=== PATIENT | female | born 1955 | race Caucasian/White ===

== ENCOUNTER → 2021-01-22 10:34 | Outpatient (CLI) | payer MEDICARE, BC, SELFPAY ==
--- NOTE | 2021-01-22 | IMM_PTH ---
PATIENT: MARGUERITE KELLY LOC: [facility] U#:[id number] AGE/SX: 69/F ROOM: RE01/22/[address]: Dr. Spencer Starks MD : 1955 BED: DIS: SPEC #: [id number] RECD: 01/23/21 12:40 STATUS: ZAIN RERogelio #: [id number] EREN: 01/22/21 00:[address]: Spencer Starks DEPT: IMMUNOHISTOCHEMISTRY RECD BY: Roro Kerr ENTERED: 01/23/21 12:42 SP TYPE: IMMUNO OTHR DR: No Primary Care Phys Tissues: Left breast, NOS Procedures: CALPONIN-1 (add) CK8 (add) E-CAD (add) HER2 BETTE (add) RI (add) P40 (add) ER (initial) PHYSICIAN & INSTITUTION [place] [address] SPECIMEN INFORMATION: Tissue Source: Left breast Clinical Info: Microcalcifications left UOQ Specimen Number: [id number] #2 & 3 CPT code: 80607, 73553 x5, 93781 x3 METHODOLOGY: Deparaffinized sections of prefer/formalin-fixed tissue or PAP/DQ stained slides are incubated with monoclonal/polyclonal antibodies/oligonucleotide probes. Localization is made via biotin free immunoperoxidase method. Appropriate controls are performed and reacted as expected. Results on target cell population are indicated in the following table: RESULTS: ANTIBODY / CLONE RESULT Block 2 P40 (BC28) positive Calponin-1 (YQ868B) positive Block 3 E-Cad (ECH-6) positive CK8 (14gmdvY25) positive Calponin-1 (WT988J) positive P40 (BC28) positive MORPHOMETRIC ANALYSIS ER (6F11) positive (>95%, strong) RI (1E2) positive (>95%, moderate) Her-2neu (CB11) negative (0) The prognostic test for HER2 is performed on formalin-fixed paraffin embedded tissue. A 3+ (positive) staining pattern is defined as intense, homogeneous, complete, circumferential membranous staining in >10% of contiguous tumor cells. A similar weak (2+) staining pattern is interpreted as equivocal. NILO follow-up testing is recommended for all equivocal cases. Positivity/negativity for ER/RI is reported if > or < 1% of the tumor cells are immuno- reactive, respectively. The ASCO/CAP criteria is used for scoring. Reference: Journal of Clinical Oncology, 2013; 31:7825-8623 & 2010; 16:9789-9860. Duration of fixation: 8 Hrs; Sample Adequate: Yes. These assays have not been validated on decalcified tissues. Results should be interpreted with caution given the likelihood of false negativity on decalcified specimens. These tests were developed and their performance characteristics determined by [facility]. They may not have been cleared or approved by the U.S. Food and Drug Administration. The FDA has determined that such clearance or approval is not necessary. The above immunohistochemical/dualISH markers are ordered and reviewed by the Pathologist. INTERPRETATION: Left breast, stereotactic needle core biopsy: Ductal carcinoma in situ, nuclear grade 1-2. SJ:ruby 01/24/2021 SJ:ruby 01/26/2021
--- NOTE | 2021-01-22 | IMM_PTH ---
PATIENT: MARGUERITE KELLY LOC: [facility] U#:[id number] AGE/SX: 69/F ROOM: RE01/22/[address]: Dr. Spencer Starks MD : 1955 BED: DIS: SPEC #: [id number] RECD: 01/23/21 12:40 STATUS: ZAIN RERogelio #: [id number] EREN: 01/22/21 00:[address]: Spencer Starks DEPT: IMMUNOHISTOCHEMISTRY RECD BY: Roro Kerr ENTERED: 01/23/21 12:42 SP TYPE: IMMUNO OTHR DR: No Primary Care Phys Tissues: Left breast, NOS Procedures: CALPONIN-1 (add) CK8 (add) E-CAD (add) HER2 BETTE (add) HI (add) P40 (add) ER (initial) PHYSICIAN & INSTITUTION [place] [address] SPECIMEN INFORMATION: Tissue Source: Left breast Clinical Info: Microcalcifications left UOQ Specimen Number: [id number] #2 & 3 CPT code: 48994, 59365 x8 METHODOLOGY: Deparaffinized sections of prefer/formalin-fixed tissue or PAP/DQ stained slides are incubated with monoclonal/polyclonal antibodies/oligonucleotide probes. Localization is made via biotin free immunoperoxidase method. Appropriate controls are performed and reacted as expected. Results on target cell population are indicated in the following table: RESULTS: ANTIBODY / CLONE RESULT Block 2 P40 (BC28) positive Calponin-1 (FV618L) positive Block 3 ER (6F11) positive (>95%, strong) HI (1E2) positive (>95%, moderate) Her-2neu (CB11) negative (0) E-Cad (ECH-6) positive CK8 (78pjncV40) positive Calponin-1 (ZA834I) positive P40 (BC28) positive These tests were developed and their performance characteristics determined by [facility]. They may not have been cleared or approved by the U.S. Food and Drug Administration. The FDA has determined that such clearance or approval is not necessary. The above immunohistochemical/dualISH markers are ordered and reviewed by the Pathologist. INTERPRETATION: Left breast, stereotactic needle core biopsy: Ductal carcinoma in situ, nuclear grade 1-2. SJ:ruby 01/24/2021
--- NOTE | 2021-01-22 10:49 | HP.PCM_ITS ---
History and Physical Date of Admission: 01/22/21 HISTORY AND PHYSICAL - BREAST COMPLAINT ? Emilie Kern 1955 ? ? REFERRING PHYSICIAN: Self, ? CHIEF COMPLAINT: Microcalcifications of the breast (primary encounter diagnosis) ? HPI: The patient is a 65 year old female with a complaint of an abnormal mammogram. The patient had a mammogram without ultrasound on 12/15/20 which demonstrated BI-RADS Category 4 microcalcifications located in the slightly lateral and superior left breast at a middle depth: ? ? The patient denies a history of breast masses. She does perform a self breast exam routinely. She notes no skin changes. She denies nipple discharge. She notes no axillary masses. She notes no family history of breast problems. She notes no significant breast trauma or breast difficulties in the past. ? ? ? PAST MEDICAL HISTORY PAST MEDICAL HISTORY Diagnosis Date ? Coronary atherosclerosis of unspecified type of vessel, [place] or graft ? ? Coronary artery disease, [place] x2, 1985, 1992 ? Dyslipidemia ? ? Hypertension ? ? Myocardial infarct, old 04/26/13 ? Unspecified hemorrhoids without mention of complication ? ? Hemorrhoids ? ? PAST SURGICAL HISTORY PAST SURGICAL HISTORY Procedure Laterality Date ? APPENDECTOMY ? ? ? LEFT HEART CATH ? 04/26/13, 05/11/2013 ? 100% mid occlusion of RPV1 ? PAST SURGICAL HISTORY OF ? ? ? 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 PERC TRANSL COR ANGIO ? 2003 ? Distal RCA - PTCA/No stent ? REMOVAL GALLBLADDER ? 1970 ? Cholecystectomy ? REMOVAL OF TONSILS,<12 Y/O ? ? ? Tonsillectomy ? ? ? CURRENT MEDICATIONS Current Outpatient Medications Medication Sig Dispense Refill ? BIOTIN ORAL Take by mouth. ? ? ? amLODIPine (NORVASC) 5 mg tablet Take 1 tablet by mouth once daily. 90 tablet 4 ? atorvastatin (LIPITOR) 80 mg tablet Take 1 tablet by mouth once daily. 90 tablet 4 ? clopidogrel (PLAVIX) 75 mg tablet Take 1 tablet by mouth once daily. 90 tablet 4 ? isosorbide mononitrate ER (IMDUR) 30 mg 24 hr tablet Take 1 tablet by mouth once daily. 90 tablet 4 ? lisinopril 2.5 mg tablet Take 1 tablet by mouth once daily. 90 tablet 4 ? metoprolol succinate ER (TOPROL XL) 100 mg Take 1 tablet by mouth once daily. 90 tablet 4 ? nitroglycerin sublingual (NITROQUICK) 0.4 mg SL tablet Dissolve 1 tablet under the tongue as needed. FOR CHEST PAIN. IF NO RELIEF CALL 911 25 tablet 3 ? ASPIRIN 81MG TABLET Take one (1) tablet daily . 0 0 ? No current facility-administered medications for this visit. ? ? ALLERGIES: Patient has no known allergies. ? PERSONAL HISTORY: SOCIAL HISTORY Social History ? Tobacco Use ? Smoking status: Former Smoker ? ? Packs/day: 1.00 ? ? Years: 10.00 ? ? Pack years: 10.00 ? ? Types: Cigarettes ? Smokeless tobacco: Never Used ? Tobacco comment: quit 1982 Vaping Use ? Vaping Use: Never used Substance Use Topics ? Alcohol use: Yes ? ? Alcohol/week: 7.0 standard drinks ? ? Types: 7 Glasses of Wine (5oz) per week ? ? Comment: Socially wine ? Drug use: No ? FAMILY HISTORY: FAMILY HISTORY FAMILY HISTORY Problem Relation Age of Onset ? Heart Mother ? ? Cancer Father ? ? Multiple myeloma and amyloidisis ? ? REVIEW OF SYMPTOMS: The review of systems data was entered by the nurse and reviewed by me ? Nursing Notes: Kellie Cleveland LPN 01/09/2021 5:24 PM Signed REVIEW OF SYSTEMS: General: The patient denies fatigue, denies weight loss, denies weight gain, denies feeling hot, and denies feelings of cold. Eyes: The patient denies glaucoma, denies eye injury/surgery, does not wear glasses or contacts. Ear/Nose/Throat: The patient denies allergies, denies hayfever, denies ear infections, and denies bloody noses. Cardiovascular: The patient denies chest pain, NOTES heart disease, denies high blood pressure,denies cardiac stent, NOTES prior heart attack, denies irregular heart beat, denies high cholesterol, denies poor circulation, denies heart failure, other cardiac issues, denies claudication, denies cold feet, denies peripheral arterial stent. Respiratory: The patient denies tuberculosis, denies pneumonia, denies frequent cough, denies pulmonary embolism, denies shortness of breath, and denies coughing up blood. Gastrointestinal: The patient denies difficulty swallowing, NOTES acid reflux, denies ulcers, denies vomiting, denies jaundice/hepatitis, denies gallbladder problems, denies black or tarry stools, denies hemorrhoids, denies bleeding from rectum, denies diverticulitis, denies constipation, denies diarrhea, denies loss of stool control, and denies hernias. Kidney/Bladder: The patient denies kidney stones, denies urine infections, and denies bloody urine. Skin: The patient denies a history of skin cancer, denies bleeding/changin g moles, and denies a history of skin rash. Neurologic: The patient denies a history of epilepsy/convulsions, denies headaches, denies head/spinal injuries, and denies stroke/TIA. Psychiatric: The patient denies psychiatric medications, denies depression, and denies voices, denies substance abuse. Endocrine: The patient denies thyroid disorders, denies diabetes, and denies hormonal problems. Hematologic: The patient denies a history of bruising, denies bleeding, and denies anemia, denies blood clots. Infections: The patient denies a history of measles and mumps, denies rheumatic fever, and denies sexually transmitted diseases. Musculoskeletal: The patient denies back pain/injury, denies back problems, denies sciatica, denies knee/foot trouble, denies arthritis, or denies gout. ? ? When was patient's last Mammogram screening? 12/2020 ? Last Colonoscopy: 2010 ? Kellie Cleveland LPN ? PHYSICAL EXAMINATION: ? General: The patient is 65 year old female, well nourished, well hydrated in no acute distress. The patient is oriented to time, place, and person. ? VITALS: Pulse 77, temperature 36.8 ?C (98.3 ?F), weight 83.6 kg (184 lb 6.4 oz), SpO2 98 %. Body mass index is 28.88 kg/m?. ? HEENT: Normal cephalic, ataumatic, pupils are equally round, sclera are anicteric, mucous membranes are moist, oropharynx is clear. Neck has no masses, asymmetry or lymphadenopathy. Thyroid is unremarkable. ? Respiratory: Clear to auscultation and percussion. Normal respiratory excursion and pattern. ? Cardiac: Examination is regular rate and rhythm. ? Abdominal exam: Soft, nontender, with no palpable masses. No hepatosplenomegaly. No palpable hernias. ? Rectal exam: exam deferred Extremities: no clubbing, cyanosis or edema. No adenopathy. ? Breast: Visual inspection reveals no retractions, nipple inversion, or skin changes. Palpation of the right breast reveals no dominant or suspicious masses. Palpation of the left breast reveals no dominant or suspicious masses. Axillary exam demonstrates no suspicious masses in either the left or right axilla. There is no nipple discharge expressed from either the left or right breast. ? LABORATORY VALUES: As Noted ? RADIOLOGIC STUDIES: As Noted ? Assessment IMPRESSION: Microcalcifications of the breast (primary encounter diagnosis) ? PLAN: I plan to perform a stereotactic biopsy of the left breast. The planned surgical procedure was discussed extensively with the patient. The risks, benefits, anticipated outcomes and possible complications were mentioned. My staff has also explained the procedure in understandable terms and the patient was given the option to take printed material concerning the planned procedure. The patient had the opportunity to ask questions concerning the planned procedure. The patient freely consents to the planned procedure. ? ? Diagnoses: (R92.0) Microcalcifications of the breast (primary encounter diagnosis) ? ? ? Return to Clinic: The patient is instructed to follow-up with me 1 week post operatively. ? COVID (Procedure Consent) Procedure Criteria ? Procedure Criteria: Yes Elective The surgeon/proceduralist and patient have discussed in detail the risk of exposure to and/or potential harm posed by the COVID-19 virus with having a surgery/procedure at this time versus the risk of? delaying the surgery/procedure. It is not possible to know either the risk of delaying the surgery or procedure or chance of getting an infection with perfect accuracy, but a joint decision was made between the patient and the surgeon/proceduralist ?to proceed at this time with the scheduled surgery/procedure as indicated on the consent form. ? ? Spencer Starks III, MD I have re-examined the patient. There are no clinical changes since date of exam.
--- NOTE | 2021-01-22 11:35 | BRBX_PTH ---
PATIENT: MARGUERITE KELLY LOC: [facility] U#:[id number] AGE/SX: 69/F ROOM: RE01/22/[address]: Dr. Spencer Starks MD : 1955 BED: DIS: SPEC #: [id number] RECD: 01/22/21 12:09 STATUS: ZAIN AIDE #: [id number] EREN: 01/22/21 11:[address]: Spencer Starks DEPT: SURGICAL PATHOLOGY RECD BY: Ayla Abreu ENTERED: 01/22/21 12:58 SP TYPE: BREAST BX OTHR DR: No Primary Care Phys Tissues: Breast, NOS Procedures: Surgery Specimen Level IV HEADER OPERATION: Left breast stereotactic needle core biopsy PRE-OP DIAGNOSIS: Microcalcifications left UOQ TISSUE SUBMITTED: Left breast ISCHEMIC TIME: 2 minutes FIXATION TIME: 8 hours MICROSCOPIC DIAGNOSIS Left breast, stereotactic needle core biopsy: Ductal carcinoma in situ with the following characteristics: Nuclear Grade ? 1-2/3 Architectural pattern - cribriform Necrosis ? present, central (expansive comedo necrosis). Calcifications - present See comment. ILEANA:ruby 01/23/2021 COMMENT Intraductal hyperplasia with focal atypia are noted in the area of ductal carcinoma in situ. Immunohistochemistry ([id number]) supports the above diagnosis. ER/NC/Zeq4qwx studies are being performed on sections of tumor and the results from this study will be reported separately ([id number]). Case has been reviewed in consultation with Dr. Verduzco who concurs with the above diagnosis. IDC:AM MICROSCOPIC DESCRIPTION Slides are reviewed. GROSS DESCRIPTION Received in fixative is one container labeled with the patient name and designated left breast. The specimen consists of multiple elongated fragments of oconnell-yellow fibroadipose tissue that in aggregate measure 5 x 3 x 0.6 cm. The entire specimen is submitted in four cassettes. / ILEANA:ruby 01/22/21 TC:0 CPT: 06993
--- NOTE | 2021-01-22 17:15 | OP.PCM_ITS ---
Problems Associated Problem List Diagnoses (1) Microcalcification of breast: Report of Operation Date of Procedure: 01/22/21 Pre-Operative Diagnosis: Microcalcifications left breast Post-Operative Diagnosis: Same Surgery/Procedure Performed:: Left stereotactic breast biopsy Surgeon: Spencer Starks supervisor landscape: None Type of Anesthesia: Local Specimen's removed: Left breast biopsy Description of Procedure: Patient was brought into the mammography unit placed in the supine position on the fracture table the left breast was brought down through the opening. Cc view was obtained. Microcalcifications were identified. ?15 degree views were obtained. I targeted on the microcalcifica tions. I prepped the breast with Betadine. I injected 1% lidocaine plain. Skin adriel was made. I injected local down to the lesion. Placed a needle in the prefire position took 2 more stereo view showing the area to be adequately targeted. Far the needle took 360 degrees circumferential biopsies x-ray my specimen and microcalcifications were present. Back the needle off 7 mm placed a small Gelfoam titanium clip remove the needle x-ray of the breast the clip was in good placement. Steri-Strips were applied sterile dressings were applied and the patient tolerated the procedure well. Admit VTE Documentation VTE Present on Admission: No VTE Mechan Device Prophylaxis: None Reason prophylaxis not ordered:: Treatment Not Indicated
== END ==
PROVIDERS: Referring Provider Surgery; Visit Provider Surgery
DX: D05.12 Intraductal carcinoma in situ of left breast (principal); I10 Essential (primary) hypertension; I25.10 Atherosclerotic heart disease of native coronary artery without angina pectoris; I25.2 Old myocardial infarction; E78.5 Hyperlipidemia, unspecified; Z79.82 Long term (current) use of aspirin; Z79.899 Other long term (current) drug therapy; Z87.891 Personal history of nicotine dependence
CPT/HCPCS: 19081; 88305; 88341; 88342; J7050; A4648

== ENCOUNTER 2021-02-08 11:56 | Day surgery (SDC) | payer MEDICARE, BC, SELFPAY ==
--- NOTE | 2021-02-08 | BRBX_PTH ---
PATIENT: MARGUERITE KELLY LOC: [facility] [place] U#:[id number] AGE/SX: 65/F ROOM: RE02/08/[address]: Dr. Spencer Starks MD : 1955 BED: DIS: 02/08/2021 SPEC #: [id number] RECD: 02/08/21 14:31 STATUS: ZAIN RERogelio #: [id number] EREN: 02/08/21 00:[address]: Spencer Starks DEPT: SURGICAL PATHOLOGY RECD BY: Roro Kerr ENTERED: 02/08/21 15:08 SP TYPE: BREAST BX OTHR DR: No Primary Care Phys Tissues: Left breast, NOS Procedures: Surgery Specimen Level V HEADER OPERATION: Left breast lumpectomy PRE-OP DIAGNOSIS: DCIS TISSUE SUBMITTED: Left breast, single long - superior, double long - lateral, double short - inferior MICROSCOPIC DIAGNOSIS Left breast, lumpectomy with needle localization: Negative for residual ductal carcinoma in situ. Changes consistent with previous biopsy site. Focal intraductal hyperplasia without atypia. Skin, dermal fibrosis consistent with scar. See cancer summary (including previous biopsy specimen) in the comment section. SJ:rg 02/13/2021 COMMENT DUCTAL CARCINOMA IN SITU SUMMARY: Procedure ? lumpectomy with needle localization & stereotactic needle core biopsy Specimen laterality ? left Tumor site ? microcalcification at upper outer quadrant as per clinical information. Size (extent of DCIS) (in the biopsy specimen [id number]) Estimated size (extent) ? 0.9 cm in greatest dimension (measured microscopically) Number of blocks with DCIS - 2 Number of blocks examined ? 16 (lumpectomy and biopsy specimens) Histologic type ? ductal carcinoma in situ Architectural pattern - cribriform Nuclear grade ? 1-2/3 Necrosis ? present, central (expansive ?comedo? necrosis) Margins ? Margins uninvolved by DCIS (no residual carcinoma is noted in the lumpectomy specimen). - Biopsy cavity is 0.7 cm away from the closest inferior margin. Regional lymph nodes ? no lymph nodes submitted or found. Distant metastasis ? not applicable Additional Pathologic Findings ? changes consistent with previous biopsy site. - Focal intraductal hyperplasia without atypia. - Skin, dermal fibrosis consistent with scar. Microcalcifications - present in DCIS (in biopsy specimen [id number]). Clinical history ? microcalcifications as per clinical information. Ancillary Studies from previous specimen ([id number] / [id number]): ER ? positive (>95%, strong intensity) MS ? positive (>95%, moderate intensity) Her2 lizbeth ([facility]) ? negative (0) Clinical history - Please make reference to previous specimen ([id number]) left breast, stereotactic needle core biopsy with diagnosis of ductal carcinoma in situ. Pathologic Staging: pT(DCIS) (including biopsy [id number]) pNx Mx The above summary is in compliance with [employer] (CAP) Cancer Protocols Checklist and [place] Joint Committee on Cancer (AJCC), Staging Manual, 8th Ed. Case has been reviewed in consultation with Dr. Verduzco who concurs with the above diagnosis. IDC:AM MICROSCOPIC DESCRIPTION Slides are reviewed. GROSS DESCRIPTION Received fresh for intraoperative consultation labeled with the patient's name is a specimen designated left breast. The specimen consists of a piece of fibroadipose tissue with needle localization measuring 8 x 7 x 3.5 cm. A piece of skin is noted medially measuring 1 x 0.5 cm. The specimen is oriented as follows: single long - superior, double long - lateral and double short - inferior. The specimen is inked as follows: anterior - yellow, posterior - black, superior - blue, inferior - green, medial - red and lateral - orange. Serial sections reveal a biopsy cavity measuring 2.5 x 1.5 x 1 cm. The biopsy cavity is 0.7 cm from the closest inferior margin. The specimen gross is reviewed along with surgeon in person. Sections of the rest of the specimen reveal oconnell-yellow adipose cut surfaces mixed with oconnell-white fibrous areas. [employer] sections are submitted in 12 cassettes as follows: 1??skin, entirely submitted, perpendicular anterior and posterior margins, 2 - perpendicular medial, lateral and superior margins, 36??biopsy cavity with surrounding area (cassettes 3 & 4 also contain closest inferior margin), 7 & 8 - personal financial representative sections adjacent to the biopsy cavity, 9-12 - personal financial representative sections away from the biopsy cavity, biopsy cavity is entirely submitted. Sections are submitted after additional fixation. / SJ:ruby 02/09/21 TC:5 CPT: 52716, 94039
--- NOTE | 2021-02-08 12:13 | BI_ITS ---
SURGICAL BREAST SPECIMEN RADIOGRAPH CLINICAL: Document presence of tissue clip marker in biopsy specimen. FINDINGS: Specimen shows presence of tissue clip marker. Electronically Signed: Davie Saldaña MD at 14:57 EDT , Service support , BI/Breast Biopsy Specimen
[2021-02-08] MEDS: Lactated Ringers 1,000 ML 100 ML IV (12:15)
[2021-02-08 12:42] VITALS: BP 140/60; PULSE 53; RESP 16; TEMP 36.7; O2SAT 98; BMI 27.3
--- NOTE | 2021-02-08 13:36 | PCM.HP.BLA ---
History and Physical Date of Admission: 02/08/21 HISTORY AND PHYSICAL - BREAST COMPLAINT ? Emilie Kern 1955 ? ? ? CHIEF COMPLAINT:???Ductal carcinoma in situ (dcis) of left breast (primary encounter diagnosis) ? HPI: The patient is a 65 year old female with a complaint of?an abnormal mammogram. ?The patient had a mammogram without?ultrasound on 12/15/20?which demonstrated BI-RADS Category 4 microcalcifications located in the slightly lateral and superior left breast at a middle depth: ? Patient underwent a stereotactic breast biopsy on 01/22/2021. Pathology report came back as ductal carcinoma in situ nuclear grade 1?2 it was strongly ER positive and NM positive and it was HER-2/lizbeth negative. ? Given the low nuclear grade and HER-2/lizbeth negative I think all the patient needs is to have a lumpectomy. ? ? PAST MEDICAL HISTORY ? ? ? PAST MEDICAL HISTORY Diagnosis Date ? Coronary atherosclerosis of unspecified type of vessel, [place] or graft ? ? Coronary artery disease, [place] x2, 1985, 1992 ? Dyslipidemia ? ? Hypertension ? ? Myocardial infarct, old 04/26/13 ? Unspecified hemorrhoids without mention of complication ? ? Hemorrhoids ? PAST SURGICAL HISTORY ? PAST SURGICAL HISTORY Procedure Laterality Date ? APPENDECTOMY ? ? ? LEFT HEART CATH ? 04/26/13, 05/11/2013 ? 100% mid occlusion of RPV1 ? PAST SURGICAL HISTORY OF ? ? ? abnormal kidney removed age 6 done at [facility], still has 2 1/2 kidneys ? PERC TRANSL COR ANGIO ? 2003 ? Distal RCA - PTCA/No stent ? REMOVAL GALLBLADDER ? 1970 ? Cholecystectomy ? REMOVAL OF TONSILS,<12 Y/O ? ? ? Tonsillectomy ? ? ? CURRENT MEDICATIONS Current Outpatient Medications Medication Sig Dispense Refill ? BIOTIN ORAL Take by mouth. ? ? ? amLODIPine (NORVASC) 5 mg tablet Take 1 tablet by mouth once daily. 90 tablet 4 ? atorvastatin (LIPITOR) 80 mg tablet Take 1 tablet by mouth once daily. 90 tablet 4 ? clopidogrel (PLAVIX) 75 mg tablet Take 1 tablet by mouth once daily. 90 tablet 4 ? isosorbide mononitrate ER (IMDUR) 30 mg 24 hr tablet Take 1 tablet by mouth once daily. 90 tablet 4 ? lisinopril 2.5 mg tablet Take 1 tablet by mouth once daily. 90 tablet 4 ? metoprolol succinate ER (TOPROL XL) 100 mg Take 1 tablet by mouth once daily. 90 tablet 4 ? nitroglycerin sublingual (NITROQUICK) 0.4 mg SL tablet Dissolve 1 tablet under the tongue as needed. FOR CHEST PAIN. IF NO RELIEF CALL 911 25 tablet 3 ? ASPIRIN 81MG TABLET Take one (1) tablet daily . 0 0 ? No current facility-administered medications for this visit. ? ? ALLERGIES:?Patient has no known allergies. ? PERSONAL HISTORY:? SOCIAL HISTORY Social History ? Tobacco Use ? Smoking status: Former Smoker ? ? Packs/day: 1.00 ? ? Years: 10.00 ? ? Pack years: 10.00 ? ? Types: Cigarettes ? Smokeless tobacco: Never Used ? Tobacco comment: quit 1982 Vaping Use ? Vaping Use: Never used Substance Use Topics ? Alcohol use: Yes ? ? Alcohol/week: 7.0 standard drinks ? ? Types: 7 Glasses of Wine (5oz) per week ? ? Comment: Socially wine ? Drug use: No ?? ? FAMILY HISTORY:? FAMILY HISTORY ? FAMILY HISTORY Problem Relation Age of Onset ? Heart Mother ? ? Cancer Father ?Multiple myeloma and amyloidisis ? ? REVIEW OF SYSTEMS: ?General:???The patient denies fatigue, denies weight loss, denies weight gain, denies feeling hot, and denies feelings of cold. ?Eyes: ?The patient denies glaucoma, denies eye injury/surgery, does not wear glasses or contacts. ?Ear/Nose/Throat: ?The patient denies allergies, denies hayfever, denies ear infections, and denies bloody noses. ?Cardiovascular: ?The patient denies chest pain, NOTES heart disease, denies high blood pressure,denies cardiac stent, NOTES prior heart attack, denies irregular heart beat, denies high cholesterol, ?denies poor circulation, denies heart failure, other cardiac issues, denies claudication, denies cold feet, denies peripheral arterial stent. ?Respiratory: ?The patient denies tuberculosis, denies pneumonia, denies frequent cough, denies pulmonary embolism, denies shortness of breath, and denies coughing up blood. ?Gastrointestinal: ?The patient denies difficulty swallowing, NOTES acid reflux, denies ulcers, denies vomiting, denies jaundice/hepatitis, denies gallbladder problems, denies black or tarry stools, denies hemorrhoids, denies bleeding from rectum, denies diverticulitis, denies constipation, denies diarrhea, denies loss of stool control, and denies hernias. ?Kidney/Bladder: ?The patient denies kidney stones, denies urine infections, and denies bloody urine. ?Skin: ?The patient denies a history of skin cancer, denies bleeding/changing moles, and denies a history of skin rash. ?Neurologic: ?The patient denies a history of epilepsy/convulsions, denies headaches, denies head/spinal injuries, and denies stroke/TIA. ?Psychiatric: ?The patient denies psychiatric medications, denies depression, and denies voices, denies substance abuse. ?Endocrine: ?The patient denies thyroid disorders, denies diabetes, and denies hormonal problems. ?Hematologic: ?The patient denies a history of bruising, denies bleeding, and denies anemia, denies blood clots. ?Infections: ?The patient denies a history of measles and mumps, denies rheumatic fever, and denies sexually transmitted diseases. ?Musculoskeletal: ?The patient denies back pain/injury, denies back problems, denies sciatica, denies knee/foot trouble, denies arthritis, or denies gout. ? ? When was patient's last Mammogram screening? 12/2020 ? ?Last Colonoscopy: ?2010 ? ? PHYSICAL EXAMINATION: ? General: ?The patient is 65 year old female, well nourished, well hydrated in no acute distress. ?The patient is oriented to time, place, and person. ? VITALS:?Pulse 77, temperature 36.8 ?C (98.3 ?F), weight 83.6 kg (184 lb 6.4 oz), SpO2 98 %.?Body mass index is 28.88 kg/m?.? ? HEENT: ?Normal cephalic, ataumatic, pupils are equally round, sclera are anicteric, mucous membranes are moist, oropharynx is clear. ?Neck has no masses, asymmetry or lymphadenopathy. ?Thyroid is unremarkable. ? Respiratory: ?Clear to auscultation and percussion. ?Normal respiratory excursion and pattern. ? Cardiac: ?Examination is regular rate and rhythm. ? Abdominal exam: ?Soft, nontender, ?with no palpable masses. ?No hepatosplenomegaly. ?No palpable hernias. ? Rectal exam: ?exam deferred Extremities: ?no clubbing, cyanosis or edema. ?No adenopathy. ? Breast: ?Visual inspection reveals no retractions, nipple inversion, or skin changes. ?Palpation of the right breast reveals no dominant or suspicious masses. ?Palpation of the left breast reveals no dominant or suspicious masses. ?Axillary exam demonstrates no suspicious masses in either the left or right axilla. ?There is no nipple discharge expressed from either the left or right breast. ? ? ? Assessment ? IMPRESSION:Ductal carcinoma in situ (dcis) of left breast (primary encounter diagnosis) ? PLAN:??I plan to perform a? left breast wire localization lumpectomy.?The planned surgical procedure was discussed extensively with the patient. ?The risks, benefits, anticipated outcomes and possible complications were mentioned. ?My staff has also explained the procedure in understandable terms and the patient was given the option to take printed material concerning the planned procedure. ?The patient had the opportunity to ask questions concerning the planned procedure. ?The patient freely consents to the planned procedure. ? Diagnoses:?(R92.0) Microcalcifications of the breast ?(primary encounter diagnosis) ? Return to Clinic: The patient is instructed to follow-up with me?1 week post operatively. ? COVID (Procedure Consent) Procedure Criteria ? Procedure Criteria: Yes Elective ?The surgeon/proceduralist and patient have discussed in detail the risk of exposure to and/or potential harm posed by the COVID-19 virus with having a surgery/procedure at this time versus the risk of??delaying the surgery/procedure. It is not possible to know either the risk of delaying the surgery or procedure or chance of getting an infection with perfect accuracy, but a joint decision was made between the patient and the surgeon/proceduralist ?to proceed at this time with the scheduled surgery/procedure as indicated on the consent form. ? ? Spencer Starks III, MD I have re-examined the patient. There are no clinical changes since date of exam. Assessment & Plan Assessment/Plan (1) DCIS (ductal carcinoma in situ):
--- NOTE | 2021-02-08 13:38 | PCM.OPRPT ---
Problems Associated Problem List Diagnoses (1) DCIS (ductal carcinoma in situ): Report of Operation Date of Procedure: 02/08/21 Pre-Operative Diagnosis: Ductal carcinoma in situ left breast Post-Operative Diagnosis: Same Surgery/Procedure Performed:: Stereotactic wire localization left breast lumpectomy Surgeon: Spencer Starks supervisor carton and can supply: Eduardo Cuenca Type of Anesthesia: General Anesthesiologist: [place] Her Specimen's removed: Left breast lumpectomy Drains: None Estimated Blood Loss (mL): < 25 cc Description of Procedure: Patient was brought into the stereotactic unit. Placed in the supine position on the fracture table the left breast was brought down the cc view was obtained ?15 degree views were obtained I targeted on the clip that was left in place. I prepped the breast with Betadine. I injected 1% lidocaine plain. I placed a needle at the targeted view 2 more stereo views were obtained showing the needle to be in the appropriate place. Patient was brought out of machine sterile dressings applied and she was brought to the operating room. Under excellent general anesthetic left breast was sterilely prepped and draped in usual fashion. Elliptical incision was made around the previous biopsy site. I lengthened in both the lateral and medial fashion electrocautery was used to dissect a core around the wire localization. I brought this completely out I marked it with a single long superior double long lateral double short inferior and the wire and skin came out anteriorly. This went to pathology for margins and I did have margins all the way around to my specimen. The wound was then irrigated electrocautery was used for getting the stasis I brought it together deep layer with 0 Vicryl subcu with 2-0 Vicryl deep dermals of 3-0 Vicryl in a running 4-0 Monocryl Steri-Strips were applied sterile dressings were applied and the patient tolerated the procedure well. Admit VTE Documentation VTE Present on Admission: No VTE Mechan Device Prophylaxis: SCD's VTE Pharm Prophylaxis ordered?: No Reason prophylaxis not ordered:: Treatment Not Indicated
--- NOTE | 2021-02-08 13:40 | EX.PCM.DISCH ---
Discharge Instructions Procedure General Surgery Diet Discharge Diet: Light diet - advance as tolerated (If you have questions about your diet instructions, please talk to your doctor.) Activity Discharge Activity: May Not Drive (for 1 week or while taking narcotic pain medicine.) May shower in (days): 1 Lifting Restrictions: 10 pounds Dressing / Incision Call your doctor if your incision/area has: Continuous Slow Oozing, Sudden Increased Bleeding, Increased Pain/ Swelling, Increased Redness and Foul Smelling Discharge Call your doctor if you observe: Fever of 101 or Higher Suture Line Care: Avoid Pulling/Pushing and Avoid Pinching/Bending Additional Dressing/Incision Instructions:: Change or remove dressing in 4 days. Leave steri-strips in place for 1 week. Follow Up Care Please Follow Up With: Yari Michelle PA-C When: Call office to schedule an appointment to be seen in about 10 days. Test Results: Test results from this visit will be discussed in further detail at your follow-up appointment, if applicable. Discharge Plan Admission Attending Provider: Spencer Starks Primary Care Provider: Care Physician,Dayana Primary Discharge Orders/Prescriptions Prescriptions: New oxycodone-acetaminophen [Endocet] 5-325 mg tablet 1 tab PO Q6H PRN (Reason: pain) 5 Days Qty: 20 RF: 0 Continued atorvastatin 80 mg tablet 80 mg PO DAILY RF: 0 metoprolol tartrate 100 mg Tablet 100 mg PO DAILY RF: 0 isosorbide mononitrate 30 mg Tablet Extended Release 24 Hr 30 mg PO DAILY RF: 0 amlodipine 5 mg tablet 5 mg PO DAILY RF: 0 lisinopril 2.5 mg tablet 2.5 mg PO QHS RF: 0 biotin 1 mg Capsule 1 mg PO DAILY RF: 0 famotidine [Pepcid] 20 mg Tablet 20 mg PO PRN PRN (Reason: gerd) RF: 0 Held clopidogrel [Plavix] 75 mg Tablet 75 mg PO DAILY RF: 0 Hold Instructions: Resume on 02/13/21. aspirin 81 mg Tablet,Delayed Release (Dr/Ec) 81 mg PO DAILY RF: 0 Hold Instructions: Resume on 02/13/21. Referrals / Follow Up: Care Physician,No Primary [Primary Care Provider] -
[2021-02-08] MEDS: Cefazolin 2 GM in 0.9% Normal Saline 100 ML IV (13:57)
[2021-02-08] MEDS: Bupivacaine Mpf 0.5% 30 ML VIAL (14:11)
[2021-02-08 14:54] VITALS: BP 104/63; BP 140/60; PULSE 55; RESP 16; TEMP 35.8; O2SAT 96
[2021-02-08 15:00] VITALS: BP 113/65; BP 140/60; PULSE 55; RESP 16; O2SAT 97
[2021-02-08 15:15] VITALS: BP 117/52; BP 140/60; PULSE 53; RESP 16; TEMP 35.8; O2SAT 95
[2021-02-08] MEDS: oxyCODONE 5 MG Tablet PO (16:14)
[2021-02-08 16:57] VITALS: BP 115/64; BP 140/60; PULSE 56; RESP 16; TEMP 36; O2SAT 98
== END 2021-02-08 16:55 ==
LOC: SDC 12:03 → AC 12:03
PROVIDERS: Referring Provider Surgery; Visit Provider Surgery
PROC: (CPT 19301; principal; 2021-02-08 13:45)
DX: D05.12 Intraductal carcinoma in situ of left breast (principal); I10 Essential (primary) hypertension; I25.10 Atherosclerotic heart disease of native coronary artery without angina pectoris; I25.2 Old myocardial infarction; E78.5 Hyperlipidemia, unspecified; K21.9 Gastro-esophageal reflux disease without esophagitis; G25.81 Restless legs syndrome; G43.909 Migraine, unspecified, not intractable, without status migrainosus; Z87.19 Personal history of other diseases of the digestive system; Z79.02 Long term (current) use of antithrombotics/antiplatelets; Z79.82 Long term (current) use of aspirin; Z79.899 Other long term (current) drug therapy; Z87.891 Personal history of nicotine dependence
CPT/HCPCS: 19301; 19281; 76098; 88305; 88307; J7120; J2405; Q9968

== ENCOUNTER 2025-04-29 06:57 | Day surgery (SDC) | payer MEDICARE, BC, SELFPAY ==
--- NOTE | 2025-03-31 15:47 | HP.PCM_ITS ---
History and Physical Date of Admission: 04/29/25 HPI: The patient is a 69 year old female presenting for pre-operative visit. She is scheduled for Hysteroscopy D&C, possible polyp resection for PMB, thickened endometrium on 04/29/25. Procedure discussed along with risks, benefits and complications. Other alternatives discussed for management. Consent form signed? Yes. ? ? PAST MEDICAL HISTORY PAST MEDICAL HISTORYDiagnosisDate?Age-related osteoporosis without current pathological /10/2023?CAD (coronary artery disease), [place] coronary qtvjdo7304/26/2013?-hx of inferior STEMI's x 2 (1994, 2003). LHC in 1994 revealed normal coronaries and LHC in 2003 showed occlusion of small branch of RCA but otherwise normal coronaries. -Admitted to [facility] on 04/26/13 after p/w CP and anterolateral STEMI. Subsequent LHC revealed distal small branch of RCA w 100% blockage. She had unsuccessful PTCA to small branch of RCA d/t tortuous vessels. -Given that the rest?Coronary artery kmjptpbjes36/11/2013?Coronary atherosclerosis of unspecified type of vessel, [place] or graft??Coronary artery disease, [place] x2, 1985, 1992, 2001?Ductal carcinoma in situ (DCIS) of left laeizj3802/26/2021?Dyslipidemia??Enthesopathy of unspecified site12/07/2008?Female stress incontinence??Fibromuscular hyperplasia of bgerjd4804/28/2013?Confirmed by carotid duplex April 28, 2013 ? ?HLD (hyperlipidemia)04/26/2013?Hypertension??ZFMZPATM69/28/2008?Myocardial infarct, old04/26/2013?NSVT (nonsustained ventricular tachycardia) ([facility])04/27/2013? History: One rhythm strip from OSH showing wide complex tachycardia, up to 9 beats This in the setting of active ST elevation. Assessment: NSVT in the setting of active ischemia Plan: 1. Replace K and mag aggressively 2. Monitor closely. ?Pain in limb12/10/2007?Plantar fascial fibromatosi s012/24/2007?HLTLYYN8704/26/2013?57F w PMHx HTN, HLP, s/p remote hx of nephrectomy for congenital kidney anomaly, Ex-smoker (quit 1981, 1ppd x 10 yr), and hx of multiple STEMI x 3 (1995, 2003, 2012 - last admitted ~2 wks ago 04/26/2013) and has had only minimal CAD on caths that were done previously, most recent cath w distral RCA branch 100% occlusion. Last admission 04/26/2013: p/w anterolateral STEMI, s/p unsuccessful PTCA to d?[place] cardiomyopathy / Coronary ivehaftgh59/21/2013?Underwent a LHC on arrival 04/26/13 which showed severe disease in the distal branch of RCA that was ballooned previously. POBA was attempted but unsuccessful due to small caliber and tortuous nature. Echo 04/28: apical ballooning Assessment: likely [place] MP secondary to transient coronary vessel stenosis, wo conorany vessel obstruction on C Plan: LHC 05/06/[address] Tolbert echo?Unspecified hemorrhoids without mention of complication??Hemorrhoids ? ? 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 Distal RCA - PTCA/No stent?TONSILLECTOMY PRIMARY/SECONDARY <AGE 11??? Tonsillectomy ? ? ? CURRENT MEDICATIONS Current Outpatient MedicationsMedicationSigDispenseRefill?amLODIPine (NORVASC) 5 mg tabletTake 1 tablet by mouth once daily.90 tablet3?atorvastatin (LIPITOR) 80 mg tabletTake 1 tablet by mouth once daily.90 tablet3?clopidogrel (PLAVIX) 75 mg tabletTake 1 tablet by mouth once daily.90 tablet3?isosorbide mononitrate ER (IMDUR) 30 mg 24 hr tabletTake 1 tablet by mouth once daily.90 tablet3?metoprolol succinate ER (TOPROL XL) 100 mgTake 1 tablet by mouth once daily.90 tablet3?nitroglycerin sublingual (NITROQUICK) 0.4 mg SL tabletDissolve 1 tablet under the tongue as needed. FOR CHEST PAIN. IF NO RELIEF CALL [id number] tablet3?alendronate (FOSAMAX) 70 mg tabletTake 1 tablet by mouth one time a week. Take with a full glass of water, on an empty stomach; do NOT lie down for 30minutes.12 tablet3?BIOTIN ORALTake 1 tablet by mouth once daily. ?ASPIRIN 81MG TABLETTake one (1) tablet daily .00?No current facility-administered medications for this visit. ? ? ALLERGIES: Patient has no known allergies. ? PERSONAL HISTORY: SOCIAL HISTORY Social History?Tobacco Use?Smoking status:Former??Current packs/day:0.00??Average packs/day:1 pack/day for 10.0 years (10.0 ttl pk- yrs)??Types:Cigarettes??Start date:1971??Quit date:1981??Years since quittin.5?Smokeless tobacco:NeverVaping Use?Vaping status:Never Used Substance Use Topics?Alcohol use:Not Currently??Comment: Socially wine?Drug use:No ? FAMILY HISTORY: FAMILY HISTORY FAMILY HISTORY ProblemRelationAge of Onset?HeartMother??CancerFather?? Multiple myeloma and amyloidisis?Breast CancerSister??HeartMaternal Grandmother? ? ? REVIEW OF SYMPTOMS: GENERAL: denies fevers or chills ENDOCRINOLOGY: has not been on steroids Cardiology : denies palpitations or chest pain Respiratory: denies SOB or cough Hematology: denies history of prolonged bleeding or easy bruising or VTE Allergy: Denies history of personal or family history of allergy to anesthesia ? PHYSICAL EXAMINATION: ? VITALS: Blood pressure 126/78. ? GENERAL: The patient is well nourished, well hydrated in no acute distress. , The patient is oriented to time, place, and person. NECK: Supple. No lynphadenopathy, normal thyroid, no thyromegaly. LUNGS: Clear to auscultation bilaterally. no wheezes, rhonchi or rales HEART: Regular rate and rhythm, Normal heart sounds, and No murmurs or gallops ? US 11/19/2024 : Impression 1. Axial/retroverted uterus that measures 69 mm x 38 mm x 41 mm. 2. The central endometrial complex measures 15.8 mm in combined thickness, appears ?heterogenous with cystic areas. Endometrial pathology cannot be excluded. 3. Both ovaries are visualized and appear normal. 4. No adnexal masses were observed. 5. There is no free fluid visualized in the peritoneal cavity. ? ? IMPRESSION: PMB, thickened endoemtrium, h/o breast ca and tamoxifen use ? PLAN: The risks/benefits/alternatives and personal involved for the planned hysteroscopy D&C with possible polyp resection were reviewed with the patient. Her questions were answered to her satisfaction and she desires to proceed. Consent was signed. I reviewed with her postop instructions and expectations. ? ? I have reviewed and updated past medical and surgical history, medications and allergies Assessment & Plan Assessment/Plan (1) PMB (postmenopausal bleeding): (2) Endometrial thickening on ultrasound: (3) History of tamoxifen therapy: (4) DCIS (ductal carcinoma in situ):
[2025-04-12 10:59] LABS: Hematocrit 40.9 % (37-47); Hemoglobin 13.1 g/dL (12.0-15.0); Mean Corp Hgb Conc 32.0 g/dL (32-36); Mean Corpuscular Volume 96.9 fL (81-99); Mean Platelet Vol. 12.4 fl (6.2-12.0); Platelet Count 196 K/mm3 (150-450); RBC Distribution Width CV 14.1 % (11.6-14.6); RBC Distribution Width SD 50.3 fl (35.1-43.9); Red Blood Count 4.22 M/mm3 (4.2-5.4); White Blood Count 6.3 K/mm3 (4.4-11.0)
[2025-04-12 11:37] LABS: Anion Gap 11 (5-15); BUN 19 mg/dL (4-19); BUN/Creat Ratio 20.2 RATIO (10-20); Calcium,Total 9.0 mg/dL (7.6-11.0); Carbon Dioxide 24.4 mmol/L (21.0-32.0); Chloride 107 mmol/L (98-108); Glucose 98 mg/dL (70-99); Potassium 4.4 mmol/L (3.3-5.1)
--- NOTE | 2025-04-19 17:49 | PAT.ANESEVAL ---
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 When Was Last Pacemaker Check QUESTION #4 FULL TEXT: You/Your Family Experience fever (hyperthermia) with Anesthesia Last Oral Intake Last Oral intake: Last Oral Intake NPO since Meds taken in AM with sips of water? Meds patient instructed to take am of surgery PONV PONV - seismograph shooter: PONV - seismograph shooter Female Yes 04/11/25 15:15 HX of Motion Sickness Yes 04/11/25 15:15 HX of N/V After Surgery No 04/11/25 15:15 Non-Smoker Yes 04/11/25 15:15 Duration of Surgery greater No 04/11/25 15:15 than 60 minutes Number of Risk Factors 3 04/11/25 15:15 PONV Score Moderate Risk 04/11/25 15:15 Height & Weight Height & Weight: Anesthesia: Height & Weight Height 5 ft 8 in 02/08/21 12:42 Respiratory Assessment Respiratory Assessment - seismograph shooter: Respiratory Tract Infection Hx - seismograph shooter Hx Respiratory Tract Infection No 04/11/25 15:15 STOP Sleep Apnea STOP Sleep Apnea - seismograph shooter: STOP Sleep Apnea - seismograph shooter Hx Hypertension Yes: CONTROLLED WITH MEDS 04/11/25 15:15 Hx Sleep Apnea No 04/11/25 15:15 CPAP BIPAP Do you snore loudly (louder No 04/11/25 15:15 than talking or can be heard Do you often feel tired/ No 04/11/25 15:15 fatigued/ sleepy during daytime? Has anyone observed you stop No 04/11/25 15:15 breathing during sleep? STOP Results Negative 04/11/25 15:15 QUESTION #5 FULL TEXT : Do you snore loudly (louder than talking or can be heard through closed doors)? 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 Specify any problems Hx of Preganancy in last 3 No 04/11/25 15:15 Months Nurse Filling Out Transfusion [email or web address] 04/11/25 15:15 & Questions: Date: 04/11/25 04/11/25 15:15 Time: 15:19 04/11/25 15:15 Patient unable to answer at this time (ie. confused, unrespo /Reproduction History /Reproductive History - seismograph shooter: /Reproductive Hx- seismograph shooter Hx Now Gestational Age (in weeks): EDC: Hx Hx Para Hx Section SAB No 02/06/21 11:43 PFSH Medical History (Updated 04/19/25 @ 14:09 by Lucien Obando) Wears glasses Restless legs Migraine headache Gastric reflux Former smoker Shortness of breath on exertion Leg cramps History of edema Cardiology follow-up encounter Hx of echocardiogram History of stress test History of heart attack Home Medications ?Medication ?Instructions ?Recorded ?Last Taken ?Type amlodipine 5 mg tablet 5 mg PO DAILY 02/06/21 02/08/21 History aspirin 81 mg tablet,delayed 81 mg PO DAILY 02/06/21 02/03/21 History release atorvastatin 80 mg tablet 80 mg PO DAILY 02/06/21 Unknown History biotin 1 mg capsule 1 mg PO DAILY 02/06/21 Unknown History clopidogrel 75 mg tablet (Plavix) 75 mg PO DAILY 02/06/21 02/03/21 History famotidine 20 mg tablet (Pepcid) 20 mg PO PRN PRN gerd 02/06/21 02/08/21 History isosorbide mononitrate 30 mg 30 mg PO DAILY 02/06/21 02/08/21 History tablet,extended release 24 hr metoprolol tartrate 100 mg tablet 100 mg PO DAILY 02/06/21 02/08/21 History lisinopril 10 mg tablet 10 mg PO DAILY 04/11/25 Unknown History nitroglycerin 0.4 mg sublingual 0.4 mg sublingual Q5M PRN chest 04/11/25 Unknown History tablet pain Allergy/AdvReac Type Severity Reaction Status Date / Time No Known Allergies Allergy Verified 04/11/25 15:12 Surgical History History of cardiac catheterization Hx of colonoscopy Hx of exploratory laparotomy Hx laparoscopic cholecystectomy Hx of tonsillectomy History of nephrectomy Social History Smoking Status: Former smoker Audit: Pertinent Findings Pertinent Findings EKG Perinent findings: December 29, 2024. Sinus bradycardia at 54 bpm. Otherwise normal EKG. Echo (EF%) pertinent findings: January 07, 2025. EF of 61%. No aortic stenosis noted. No significant valvular abnormalities. Compared to echo of 05/08/2013 wall motion abnormalities have improved. Consult pertinent findings: December 29, 2024. Dr. Kirby. 1. History of ST elevation MA, coronary artery disease, stress cardiomyopathy, spontaneous coronary dissection-patient is doing well. Notes some increase in blood pressure. Continue current medications. 2. Hypertension-increase lisinopril to 10 mg daily. Continue amlodipine. Add hydrochlorothiazide to lisinopril in future. 3. Edema-check echocardiogram (see above) Recommendation Anesthesia Recommendation Anesthesia recommendation: OPTIMIZED for anesthesia
[2025-04-29] VITALS (9 sets, daily range): BP systolic 96–118; BP diastolic 45–50; PULSE 58–67; RESP 16–18; TEMP 36.1–37; O2SAT 97–100; BMI 26.1
--- OUTSIDE RECORDS SUMMARY | 2025-04-29 07:16 | XMS RPT_ITS | CCD ---
Author Organization [facility] Care Team Providers Care Yarn Worker Name Role Phone Enio Kirby MD Unavailable Evens KHAN MD, Daesung Unavailable Enio Kirby MD Unavailable Evens KHAN MD, Daesung Unavailable Daniel Singh MD Primary Care Provider Enio Kirby MD Unavailable Enio Kirby MD Unavailable Lauren Horner MD Unavailable Prosper Epstein MD Unavailable Daniel Singh MD Primary Care Provider Prosper Epstein MD Unavailable Perlita FELLED SEAM OPERATOR CHAINSTITCH.Wen GARCIA Primary Care Provide r Perlita FELLED SEAM OPERATOR CHAINSTITCH.Wen GARCIA Primary Care Provide r Daniel Singh MD Primary Care Provider Perlita FELLED SEAM OPERATOR CHAINSTITCH.Wen GARCIA Unavailable JUAQUIN ENIO N Referring Unavailable DANIEL SINGH Primary Care Unavailable DANIEL SINGH Primary Care Unavailable FATOU JACKSON Attending Unavailable DANIEL SIGNH Primary Care Unavailable FATOU JACKSON Referring Unavailable JUAQUIN, ENIO N Referring Unavailable DANIEL SINGH Primary Care Unavailable JUAQUIN, ENIO N Attending Unavailable DANIEL SINGH Primary Care Unavailable FATOU JACKSON Referring Unavailable CHELSEA DAVEY Attending Unavailable SINGH, HARRY Primary Care Unavailable FATOU JACKSON Referring Unavailable SINGH, HARRY Primary Care Unavailable MERARI RUSH Referring Unavailable SINGH, HARRY Primary Care Unavailable MERARI URSH Attending Unavailable MERAIR RUSH Referring Unavailable SINGH, HARRY Primary Care Unavailable PERLITAWEN RASHEED M Attending Unavailable SINGH, HARRY Primary Care Unavailable MERARI RUSH Attending Unavailable SINGH, HARRY Primary Care Unavailable OSIEL BUSTILLO Attending Unavailable SINGH, HARRY Primary Care Unavailable PERLITA, WEN M Referring Unavailable SINGH, HARRY Primary Care Unavailable KHOT, ENIO N Referring Unavailable KHOT, ENIO N Referring Unavailable SINGH, HARRY Primary Care Unavailable SINGH, HARRY Primary Care Unavailable FATOU JACKSON Referring Unavailable Osiel Bustillo Referring Unavailable Osiel Bustillo Attending Unavailable Perlita IMPLEMENTATION COORDINATOR, Wen Primary Care Unavailable Medications Current Medications Medication Drug Class(es) Dates Sig (Normalized) Sig (Original) alendronic acid 70 mg oral tablet (20 sources) Bisphosphonate Start: 07-08-2024 End: 07-21-2024 take 1 tablet by mouth every week alendronate (FOSAMAX) 70 mg tablet Indications: Age-related osteoporosis without current pathological fracture Take 1 tablet by mouth one time a week. Take with a full glass of water, on an empty stomach; do NOT lie down for 30minutes. 12 tablet 3 07/21/2024 Active Start: 01-15-2023 End: 04-08-2024 take 1 tablet by mouth every week alendronate (FOSAMAX) 70 mg tablet Take 1 tablet by mouth one time a week. Take with a full glass of water, on an empty stomach; do NOT lie down for 30minutes. 12 tablet 04/09/2024 Active Comment on above: Take 1 tablet by maria del rosario th one time a week. Take with a full glass of water, on an empty stomach; do NOT lie down for 30minutes. amLODIPine 5 mg oral tablet (20 sources) Dihydropyridine Calcium Channel Kristen Start: 12-30-19 25 take 1 tablet by mouth once daily amLODIPine (NORVASC) 5 mg tablet Indications: Coronary artery disease involving [place] coronary artery of [place] heart without angina pectoris , Fibromuscular dysplasia Take 1 tablet by mouth once daily. 90 tablet 3 12/29/2024 Active Start: 09-23-2023 End: 08-10-2024 take 1 tablet by mouth once daily amLODIPine (NORVASC) 5 mg tablet Indications: Coronary artery disease involving [place] coronary artery of [place] heart without angina pectoris , Fibromuscular dysplasia (HCC) Take 1 tablet by mouth once daily. 90 tablet 3 08/10/2024 Active Start: 09-19-2021 End: 08-15-2023 take 1 tablet by mouth once daily amLODIPine (NORVASC) 5 mg tablet Indications: Coronary artery disease involving [place] coronary artery of [place] heart without angina pectoris , Fibromuscular dysplasia (HCC) Take 1 tablet by mouth once daily. 90 tablet 4 06/12/2022 08/15/2023 Discontinued Comment on above: Take 1 tablet by maria del rosario th once daily. take 1 tablet once d aily aspirin 81 mg oral tablet (20 sources) Platelet Aggregation Inhibitor, Nonsteroidal Anti-inflammatory Drug Start: 02-16-20 ASPIRIN 81MG TABLET Take one (1) tablet daily . 0 0 02/16/2004 Active Comment on above: Take one (1) tablet daily . atorvastatin 80 mg oral tablet (20 sources) HMG-CoA Reductase Inhibitor Start: 12-30-19 25 take 1 tablet by mouth once daily atorvastatin (LIPITOR) 80 mg tablet Indications: Coronary artery disease involving [place] coronary artery of [place] heart without angina pectoris , Fibromuscular dysplasia Take 1 tablet by mouth once daily. 90 tablet 3 12/29/2024 Active Start: 09-23-2023 End: 08-10-2024 take 1 tablet by mouth once daily atorvastatin (LIPITOR) 80 mg tablet Indications: Coronary artery disease involving [place] coronary artery of [place] heart without angina pectoris , Fibromuscular dysplasia (HCC) Take 1 tablet by mouth once daily. 90 tablet 3 08/10/2024 Active Start: 09-19-2021 End: 08-15-2023 take 1 tablet by mouth once daily atorvastatin (LIPITOR) 80 mg tablet Indications: Coronary artery disease involving [place] coronary artery of [place] heart without angina pectoris , Fibromuscular dysplasia (HCC) Take 1 tablet by mouth once daily. 90 tablet 4 06/12/2022 08/15/2023 Discontinued Comment on above: Take 1 tablet by maria del rosario th once daily. take 1 tablet once d aily Biotin (20 sources) Start: 12-23-2017 take 1 tablet by mouth once daily BIOTIN ORAL Take 1 tablet by mouth once daily. 12/23/2017 Active Start: 12-23-2017 take 1 tablet by maria del rosario th once daily BIOTIN ORAL Take 1 tablet by mouth once daily. 0 12/23/2017 Active Comment on above: Take 1 tablet by maria del rosario th once daily. clopidogrel 75 mg oral tablet (20 sources) P2Y12 Platelet Inhibitor Start: 5 take 1 tablet by mouth once daily clopidogrel (PLAVIX) 75 mg tablet Indications: Coronary artery disease involving [place] coronary artery of [place] heart without angina pectoris , Fibromuscular dysplasia Take 1 tablet by mouth once daily. 90 tablet 3 12/29/2024 Active Start: 09-23-2023 End: 08-10-2024 take 1 tablet by mouth once daily clopidogrel (PLAVIX) 75 mg tablet Indications: Coronary artery disease involving [place] coronary artery of [place] heart without angina pectoris , Fibromuscular dysplasia (HCC) Take 1 tablet by mouth once daily. 90 tablet 3 08/10/2024 Active Start: 09-19-2021 End: 08-15-2023 take 1 tablet by mouth once daily clopidogrel (PLAVIX) 75 mg tablet Indications: Coronary artery disease involving [place] coronary artery of [place] heart without angina pectoris , Fibromuscular dysplasia (HCC) Take 1 tablet by mouth once daily. 90 tablet 4 06/12/2022 08/15/2023 Discontinued Comment on above: Take 1 tablet by maria del rosario th once daily. take 1 tablet once d aily diclofenac sodium 0.01 mg/mg topical gel (1 source) Nonsteroidal Anti-inflammatory Drug Start: 5 diclofenac (VOLTAREN ARTHRITIS PAIN) 1 % topical gel Indications: Acute left ankle pain Apply 2 g to affected area four times daily. 20 g 1 04/28/2025 Active 24 hr isosorbide mononitrate 30 mg extended release oral tablet (20 sources) Nitrate Vasodilator Start: 3 End: 6 take 1 tablet by mouth once daily isosorbide mononitrate ER (IMDUR) 30 mg 24 hr tablet Indications: Coronary artery disease involving [place] coronary artery of [place] heart without angina pectoris , Fibromuscular dysplasia Take 1 tablet by mouth once daily. 90 tablet 3 12/29/2024 12/29/2025 Active Start: 09-19-2021 End: 06-12-2022 take 1 tablet by mouth once daily isosorbide mononitrate ER (IMDUR) 30 mg 24 hr tablet Indications: Coronary artery disease involving [place] coronary artery of [place] heart without angina pectoris , Fibromuscular dysplasia (HCC) Take 1 tablet by mouth once daily. 90 tablet 4 06/12/2022 Active Comment on above: Take 1 tablet by maria del rosario once daily. iv contrast (will be provided with radiology test) (1 source) Start: End: iv contrast (will be provided with radiology test) Indications: Pelvic pain in female CT ABD/PEL -Inject, intravenously, once for 1 dose.No IV access, insert saline lock prior to the beginning of sedation, infusion, injection of imaging exam. Discontinue saline lock post exam. If Pt. has a central line or IVAD, may access for administration according to line specific nursing protocol. Once exam is complete flush line and de-access according to line specific nursing protocol in the CT contrast administration guidelines link. 1 Each 11/23/2024 11/24/2024 Active lisinopril 20 mg oral tablet (20 sources) Angiotensin Converting Enzyme Inhibitor Start: take 1 tablet by mouth once daily lisinopril (ZESTRIL) 20 mg tablet Take 20 mg by mouth once daily. 12/29/2024 Active Start: 12-29-2024 End: 03-30-2025 take 1 tablet by mouth once daily lisinopril (ZESTRIL) 10 mg tablet Indications: Coronary artery disease involving [place] coronary artery of [place] heart without angina pectoris , Fibromuscular dysplasia Take 1 tablet by mouth once daily. 90 tablet 4 12/29/2024 03/30/2025 Discontinued Start: 09-23-2023 End: 08-10-2024 take 1 tablet by mouth once daily lisinopril 2.5 mg tablet Indications: Coronary artery disease involving [place] coronary artery of [place] heart without angina pectoris , Fibromuscular dysplasia (HCC) Take 1 tablet by mouth once daily. 90 tablet 3 08/10/2024 Active Start: 09-19-2021 End: 08-15-2023 take 1 tablet by mouth once daily lisinopril 2.5 mg tablet Indications: Coronary artery disease involving [place] coronary artery of [place] heart without angina pectoris , Fibromuscular dysplasia (HCC) Take 1 tablet by mouth once daily. 90 tablet 4 06/12/2022 08/15/2023 Discontinued Comment on above: Take 1 tablet by maria del rosario th once daily. take 1 tablet once d aily 24 hr metoprolol succinate 100 mg extended release oral tablet (20 sources) beta-Adrenergic Kristen Start: 12-29-2024 take 1 tablet by mouth once daily metoprolol succinate ER (TOPROL XL) 100 mg Indications: Coronary artery disease involving [place] coronary artery of [place] heart without angina pectoris , Fibromuscular dysplasia Take 1 tablet by mouth once daily. 90 tablet 3 12/29/2024 Active Start: 09-23-2023 End: 08-10-2024 take 1 tablet by mouth once daily metoprolol succinate ER (TOPROL XL) 100 mg Indications: Coronary artery disease involving [place] coronary artery of [place] heart without angina pectoris , Fibromuscular dysplasia (HCC) Take 1 tablet by mouth once daily. 90 tablet 3 08/10/2024 Active Start: 09-19-2021 End: 08-15-2023 take 1 tablet by mouth once daily metoprolol succinate ER (TOPROL XL) 100 mg Indications: Coronary artery disease involving [place] coronary artery of [place] heart without angina pectoris , Fibromuscular dysplasia (HCC) Take 1 tablet by mouth once daily. 90 tablet 4 06/12/2022 08/15/2023 Discontinued Comment on above: Take 1 tablet by maria del rosario th once daily. take 1 tablet once d aily miSOPROStol 0.2 mg oral tablet (13 sources) Prostaglandin E1 Analog Start: 03-30-2025 miSOPROStol (CYTOTEC) 200 mcg tablet Use 2 tablets vaginally as directed for [address] 2 the evening before surgery and two the morning of surgery 4 tablet 03/30/2025 Active Start: 11-23-2024 End: 03-09-2025 miSOPROStol (CYTOTEC) 200 mc g tablet Indications: Endometrial thickening on ultrasound Insert 2 tablets vaginally night prior to EMB and 2 tablets morning of procedure. Each dose should be in vagina for 6-8 hours. 4 tablet 11/23/2024 03/09/2025 Discontinued nitroglycerin 0.4 mg sublingual tablet (20 sources) Nitrate Vasodilator Start: 12-29-2024 nitroglyce rin sublingual (NITROQUICK) 0.4 mg SL tablet Indications: Coronary artery disease involving [place] coronary artery of [place] heart without angina pectoris , Fibromuscular dysplasia Dissolve 1 tablet under the tongue as needed. FOR CHEST PAIN. IF NO RELIEF CALL 911 25 tablet 3 12/29/2024 Active Start: 09-23-2023 End: 08-10-2024 nitroglycerin sublingual (NI TROQUICK) 0.4 mg SL tablet Indications: Coronary artery disease involving [place] coronary artery of [place] heart without angina pectoris , Fibromuscular dysplasia (HCC) Dissolve 1 tablet under the tongue as needed. FOR CHEST PAIN. IF NO RELIEF CALL 911 25 tablet 3 08/10/2024 Active Start: 09-19-2021 End: 06-12-2022 nitroglycerin sublingual (NI TROQUICK) 0.4 mg SL tablet Indications: Coronary artery disease involving [place] coronary artery of [place] heart without angina pectoris , Fibromuscular dysplasia (HCC) Dissolve 1 tablet under the tongue as needed. FOR CHEST PAIN. IF NO RELIEF CALL 911 25 tablet 3 06/12/2022 Active Comment on above: Dissolve 1 tablet un susan the tongue as needed. FOR CHEST PAIN. IF NO RELIEF CALL 911 Completed/Discontinued Medications Medication Drug Class(es) Dates Sig (Normalized) Sig (Original) methylPREDNISolone (4 sources) Corticosteroid Start: 03-04-2022 End: 06-12-2022 methylPREDNISolone (MEDROL DOSE-PACK) 4 mg Dose-Pack Indications: Poison [place] dermatitis As Instructed per package 1 Package 0 03/04/2022 06/12/2022 Discontinued (Course of therapy completed) Start: 03-04-2022 methylPREDNISo lone (MEDROL DOSE-PACK) 4 mg Dose-Pack Indications: Poison [place] dermatitis As Instructed per package 1 Package 0 03/04/2022 Active Comment on above: As Instructed per lori carlson 24 hr oxybutynin chloride 5 mg extended release oral tablet (7 sources) Cholinergic Muscarinic Antagonist Start: 3 End: 4 take 1 tablet by mouth once daily oxybutynin XL (DITROPAN XL) 5 mg 24 hr tablet Take 1 tablet by mouth once daily. 30 tablet 1 01/15/2023 12/22/2023 Discontinued Comment on above: Take 1 tablet by maria del rosario once daily. tamoxifen 20 mg oral tablet (18 sources) Estrogen Agonist/Antagonist Start: 2 End: 4 take 1 tablet by mouth once daily tamoxifen (NOLVADEX) 20 mg tablet Take 1 tablet (20 mg) by mouth once daily. 90 tablet 3 06/11/2023 12/22/2023 Discontinued Comment on above: Take 1 tablet (20 mg ) by mouth once daily. Problems Active Problems Problem Classification Problem Date Documented Da te Episodic/Chronic Allergic reactions (1 source) Contact dermatitis due to poison malaika; Translations: [Allergic contact dermatitis due to plants, except food] Episodic Cancer of breast (20 sources) Intraductal carcinoma in situ of left breast; Translations: [Intraductal carcinoma in situ of left breast] Onset: 02-26-2021 02-26-2021 Chronic Cancer of breast (3 sources) History of ductal carcinoma in situ of breast; Translations: [Personal history of in-situ neoplasm of breast] Episodic Cardiac dysrhythmias (10 sources) Nonsustained ventricular tachycardia ; Translations: [Ventricular tachycardia] Onset: 04-27-2013 Chronic Coronary atherosclerosis and other heart disease (20 sources) Coronary atherosclerosis; Translations: [Atherosclerotic heart disease of [place] coronary artery without angina pectoris] Onset: 11-09-2003 Resolved: 04-29-2013 01-02-2004 Chronic Disorders of lipid metabolism (20 sources) Hyperlipidemia; Translations: [Hyperlipidemia, unspecified] Onset: 04-26-2013 07-21-2024 Chronic Essential hypertension (20 sources) Hypertensive disorder; Translations: [Essential (primary) hypertension] Onset: 04-26-2013 Resolved: 04-29-2013 07-21-2024 Chronic Genitourinary symptoms and ill-defined conditions (3 sources) Genuine stress incontinence; Translations: [Stress incontinence (female) (male)] Chronic Menopausal disorders (12 sources) Postmenopausal bleeding; Translations: [Postmenopausal bleeding] Onset: 11-19-2024 11-10-2024 Chronic Osteoporosis (20 sources) Senile osteoporosis; Translations: [Age-related osteoporosis without current pathological fracture] Onset: 01-15-2023 07-21-2024 Chronic Other aftercare (1 source) Prevention status; Translations: [MCC (current) use of selective estrogen receptor modulators (SERMs)] Episodic Other and ill-defined heart disease (10 sources) Takotsubo cardiomyopathy; Translations: [Takotsubo syndrome] Onset: 04-28-2013 09-03-2021 Chronic Other and ill-defined heart disease (20 sources) Dissection of coronary artery; Translations: [Coronary artery dissection] Onset: 06-18-2013 06-18-2013 Chronic Other and ill-defined heart disease (1 source) Coronary artery dissection; 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] Onset: 12-29-2024 Chronic Other circulatory disease (20 sources) Fibromuscular dysplasia of wall of artery; Translations: [Arterial fibromuscular dysplasia] Onset: 04-28-2013 Resolved: 07-08-2024 09-03-2021 Chronic Other circulatory disease (1 source) Arterial fibromuscular dysplasia; Translations: [Fibromuscular dysplasia] Onset: 12-29-2024 Chronic Other non-traumatic joint disorders (2 sources) Acute ankle pain; Translations: [Pain in left ankle and joints of left foot] 04-28-2025 Episodic Other screening for suspected conditions (not mental disorders or infectious disease) (6 sources) Endometrium thickened; Translations: [Abnormal findings on diagnostic imaging of other specified body structures] Onset: 03-09-2025 11-23-2024 Chronic Other screening for suspected conditions (not mental disorders or infectious disease) (1 source) Encounter for screening mammogram for malignant neoplasm of breast; Translations: [Encounter for screening mammogram for high-risk patient] Onset: 03-18-2025 Episodic Other skin disorders (1 source) Loss of hair; Translations: [Nonscarring hair loss, unspecified] 07-21-2024 Episodic Residual codes; unclassified (20 sources) Patient encounter status; Translations: [Encounter for prophylactic measures, unspecified] Onset: 04-26-2013 Episodic Residual codes; unclassified (2 sources) Postmenopausal state; Translations: [Asymptomatic menopausal state] Episodic Residual codes; unclassified (1 source) Personal history of other drug therapy; Translations: [Personal history of other drug therapy] Onset: 04-12-2025 Episodic Unclassified (10 sources) SUMMARY Onset: 04-26-2013 Unclassified (1 source) Patient encounter status 03-25-2025 Past or Other Problems Problem Classification Problem Date Documented Date Episodic/Chronic Abdominal pain (7 sources) Pain in female pelvis; Translations: [Pelvic and perineal pain] Onset: 11-19-2024 11-10-2024 Episodic Acute myocardial infarction (20 sources) Acute myocardial infarction of lateral wall; Translations: [ST elevation (STEMI) myocardial infarction involving other sites] Onset: 04-26-2013 Resolved: 05-05-2013 09-18-2021 Chronic Diseases of white blood cells (20 sources) Leukocytosis; Translations: [Elevated white blood cell count, unspecified] Onset: 04-27-2013 Resolved: 04-29-2013 Chronic Hemorrhoids (20 sources) Hemorrhoids; Translations: [Unspecified hemorrhoids] Resolved: 01-15-2023 09-27-2005 Episodic Immunizations and screening for infectious disease (1 source) Encounter for immunization; Translations: [Encounter for immunization] Onset: 07-21-2024 Episodic Other aftercare (1 source) Drug therapy finding; Translations: [Other correction (current) drug therapy] Onset: 04-26-2013 Episodic Other circulatory disease (10 sources) Femoral bruit; Translations: [Other specified symptoms and signs involving the circulatory and respiratory systems] Onset: 06-18-2013 06-18-2013 Episodic Other circulatory disease (20 sources) History of cerebrovascular accident; Translations: [Personal history of transient ischemic attack (TIA), and cerebral infarction without residual deficits] Onset: 04-27-2013 Resolved: 04-27-2013 09-03-2021 Episodic Other connective tissue disease (20 sources) Pain in limb; Translations: [Pain in unspecified limb] Onset: 12-10-2007 Resolved: 01-15-2023 12-10-2007 Episodic Other connective tissue disease (20 sources) Plantar fascial fibromatosis; Translations: [Plantar fascial fibromatosis] Onset: 12-24-2007 Resolved: 01-15-2023 12-24-2007 Episodic Other connective tissue disease (10 sources) Enthesopathy; Translations: [Enthesopathy, unspecified] Onset: 12-07-2008 12-07-2008 Episodic Other nutritional; endocrine; and metabolic disorders (10 sources) Weight gain; Translations: [Abnormal weight gain] Onset: 07-02-2011 07-02-2011 Episodic Other skin disorders (1 source) Nonscarring hair loss, unspecified; Translations: [Hair loss] Onset: 07-21-2024 Episodic Residual codes; unclassified (20 sources) Insomnia; Translations: [Insomnia, unspecified] Onset: 12-04-2007 Resolved: 01-15-2023 12-04-2007 Episodic Residual codes; unclassified (20 sources) History of nephrectomy; Translations: [Acquired absence of kidney] Onset: 04-26-2013 Episodic Screening and history of mental health and substance abuse codes (20 sources) Ex-smoker; Translations: [Personal history of nicotine dependence] Onset: 04-26-2013 Resolved: 04-29-2013 Episodic Results Test Name Value Interpretation Reference Range Facility XR Ankle - left AP and Later al and obliqueon 04-28-2025 IMPRESSION: Mild LEFT lateral ankle soft tissue swelling without acute osseous abnormality. Swimming Coach: PSCB Transcribe Date/Time: Apr 28 2025 12:31P Dictated by : LAKESHA BROWN DO This examination was interpreted and the report reviewed and electronically signed by: LAKESHA BROWN DO on Apr 28 2025 12:33PM [facility] DIVISION OF RADIOLOGY * * *Final Report* * * DATE OF EXAM: Apr 28 2025 12:30PM [id number] - XR ANKLE 3V AP/LAT/OBL LT / PROCEDURE REASON: Acute left ankle pain * * * * Physician Interpretation * * * * EXAMINATION: XR ANKLE 3V AP/LAT/OBL LT PATIENT/TECHNOLOGIST PROVIDED HISTORY: Pt. states Lt lateral ankle swelling and pain for 4 days. No injury. CLINICAL INFORMATION: 69 years old Female with Acute left ankle pain TECHNIQUE: XR ANKLE 3V AP/LAT/OBL LT Laterality: LEFT Number of different views (projections): 3 COMPARISON: None RESULT: Mild LEFT lateral ankle soft tissue swelling. No acute fracture. Ankle mortise and visualized joint spaces are maintained. DIVISION OF RADIOLOGY Provider, [facility] Dodie [facility] - 04/28/2025 * * *Final Report* * * DATE OF EXAM: Apr 28 2025 12:30PM [id number] - XR ANKLE 3V AP/LAT/OBL LT / PROCEDURE REASON: Acute left ankle pain * * * * Physician Interpretation * * * * EXAMINATION: XR ANKLE 3V AP/LAT/OBL LT PATIENT/TECHNOLOGIST PROVIDED HISTORY: Pt. states Lt lateral ankle swelling and pain for 4 days. No injury. CLINICAL INFORMATION: 69 years old Female with Acute left ankle pain TECHNIQUE: XR ANKLE 3V AP/LAT/OBL LT Laterality: LEFT Number of different views (projections): 3 COMPARISON: None RESULT: Mild LEFT lateral ankle soft tissue swelling. No acute fracture. Ankle mortise and visualized joint spaces are maintained. IMPRESSION IMPRESSION: Mild LEFT lateral ankle soft tissue swelling without acute osseous abnormality. Swimming Coach: ONIEL Transcribe Date/Time: Apr 28 2025 12:31P Dictated by : LAKESHA BROWN DO This examination was interpreted and the report reviewed and electronically signed by: LAKESHA BROWN DO on Apr 28 2025 12:33PM EST [facility] Radiology Study observation (narrative) [facility] XR Ankle - left AP and Later al and obliqueOrdered By: [facility]cf Provider on 04-28-2025 [facility] MR/PATRobert 04-19-2025 MR/PAT.[facility] Medical Records Department [address] [place] [address] PAT - Anesthesia 04/19/25 1749 MR#: [id number] Acct: [id number] Name: EMILIE KERN Rep #: [id number] : 1955 69 From: [place] Her MD PCP: CHRIS MarieeC Status:PRE [facility] Y Race: C [place]: [facility] [place] Pre-Assessment Diagnosis/Proposed Procedure Planned Operative Procedure(s): EXAM UNDER ANESTHESIA, HYSTEROSCOPY DILATION CURETTAGE AND POLYP RESECTION Anesthesia History 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 When Was Last Pacemaker Check QUESTION #4 FULL TEXT: You/Your Family Experience fever (hyperthermia) with Anesthesia Last Oral Intake Last Oral intake: Last Oral Intake NPO since Meds taken in AM with sips of water? 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 Has anyone observed you stop No 04/11/25 15:15 breathing during sleep? STOP Results Negative 04/11/25 15:15 QUESTION #5 FULL TEXT : Do you snore loudly (louder than talking or can be heard through closed doors)? 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 Tobacco Use Non-smoker 01/10/21 08:51 Smoking Status Former smoker 04/11/25 15:15 Hx Tobacco Use No 04/11/25 15:15 Years Smoking Packs Smoked per Day Smoking Cessation Date was No - quit smoking greater 04/11/25 15:15 within the last 15 years than 15 years ago Hx Smoking Cessation Date 09/08/81 04/11/25 15:15 Hx Smoking Cessation Counseling Hematologic Medial History Hematologic Hx - diversified crops i farmworker: Hematologic Medical Hx - fisher trawl line Hx of Blood Transfusion No 04/11/25 15:15 Hx of Transfusion in last 3 No 04/11/25 15:15 Months Date of Last Transfusion (if within last 3 months) Ever experience any problems No 04/11/25 15:15 with transfusion(s)? Specify any problems Hx of Preganancy in last 3 No 04/11/25 15:15 Months Nurse Filling Out Transfusion CPOWERS2 04/11/25 15:15 Questions: Date: 04/11/25 04/11/25 15:15 Time: 15:19 04/11/25 15:15 Patient unable to answer at this time (ie. 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: /Reproductive Hx- diversified crops i farmworker Hx Now Gestational Age (in weeks): EDC: Hx Hx Para Hx Section SAB No 02/06/21 11:43 [facility] Medical History (Updated 04/19/25 @ 14:09 by Lucien Obando) Wears glasses Restless legs Migraine headache Gastric reflux Former smoker Shortness of breath on exertion Leg cramps History of edema Cardiology follow-up encounter Hx of echocardiogram History of stress test History of heart attack Home Medications ???Medication ???Instructions ???Recorded ???Last Taken ???Type amlodipine 5 mg tablet 5 mg PO DAILY 02/06/21 02/08/21 Hi story aspirin 81 mg tablet,delayed 81 mg PO DAILY 02/06/21 02/03/21 H istory release atorvastatin 80 mg tablet 80 mg PO DAILY 02/06/21 Unknown Hi story biotin 1 mg capsule 1 mg PO DAILY 02/06/21 Unknown His tory clopidogrel 75 mg tablet (Plavix) 75 mg PO DAILY 02/06/21 02/03/21 History famotidine 20 mg tablet (Pepcid) 20 mg PO PRN P (more content not included)... Normal [facility] Basic Metabolic Profile (BMP )on 04-12-2025 BUN/CRE 20.2 RATIO High 10-20 [facility] Comment on above: Performed By: #### L 100.0500, L500.2500 #### [facility] [address] [place], [address] Calcium [Mass/Vol] 9.0 mg/dL Normal 7.6-11.0 [facility] Comment on above: Performed By: #### L 100.0500, L500.2500 #### [facility] [address] [place], [address] Chloride [Moles/Vol] 107 mmol/L Normal 98-108 [facility] Comment on above: Performed By: #### L 100.0500, L500.2500 #### [facility] [address] [place], [address] CO2 [Moles/Vol] 24.4 mmol/L Normal 21.0-32.0 [facility] Comment on above: Performed By: #### L 100.0500, L500.2500 #### [facility] [address] [place], [address] Creatinine [Mass/Vol] 0.93 mg/dL Normal 0.70-1.20 [facility] Comment on above: Performed By: #### L 100.0500, L500.2500 #### [facility] [address] [place], [address] GAP 11 Normal 5-15 [facility] Comment on above: Performed By: #### L 100.0500, L500.2500 #### [facility] [address] [place], [address] GFR/1.73 sq M.predicted among non-blacks MDRD (S/P/Bld) [Vol rate/Area] 66 mL/min/{1.73_m2} Normal >60 [facility] Comment on above: Result Comment: mL/m in/1.73m2 CKD-EPI Creatinine Equation (2020) Performed By: #### L 100.0500, L500.2500 #### [facility] [address] [place], [address] Glucose [Mass/Vol] 98 mg/dL Normal 70-99 [facility] Comment on above: Performed By: #### L 100.0500, L500.2500 #### [facility] [address] [place], [address] Potassium [Moles/Vol] 4.4 mmol/L Normal 3.3-5.1 [facility] Comment on above: Performed By: #### L 100.0500, L500.2500 #### [facility] [address] [place], [address] Sodium [Moles/Vol] 141 mmol/L Normal 133-145 [facility] Comment on above: Performed By: #### L 100.0500, L500.2500 #### [facility] [address] [place], [address] Urea nitrogen [Mass/Vol] 19 mg/dL Normal 4-19 [facility] Comment on above: Performed By: #### L 100.0500, L500.2500 #### [facility] [address] [place], [address] CBC-Complete Blood Cnt No Di ffon 04-12-2025 Erythrocyte distribution width (RBC) [Ratio] 14.1 % Normal 11.6-14.6 [facility] Comment on above: Performed By: #### L 100.0500, L500.2500 #### [facility] [address] [place], [address] Hematocrit (Bld) [Volume fraction] 40.9 % Normal 37-47 [facility] Comment on above: Performed By: #### L 100.0500, L500.2500 #### [facility] [address] [place], [address] Hemoglobin (Bld) [Mass/Vol] 13.1 g/dL Normal 12.0-15.0 [facility] Comment on above: Performed By: #### L 100.0500, L500.2500 #### [facility] [address] [place], [address] MCH (RBC) [Entitic mass] 31.0 pg Normal 27.0-32.0 [facility] Comment on above: Performed By: #### L 100.0500, L500.2500 #### [facility] [address] [place], [address] MCHC (RBC) [Mass/Vol] 32.0 g/dL Normal 32-36 [facility] Comment on above: Performed By: #### L 100.0500, L500.2500 #### [facility] [address] [place], [address] MCV (RBC) [Entitic vol] 96.9 fL Normal 81-99 [facility] Comment on above: Performed By: #### L 100.0500, L500.2500 #### [facility] [address] [place], [address] Platelet mean volume (Bld) [Entitic vol] 12.4 fL High 6.2-12.0 [facility] Comment on above: Performed By: #### L 100.0500, L500.2500 #### [facility] [address] [place], [address] Platelets (Bld) [#/Vol] 196 10*3/uL Normal 150-450 [facility] Comment on above: Performed By: #### L 100.0500, L500.2500 #### [facility] [address] [place], [address] RBC (Bld) [#/Vol] 4.22 10*6/uL Normal 4.2-5.4 [facility] Comment on above: Performed By: #### L 100.0500, L500.2500 #### [facility] [address] [place], [address] RDW SD 50.3 fl High 35.1-43.9 [facility] Comment on above: Performed By: #### L 100.0500, L500.2500 #### [facility] [address] [place], [address] WBC (Bld) [#/Vol] 6.3 10*3/uL Normal 4.4-11.0 [facility] Comment on above: Performed By: #### L 100.0500, L500.2500 #### [facility] [place], [address] CNOVon 03-30-2025 CNOV Office Visit (OBGYWM ) EMILIE KERN ([id number]) 1955 F Date Time Provider Department 03/30/25 3:20 PM OSIEL BUSTILLO OBGYWM During your visit today, we recorded the following information about you: Blood pressure 126/78 Osiel Bustillo MD 03/31/2025 3:49 PM Signed Obstetrics and Gynecology [place] IN[facility]ORY CONTROL ASSISTANT Visit Subjective Recording using [employer] software for draft documentation of the visit was discussed with the patient/authorized manufacturer representative; all questions welcomed and answered. Patient/authorized manufacturer representative agreed to proceed CHIEF COMPLAINT: The patient is a 69-year-old female with a history of breast cancer presenting for evaluation of postmenopausal spotting. HPI: Postmenopausal Spotting - Reports experiencing spotting on a couple of different days, similar to the end of a period, which she found concerning given her postmenopausal status and history of breast cancer. - Underwent an ultrasound and attempted biopsy; however, the biopsy was unsuccessful due to significant pain. - Ultrasound findings included a retroverted uterus with an endometrial thickness of 15.8 mm and cystic areas; ovaries appeared normal. - Has not had any complications with surgeries or anesthesia in the past. - Currently taking aspirin and Plavix. Breast Cancer History - Diagnosed with breast cancer approximately 3 years ago. - Was on tamoxifen for about 2 to 2.5 years but discontinued it about 6 months ago due to visual disturbances in the right eye. - Inquires if discontinuing tamoxifen could have contributed to the spotting. HISTORY: OB History Gravida0 Para0 Term0 Preterm0 AB0 Living0 SAB0 IAB0 Ectopic0 Multiple0 Live Births0 Comment: 2 stepkids 5 grandkids [employer] History LMP: Postmenopausal Age at Menarche: Age at First : Age at Menopause: [employer] History Comments: Sexual Activity: Not Currently; Male Contraception: No contraception data on record PAST MEDICAL HISTORY Diagnosis Date Age-related osteoporosis without current pathological fracture 01/15/2023 CAD (coronary artery disease), [place] coronary artery 04/26/2013 -hx of inferior STEMI's x 2 (1994, 2003). LHC in 1994 revealed normal coronaries and LHC in 2003 showed occlusion of small branch of RCA but otherwise normal coronaries. -Admitted to [facility] on 04/26/13 after p/w CP and anterolateral STEMI. Subsequent LHC revealed distal small branch of RCA w 100% blockage. She had unsuccessful PTCA to small branch of RCA d/t tortuous vessels. 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 Coronary atherosclerosis of unspecified type of vessel, [place] or graft Coronary artery disease, [place] x2, 1984, 1992, 2001 Ductal carcinoma in situ (DCIS) of left breast 02/26/2021 Dyslipidemia Enthesopathy of unspecified site 12/07/2008 Female stress incontinence Fibromuscular hyperplasia of artery 04/28/2013 Confirmed by carotid duplex April 28, 2013 HLD (hyperlipidemia) 04/26/2013 Hypertension INSOMNIA 12/04/2007 Myocardial infarct, old 04/26/2013 NSVT (nonsustained ventricular tachycardia) (HCC) 04/27/2013 History: One rhythm strip from OSH showing wide complex tachycardia, up to 9 beats This in the setting of active ST elevation. Assessment: NSVT in the setting of active ischemia Plan: 1. Replace K and mag aggressively 2. Monitor closely. 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 Last admission 04/26/2013: p/w anterolateral STEMI, s/p unsuccessful PTCA to d Takotsubo cardiomyopathy / Coronary vasospasm 04/28/2013 Underwent a LHC on arrival 04/26/13 which showed severe disease in the distal branch of RCA that was ballooned previously. POBA was attempted but unsuccessful due to small caliber and tortuous nature. Echo 04/28: apical ballooning Assessment: likely [place] MP secondary to transient coronary vessel stenosis, wo [place] vessel obstruction on LHC Plan: LHC 05/06/[address] Tolbert echo Unspecified hemorrhoids without mention of complication Hemorrhoids PAST SURGICAL HISTORY Procedure Laterality Date APPENDECTOMY BREAST LUMPECTOMY HX Left 02/08/2021 BX BREAST W/DEVICE 1ST LESION STEREOTACTIC GUID Left 01/22/2021 CHOLECYSTECTOMY 1970 Cholecystectomy LEFT HEART CATH 04/26/13, 05/11/2013 100% mid occlusion of RPV1 PAST SURGICAL HISTORY OF abnormal kidney removed age 6 done at [facility], still has 2 1/2 kidneys PERC TRANSL COR ANGIO 2003 Distal RCA - PTCA/No stent TONSILLECTOMY PRIMARY/SECONDARY Tonsillectom (more content not included)... Normal [facility] HISTORY PHYSICALon HISTORY PHYSICAL HNO ID: [id number] Author: OSIEL BUSTILLO MD Service: ? Author Type: Physician Type: H&P Filed: 03/31/2025 15:49 Note Text: Pre-Op History and Physical HPI: The patient is a 69 year old female presenting for pre-operative visit. She is scheduled for Hysteroscopy [facility], possible polyp resection for PMB, thickened endometrium on 04/29/25. Procedure discussed along with risks, benefits and complications. Other alternatives discussed for management. Consent form signed? Yes. PAST MEDICAL HISTORY Diagnosis Date Age-related osteoporosis without current pathological fracture 01/15/2023 CAD (coronary artery disease), [place] coronary artery 04/26/2013 -hx of inferior STEMI's x 2 (1994, 2003). LHC in 1994 revealed normal coronaries and LHC in 2003 showed occlusion of small branch of RCA but otherwise normal coronaries. -Admitted to [facility] on 04/26/13 after p/w CP and anterolateral STEMI. Subsequent LHC revealed distal small branch of RCA w 100% blockage. She had unsuccessful PTCA to small branch of RCA d/t tortuous vessels. 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 Coronary atherosclerosis of unspecified type of vessel, [place] or graft Coronary artery disease, [place] x2, 1985, 1992, 2001 Ductal carcinoma in situ (DCIS) of left breast 02/26/2021 Dyslipidemia Enthesopathy of unspecified site 12/07/2008 Female stress incontinence Fibromuscular hyperplasia of artery 04/28/2013 Confirmed by carotid duplex April 28, 2013 HLD (hyperlipidemia) 04/26/2013 Hypertension INSOMNIA 12/04/2007 Myocardial infarct, old 04/26/2013 NSVT (nonsustained ventricular tachycardia) (HCC) 04/27/2013 History: One rhythm strip from OSH showing wide complex tachycardia, up to 9 beats This in the setting of active ST elevation. Assessment: NSVT in the setting of active ischemia Plan: 1. Replace K and mag aggressively 2. Monitor closely. 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 Last admission 04/26/2013: p/w anterolateral STEMI, s/p unsuccessful PTCA to d Takotsubo cardiomyopathy / Coronary vasospasm 04/28/2013 Underwent a LHC on arrival 04/26/13 which showed severe disease in the distal branch of RCA that was ballooned previously. POBA was attempted but unsuccessful due to small caliber and tortuous nature. Echo 04/28: apical ballooning Assessment: likely [place] MP secondary to transient coronary vessel stenosis, wo [place] vessel obstruction on LHC Plan: LHC 05/06/[address] Tolbert echo Unspecified hemorrhoids without mention of complication Hemorrhoids PAST SURGICAL HISTORY Procedure Laterality Date APPENDECTOMY BREAST LUMPECTOMY HX Left 02/08/2021 BX BREAST W/DEVICE 1ST LESION STEREOTACTIC GUID Left 01/22/2021 CHOLECYSTECTOMY 1970 Cholecystectomy LEFT HEART CATH 04/26/13, 05/11/2013 100% mid occlusion of RPV1 PAST SURGICAL HISTORY OF abnormal kidney removed age 6 done at [facility], still has 2 1/2 kidneys PERC TRANSL COR ANGIO 2003 Distal RCA - PTCA/No stent TONSILLECTOMY PRIMARY/SECONDARY Tonsillectomy Current Outpatient Medications Medication Sig Dispense Refill amLODIPine (NORVASC) 5 mg tablet Take 1 tablet by mouth once daily. 90 tablet 3 atorvastatin (LIPITOR) 80 mg tablet Take 1 tablet by mouth once daily. 90 tablet 3 clopidogrel (PLAVIX) 75 mg tablet Take 1 tablet by mouth once daily. 90 tablet 3 isosorbide mononitrate ER (IMDUR) 30 mg 24 hr tablet Take 1 tablet by mouth once daily. 90 tablet 3 metoprolol succinate ER (TOPROL XL) 100 mg Take 1 tablet by mouth once daily. 90 tablet 3 nitroglycerin sublingual (NITROQUICK) 0.4 mg SL tablet Dissolve 1 tablet under the tongue as needed. FOR CHEST PAIN. IF NO RELIEF CALL 911 25 tablet 3 alendronate (FOSAMAX) 70 mg tablet Take 1 tablet by mouth one time a week. Take with a full glass of water, on an empty stomach; do NOT lie down for 30minutes. 12 tablet 3 BIOTIN ORAL Take 1 tablet by mouth once daily. ASPIRIN 81MG TABLET Take one (1) tablet daily . 0 0 No current facility-administered medications for this visit. ALLERGIES: Patient has no known allergies. PERSONAL HISTORY: Social History Tobacco Use Smoking status: Former Current packs/day: 0.00 Average packs/day: 1 pack/day for 10.0 years (10.0 ttl pk-yrs) Types: Cigarettes Start date: 1971 Quit date: 1981 Years since quittin.5 Smokeless tobacco: Never Vaping Use Vaping status: Never Used Substance Use Topics Alcohol use: Not Currently Comment: Socially wine Drug use: No FAMILY HISTORY: FAMILY HISTORY Problem Relation Age of Onset Heart M (more content not included)... Normal [facility] CNOVSPon 03-25-2025 [facility] Visit (SP) Office ([facility]) EMILIE KERN ([id number]) 1955 F Date Time Provider Department 03/25/25 11:00 AM MERARI RUSH During your visit today, we recorded the following information about you: Temperature Pulse Respiration Blood pressure 96.2 degrees 56/minute 12/minute 123/71 Weight 79.8 kg Merari Rush APRN.CNP 03/25/2025 11:44 AM Signed Chief Complaint Patient presents with: Established Patient HPI: Emilie Kern is a 69 year old female who presents here today for follow up DCIS. Per Dr. Pineda's previous note: H/o coronary artery disease/fibromuscular dysplasia ([place] x3; no stents or CABG), Takotsubo cardiomyopathy, nonsustained ventricular tachycardia, hyperlipidemia, and history of nephrectomy who was noted to have microcalcifications in the slight lateral and superior left breast at middle depth on a mammogram performed 12/15/2020. Patient underwent stereotactic ultrasound-guided breast biopsy on 01/22/2021. The pathology demonstrated ductal carcinoma in situ with nuclear grade 1-2/3, architectural pattern was cribriform, necrosis was present, central (expansive comedo necrosis) calcifications present. Intraductal hyperplasia with focal atypia were noted in the area of ductal carcinoma in situ. Patient underwent left breast lumpectomy on 02/08/2021. Pathology demonstrated no evidence of residual ductal carcinoma in situ. Changes consistent with previous biopsy site. Focal intraductal hyperplasia without atypia skin, dermal fibrosis consistent with scar. Margins were negative. No residual carcinoma noted in the lumpectomy specimen but the biopsy cavity was 7 mm from closest inferior margin. Specimen was both ER and IL positive and HER-2 negative with IHC 0. Previous therapy: 1) Adjuvant radiation completed 04/09/2021. 2) Tamoxifen She had been on tamoxifen from April 2021 up until about a month ago. She developed blurred vision in the right eye. Underwent exam and was found to have a retinal abnormality. 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 The visual defect is experienced as a georges wavy line through her central vision. She is not able to read with her right eye but can read normally with her left eye. The visual defect has been static since the time of diagnosis. Tamoxifen was discontinued. No new concerns today. Appetite:Good. Wt. down 3# since 2024. Energy level:Ok, not horrible. Denies fevers or recent illness. Resp:denies cough or sob Cardiac:denies chest pain/palpitations GI:denies abd pain, n/v, moving bowels regularly :denies dysuria/hematuria Extrem:denies new pain Endo:denies hot flashes Neuro:denies symptoms of neuropathy Skin:denies rashes/lesions Heme:denies bleeding, previously vaginal discharge-4 months ago-has been seen by INVENTORY CONTROL ASSISTANT-having Endometrial bx with Dr. Bustillo. The ROS is otherwise negative. Past medical history, appointments, medications, allergies reviewed. No changes. EXAM: BP 123/71 Pulse (!) 56 Temp (!) 35.7 ?C (96.2 ?F) (Temporal Artery) Resp 12 Wt 79.8 kg (175 lb 14.8 oz) SpO2 98% BMI 26.75 kg/m? APPEARANCE Well appearing, alert, in no acute distress, well-hydrated, well nourished. HEART RRR with normal S1 and S2, no murmurs LUNG clear to auscultation BREAST FEMALE no mass/nodule b/l LYMPH NODES No cervical lymphadenopathy, No supraclavicular lymphadenopathy, and No axillary lymphadenopathy. ABDOMEN bowel sounds normoactive, soft, non-tender EXTREMITIES No edema NEURO Awake, alert and oriented x 3, Normal gait, and No involuntary motions. SKIN Skin color, texture, turgor normal, no suspicious rashes or lesions RADIOLOGY: Mammogram 03/18/25: IMPRESSION: There is no mammographic evidence of malignancy. Routine screening mammogram is recommended. Annual mammogram will be due in 1 year. BI-RADS Category 2: Benign ASSESSMENT/PLAN: 1. Ductal carcinoma in situ (DCIS) of left breast - ICD9: 233.0, ICD10: D05.[address] Pineda's previous note: Assessment: -Tolerated radiation very well. -Had been symptomatically tolerating tamoxifen very well but developed retinopathy potentially related to tamoxifen use. -We discussed the potential risks and benefits of rotating to AI therapy. She already has a diagnosis of osteoporosis and is on Fosamax. She has a history of fibromuscular dysplasia and MRI had an early age. We discussed the conflicting data regarding increased cardiovascular risk with aromatase inhibitor use and I did not recommend changing therapy to that at this time. Since she had 2 and half years of tamoxifen I recommended stopping endocrine therapy at this time. Plan: -Follow-up as scheduled for mammogram and office visit in March. - No concerning findings on exam in regards to DCIS. - Tamoxifen discontinued after 2.5 y (more content not included)... Normal [facility] ERIC SCREENING W TOMOon 03-18 ERIC SCREENING W CHAN * * *Final Report* * * DATE OF EXAM: Mar 18 2025 1:52PM [id number] - ERIC SCREENING W CHAN / PROCEDURE REASON: multiple diagnoses * * * * Physician Interpretation * * * * RESULT: [place] [address] [place] [address] #[id number] - ERIC SCREENING W CHAN HISTORY: 69 year-old patient presents for screening. Patient is asymptomatic in both breasts. The patient has the following personal history of breast cancer: breast cancer in the left breast. The patient has a family history of breast cancer. COMPARISON STUDIES: The present examination has been compared to prior imaging studies dated 03/04/2022 (mammogram), 03/06/2023 (mammogram) and 03/16/2024 (mammogram). MAMMOGRAM TECHNIQUE: The study was acquired using full field digital technology and interpreted from soft copy. Digital Breast Tomosynthesis (DBT) images were obtained and used to assist in the interpretation of this examination. MAMMOGRAM FINDINGS: The breasts are heterogeneously dense, which may obscure small masses. Finding 1: There are post-operative changes in the left breast. Finding 2: There is a biopsy marker in the right breast. No suspicious masses, calcifications or other abnormalities are seen in either breast. IMPRESSION: There is no mammographic evidence of malignancy. Routine screening mammogram is recommended. Annual mammogram will be due in 1 year. BI-RADS Category 2: Benign RISK: Due to the reported patient's history, the patient's estimated lifetime risk of developing breast cancer cannot be assessed at this time. We encourage all patients to talk with their providers about their risk assessment, further recommendations for managing breast health, and appropriate supplemental screening options if the patient has dense breast tissue. Interpreting Radiologist: Emma Lincoln M.D. Electronically signed on: 03/21/2025 Swimming Coach: TRAVON Transcribe Date/Time: Mar 18 2025 1:19P Dictated by: EMMA LINCOLN MD This examination was interpreted and the report reviewed and electronically signed by: EMMA LINCOLN MD on Mar 21 2025 1:12PM EST [id number] Normal [facility] CNOVon 03-09-2025 CNOV Office Visit (OBGYWM ) EMILIE KERN ([id number]) 1955 F Date Time Provider Department 03/09/25 11:45 AM CHELSEA DAVEY OBGYWM During your visit today, we recorded the following information about you: Blood pressure Weight 120/64 80.3 kg Chelsea Davey APRN.[facility] 03/09/2025 12:18 PM Signed 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 Emilie is a 69 year old who presents today for an endometrial biopsy for post menopausal bleeding. test: n/a UNIVERSAL PROTOCOL / SAFETY CHECKLIST Procedure to be Performed: Endometrial Biopsy Sign In: A Moment of CARE was completed. Appropriate PPE (Personal Protective Equipment) worn by all providers involved with the procedure. Special equipment not required. Patient/Surrogate Stated/Verified: Patient name, Date of , Relevant allergies, and The intended procedure Time Out: Relevant labs, photos, and/or imaging studies have been reviewed. Intended patient and procedure match the source document(s) (e.g. consent, HANDP, associated studies [imaging, pathology]) match the intended patient and procedure. Consent obtained and matches the intended procedure. Yes. Correct side/site is not applicable. Medications required for this procedure are not applicable. Fire risk assessed and is not applicable. Implants: are not applicable. Sign Out: Specimens not collected. All instruments, equipment, possible retained foreign bodies are accounted for. Yes. The post-procedure plan of care has been communicated to the patient or surrogate. PROCEDURE: EXTERNAL GENITALIA: Normal in appearance without lesions VAGINA: Normal in appearance without lesions BIOPSY: Speculum placed into the vagina with excellent visualization of the cervix. Exam extremely painful for patient. Cervical os noted to be stenotic. Procedure terminated due to patient discomfort and stenotic cervix. Procedure Summary: Procedure terminated. I recommend follow up with surgeon to discuss hysteroscopy D+C for PMB and thickened uterine lining. Emilie agreeable and plans to follow up with Dr. Bustillo to determine if she is a good surgical candidate. Chelsea Davey APRN.[facility] Marquita Jain MA 03/09/2025 11:35 AM Signed Endometrial Biopsy Your provider has recommended an endometrial biopsy. For more information, My [facility] Endometrial Biopsy How do I prepare for an endometrial biopsy? You shouldn?t need to do much to prepare for an endometrial biopsy. Let your healthcare provider know what medications or supplements you take and if you have any allergies. They can let you know if you should stop taking certain medications before the biopsy. Some healthcare providers recommend taking a nonsteroidal anti-inflammatory drug (NSAID) like ibuprofen before the biopsy to help with pain. Your provider may recommend a medication to help prepare your cervix for the biopsy, often taken by mouth one and two days before the procedure. Ask your healthcare provider any questions you have before the procedure so you know exactly what to expect. Generally, an endometrial biopsy is very low-risk and safe. Referring Provider: FATOU JACKSON [[id number]] Allergies As of Date: 03/09/2025 (No Active Allergies) Date Reviewed: 03/09/2025 Reviewed by: Chelsea Davey APRN.[facility] - Fully Assessed Reason for Visit: Endometrial Biopsy [7771] Primary Visit Diagnosis:Postmenopausa l bleeding [N95.0] Other Visit Diagnosis:Endometrial thickening on ultrasound [R93.89] Prescriptions as of 03/09/2025 - amLODIPine (NORVASC) 5 mg tablet Take 1 tablet by mouth once daily. - atorvastatin (LIPITOR) 80 mg tablet Take 1 tablet by mouth once daily. - clopidogrel (PLAVIX) 75 mg tablet Take 1 tablet by mouth once daily. - isosorbide mononitrate ER (IMDUR) 30 mg 24 hr tablet Take 1 tablet by mouth once daily. - lisinopril (ZESTRIL) 10 mg tablet Take 1 tablet by mouth once daily. - metoprolol succinate ER (TOPROL XL) 100 mg Take 1 tablet by mouth once daily. - nitroglycerin sublingual (NITROQUICK) 0.4 mg SL tablet Dissolve 1 tablet under the tongue as needed. FOR CHEST PAIN. IF NO RELIEF CALL 911 - alendronate (FOSAMAX) 70 mg tablet Take 1 tablet by mouth one time a week. Take with a full glass of water, on an empty stomach; do NOT lie down for 30minutes. - BIOTIN ORAL Take 1 tablet by mouth once daily. - ASPIRIN 81MG TABLET Take one (1) tablet daily . Problem List As Of Date 03/09/2025 Noted Resolved Unspecified hemorrhoids without mention of comp* 01/15/2023 INSOMNIA [G47.00] 12/04/2007 01/15/2023 Pain in limb [M79.609] 12/10/2007 01/15/2023 Plantar fascial fibromatosis [M72.2] 12/24/2007 01/15/2023 CAD (coronary artery disease), [place] coronary *04/26/2013 ST elevation myocardial infarction (STEMI) of l*04/26/2013 05/05/2013 Primary hypertension [I10] 04/26/2013 HLD (hyperlipidemia) [E78.5] (more content not included)... Normal [facility] 03-02-2025 CNPN Telephone (ALPAWJana) EMILIE KERN ([id number]) 1955 F Date Time Provider Department 03/02/25 FATOU JACKSON During your visit today, we recorded the following information about you: Fatou Jackson APRN.[facility] 03/02/2025 4:14 PM Signed Patient notified per myself of results of CT of pelvis and actionable finding result of presacral varix. Explained that this was discussed with interventional radiologist who is willing to see her for a consultation and further evaluation and discussion of possible endovascular treatment options as this could be the cause of her pelvic pain. Pelvic ultrasound,which was recommended as a follow-up to the CAT scan, was already completed November 2024 and she has an upcoming endometrial biopsy scheduled for March 09. She is had no further bleeding or pelvic cramping. She was appreciative of the phone call and information and will consider options based on pathology of EMB. Fatou Jackson APRN.[facility] Allergies As of Date: 03/02/2025 (No Active Allergies) Date Reviewed: 02/22/2025 Reviewed by: Natalee Arora, RT(R) - Fully Assessed Reason for Visit: Results [95] Prescriptions as of 03/02/2025 - amLODIPine (NORVASC) 5 mg tablet Take 1 tablet by mouth once daily. - atorvastatin (LIPITOR) 80 mg tablet Take 1 tablet by mouth once daily. - clopidogrel (PLAVIX) 75 mg tablet Take 1 tablet by mouth once daily. - isosorbide mononitrate ER (IMDUR) 30 mg 24 hr tablet Take 1 tablet by mouth once daily. - lisinopril (ZESTRIL) 10 mg tablet Take 1 tablet by mouth once daily. - metoprolol succinate ER (TOPROL XL) 100 mg Take 1 tablet by mouth once daily. - nitroglycerin sublingual (NITROQUICK) 0.4 mg SL tablet Dissolve 1 tablet under the tongue as needed. FOR CHEST PAIN. IF NO RELIEF CALL 911 - miSOPROStol (CYTOTEC) 200 mcg tablet Insert 2 tablets vaginally night prior to EMB and 2 tablets morning of procedure. Each dose should be in vagina for 6-8 hours. - alendronate (FOSAMAX) 70 mg tablet Take 1 tablet by mouth one time a week. Take with a full glass of water, on an empty stomach; do NOT lie down for 30minutes. - BIOTIN ORAL Take 1 tablet by mouth once daily. - ASPIRIN 81MG TABLET Take one (1) tablet daily . Problem List As Of Date 03/02/2025 Noted Resolved Unspecified hemorrhoids without mention of comp* 01/15/2023 INSOMNIA [G47.00] 12/04/2007 01/15/2023 Pain in limb [M79.609] 12/10/2007 01/15/2023 Plantar fascial fibromatosis [M72.2] 12/24/2007 01/15/2023 CAD (coronary artery disease), [place] coronary *04/26/2013 ST elevation myocardial infarction (STEMI) of l*04/26/2013 05/05/2013 Primary hypertension [I10] 04/26/2013 HLD (hyperlipidemia) [E78.5] 04/26/2013 Ex-smoker [Z87.891] 04/26/2013 04/29/2013 Possible underlying coronary artery spasm [I20.*04/26/2013 04/29/2013 S/p nephrectomy [Z90.5] 04/26/2013 H/O: stroke [Z86.73] 04/27/2013 04/27/2013 Leukocytosis [D72.829] 04/27/2013 04/29/2013 Fibromuscular hyperplasia of artery (HCC) [I77.*04/28/2013 Possible Fibromuscular dysplasia [I77.3] 04/29/2013 04/29/2013 Fibromuscular dysplasia (HCC) [I77.3] 04/29/2013 07/08/2024 Coronary artery dissection [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] 06/18/2013 Ductal carcinoma in situ (DCIS) of left breast *02/26/2021 Age-related osteoporosis without current pathol*01/15/2023 Encounter Status:Closed by FATOU JACKSON on 03/02/25 Normal [facility] CT ABD/PEL W IVCONon 02-23- 025 CT ABD/PEL W IVCON * * *Final Report* * * DATE OF EXAM: Feb 23 2025 3:11PM [facility] 0530 - CT ABD/PEL W IVCON / PROCEDURE REASON: multiple diagnoses * * * * Physician Interpretation * * * * EXAMINATION: CT ABDOMEN AND PELVIS WITH IV CONTRAST CLINICAL HISTORY: Postmenopausal bleeding TECHNIQUE: CT of the abdomen and pelvis was performed using standard technique, scanning from just above the dome of the diaphragm to the upper thighs. Contrast: IV: 100 ml of Omnipaque 350 CT Radiation dose: Integrated Dose-length product (DLP) for this visit = 507 mGy*cm. CT Dose Reduction Employed: Automated exposure control(AEC) and iterative recon COMPARISON: None FINDINGS: LOWER CHEST: No significant abnormality. HEPATOBILIARY: The liver and gallbladder are normal in appearance. No biliary ductal dilatation. SPLEEN, PANCREAS, ADRENAL GLANDS: Within normal limits. KIDNEYS, URETERS, BLADDER: Symmetric parenchymal enhancement with no obstructing calculus or hydronephrosis. Two nonobstructing calculi of the left lower pole measuring up to 6 mm are incidentally noted. There is also focal cortical thinning of the left lower pole. Ureters normal in course caliber. Bladder not well assessed due to its decompressed state. UTERUS, ADNEXA: There is mild abnormal thickening of the endometrium, which is heterogenous in appearance. However, this anatomic region is not well assessed at CT. No adnexal mass. BOWEL: No evidence of obstruction. Scattered diverticula present throughout the colon. Small hiatal hernia. PERITONEAL/EXTRAPERITON EAL SPACE: No free air or free fluid. LYMPH NODES: No adenopathy. VASCULAR: Grossly unremarkable. 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 ABDOMINAL WALL: Free of hernias. MUSCULOSKELETAL: No acute osseous abnormality. IMPRESSION: 1. There is mild abnormal thickening of the endometrium, which demonstrates heterogenous enhancement. However, this anatomical region is not well assessed at CT. Recommend further follow-up with pelvic ultrasound, which has a greater sensitivity for this anatomic region. 2. 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 If of clinical concern, interventional radiology consultation can be obtained for further evaluation and discussion of possible endovascular treatment options. 3. Nonobstructing left nephrolithiasis. 4. Small hiatal hernia. ACTIONABLE RESULT: FOLLOW-UP Acuity: Actionable Findings: Female reproductive tract (pelvis, adnexa) Routing code: WH_[id number] Recommendation: US FEMALE PELVIS NON-OB NON TORSION ([id number]) Time Frame: At the discretion of the clinical team. COMMUNICATION: Results will be communicated with the ordering provider via [employer] staff message or phone message by [employer] within 2 business days of report finalization. --END OF FINDING-- Swimming Coach: ONIEL Transcribe Date/Time: Feb 28 2025 10:37A Dictated by : YOAN HARRIS MD This examination was interpreted and the report reviewed and electronically signed by: YOAN HARIRS MD on Feb 28 2025 10:53AM EST [id number] ACTIONABLE Invalid Interpretation Code [facility] Creatinine + eGFR Pnl SerPlB ldon 02-23-2025 Creatinine and Glomerular filtration rate.predicted panel (S/P/Bld) 66 mL/min/1.73m??? Normal >=60 [facility] Comment on above: Order Comment: Kaleb fontanez Type: BLOOD SPECIMENOrdering Facility: [facility] Address: [address] [place] [address] Result Comment: Margareth mated Glomerular Filtration Rate (eGFR) is calculated using the 2020 CKD-EPI creatinine equation. This equation utilizes serum creatinine, sex, and age as parameters. The creatinine assay has traceable calibration to isotope dilution-mass spectrometry. Refer to KDIGO guidelines for clinical interpretation. In patients with unstable renal function, e.g. those with acute kidney injury, the eGFR may not accurately reflect actual GFR. Performed By: #### 4 5066-8 ####[facility] [id number] [address] STATES OF [facility] Creatinine and Glomerular fi ltration rate.predicted panel (S/P/Bld)on 02-23-2025 Creatinine [Mass/Vol] 0.93 mg/dL Normal 0.58-0.96 [facility] Comment on above: Order Comment: Kaleb fontanez Type: BLOOD SPECIMENOrdering Facility: [facility] Address: [address] [place], [place] [id number] Performed By: #### 4 5066-8 ####[facility] [id number] [address] OF [facility] Monique 02-21-2025 RADHAN Telephone (ROSENDO) EMILIE KERN ([id number]) 1955 F Date Time Provider Department 02/21/25 FATOU JACKSON During your visit today, we recorded the following information about you: Kirsten Velarde PSS 02/21/2025 4:[address] order for stat creatinine order for pt , pt appt on 02/23/[address] Lorna Fagan APRN.CNP 02/22/2025 6:55 AM Signed Unable to order Stat, I order it routine. Lorna Fagan APRN.Aleshia Cisneros RN 02/22/2025 8:39 AM Signed I pended a stat order now. Does it just not let you file it? JEISON Barrett Renee, APRN.CNP 02/22/2025 9:35 AM Signed I am not able to sign it because it is saying it not an available stat lab. Lorna Fagan APRN.Aleshia Cisneros RN 02/22/2025 10:53 AM Signed Spoke to Kirsten Green and she said current order is fine to keep as is. Aleshia Rico RN Allergies As of Date: 02/21/2025 (No Active Allergies) Date Reviewed: 12/29/2024 Reviewed by: Noemí Gómez MA - Fully Assessed Reason for Visit: Orders [681] Primary Visit Diagnosis:Pre-procedura l laboratory examination [Z01.812] Order(s):CREATININE BLD [SQCRET] Order #: [id number] FUTURE Prescriptions as of 02/22/2025 - amLODIPine (NORVASC) 5 mg tablet Take 1 tablet by mouth once daily. - atorvastatin (LIPITOR) 80 mg tablet Take 1 tablet by mouth once daily. - clopidogrel (PLAVIX) 75 mg tablet Take 1 tablet by mouth once daily. - isosorbide mononitrate ER (IMDUR) 30 mg 24 hr tablet Take 1 tablet by mouth once daily. - lisinopril (ZESTRIL) 10 mg tablet Take 1 tablet by mouth once daily. - metoprolol succinate ER (TOPROL XL) 100 mg Take 1 tablet by mouth once daily. - nitroglycerin sublingual (NITROQUICK) 0.4 mg SL tablet Dissolve 1 tablet under the tongue as needed. FOR CHEST PAIN. IF NO RELIEF CALL 911 - miSOPROStol (CYTOTEC) 200 mcg tablet Insert 2 tablets vaginally night prior to EMB and 2 tablets morning of procedure. Each dose should be in vagina for 6-8 hours. - alendronate (FOSAMAX) 70 mg tablet Take 1 tablet by mouth one time a week. Take with a full glass of water, on an empty stomach; do NOT lie down for 30minutes. - BIOTIN ORAL Take 1 tablet by mouth once daily. - ASPIRIN 81MG TABLET Take one (1) tablet daily . Problem List As Of Date 02/21/2025 Noted Resolved Unspecified hemorrhoids without mention of comp* 01/15/2023 INSOMNIA [G47.00] 12/04/2007 01/15/2023 Pain in limb [M79.609] 12/10/2007 01/15/2023 Plantar fascial fibromatosis [M72.2] 12/24/2007 01/15/2023 CAD (coronary artery disease), [place] coronary *04/26/2013 ST elevation myocardial infarction (STEMI) of l*04/26/2013 05/05/2013 Primary hypertension [I10] 04/26/2013 HLD (hyperlipidemia) [E78.5] 04/26/2013 Ex-smoker [Z87.891] 04/26/2013 04/29/2013 Possible underlying coronary artery spasm [I20.*04/26/2013 04/29/2013 S/p nephrectomy [Z90.5] 04/26/2013 H/O: stroke [Z86.73] 04/27/2013 04/27/2013 Leukocytosis [D72.829] 04/27/2013 04/29/2013 Fibromuscular hyperplasia of artery (HCC) [I77.*04/28/2013 Possible Fibromuscular dysplasia [I77.3] 04/29/2013 04/29/2013 Fibromuscular dysplasia (HCC) [I77.3] 04/29/2013 07/08/2024 Coronary artery dissection [I25.42] 06/18/2013 Ductal carcinoma in situ (DCIS) of left breast *02/26/2021 Age-related osteoporosis without current pathol*01/15/2023 Encounter Status:Closed by ALESHIA RICO on 02/22/25 [facility] ([id number]) 1955 F Date Time Provider Department 02/04/25 DANIEL SINGH INTMWS During your visit today, we recorded the following information about you: Yari Slaughter RN 02/04/2025 4:36 PM Signed Pt called in and reports she has been having pain across her shoulder blades that will go down both her arms into her finger tips. She states it will last like 7-8 minutes and then go away. Pt states her arms feel like rubber and she isn't able to move them. She has had x3 episodes over the past 2 weeks. Pt states she has been having low back pain and wondered if this has been coming from that. Pt had history of x3 previous heart attacks. I told her with her past cardiac history I would have her got to the ER and get checked out. Pt verbalized understanding. JEISON Jerez Victor H, MD 02/04/2025 6:02 PM Signed I agree. Allergies As of Date: 02/04/2025 (No Active Allergies) Date Reviewed: 12/29/2024 Reviewed by: Noemí Gómez MA - Fully Assessed Reason for Visit: Patient Update [1234] Prescriptions as of 02/04/2025 - amLODIPine (NORVASC) 5 mg tablet Take 1 tablet by mouth once daily. - atorvastatin (LIPITOR) 80 mg tablet Take 1 tablet by mouth once daily. - clopidogrel (PLAVIX) 75 mg tablet Take 1 tablet by mouth once daily. - isosorbide mononitrate ER (IMDUR) 30 mg 24 hr tablet Take 1 tablet by mouth once daily. - lisinopril (ZESTRIL) 10 mg tablet Take 1 tablet by mouth once daily. - metoprolol succinate ER (TOPROL XL) 100 mg Take 1 tablet by mouth once daily. - nitroglycerin sublingual (NITROQUICK) 0.4 mg SL tablet Dissolve 1 tablet under the tongue as needed. FOR CHEST PAIN. IF NO RELIEF CALL 911 - miSOPROStol (CYTOTEC) 200 mcg tablet Insert 2 tablets vaginally night prior to EMB and 2 tablets morning of procedure. Each dose should be in vagina for 6-8 hours. - alendronate (FOSAMAX) 70 mg tablet Take 1 tablet by mouth one time a week. Take with a full glass of water, on an empty stomach; do NOT lie down for 30minutes. - BIOTIN ORAL Take 1 tablet by mouth once daily. - ASPIRIN 81MG TABLET Take one (1) tablet daily . Problem List As Of Date 02/04/2025 Noted Resolved Unspecified hemorrhoids without mention of comp* 01/15/2023 INSOMNIA [G47.00] 12/04/2007 01/15/2023 Pain in limb [M79.609] 12/10/2007 01/15/2023 Plantar fascial fibromatosis [M72.2] 12/24/2007 01/15/2023 CAD (coronary artery disease), [place] coronary *04/26/2013 ST elevation myocardial infarction (STEMI) of l*04/26/2013 05/05/2013 Primary hypertension [I10] 04/26/2013 HLD (hyperlipidemia) [E78.5] 04/26/2013 Ex-smoker [Z87.891] 04/26/2013 04/29/2013 Possible underlying coronary artery spasm [I20.*04/26/2013 04/29/2013 S/p nephrectomy [Z90.5] 04/26/2013 H/O: stroke [Z86.73] 04/27/2013 04/27/2013 Leukocytosis [D72.829] 04/27/2013 04/29/2013 Fibromuscular hyperplasia of artery (HCC) [I77.*04/28/2013 Possible Fibromuscular dysplasia [I77.3] 04/29/2013 04/29/2013 Fibromuscular dysplasia (HCC) [I77.3] 04/29/2013 07/08/2024 Coronary artery dissection [I25.42] 06/18/2013 Ductal carcinoma in situ (DCIS) of left breast *02/26/2021 Age-related osteoporosis without current pathol*01/15/2023 Encounter Status:Closed by DANIEL SINGH on 02/04/25 Normal [facility] ECHOon 01-07-2025 Echocardiography Echocardiography Report: Transthoracic Echo Pending Sale To [facility] Date of service: 01/07/2025 1:44:20 PM 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 EMILIE KERN : 1955 Age: 69 years Gender: F History of hypertension, dyslipidemia and coronary artery disease. Primary rhythm: sinus. Height: 172.70 cm BSA: 1.95 m Weight: 78.93 kg BMI: 26.5 kg/m Heart rate 53 bpm Blood pressure 148/72 mmHg Technically difficult exam due to body habitus. Color Doppler was utilized to interrogate the cardiac valves assessed and spectral Doppler was utilized to determine the flow velocities and pressure gradients reported in this exam. Myocardial strain analysis was performed in this exam to aid in the assessment of cardiac function. MEASUREMENTS: Value Indexed Normal Max aortic dimension 2.8 cm Ao < 3.8 Left atrial volume 53 ml (biplane A-L) 27 ml/m Gege <= 34 LV ID (diastole) 4.2 cm (2D) 2.17 cm/m LV ID (systole) 2.4 cm (2D) 1.24 cm/m IVS, leaflet tips 0.9 cm (2D) Posterior wall thickness 0.8 cm (2D) Left ventricular mass 112 g (2D) 57 g/m Global peak long strain -20.5 % LV stroke volume 60 ml (2D biplane) LV end diastolic volume 98 ml (2D biplane) 50.5 ml/m 29<=EDVi<62 LV end systolic volume 38 ml (2D biplane) 19.8 ml/m Ejection Fraction 61 % (2D biplane) EF > 54 FINDINGS: LEFT VENTRICLE The left ventricle is normal in size. Left ventricular systolic function is normal. Global LV myocardial strain is normal. Grade I left ventricular diastolic dysfunction. Mitral annular lateral E/e': 8.1. Mitral annular septal E/e': 9.3. Wall Motion: The apical septal segment is mildly hypokinetic. All remaining scored segments are normal. RIGHT VENTRICLE The right ventricle is normal in size. Right ventricular systolic function is normal. RV systolic tissue Doppler velocity is 13.0 cm/s. Tricuspid annular displacement is 1.8 cm. Estimated right atrial pressure is 3 mmHg (although IVC not seen). LEFT ATRIUM The left atrial cavity is normal in size. Pulmonary Veins: The pulmonary venous pattern showed normal systolic flow. RIGHT ATRIUM The right atrial cavity is normal in size. Inferior Vena Cava: The inferior vena cava appears normal measuring 1.3 cm. MITRAL VALVE The mitral valve leaflets are structurally normal. There is no mitral valve regurgitation. The pressure half time is 57 msec. The peak mitral E/A ratio is 0.62. The average mitral E/e' ratio is 8.7. The mitral flow deceleration time is 196 msec. TRICUSPID VALVE The tricuspid valve leaflets are structurally normal. There is no tricuspid valve regurgitation. AORTIC VALVE The aortic valve cusps are structurally normal. There is no aortic valve regurgitation. Tricuspid aortic valve. The peak gradient is 7 mmHg (peak velocity = 133.6 cm/s). PULMONIC VALVE The pulmonic valve cusps are structurally normal. There is trace pulmonic valve regurgitation. AORTA The visualized aorta is normal in size. Measurements - Mid ascending aorta 2.8 cm. INTERATRIAL SEPTUM There is no evidence of intracardiac shunting as detected by Doppler. PERICARDIUM There is no pericardial effusion. There is an epicardial fat pad. CONCLUSIONS: - Technically difficult exam due to body habitus. - Exam indication: CAD - The left ventricle is normal in size. Left ventricular systolic function is normal. EF = 61 5% (2D biplane) Grade I left ventricular diastolic dysfunction. - The right ventricle is normal in size. Right ventricular systolic function is normal. - There are no significant valvular abnormalities. - Exam was compared with the prior echocardiographic exam performed on 05/08/2013. The left ventricular segmental wall motion abnormalities have improved. * * * Final * * * VouchedFor Medical Image : [id number] ISUID Normal [facility] CNOVon 12-29-2024 CNOV Office Visit (CARCMN ) EMILIE KERN ([id number]) 1955 F Date Time Provider Department 12/29/24 1:45 PM ENIO KIRBY CARCMN During your visit today, we recorded the following information about you: Pulse Respiration Blood pressure Weight 49/minute 16/minute 148/65 78.9 kg Height 1.727 m Enio Kirby MD 12/29/2024 3:01 PM Signed Heart, Vascular and Thoracic [place] Jorge Chandler Department of Cardiovascular Medicine SECTION OF CLINICAL CARDIOLOGY OUTPATIENT VISIT DATE December 29, 2024 OUTPATIENT VISIT TYPE ESTABLISHED PRIMARY CARE PHYSICIAN: Daniel Singh [address] [place] [address] REFERRING PHYSICIAN: Enio Kirby [address] [facility] [address] CHIEF COMPLAINT: Coronary artery disease, history of ST elevation myocardial infarction, fibromuscular dysplasia, stress cardiomyopathy, history of probable spontaneous coronary dissection HISTORY OF PRESENT ILLNESS: Ms. Kern is a 69 year old female who presents today for a cardiovascular medicine follow-up visit of her above problems. She notes no chest pain or shortness of breath. Tolerating medications well. Notes some swelling in her legs and asked if she could potentially stop amlodipine. Has not had an echocardiogram since 2012. Blood pressure elevated. Still having increased weight and not exercising regularly.. She denies chest pain, shortness of breath, orthopnea, cough, edema, palpitations, PND, lightheadedness or syncope. PAST CARDIAC HISTORY: None, as above PAST MEDICAL HISTORY Diagnosis Date Age-related osteoporosis without current pathological fracture 01/15/2023 CAD (coronary artery disease), [place] coronary artery 04/26/2013 -hx of inferior STEMI's x 2 (1994, 2003). LHC in 1994 revealed normal coronaries and LHC in 2003 showed occlusion of small branch of RCA but otherwise normal coronaries. -Admitted to [facility] on 04/26/13 after p/w CP and anterolateral STEMI. Subsequent LHC revealed distal small branch of RCA w 100% blockage. She had unsuccessful PTCA to small branch of RCA d/t tortuous vessels. 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 Coronary atherosclerosis of unspecified type of vessel, [place] or graft Coronary artery disease, [place] x2, 1985, 1992, 2001 Ductal carcinoma in situ (DCIS) of left breast 02/26/2021 Dyslipidemia Enthesopathy of unspecified site 12/07/2008 Female stress incontinence Fibromuscular hyperplasia of artery 04/28/2013 Confirmed by carotid duplex April 28, 2013 HLD (hyperlipidemia) 04/26/2013 Hypertension INSOMNIA 12/04/2007 Myocardial infarct, old 04/26/2013 NSVT (nonsustained ventricular tachycardia) (HCC) 04/27/2013 History: One rhythm strip from OSH showing wide complex tachycardia, up to 9 beats This in the setting of active ST elevation. Assessment: NSVT in the setting of active ischemia Plan: 1. Replace K and mag aggressively 2. Monitor closely. 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 Last admission 04/26/2013: p/w anterolateral STEMI, s/p unsuccessful PTCA to d Takotsubo cardiomyopathy / Coronary vasospasm 04/28/2013 Underwent a C on arrival 04/26/13 which showed severe disease in the distal branch of RCA that was ballooned previously. POBA was attempted but unsuccessful due to small caliber and tortuous nature. Echo 04/28: apical ballooning Assessment: likely [place] MP secondary to transient coronary vessel stenosis, wo conorany vessel obstruction on C Plan: LHC 05/06/[address] Tolbert echo Unspecified hemorrhoids without mention of complication Hemorrhoids PAST SURGICAL HISTORY Procedure Laterality Date APPENDECTOMY BREAST LUMPECTOMY HX Left 02/08/2021 BX BREAST W/DEVICE 1ST LESION STEREOTACTIC GUID Left 01/22/2021 CHOLECYSTECTOMY 1970 Cholecystectomy LEFT HEART CATH 04/26/13, 05/11/2013 100% mid occlusion of RPV1 PAST SURGICAL HISTORY OF abnormal kidney removed age 6 done at [facility], still has 2 1/2 kidneys PERC TRANSL COR ANGIO 2004 Distal RCA - PTCA/No stent TONSILLECTOMY PRIMARY/SECONDARY Tonsillectomy SOCIAL HISTORY Social History Tobacco Use Smoking status: Former Current packs/day: 0.00 Average packs/day: 1 pack/day for 10.0 years (10.0 ttl pk-yrs) Types: Cigarettes Start date: 1971 Quit date: 1981 Years since quittin.3 Smokeless tobacco: Never Vaping Use Vaping status: Never Used Substance Use Topics Alcohol use: Not Currently Com (more content not included)... Normal [facility] ECG COMPLETEon 12-29-2024 ECG COMPLETE Ventricular Rate : 5 4 BPM Atrial Rate : 54 BPM P-R Interval : 164 ms QRS Duration : 92 ms Q-T Interval : 452 ms QTC Calculation(Bazett) : 428 ms Calculated P [place] : 30 degrees Calculated R [place] : 26 degrees Calculated T [place] : 28 degrees SINUS BRADYCARDIA OTHERWISE NORMAL ECG Confirmed by MINNA SHERIDAN MD ([id number]) on 01/30/2025 1:01:53 PM NAME : EMILIE KERN PID : [id number] : 1955 Gender : Female Race : ORD : [id number] Procedure Date : Dec 29 2024 13:00:16 Edit Date : Jan 30 2025 13:01:57 Diagnosis: SINUS BRADYCARDIA OTHERWISE NORMAL ECG Confirmed by MINNA SHERIDAN MD ([id number]) on 01/30/2025 1:01:53 PM Test Reason : Location : 314 : J14 J14 Overread By : MINNA SHERIDAN MD Edited By : MINNA SHERIDAN MD Referred By : ENIO KIRBY Acquired by : BRITANY GARCIA [facility] Lipid 1996 panelon 5 Cholesterol [Mass/Vol] 177 mg/dL Normal <200 [facility] Comment on above: Order Comment: Speci men Type: BLOOD SPECIMENOrdering Facility: [facility] Address: [address] [place] [address] Result Comment: <200 mg/dL, Desirable 200-239 mg/dL, Borderline high >239 mg/dL, High Performed By: #### 2 4331-1 ####[facility] LABCLIA [id number] [address] STATES OF [facility] Cholesterol in HDL [Mass/Vol] 45 mg/dL Normal >39 [facility] Comment on above: Order Comment: Speci men Type: BLOOD SPECIMENOrdering Facility: [facility] Address: [address] [place] [address] Result Comment: 40-5 9 mg/dL, Acceptable >59 mg/dL, High: Negative risk factor for coronary heart disease <40 mg/dL, Low: Positive risk factor for coronary heart disease Performed By: #### 2 4331-1 ####[facility] LABCLIA [id number] [address] Cholesterol in LDL [Mass/Vol] 108 mg/dL High <100 [facility] Comment on above: Order Comment: [facility] Type: BLOOD SPECIMENOrdering Facility: [facility] Address: [address] [place] [address] Result Comment: <100 mg/dL, Optimal 100-129 mg/dL, Near optimal/above optimal 130-159 mg/dL, Borderline high 160-189 mg/dL, High >189 mg/dL, Very high Secondary prevention optimal LDL Cholesterol levels are recommended to be <70 mg/dL LDL cholesterol is calculated using the Franklin-NIH equation. Performed By: #### 2 4331-1 ####[facility] LABIA [id number] [address] OF [facility] Cholesterol in LDL/Cholesterol in HDL [Mass ratio] 2.40 {ratio} Normal <2.54 [facility] Comment on above: Order Comment: Kaleb fontanez Type: BLOOD SPECIMENOrdering Facility: [facility] Address: [address] [place] [address] Result Comment: Refe leilace: 1. National Cholesterol Education Program ATP III Guideline At-A-Glance Quick Desk Reference: National Heart, Lung, and Blood [place]. National Institutes of Health. 2001: NIH Publication No. 01-3305. 2. An International Atherosclerosis Society position paper: global recommendations for the management of dyslipidemia: executive summary, Atherosclerosis. 2014: 232(2):410-413. Performed By: #### 2 4331-1 ####[facility] LABCLIA [id number] [address] [place] [address] [place] Cholesterol in VLDL [Mass/Vol] 22 mg/dL Normal <30 [facility] Comment on above: Order Comment: Speci men Type: BLOOD SPECIMENOrdering Facility: [facility] Address: [address] [place] [address] Performed By: #### 2 4331-1 ####[facility] LABCLIA [id number] [address] [place] [address] [place] Cholesterol non HDL [Mass/Vol] 132 mg/dL High <130 [facility] Comment on above: Order Comment: Lenchoi men Type: BLOOD SPECIMENOrdering Facility: [facility] Address: [address] [place] [address] Result Comment: <130 mg/dL, Optimal 130-159 mg/dL, Near optimal/above optimal 160-189 mg/dL, Borderline high 190-219 mg/dL, High >219 mg/dL, Very high Secondary prevention optimal non HDL Cholesterol levels are recommended to be <100 mg/dL Performed By: #### 2 4331-1 ####[facility] LABCLIA [id number] [address] [place] [address] [place] Cholesterol.total/Ch olesterol in HDL [Mass ratio] 3.93 {ratio} Normal <5.10 [facility] Comment on above: Order Comment: Speci men Type: BLOOD SPECIMENOrdering Facility: [facility] Address: [address] [place] [address] Performed By: #### 2 4331-1 ####[facility] LABCLIA [id number] [address] [place] [address] [place] FASTING TIME 17 hrs Normal [facility] Comment on above: Order Comment: Speci men Type: BLOOD SPECIMENOrdering Facility: [facility] Address: [address] [place] [address] Performed By: #### 2 4331-1 ####[facility] LABCLIA [id number] [place] [address] [place] Triglyceride [Mass/Vol] 134 mg/dL Normal <150 [facility] Comment on above: Order Comment: Speci men Type: BLOOD SPECIMENOrdering Facility: [facility] Address: [address] [place] [address] Result Comment: <150 mg/dL, Normal 150-199 mg/dL, Borderline high 200-499 mg/dL, High >499 mg/dL, Very high Performed By: #### 2 4331-1 ####[facility] LABCLIA [id number] [place] [address] [place] CBC panel Auto (Bld)on 12-10 Erythrocyte distribution width (RBC) [Ratio] 13.9 % Normal 11.5-15.0 [facility] Comment on above: Order Comment: Speci men Type: BLOOD SPECIMENOrdering Facility: [facility] Address: [address] [place] [address] Performed By: #### 5 8410-2 ####[facility] [id number] [place] [address] [place] Hematocrit (Bld) [Volume fraction] 40.0 % Normal 36.0-46.0 [facility] Comment on above: Order Comment: Speci men Type: BLOOD SPECIMENOrdering Facility: [facility] Address: [address] [place] [address] Performed By: #### 5 8410-2 ####[facility] [id number] [place] [address] [place] Hemoglobin (Bld) [Mass/Vol] 13.3 g/dL Normal 11.5-15.5 [facility] Comment on above: Order Comment: Speci men Type: BLOOD SPECIMENOrdering Facility: [facility] Address: [address] [place] [address] Performed By: #### 5 8410-2 ####[facility] YAZMINMARK [id number] [address] [facility] MCH (RBC) [Entitic mass] 31.4 pg Normal 26.0-34.0 [facility] Comment on above: Order Comment: Speci men Type: BLOOD SPECIMENOrdering Facility: [facility] Address: [address] [place] [address] Performed By: #### 5 8410-2 ####[facility] SOUTHNCYuko [id number] [address] [place] MCHC (RBC) [Mass/Vol] 33.3 g/dL Normal 30.5-36.0 [facility] Comment on above: Order Comment: Speci men Type: BLOOD SPECIMENOrdering Facility: [facility] Address: [address] [place] [address] Performed By: #### 5 8410-2 ####[facility] [id number] [address] [place] MCV (RBC) [Entitic vol] 94.6 fL Normal 80.0-100.0 [facility] Comment on above: Order Comment: Speci men Type: BLOOD SPECIMENOrdering Facility: [facility] Address: [address] [place] [address] Performed By: #### 5 8410-2 ####[facility] SOUTHNCA [id number] [place] [address] [place] Nucleated RBC (Bld) [#/Vol] 10*3/uL Normal <0.01 [facility] Comment on above: Order Comment: Speci men Type: BLOOD SPECIMENOrdering Facility: [facility] Address: [address] [place] [address] Performed By: #### 5 8410-2 ####[facility] MILLTOWNCLIA [id number] [place] [address] [place] Platelet mean volume (Bld) [Entitic vol] 11.6 fL Normal 9.0-12.7 [facility] Comment on above: Order Comment: Speci men Type: BLOOD SPECIMENOrdering Facility: [facility] Address: [address] [place] [address] Performed By: #### 5 8410-2 ####[facility] SOUTHNCLIA [id number] [place] [address] [place] Platelets (Bld) [#/Vol] 172 10*3/uL Normal 150-400 [facility] Comment on above: Order Comment: Speci men Type: BLOOD SPECIMENOrdering Facility: [facility] Address: [address] [place] [address] Performed By: #### 5 8410-2 ####[facility] SOUTHNCLIA [id number] [place] [address] [place] RBC (Bld) [#/Vol] 4.23 10*6/uL Normal 3.90-5.20 [facility] Comment on above: Order Comment: Speci men Type: BLOOD SPECIMENOrdering Facility: [facility] Address: [address] [place], [place] [address] Performed By: #### 5 8410-2 ####[facility] SOUTHNCLIA [id number] [place] [address] [place] WBC (Bld) [#/Vol] 5.74 10*3/uL Normal 3.70-11.00 [facility] Comment on above: Order Comment: Speci men Type: BLOOD SPECIMENOrdering Facility: [facility] Address: [address] [place] [address] Performed By: #### 5 8410-2 ####[facility] SOUTHNCLIA [id number] [place] [address] [place] Comprehensive metabolic 2000 panelon 12-10-2024 Albumin [Mass/Vol] 4.2 g/dL Normal 3.9-4.9 [facility] Comment on above: Order Comment: Speci men Type: BLOOD SPECIMENOrdering Facility: [facility] Address: [address] [place] [address] Performed By: #### 2 4323-8 ####[facility] MILLWNCLIA [id number] [place] [address] [place] ALP [Catalytic activity/Vol] 113 U/L Normal 34-123 [facility] Comment on above: Order Comment: Speci men Type: BLOOD SPECIMENOrdering Facility: [facility] Address: [address] [place] [address] Performed By: #### 2 4323-8 ####[facility] SOUTHNCLIA [id number] [place] [address] [place] ALT [Catalytic activity/Vol] 26 U/L Normal 7-38 [facility] Comment on above: Order Comment: Speci men Type: BLOOD SPECIMENOrdering Facility: [facility] Address: [address] [place] [address] Performed By: #### 2 4323-8 ####[facility] SOUTHNCLIA [id number] [place] [address] [place] Anion gap [Moles/Vol] 9 mmol/L Normal 8-15 [facility] Comment on above: Order Comment: Speci men Type: BLOOD SPECIMENOrdering Facility: [facility] Address: [address] [place] [address] Performed By: #### 2 4323-8 ####[facility]ITALWNCLIA [id number] [place] [address] [place] AST [Catalytic activity/Vol] 21 U/L Normal 13-35 [facility] Comment on above: Order Comment: Speci men Type: BLOOD SPECIMENOrdering Facility: [facility] Address: [address] [place] [address] Performed By: #### 2 4323-8 ####[facility] PRABHU PULIDOLIA [id number] [place] [address] [place] Bilirubin [Mass/Vol] 1.0 mg/dL Normal 0.2-1.3 [facility] Comment on above: Order Comment: Speci men Type: BLOOD SPECIMENOrdering Facility: [facility] Address: [address] [place], [place] [address] Performed By: #### 2 4323-8 ####[facility] HOS[facility]ITALWJOHNNIEA [id number] [place] [address] [place] Calcium [Mass/Vol] 9.6 mg/dL Normal 8.5-10.2 [facility] Comment on above: Order Comment: Speci men Type: BLOOD SPECIMENOrdering Facility: [facility] Address: [address] [place] [address] Performed By: #### 2 4323-8 ####[facility] YAZMINVILLA RIDGENCLIBERTADA [id number] [place] [address] [place] Chloride [Moles/Vol] 106 mmol/L Normal 98-107 [facility] Comment on above: Order Comment: Speci men Type: BLOOD SPECIMENOrdering Facility: [facility] Address: [address] [place] [address] Performed By: #### 2 4323-8 ####[facility] SOUTHNCLIA [id number] [place] [address] [place] CO2 [Moles/Vol] 27 mmol/L Normal 22-30 [facility] Comment on above: Order Comment: Speci men Type: BLOOD SPECIMENOrdering Facility: [facility] Address: [address] [place] [address] Performed By: #### 2 4323-8 ####[facility] [id number] [place] [address] [place] Creatinine [Mass/Vol] 0.94 mg/dL Normal 0.58-0.96 [facility] Comment on above: Order Comment: Speci men Type: BLOOD SPECIMENOrdering Facility: [facility] Address: [address] [place] [address] Performed By: #### 2 4323-8 ####[facility]PITALLI [id number] [place] [address] [place] Creatinine and Glomerular filtration rate.predicted panel (S/P/Bld) 65 mL/min/1.73m??? Normal >=60 [facility] Comment on above: Order Comment: [facility] Type: BLOOD SPECIMENOrdering Facility: [facility] Address: [address] [place] [address] Result Comment: Margareth mated Glomerular Filtration Rate (eGFR) is calculated using the 2020 CKD-EPI creatinine equation. This equation utilizes serum creatinine, sex, and age as parameters. The creatinine assay has traceable calibration to isotope dilution-mass spectrometry. Refer to KDIGO guidelines for clinical interpretation. In patients with unstable renal function, e.g. those with acute kidney injury, the eGFR may not accurately reflect actual GFR. Performed By: #### 2 4323-8 ####[facility] [id number] [place] [address] [place] Glucose [Mass/Vol] 104 mg/dL High 74-99 [facility] Comment on above: Order Comment: Speci men Type: BLOOD SPECIMENOrdering Facility: [facility] Address: [address] [place] [address] Result Comment: The [place] Diabetes Association (ADA) provides guidance for cutoff values for fasting glucose and random glucose. The ADA defines fasting as no caloric intake for at least 8 hours. Fasting plasma glucose results between 100 to 125 mg/dL indicate increased risk for diabetes (prediabetes). Fasting plasma glucose results greater than or equal to 126 mg/dL meet the criteria for diagnosis of diabetes. In the absence of unequivocal hyperglycemia, results should be confirmed by repeat testing. In a patient with classic symptoms of hyperglycemia or hyperglycemic crisis, random plasma glucose results greater than or equal to 200 mg/dL meet the criteria for diagnosis of diabetes. Reference: Standards of Medical Care in Diabetes 2016, [place] Diabetes Association. Diabetes Care. 2016.39(Suppl 1). Performed By: #### 2 4323-8 ####[facility] MILLTOWTRENTONLIA [id number] [place] [address] [place] Potassium [Moles/Vol] 3.8 mmol/L Normal 3.7-5.1 [facility] Comment on above: Order Comment: Kaleb fontanez Type: BLOOD SPECIMENOrdering Facility: [facility] Address: [address] [place] [address] Performed By: #### 2 4323-8 ####[facility]ALL[facility] [id number] [place] [address] [place] Protein [Mass/Vol] 6.9 g/dL Normal 6.3-8.0 [facility] Comment on above: Order Comment: Kaleb fontanez Type: BLOOD SPECIMENOrdering Facility: [facility] Address: [address] [place] [address] Performed By: #### 2 4323-8 ####[facility] SOUTHTRENTONLIA [id number] [place] [address] [place] Sodium [Moles/Vol] 142 mmol/L Normal 136-144 [facility] Comment on above: Order Comment: Lenchoi men Type: BLOOD SPECIMENOrdering Facility: [facility] Address: [address] [place] [address] Performed By: #### 2 4323-8 ####[facility] SOUTHNCLIA [id number] [place] [address] [place] Urea nitrogen [Mass/Vol] 19 mg/dL Normal 7-21 [facility] Comment on above: Order Comment: Speci men Type: BLOOD SPECIMENOrdering Facility: [facility] Address: [place] [address] Performed By: #### 2 4323-8 ####[facility] PRABHU ARCEFRANCISCAN HEALTH RENSSELAERLIYuko [id number] [place] [id number] [place] TSH SerPl-aCncon 12-10-2024 TSH Qn 2.250 m[IU]/L Normal 0.270-4.200 [facility] Comment on above: Order Comment: Speci men Type: BLOOD SPECIMENOrdering Facility: [facility] Address: [place] [address] Performed By: #### 3 016-3 ####[facility] LABCLIA [id number] [address] [place] Monique 11-23-2024 RADHAN Telephone (ROSENDO) EMILIE KERN ([id number]) 1955 Date Time Provider Department 11/23/24 FATOU JACKSON During your visit today, we recorded the following information about you: Fatou Jackson APRN.CNP 11/23/2024 2:34 PM Signed Patient called per myself. Discussed diagnostic testing findings -Pap test normal; pelvic ultrasound shows thickened endometrial lining and both ovaries are normal. Discussed that recommendation was to have an endometrial biopsy and consideration for CAT scan of abdomen and pelvis. Both were discussed and questions answered. EMB with vaginal Vasoprost all and CT of abdomen and pelvis ordered. Fatou Jackson APRN.CNP Allergies As of Date: 11/23/2024 (No Known Allergies) Date Reviewed: 11/10/2024 Reviewed by: Jackson, Fatou, FELLED SEAM OPERATOR CHAINSTITCH.PLATE MILL MILL HAND - Fully Assessed Reason for Visit: Results [95] Orders [681] Primary Visit Diagnosis:Endometrial thickening on ultrasound [R93.89] Other Visit Diagnoses:PMB (postmenopausal bleeding) [N95.0] Pelvic pain in female [R10.2] Order(s):CT ABD/PEL W IVCON [[id number]] Order #: [id number] FUTURE iv contrast (will be provided with radiology test)CT ABD/PEL -Inject, intravenously, once for 1 dose.No IV access, insert saline lock prior to the beginning of sedation, infusion, injection of imaging exam. Discontinue saline lock post exam. If Pt. has a central line or IVAD, may access for administration according to line specific nursing protocol. Once exam is complete flush line and de-access according to line specific nursing protocol in the CT contrast administration guidelines link.Disp: 1 EachRfl: 0 CREATININE BLD [SQCRET] Order #: [id number] FUTURE ENDOMETRIAL BIOPSY [[id number]] Order #: [id number] miSOPROStol (CYTOTEC) 200 mcg tabletInsert 2 tablets vaginally night prior to EMB and 2 tablets morning of procedure. Each dose should be in vagina for 6-8 hours.Disp: 4 tabletRfl: 0 Prescriptions as of 11/23/2024 - iv contrast (will be provided with radiology test) CT ABD/PEL -Inject, intravenously, once for 1 dose.No IV access, insert saline lock prior to the beginning of sedation, infusion, injection of imaging exam. Discontinue saline lock post exam. If Pt. has a central line or IVAD, may access for administration according to line specific nursing protocol. Once exam is complete flush line and de-access according to line specific nursing protocol in the CT contrast administration guidelines link. - miSOPROStol (CYTOTEC) 200 mcg tablet Insert 2 tablets vaginally night prior to EMB and 2 tablets morning of procedure. Each dose should be in vagina for 6-8 hours. - nitroglycerin sublingual (NITROQUICK) 0.4 mg SL tablet Dissolve 1 tablet under the tongue as needed. FOR CHEST PAIN. IF NO RELIEF CALL 911 - metoprolol succinate ER (TOPROL XL) 100 mg Take 1 tablet by mouth once daily. - lisinopril 2.5 mg tablet Take 1 tablet by mouth once daily. - isosorbide mononitrate ER (IMDUR) 30 mg 24 hr tablet Take 1 tablet by mouth once daily. - clopidogrel (PLAVIX) 75 mg tablet Take 1 tablet by mouth once daily. - atorvastatin (LIPITOR) 80 mg tablet Take 1 tablet by mouth once daily. - amLODIPine (NORVASC) 5 mg tablet Take 1 tablet by mouth once daily. - alendronate (FOSAMAX) 70 mg tablet Take 1 tablet by mouth one time a week. Take with a full glass of water, on an empty stomach; do NOT lie down for 30minutes. - BIOTIN ORAL Take 1 tablet by mouth once daily. - ASPIRIN 81MG TABLET Take one (1) tablet daily . Problem List As Of Date 11/23/2024 Noted Resolved Unspecified hemorrhoids without mention of comp* 01/15/2023 INSOMNIA [G47.00] 12/04/2007 01/15/2023 Pain in limb [M79.609] 12/10/2007 01/15/2023 Plantar fascial fibromatosis [M72.2] 12/24/2007 01/15/2023 CAD (coronary artery disease), [place] coronary *04/26/2013 ST elevation myocardial infarction (STEMI) of l*04/26/2013 05/05/2013 Primary hypertension [I10] 04/26/2013 HLD (hyperlipidemia) [E78.5] 04/26/2013 Ex-smoker [Z87.891] 04/26/2013 04/29/2013 Possible underlying coronary artery spasm [I20.*04/26/2013 04/29/2013 S/p nephrectomy [Z90.5] 04/26/2013 H/O: stroke [Z86.73] 04/27/2013 04/27/2013 Leukocytosis [D72.829] 04/27/2013 04/29/2013 Fibromuscular hyperplasia of artery (HCC) [I77.*04/28/2013 Possible Fibromuscular dysplasia [I77.3] 04/29/2013 04/29/2013 Fibromuscular dysplasia (HCC) [I77.3] 04/29/2013 07/08/2024 Coronary artery dissection [I25.42] 06/18/2013 Ductal carcinoma in situ (DCIS) of left breast *02/26/2021 Age-related osteoporosis without current pathol*01/15/2023 Prescriptions ordered this encounter Disp Refills Start End IV CONTRAST (RADIOLOGY PROCEDURE) - * 1 Ea* 0 11/23/2024 11/24/2024 Class: In Office Sig: CT ABD/PEL -Inject, intravenously, once for 1 dose.No IV access, insert saline lock prior to the beginning of sedation, infusion, injection (more content not included)... Normal [facility] [place] 11-21-2024 Indication Postmenopausal bleeding, pelvic pain, history of tamoxifen use Impression 1. Axial/retroverted uterus that measures 69 mm x 38 mm x 41 mm. 2. The central endometrial complex measures 15.8 mm in combined thickness, appears heterogenous with cystic areas. Endometrial pathology cannot be excluded. 3. Both ovaries are visualized and appear normal. 4. No adnexal masses were observed. 5. There is no free fluid visualized in the peritoneal cavity. Recommendations 1. Consider CT Scan of abdomen/pelvis to further evaluate patient's symptoms if clinically indicated. 2. 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 View: Adequate visualization Uterus Uterus: Visualized Uterus position: axial/retroverted Description of uterine malformations: none Myometrium: heterogeneous Endometrium: thickened, heterogenous with cystic areas Cervix details: normal Uterus length 69 mm Uterus width 41 mm Uterus height 38 mm Uterus Vol 56.3 cm Endometrial thickness, total 15.8 mm Fibroids: No fibroids identified Polyps: No polyps identified Right Ovary Rt ovary: Normal Rt ovary details: transabdominal images only Rt ovary morphology: postmenopausal atrophic Rt ovary D1 28 mm Rt ovary D2 12 mm Rt ovary D3 16 mm Rt ovary Vol 2.8 cm Left Ovary Lt ovary: Normal Lt ovary details: transabdominal images only Lt ovary morphology: postmenopausal atrophic Lt ovary D1 25 mm Lt ovary D2 22 mm Lt ovary D3 14 mm Lt ovary Vol 4.0 cm Cul de Sac Visualized. no free fluid visualized Performed By: Selam Freed RDMS Read By: Rowdy Diaz M.D. MATERNAL MEDICINE [facility] [place] 11-19-2024 Radiology Study observation (narrative) [facility] CNOVon 11-10-2024 CNOV Office Visit (OBGYWM ) EMILIE KERN ([id number]) 1955 F Date Time Provider Department 11/10/24 3:30 PM FATOU JACKSON During your visit today, we recorded the following information about you: Blood pressure Weight 126/78 80.1 kg Fatou Jackson, FELLED SEAM OPERATOR CHAINSTITCH.PLATE MILL MILL HAND 11/10/2024 5:05 PM Signed Patient declined bag making machine tender. Emilie Kern is a 69 year old female who presents for problem visit red spotting onset 08/10/2024 HPI: In August 2024, had 2 single episodes where she wiped and saw a small smear of red-brown on tissue. These occurred on different days of different weeks. No vaginal itching or burning. Has also noticed random aching over both ovaries. Aching does not last long and when she thinks about it again, it is gone. Alternating rare diarrhea/constipation if does not eat until late in the day. Has had finnicky' stomach since having gallbladder removed early . No early satiety, no abdominal bloating or weight loss. No history of abnormal Pap results 2020 DCIS left breast - left lumpectomy, radiation. Tamoxifen 2.5 years - last in 03/2024. OB History Gravida0 Para0 Term0 Preterm0 AB0 Living0 SAB0 IAB0 Ectopic0 Multiple0 Live Births0 Comment: 2 stepkids 5 grandkids [place] History LMP: Postmenopausal Age at Menarche: Age at First : Age at Menopause: [place] History Comments: Sexual Activity: Not Currently; Male Contraception: No contraception data on record PAST MEDICAL HISTORY Diagnosis Date Age-related osteoporosis without current pathological fracture 01/15/2023 CAD (coronary artery disease), [place] coronary artery 04/26/2013 -hx of inferior STEMI's x 2 (1994, 2003). LHC in 1994 revealed normal coronaries and LHC in 2003 showed occlusion of small branch of RCA but otherwise normal coronaries. -Admitted to [facility] on 04/26/13 after p/w CP and anterolateral STEMI. Subsequent LHC revealed distal small branch of RCA w 100% blockage. She had unsuccessful PTCA to small branch of RCA d/t tortuous vessels. 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 Coronary atherosclerosis of unspecified type of vessel, [place] or graft Coronary artery disease, [place] x2, 1985, 1992, 2001 Ductal carcinoma in situ (DCIS) of left breast 02/26/2021 Dyslipidemia Enthesopathy of unspecified site 12/07/2008 Female stress incontinence Fibromuscular hyperplasia of artery (HCC) 04/28/2013 Confirmed by carotid duplex April 28, 2013 HLD (hyperlipidemia) 04/26/2013 Hypertension INSOMNIA 12/04/2007 Myocardial infarct, old 04/26/2013 NSVT (nonsustained ventricular tachycardia) (HCC) 04/27/2013 History: One rhythm strip from OSH showing wide complex tachycardia, up to 9 beats This in the setting of active ST elevation. Assessment: NSVT in the setting of active ischemia Plan: 1. Replace K and mag aggressively 2. Monitor closely. 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 Last admission 04/26/2013: p/w anterolateral STEMI, s/p unsuccessful PTCA to d Takotsubo cardiomyopathy / Coronary vasospasm 04/28/2013 Underwent a C on arrival 04/26/13 which showed severe disease in the distal branch of RCA that was ballooned previously. POBA was attempted but unsuccessful due to small caliber and tortuous nature. Echo 04/28: apical ballooning Assessment: likely Tacotsubo MP secondary to transient coronary vessel stenosis, wo conorany vessel obstruction on C Plan: LHC 05/06/[address] Tolbert echo Unspecified hemorrhoids without mention of complication Hemorrhoids PAST SURGICAL HISTORY Procedure Laterality Date APPENDECTOMY BREAST LUMPECTOMY HX Left 02/08/2021 BX BREAST W/DEVICE 1ST LESION STEREOTACTIC GUID Left 01/22/2021 CHOLECYSTECTOMY 1970 Cholecystectomy LEFT HEART CATH 04/26/13, 05/11/2013 100% mid occlusion of RPV1 PAST SURGICAL HISTORY OF abnormal kidney removed age 6 done at [facility], still has 2 1/2 kidneys PERC TRANSL COR ANGIO 2003 Distal RCA - PTCA/No stent TONSILLECTOMY PRIMARY/SECONDARY Tonsillectomy FAMILY HISTORY Problem Relation Age of Onset Heart Mother Cancer Father Multiple myeloma and amyloidisis Heart Maternal Grandmother Social History Tobacco Use Smoking status: Former Current packs/day: 0.00 Average packs/day: 1 pack/day for 10.0 years (10.0 ttl pk-yrs) Types: Cigarettes Start date: 1971 Quit date: 1981 Years since quittin.2 Smokeless tobacco: Never Vaping Use Vaping status: Never Used Substance Use Topics Alcohol use: Not Currently Comment: Sociall (more content not included)... Normal [facility] PAP TESTon 11-10-2024 ADEQUACY Normal [facility] Comment on above: Order Comment: Speci men Type: FLUID SPECIMENOrdering Facility: [facility] Address: [address] [place] [address] Result Comment: Odalys kingston for interpretation. Transformation zone present Performed By: #### L [id number] ####[facility] LABCLIA [id number] [place] [address] [place] CASE REPORT Normal [facility] Comment on above: Order Comment: Speci men Type: FLUID SPECIMENOrdering Facility: [facility] Address: [address] [place] [address] Result Comment: Gyne cologic Cytology Report Case: [id number] Authorizing Provider: Fatou Jackson APRN.PLATE MILL MILL HAND Collected: 11/10/2024 04:16 PM Ordering Location: OB/Gynecology Received: 11/10/2024 04:45 PM First Screen: Lyndsay Irizarry, CT, ASCP Pathologist: Tierra Monroe MD Specimen: Pap Test, ThinPrep, Cervix Performed By: #### L [id number] ####[facility] LABCLIA [id number] [address] [id number] [address] [place] CLINICAL HISTORY, CYTOLOGY, INVENTORY CONTROL ASSISTANT Post Menopausal Normal [facility] Comment on above: Order Comment: Speci men Type: FLUID SPECIMENOrdering Facility: [facility] Address: [address] [place] [address] Result Comment: Abno rmal Bleeding (Describe) postmenopausal bleeding Performed By: #### L [id number] ####[facility] LABCLIA [id number] [place] [address] [place] FINAL PERFORMING LAB Normal [facility] Comment on above: Order Comment: Speci men Type: FLUID SPECIMENOrdering Facility: [facility] Address: [address] [place] [address] Result Comment: Tech nical component, major donor coordinator screening performed at [facility], [address] [place] [address] CLIA# [id number] Diagnostic interpretation performed at [facility], [address] [place] [address] CLIA# [id number] Professor Of Counseling: Richard Hale M.D. Performed By: #### L [id number] ####[facility] LABCLIA [id number] [place] [address] [place] INTERPRETATION, CYTOLOGY, INVENTORY CONTROL ASSISTANT Normal [facility] Comment on above: Order Comment: Speci men Type: FLUID SPECIMENOrdering Facility: [facility] Address: [address] [place] [address] Result Comment: Nega tive for intraepithelial lesion or malignancy. at 1036 EDT Performed By: #### L [id number] ####[facility] LABCLIA [id number] [place] [address] [place] PAP DISCLAIMER COMMENT The Pap Smear is a screening test for cervical cancer. False negative results occur with all screening tests, emphasizing the need for rescreening at recommended intervals, and clinical correlation. Normal [facility] Comment on above: Order Comment: Speci men Type: FLUID SPECIMENOrdering Facility: [facility] Address: [address] [place] [address] Performed By: #### L [id number] ####[facility] LABIA [id number] [place] [id number] [place] PAP DRAWING CHECKER COMMENT This specimen has be en analyzed by the ThinPrep Imaging System, an automated imaging and review system, which assists the laboratory in evaluating cells on ThinPrep Pap tests. Following automated imaging, selected alfonso from every slide are reviewed by a major donor coordinator. Normal [facility] Comment on above: Order Comment: Speci men Type: FLUID SPECIMENOrdering Facility: [facility] Address: [address] [place] [address] Performed By: #### L [id number] ####[facility] LABIA [id number] [place] [id number] [facility] [place] CNOVSPon 09-15-2024 CNOVSP Visit (SP) Office (FABIENNE) EMILIE KERN Allan ([id number]) 1955 F Date Time Provider Department 09/15/24 2:00 PM MERARI RUSH During your visit today, we recorded the following information about you: Temperature Pulse Blood pressure Weight 97.8 degrees 60/minute 108/73 81.1 kg Merari Rush APRN.PLATE MILL MILL HAND 09/15/2024 2:25 PM Signed Chief Complaint Patient presents with: Established Patient HPI: Emilie Kern is a 68 year old female who presents here today for follow up DCIS. Per Dr. Pineda's previous note: H/o coronary artery disease/fibromuscular dysplasia ([place] x3; no stents or CABG), Takotsubo cardiomyopathy, nonsustained ventricular tachycardia, hyperlipidemia, and history of nephrectomy who was noted to have microcalcifications in the slight lateral and superior left breast at middle depth on a mammogram performed 12/15/2020. Patient underwent stereotactic ultrasound-guided breast biopsy on 01/22/2021. The pathology demonstrated ductal carcinoma in situ with nuclear grade 1-2/3, architectural pattern was cribriform, necrosis was present, central (expansive comedo necrosis) calcifications present. Intraductal hyperplasia with focal atypia were noted in the area of ductal carcinoma in situ. Patient underwent left breast lumpectomy on 02/08/2021. Pathology demonstrated no evidence of residual ductal carcinoma in situ. Changes consistent with previous biopsy site. Focal intraductal hyperplasia without atypia skin, dermal fibrosis consistent with scar. Margins were negative. No residual carcinoma noted in the lumpectomy specimen but the biopsy cavity was 7 mm from closest inferior margin. Specimen was both ER and IL positive and HER-2 negative with IHC 0. Previous therapy: 1) Adjuvant radiation completed 04/09/2021. 2) Tamoxifen She had been on tamoxifen from April 2021 up until about a month ago. She developed blurred vision in the right eye. Underwent exam and was found to have a retinal abnormality. 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 The visual defect is experienced as a georges wavy line through her central vision. She is not able to read with her right eye but can read normally with her left eye. The visual defect has been static since the time of diagnosis. Tamoxifen was discontinued. No new concerns today. Appetite:Good. Wt. down 5# Energy level:Ok. Denies fevers. Recent GI illness. Resp:denies cough or sob Cardiac:denies chest pain/palpitations GI:denies abd pain, n/v, moving bowels regularly :denies dysuria/hematuria Extrem:denies new pain Endo:denies hot flashes Neuro:denies symptoms of neuropathy Skin:denies rashes/lesions Heme:denies bleeding, pt. noted a pink discharge recently The ROS is otherwise negative. Past medical history, appointments, medications, allergies reviewed. No changes. EXAM: BP 108/73 Pulse 60 Temp 36.6 ?C (97.8 ?F) (Temporal) Wt 81.1 kg (178 lb 12.7 oz) SpO2 96% BMI 28.06 kg/m? APPEARANCE Well appearing, alert, in no acute distress, well-hydrated, well nourished. HEART RRR with normal S1 and S2, no murmurs LUNG clear to auscultation BREAST FEMALE no mass/nodule b/l, L scar to upper/outer LYMPH NODES No cervical lymphadenopathy, No supraclavicular lymphadenopathy, and No axillary lymphadenopathy. ABDOMEN bowel sounds normoactive, soft, non-tender EXTREMITIES No edema NEURO Awake, alert and oriented x 3, Normal gait, and No involuntary motions. SKIN Skin color, texture, turgor normal, no suspicious rashes or lesions ASSESSMENT/PLAN: 1. Ductal carcinoma in situ (DCIS) of left breast - ICD9: 233.0, ICD10: D05.12 (primary diagnosis) Per Dr. Pineda's previous note: Assessment: -Tolerated radiation very well. -Had been symptomatically tolerating tamoxifen very well but developed retinopathy potentially related to tamoxifen use. -We discussed the potential risks and benefits of rotating to AI therapy. She already has a diagnosis of osteoporosis and is on Fosamax. She has a history of fibromuscular dysplasia and MRI had an early age. We discussed the conflicting data regarding increased cardiovascular risk with aromatase inhibitor use and I did not recommend changing therapy to that at this time. Since she had 2 and half years of tamoxifen I recommended stopping endocrine therapy at this time. Plan: -Follow-up as scheduled for mammogram and office visit in March. - No concerning findings on exam in regards to DCIS. - New vaginal discharge. - Tamoxifen discontinued after 2.5 years d/t retinopathy. - Continue follow up with PCP/INVENTORY CONTROL ASSISTANT for routine care. - Needs INVENTORY CONTROL ASSISTANT exam-Kedar Jackson CNP-vaginal discharge. - Mammogram due in March. - Follow up after mammogram. - Pt. aware to call office with any questions/concerns. The sensitive examination was discussed with the P (more content not included)... Normal [facility] CNOVon 07-21-2024 CNOV Office Visit (INTMWS ) EMILIE KERN ([id number]) 1955 F Date Time Provider Department 07/21/24 4:40 PM WEN BHAT INTMWS During your visit today, we recorded the following information about you: Temperature Pulse Respiration Blood pressure 98.2 degrees 61/minute 16/minute 138/78 Weight 82.7 kg Wen Bhat, FELLED SEAM OPERATOR CHAINSTITCH.PLATE MILL MILL HAND 07/21/2024 6:43 PM Signed CC: Patient presents with: Medication Follow-up HPI Emilie Kern is a 68 year old female who presents today for above. She sees cardiology for HLD and CAD. She is taking all medications as prescribed. She reports intermittent swelling in the lower legs but does admit to sitting a lot. She is wondering if it is a side effect of the Norvasc. Does not check BP at home. She reports she is losing a lot of hair and there is overall thinning. Fatigue is chronic but no worse than usual. Taking Fosamax as prescribed for about 1.5 years, denies side effects. Due for BMD next year. Denies any other concerns today. Review of Systems See HPI PAST MEDICAL HISTORY Diagnosis Date Age-related osteoporosis without current pathological fracture 01/15/2023 CAD (coronary artery disease), [place] coronary artery 04/26/2013 -hx of inferior STEMI's x 2 (1994, 2003). LHC in 1994 revealed normal coronaries and LHC in 2003 showed occlusion of small branch of RCA but otherwise normal coronaries. -Admitted to [facility] on 04/26/13 after p/w CP and anterolateral STEMI. Subsequent LHC revealed distal small branch of RCA w 100% blockage. She had unsuccessful PTCA to small branch of RCA d/t tortuous vessels. 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 Coronary atherosclerosis of unspecified type of vessel, [place] or graft Coronary artery disease, [place] x2, 1985, 1992, 2001 Ductal carcinoma in situ (DCIS) of left breast 02/26/2021 Dyslipidemia Enthesopathy of unspecified site 12/07/2008 Female stress incontinence Fibromuscular hyperplasia of artery (HCC) 04/28/2013 Confirmed by carotid duplex April 28, 2013 HLD (hyperlipidemia) 04/26/2013 Hypertension INSOMNIA 12/04/2007 Myocardial infarct, old 04/26/2013 NSVT (nonsustained ventricular tachycardia) (HCC) 04/27/2013 History: One rhythm strip from OSH showing wide complex tachycardia, up to 9 beats This in the setting of active ST elevation. Assessment: NSVT in the setting of active ischemia Plan: 1. Replace K and mag aggressively 2. Monitor closely. 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 Last admission 04/26/2013: p/w anterolateral STEMI, s/p unsuccessful PTCA to d Takotsubo cardiomyopathy / Coronary vasospasm 04/28/2013 Underwent a LHC on arrival 04/26/13 which showed severe disease in the distal branch of RCA that was ballooned previously. POBA was attempted but unsuccessful due to small caliber and tortuous nature. Echo 04/28: apical ballooning Assessment: likely Tacotsubo MP secondary to transient coronary vessel stenosis, wo conorany vessel obstruction on LHC Plan: LHC 05/06/[address] Tolbert echo Unspecified hemorrhoids without mention of complication Hemorrhoids PAST SURGICAL HISTORY Procedure Laterality Date APPENDECTOMY BREAST LUMPECTOMY HX Left 02/08/2021 BX BREAST W/DEVICE 1ST LESION STEREOTACTIC GUID Left 01/22/2021 CHOLECYSTECTOMY 1970 Cholecystectomy LEFT HEART CATH 04/26/13, 05/11/2013 100% mid occlusion of RPV1 PAST SURGICAL HISTORY OF abnormal kidney removed age 6 done at [facility], still has 2 1/2 kidneys PERC TRANSL COR ANGIO 2003 Distal RCA - PTCA/No stent TONSILLECTOMY PRIMARY/SECONDARY Tonsillectomy ALLERGIES Patient has no known allergies. MEDICATIONS alendronate (FOSAMAX) 70 mg tablet Take 1 tablet by mouth one time a week. Take with a full glass of water, on an empty stomach; do NOT lie down for 30minutes. amLODIPine (NORVASC) 5 mg tablet Take 1 tablet by mouth once daily. clopidogrel (PLAVIX) 75 mg tablet Take 1 tablet by mouth once daily. metoprolol succinate ER (TOPROL XL) 100 mg Take 1 tablet by mouth once daily. isosorbide mononitrate ER (IMDUR) 30 mg 24 hr tablet Take 1 tablet by mouth once daily. lisinopril 2.5 mg tablet Take 1 tablet by mouth once daily. atorvastatin (LIPITOR) 80 mg tablet Take 1 tablet by mouth once daily. nitroglycerin sublingual (NITROQUICK) 0.4 mg SL tablet Dissolve 1 tablet under the tongue as needed. FOR CHEST PAIN. IF NO RELIEF CALL 911 BIOTIN ORAL Take 1 tablet by mouth once daily. ASPIRIN 81MG TABLET Take one (1) tablet daily . F (more content not included)... Normal [facility] ERIC SCREENING [facility] 03-06 [facility] DXA-AXIAL SKELETONon 022 [facility] ERIC SCREENING [facility] 03-04 [facility] Vital Signs Date Time Vital Sign Value Performing Clinician Facility 04-28-2025 11:56-0400 Body mass index (BMI) [Ratio] 26.55 kg/m2 Manoj Green APRN.CNP Work Phone: [facility] 04-28-2025 11:56-0400 Body temperature 97.81 [degF] Manoj Green APRN.CNP Work Phone: [facility] 04-28-2025 11:56-0400 Body weight 79.2 kg Manoj Green APRN.CNP Work Phone: [facility] 04-28-2025 11:56-0400 Diastolic blood pressure 62 mm[Hg] Manoj Green APRN.CNP Work Phone: [facility] 04-28-2025 11:56-0400 Heart rate 67 /min Manoj Green APRN.CNP Work Phone: [facility] 04-28-2025 11:56-0400 Respiratory rate 18 /min Manoj Green APRN.CNP Work Phone: [facility] 04-28-2025 11:56-0400 SaO2% (BldA) [Mass fraction] 98 % Manoj Green APRN.CNP Work Phone: [facility] 04-28-2025 11:56-0400 Systolic blood pressure 112 mm[Hg] Manoj Green FELLED SEAM OPERATOR CHAINSTITCH.PLATE MILL MILL HAND Work Phone: [facility] 03-30-2025 15:17-0400 Diastolic blood pressure 78 mm[Hg] Osiel Bustillo MD Work Phone: [facility] 03-30-2025 15:17-0400 Systolic blood pressure 126 mm[Hg] Osiel Bustillo MD Work Phone: [facility] 03-25-2025 10:51-0400 Body mass index (BMI) [Ratio] 26.75 kg/m2 Merari Rush FELLED SEAM OPERATOR CHAINSTITCH.PLATE MILL MILL HAND Work Phone: [facility] 03-25-2025 10:51-0400 Body temperature 96.21 [degF] Merari Rush FELLED SEAM OPERATOR CHAINSTITCH.PLATE MILL MILL HAND Work Phone: [facility] 03-25-2025 10:51-0400 Body weight 79.8 kg Merari Rush FELLED SEAM OPERATOR CHAINSTITCH.PLATE MILL MILL HAND Work Phone: [facility] 03-25-2025 10:51-0400 Diastolic blood pressure 71 mm[Hg] Merari Rush FELLED SEAM OPERATOR CHAINSTITCH.PLATE MILL MILL HAND Work Phone: [facility] 03-25-2025 10:51-0400 Heart rate 56 /min Merari Rush FELLED SEAM OPERATOR CHAINSTITCH.PLATE MILL MILL HAND Work Phone: [facility] 03-25-2025 10:51-0400 Respiratory rate 12 /min Merari Rush FELLED SEAM OPERATOR CHAINSTITCH.PLATE MILL MILL HAND Work Phone: [facility] 03-25-2025 10:51-0400 SaO2% (BldA) [Mass fraction] 98 % Merari Rush FELLED SEAM OPERATOR CHAINSTITCH.PLATE MILL MILL HAND Work Phone: [facility] 03-25-2025 10:51-0400 Systolic blood pressure 123 mm[Hg] Merari Rush FELLED SEAM OPERATOR CHAINSTITCH.PLATE MILL MILL HAND Work Phone: [facility] 03-09-2025 11:41-0400 Body mass index (BMI) [Ratio] 26.91 kg/m2 Chelsea Davey FELLED SEAM OPERATOR CHAINSTITCH.PLATE MILL MILL HAND Work Phone: [facility] 03-09-2025 11:41-0400 Body weight 80.29 kg Chelsea Davey FELLED SEAM OPERATOR CHAINSTITCH.PLATE MILL MILL HAND Work Phone: [facility] 03-09-2025 11:41-0400 Diastolic blood pressure 64 mm[Hg] Chelsea Haury FELLED SEAM OPERATOR CHAINSTITCH.PLATE MILL MILL HAND Work Phone: [facility] 03-09-2025 11:41-0400 Systolic blood pressure 120 mm[Hg] Chelsea Haprudence FELLED SEAM OPERATOR CHAINSTITCH.PLATE MILL MILL HAND Work Phone: [facility] 11-10-2024 15:26-0500 Body mass index (BMI) [Ratio] 27.72 kg/m2 Fatou Nevillehrie FELLED SEAM OPERATOR CHAINSTITCH.PLATE MILL MILL HAND Work Phone: [facility] 11-10-2024 15:26-0500 Body weight 80.11 kg Fatou Jackson FELLED SEAM OPERATOR CHAINSTITCH.PLATE MILL MILL HAND Work Phone: [facility] 11-10-2024 15:26-0500 Diastolic blood pressure 78 mm[Hg] Fatou Nevillehrie FELLED SEAM OPERATOR CHAINSTITCH.PLATE MILL MILL HAND Work Phone: [facility] 11-10-2024 15:26-0500 Systolic blood pressure 126 mm[Hg] Fatou Jackson FELLED SEAM OPERATOR CHAINSTITCH.PLATE MILL MILL HAND Work Phone: [facility] 09-15-2024 14:03-0500 Body mass index (BMI) [Ratio] 28.06 kg/m2 Merari Rush FELLED SEAM OPERATOR CHAINSTITCH.PLATE MILL MILL HAND Work Phone: [facility] 09-15-2024 14:03-0500 Body temperature 97.81 [degF] [place] Rush FELLED SEAM OPERATOR CHAINSTITCH.PLATE MILL MILL HAND Work Phone: [facility] 09-15-2024 14:03-0500 Body weight 81.1 kg [place] Rush FELLED SEAM OPERATOR CHAINSTITCH.PLATE MILL MILL HAND Work Phone: [facility] 09-15-2024 14:03-0500 Diastolic blood pressure 73 mm[Hg] Merari Rush FELLED SEAM OPERATOR CHAINSTITCH.PLATE MILL MILL HAND Work Phone: [facility] 09-15-2024 14:03-0500 Heart rate 60 /min Merari Rush FELLED SEAM OPERATOR CHAINSTITCH.PLATE MILL MILL HAND Work Phone: [facility] 09-15-2024 14:03-0500 SaO2% (BldA) [Mass fraction] 96 % Merari Rush FELLED SEAM OPERATOR CHAINSTITCH.PLATE MILL MILL HAND Work Phone: [facility] 09-15-2024 14:03-0500 Systolic blood pressure 108 mm[Hg] Merari Rush FELLED SEAM OPERATOR CHAINSTITCH.PLATE MILL MILL HAND Work Phone: [facility] 07-21-2024 16:51-0500 Body mass index (BMI) [Ratio] 28.62 kg/m2 Wen Bhat APRN.PLATE MILL MILL HAND Work Phone: [facility] 07-21-2024 16:51-0500 Body temperature 98.2 [degF] Wen Bhat APRN.PLATE MILL MILL HAND Work Phone: [facility] 07-21-2024 16:51-0500 Body weight 82.7 kg Wen Bhat APRN.PLATE MILL MILL HAND Work Phone: [facility] 07-21-2024 16:51-0500 Diastolic blood pressure 78 mm[Hg] Wen Bhat APRN.PLATE MILL MILL HAND Work Phone: [facility] 07-21-2024 16:51-0500 Heart rate 61 /min Wen Bhat APRN.PLATE MILL MILL HAND Work Phone: [facility] 07-21-2024 16:51-0500 Respiratory rate 16 /min Wen Bhat APRN.PLATE MILL MILL HAND Work Phone: [facility] 07-21-2024 16:51-0500 SaO2% (BldA) [Mass fraction] 98 % Wen Bhat APRN.PLATE MILL MILL HAND Work Phone: [facility] 07-21-2024 16:51-0500 Systolic blood pressure 138 mm[Hg] Wen Bhat APRN.PLATE MILL MILL HAND Work Phone: [facility] 03-16-2024 13:54-0400 Body height 170 cm Fatou Jackson APRN.PLATE MILL MILL HAND Work Phone: [facility] 03-16-2024 13:54-0400 Body mass index (BMI) [Ratio] 28.72 kg/m2 Fatou Jackson FELLED SEAM OPERATOR CHAINSTITCH.PLATE MILL MILL HAND Work Phone: [facility] 03-16-2024 13:54-0400 Body weight 83.01 kg Fatou Jackson APRN.PLATE MILL MILL HAND Work Phone: [facility] 03-16-2024 13:54-0400 Diastolic blood pressure 78 mm[Hg] Fatou Jackson FELLED SEAM OPERATOR CHAINSTITCH.PLATE MILL MILL HAND Work Phone: [facility] Comment on above: taken at previous appt 03-16-2024 13:54-0400 Systolic blood pressure 117 mm[Hg] Fatou Jackson FELLED SEAM OPERATOR CHAINSTITCH.PLATE MILL MILL HAND Work Phone: [facility] Comment on above: taken at previous appt 03-16-2024 13:30-0400 Body mass index (BMI) [Ratio] 27.83 kg/m2 Merari Rush FELLED SEAM OPERATOR CHAINSTITCH.PLATE MILL MILL HAND Work Phone: [facility] 03-16-2024 13:30-0400 Body temperature 97.81 [degF] Merari Rush FELLED SEAM OPERATOR CHAINSTITCH.PLATE MILL MILL HAND Work Phone: [facility] 03-16-2024 13:30-0400 Body weight 83.01 kg Merari Rush FELLED SEAM OPERATOR CHAINSTITCH.PLATE MILL MILL HAND Work Phone: [facility] 03-16-2024 13:30-0400 Diastolic blood pressure 78 mm[Hg] Merari Rush FELLED SEAM OPERATOR CHAINSTITCH.PLATE MILL MILL HAND Work Phone: [facility] 03-16-2024 13:30-0400 Heart rate 71 /min Merari Rush FELLED SEAM OPERATOR CHAINSTITCH.PLATE MILL MILL HAND Work Phone: [facility] 03-16-2024 13:30-0400 SaO2% (BldA) [Mass fraction] 96 % Merari Rush FELLED SEAM OPERATOR CHAINSTITCH.PLATE MILL MILL HAND Work Phone: [facility] 03-16-2024 13:30-0400 Systolic blood pressure 117 mm[Hg] Merari Rush FELLED SEAM OPERATOR CHAINSTITCH.PLATE MILL MILL HAND Work Phone: [facility] 12-22-2023 15:50-0400 Body temperature 98.2 [degF] Luis Pineda DO Work Phone: [facility] 12-22-2023 15:50-0400 Body weight 83.92 kg Luis Davisi DO Work Phone: [facility] 12-22-2023 15:50-0400 Diastolic blood pressure 85 mm[Hg] Luis Davisi DO Work Phone: [facility] 12-22-2023 15:50-0400 Heart rate 68 /min Luis Davisi DO Work Phone: [facility] 12-22-2023 15:50-0400 SaO2% (BldA) [Mass fraction] 98 % Luis Davisi DO Work Phone: [facility] 12-22-2023 15:50-0400 Systolic blood pressure 139 mm[Hg] Luis Davisi DO Work Phone: [facility] 08-13-2023 15:04-0500 Body height 172.7 cm Enio Kirby MD Work Phone: [facility] 08-13-2023 15:04-0500 Body weight 78.93 kg Enio Kirby MD Work Phone: [facility] 08-13-2023 15:04-0500 Diastolic blood pressure 74 mm[Hg] Enio Kirby MD Work Phone: [facility] 08-13-2023 15:04-0500 Heart rate 50 /min Enio Kirby MD Work Phone: [facility] 08-13-2023 15:04-0500 Respiratory rate 16 /min Enio Kirby MD Work Phone: [facility] 08-13-2023 15:04-0500 SaO2% (BldA) [Mass fraction] 99 % Enio Kirby MD Work Phone: [facility] 08-13-2023 15:04-0500 Systolic blood pressure 150 mm[Hg] Eino Kirby MD Work Phone: [facility] 06-18-2023 13:21-0400 Body temperature 98.49 [degF] [place] Rush FELLED SEAM OPERATOR CHAINSTITCH.PLATE MILL MILL HAND Work Phone: [facility] 06-18-2023 13:21-0400 Body weight 81.65 kg Merari Grantenter FELLED SEAM OPERATOR CHAINSTITCH.PLATE MILL MILL HAND Work Phone: [facility] 06-18-2023 13:21-0400 Diastolic blood pressure 73 mm[Hg] Merari Rush FELLED SEAM OPERATOR CHAINSTITCH.PLATE MILL MILL HAND Work Phone: [facility] 06-18-2023 13:21-0400 Heart rate 60 /min Merari Rush FELLED SEAM OPERATOR CHAINSTITCH.PLATE MILL MILL HAND Work Phone: [facility] 06-18-2023 13:21-0400 SaO2% (BldA) [Mass fraction] 97 % Merari Rush FELLED SEAM OPERATOR CHAINSTITCH.PLATE MILL MILL HAND Work Phone: [facility] 06-18-2023 13:21-0400 Systolic blood pressure 124 mm[Hg] [place] Rush FELLED SEAM OPERATOR CHAINSTITCH.PLATE MILL MILL HAND Work Phone: [facility] 03-06-2023 14:54-0400 Body height 170.2 cm Fatou Jackson FELLED SEAM OPERATOR CHAINSTITCH.PLATE MILL MILL HAND Work Phone: [facility] 03-06-2023 14:54-0400 Body weight 80.74 kg Fatou Jackson FELLED SEAM OPERATOR CHAINSTITCH.PLATE MILL MILL HAND Work Phone: [facility] 03-06-2023 14:54-0400 Diastolic blood pressure 62 mm[Hg] Fatou Berkowitzie FELLED SEAM OPERATOR CHAINSTITCH.PLATE MILL MILL HAND Work Phone: [facility] 03-06-2023 14:54-0400 Systolic blood pressure 120 mm[Hg] Fatou Berkowitzie FELLED SEAM OPERATOR CHAINSTITCH.PLATE MILL MILL HAND Work Phone: [facility] 08-15-2022 14:05-0500 Body temperature 97.7 [degF] Merari Rush FELLED SEAM OPERATOR CHAINSTITCH.PLATE MILL MILL HAND Work Phone: [facility] 08-15-2022 14:05-0500 Body weight 86.18 kg Merari Rush FELLED SEAM OPERATOR CHAINSTITCH.PLATE MILL MILL HAND Work Phone: [facility] 08-15-2022 14:05-0500 Diastolic blood pressure 65 mm[Hg] Merari Rush FELLED SEAM OPERATOR CHAINSTITCH.PLATE MILL MILL HAND Work Phone: [facility] 08-15-2022 14:05-0500 Heart rate 58 /min Merari Rush FELLED SEAM OPERATOR CHAINSTITCH.PLATE MILL MILL HAND Work Phone: [facility] 08-15-2022 14:05-0500 Systolic blood pressure 134 mm[Hg] Merari Rush FELLED SEAM OPERATOR CHAINSTITCH.PLATE MILL MILL HAND Work Phone: [facility] 06-12-2022 13:21-0400 Body height 170.2 cm Enio Kirby MD Work Phone: [facility] 06-12-2022 13:21-0400 Body weight 83.23 kg Enio Kirby MD Work Phone: [facility] 06-12-2022 13:21-0400 Diastolic blood pressure 50 mm[Hg] Enio Kirby MD Work Phone: [facility] 06-12-2022 13:21-0400 Heart rate 52 /min Enio Kirby MD Work Phone: [facility] 06-12-2022 13:21-0400 SaO2% (BldA) [Mass fraction] 98 % Enio Kirby MD Work Phone: [facility] 06-12-2022 13:21-0400 Systolic blood pressure 121 mm[Hg] Enio Kirby MD Work Phone: [facility] 03-04-2022 13:35-0400 Body height 170.2 cm Fatou Jackson APRN.PLATE MILL MILL HAND Work Phone: [facility] 03-04-2022 13:35-0400 Body weight 80.2 kg Fatou Jackson APRN.PLATE MILL MILL HAND Work Phone: [facility] 03-04-2022 13:35-0400 Diastolic blood pressure 72 mm[Hg] Fatou Jackson FELLED SEAM OPERATOR CHAINSTITCH.PLATE MILL MILL HAND Work Phone: [facility] 03-04-2022 13:35-0400 Systolic blood pressure 114 mm[Hg] Fatou Jackson FELLED SEAM OPERATOR CHAINSTITCH.PLATE MILL MILL HAND Work Phone: [facility] 02-28-2022 13:03-0400 Body temperature 98.01 [degF] Merari Rush FELLED SEAM OPERATOR CHAINSTITCH.PLATE MILL MILL HAND Work Phone: [facility] 02-28-2022 13:03-0400 Body weight 80.29 kg Merari Rush FELLED SEAM OPERATOR CHAINSTITCH.PLATE MILL MILL HAND Work Phone: [facility] 02-28-2022 13:03-0400 Diastolic blood pressure 63 mm[Hg] Merari Rush FELLED SEAM OPERATOR CHAINSTITCH.PLATE MILL MILL HAND Work Phone: [facility] 02-28-2022 13:03-0400 Heart rate 60 /min Merari Rush FELLED SEAM OPERATOR CHAINSTITCH.PLATE MILL MILL HAND Work Phone: [facility] 02-28-2022 13:03-0400 SaO2% (BldA) [Mass fraction] 98 % Merari Rush FELLED SEAM OPERATOR CHAINSTITCH.PLATE MILL MILL HAND Work Phone: [facility] 02-28-2022 13:03-0400 Systolic blood pressure 128 mm[Hg] Merari Rush FELLED SEAM OPERATOR CHAINSTITCH.PLATE MILL MILL HAND Work Phone: [facility] Encounters Encounter Date Encounter Type Care Provider Facility Start: 04-29-2025 ambulatory Osiel Piper y:[facility] Start: 04-28-2025 End: 04-28-2025 Subsequent hospital visit by physician Xr [facility] Work Phone: Radiology Comment on above: Acute left ankle tisha n [M25.572] Start: 04-28-2025 End: 04-28-2025 Patient encounter procedure Manoj Green FELLED SEAM OPERATOR CHAINSTITCH.PLATE MILL MILL HAND Work Phone: [facility] [place] Comment on above: Acute left ankle tisha n (Primary Dx) Start: 04-12-2025 Encounter for other preprocedural examination Osiel Bustillo [facility] Start: 03-30-2025 End: 03-30-2025 Patient encounter procedure Osiel Bustillo MD Work Phone: OB/Gynecology Comment on above: Thickened endometriu m (Primary Dx); Postmenopausal bleeding; Personal history of breast cancer Start: 03-30-2025 End: 03-30-2025 ambulatory DANIEL SINGH Facility:[facility] Start: 03-25-2025 End: 03-25-2025 Patient encounter procedure Merari Rush APRN.CNP Work Phone: Hematology/Oncology Start: 03-25-2025 End: 03-25-2025 ambulatory Merari Rush APRN.CNP Work Phone: Hematology/Oncology Comment on above: Ductal carcinoma in situ (DCIS) of left breast (Primary Dx); Encounter for screening mammogram for high-risk patient Start: 03-18-2025 ambulatory HARRY BARRINGTON Faci lity:[facility] Start: 03-18-2025 End: 03-18-2025 Subsequent hospital visit by physician Screen Mammo [facility] Comment on above: 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] Start: 03-09-2025 End: 03-09-2025 Patient encounter procedure Chelsea Davey APRN.CNP Work Phone: OB/Gynecology Comment on above: Postmenopausal bleed ing (Primary Dx); Endometrial thickening on ultrasound Start: 03-09-2025 End: 03-09-2025 ambulatory CHELSEA DAVEY Facility:[facility] Start: 03-02-2025 End: 03-02-2025 Telephone encounter Fatou Jackson APRN.CNP Work Phone: OB/Gynecology Comment on above: Results Start: 03-01-2025 End: 03-02-2025 Follow-up encounter Fatou Jackson APRN.CNP Work Phone: OB/Gynecology Start: 02-23-2025 End: 02-23-2025 Subsequent hospital visit by physician Ct Prep [facility] Cat Scan Comment on above: PMB (postmenopausal bleeding) [N95.0] Start: 02-23-2025 End: 02-23-2025 ambulatory DANIEL SINGH Facility:[facility] Start: 02-23-2025 Encounter for preprocedural laboratory examination ENIO KIRBY [facility] Start: 02-21-2025 End: 02-22-2025 Patient encounter status Fatou Jackson APRN.CNP Work Phone: [facility] Work Phone: Start: 02-21-2025 End: 02-22-2025 Telephone encounter Fatou Jackson APRN.CNP Work Phone: OB/Gynecology Comment on above: Orders Start: 02-04-2025 End: 02-04-2025 Telephone encounter Daniel Singh MD Work Phone: [facility] [place] Comment on above: Patient Update Start: 01-13-2025 End: 01-20-2025 ambulatory Enio Kirby MD Work Phone: Cardiology Comment on above: Home blood pressure readings after medication change Start: 01-07-2025 End: 01-07-2025 ambulatory ENIO KIRBY Facility:[facility] Start: 12-29-2024 End: 12-29-2024 ambulatory ENIO KIRBY Facility:[facility] Start: 12-10-2024 End: 12-10-2024 ambulatory DANIEL SINGH Facility:[facility] Start: 11-23-2024 End: 01-24-2025 Follow-up encounter Fatou Jackson APRN.CNP Work Phone: OB/Gynecology Start: 11-23-2024 End: 11-23-2024 Telephone encounter Fatou Jackson APRN.CNP Work Phone: OB/Gynecology Comment on above: Results; Orders Start: 11-19-2024 End: 11-19-2024 ambulatory 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 Work Phone: OB/Gynecology Start: 11-19-2024 End: 11-19-2024 Patient encounter procedure [employer] [facility] [employer] OB/Gynecology Start: 11-10-2024 End: 11-10-2024 ambulatory DANIEL SINGH Facility:[facility] Start: 11-10-2024 End: 11-10-2024 Patient encounter procedure Fatou Jackson APRN.CNP Work Phone: OB/Gynecology Comment on above: PMB (postmenopausal bleeding) (Primary Dx); Pelvic pain in female; Postmenopausal atrophic vaginitis Start: 09-15-2024 End: 09-15-2024 ambulatory Merari Rush FELLED SEAM OPERATOR CHAINSTITCH.PLATE MILL MILL HAND Work Phone: Hematology/Oncology Comment on above: Ductal carcinoma in situ (DCIS) of left breast (Primary Dx); Encounter for screening mammogram for high-risk patient Start: 09-15-2024 End: 09-15-2024 Patient encounter procedure Merari Rush FELLED SEAM OPERATOR CHAINSTITCH.PLATE MILL MILL HAND Work Phone: Hematology/Oncology Start: 08-10-2024 End: 08-10-2024 Refill Enio Kirby MD Work Phone: Cardiology Comment on above: Refill Request Start: 07-21-2024 End: 07-21-2024 ambulatory DANIEL SINGH Facility:[facility] Start: 07-21-2024 End: 07-21-2024 Patient encounter procedure Wen Bhat FELLED SEAM OPERATOR CHAINSTITCH.PLATE MILL MILL HAND Work Phone: [facility] [place] Comment on above: Hair loss (Primary D x); Primary hypertension; Hyperlipidemia, unspecified hyperlipidemia type; Age-related osteoporosis without current pathological fracture; Encounter for immunization Start: 06-09-2024 End: 06-09-2024 Orders Only Enio Kirby MD Work Phone: Cardiology Start: 04-08-2024 Refill Wen biggs FELLED SEAM OPERATOR CHAINSTITCH.PLATE MILL MILL HAND Work Phone: [facility] [place] Comment on above: Refill Request Start: 03-17-2024 Documentation procedure Mammog iona Coordinator [facility] Department Start: 03-17-2024 Letter encounter Mammography Coordinator [facility] Department Start: 03-16-2024 End: 03-16-2024 ambulatory Merari Rush FELLED SEAM OPERATOR CHAINSTITCH.PLATE MILL MILL HAND Work Phone: Hematology/Oncology Comment on above: Ductal carcinoma in situ (DCIS) of left breast (Primary Dx) Start: 03-16-2024 End: 03-16-2024 Patient encounter procedure Merari Rush FELLED SEAM OPERATOR CHAINSTITCH.PLATE MILL MILL HAND Work Phone: Hematology/Oncology Comment on above: Encounter for gyneco logic examination for high-risk patient covered by Medicare (Primary Dx); Stress incontinence; History of ductal carcinoma in situ (DCIS) of breast Start: 03-16-2024 End: 03-16-2024 Subsequent hospital visit by physician Screen Mammo [facility] Comment on above: Encounter for screen ing mammogram for high-risk patient [Z12.31] Start: 03-08-2024 Refill Merari maciel APRN.CNP Work Phone: Hematology/Oncology Comment on above: Refill Request Start: 12-22-2023 End: 12-22-2023 ambulatory Luis Pineda DO Work Phone: Hematology/Oncology Comment on above: Ductal carcinoma in situ (DCIS) of left breast (Primary Dx) Start: 12-22-2023 End: 12-22-2023 Patient encounter procedure Luis Pineda DO Work Phone: [facility] Start: 08-13-2023 End: 08-13-2023 Patient encounter procedure Enio Kirby MD Work Phone: Cardiology Comment on above: H/O acute myocardial infarction (Primary Dx); Coronary artery disease involving [place] coronary artery of [place] heart without angina pectoris; Fibromuscular dysplasia (HCC) Start: 08-13-2023 Refill Enio Schrader Work Phone: Cardiology Comment on above: Refill Request Start: 06-18-2023 End: 06-18-2023 ambulatory Merari Rush APRN.PLATE MILL MILL HAND Work Phone: Hematology/Oncology Comment on above: Ductal carcinoma in situ (DCIS) of left breast (Primary Dx); Encounter for screening mammogram for high-risk patient Start: 06-18-2023 End: 06-18-2023 Patient encounter procedure Merari Rush APRN.CNP Work Phone: [facility] [employer] Start: 03-07-2023 Documentation procedure Mammog iona Coordinator [facility] Start: 03-07-2023 Letter encounter Mammography Coordinator [facility] Department Start: 03-06-2023 End: 03-06-2023 Patient encounter procedure Fatou Jackson APRN.PLATE MILL MILL HAND Work Phone: OB/Gynecology Comment on above: Encounter for gyneco logic examination for high-risk patient covered by Medicare (Primary Dx); History of ductal carcinoma in situ (DCIS) of breast; Use of tamoxifen (Nolvadex); Stress incontinence Start: 03-06-2023 End: 03-06-2023 Subsequent hospital visit by physician Screen Mammo [facility] Mammogram Comment on above: 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] Start: 09-17-2022 Refill Enio Schrader Work Phone: Cardiology Comment on above: Refill Request Start: 08-15-2022 End: 08-15-2022 ambulatory Merari Rush APRN.[facility] [employer] Work Phone: Hematology/Oncology Comment on above: Ductal carcinoma in situ (DCIS) of left breast (Primary Dx); Encounter for screening mammogram for high-risk patient Start: 08-15-2022 End: 08-15-2022 Patient encounter procedure Merari Rush APRN.[facility] M[facility] HAND Work Phone: [place] [facility] Start: 06-12-2022 End: 06-12-2022 Patient encounter procedure Enio Kirby MD Work Phone: Cardiology Comment on above: Old ND (myocardial i nfarction) (Primary Dx); Coronary artery disease involving [place] coronary artery of [place] heart without angina pectoris; Fibromuscular dysplasia (HCC); Spontaneous dissection of coronary artery Start: 04-10-2022 End: 04-10-2022 Subsequent hospital visit by physician Bone Density [facility] Work Phone: Radiology Comment on above: Encounter for screen ing for osteoporosis [Z13.820] Start: 03-04-2022 Documentation procedure Mammog iona Coordinator [facility] Start: 03-04-2022 Letter encounter Mammography Coordinator [facility] Department Start: 03-04-2022 End: 03-04-2022 Patient encounter procedure Fatou Jackson APRN.[facility] Work Phone: OB/Gynecology Comment on above: Encounter for gyneco logic examination for high-risk patient covered by Medicare (Primary Dx); Stress incontinence; Poison malaika dermatitis; Encounter for screening for osteoporosis; Asymptomatic postmenopausal state Start: 03-04-2022 End: 03-04-2022 Subsequent hospital visit by physician Screen Mammo [facility] Mammogram Comment on above: 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] Start: 02-28-2022 End: 02-28-2022 ambulatory Merari Rush APRN.CNP Work Phone: Hematology/Oncology Comment on above: Ductal carcinoma in situ (DCIS) of left breast (Primary Dx); Encounter for screening mammogram for high-risk patient Start: 02-28-2022 End: 02-28-2022 Patient encounter procedure Merari Rush APRN.CNP Work Phone: [place] [facility] [place] Start: 02-14-2022 Orders Only Enio Schrader Work Phone: Cardiology Comment on above: Coronary artery dise ase involving [place] coronary artery of [place] heart without angina pectoris (Primary Dx) Start: 12-24-2021 ambulatory Raquel Jamil MA Am bulatory Care Management Comment on above: Population Health Na vigation Outreach ( QAI -NO PCP) Procedures Date Procedure Procedure Detail Performing Clinician Start: 04-28-2025 Radex ankle complete minimum 3 views Manoj Green APRN.CNP Work Phone: Start: 12-29-2024 Lipid 1996 panel - S elmer or Plasma Enio Kirby MD Work Phone: Start: 11-19-2024 Us pelvic nonobstetr ic real-time image complete Fatou Jackson APRN.CNP Work Phone: Start: 08-13-2023 Lipid 1996 panel - S elmer or Plasma Enio Kirby MD Work Phone: Start: 03-06-2023 End: 03-06-2023 Mammography Merari Rush APRN, .CNP Work Phone: Start: 04-10-2022 Dxa bone density silvia dy 1/> sites axial skel Fatou Jackson APRN.CNP Work Phone: Start: 03-04-2022 ERIC SCREENING W CHAN Da elke Rush APRN.CNP Work Phone: Start: 03-04-2022 Mammography Fatou bailey APRN.[employer] Work Phone: Start: 07-31-2021 Adult depression scr eening assessment Raquel Jamil MA Start: 06-06-2021 Lipid 1996 panel - S elmer or Plasma Merari Victor Manuel NASCIMENTO.[employer] Work Phone: Start: 06-18-2016 Mammography Raquel wright MA Start: 04-26-2013 H/O: surgery S/p nephrectomy Raquel bone MA Start: 03-06-2005 Colonoscopy Raquel wright MA Plan of Treatment Date Care Activity Detail Author Start: 12-29-2029 Lipid panel Lipid Screening [facility] Start: 2029 RSV Vaccine (1 - 1-d ose 75+ series) RSV Vaccine (1 - 1-dose 75+ series) [facility] Start: 08-13-2028 Lipid 1996 panel - Serum or Plasma Lipid Screening [facility] Start: 08-13-2028 Lipid panel Lipid Screening [facility] Start: 12-11-2027 Diabetes Screening Diabetes Screenin g [facility] Start: 06-06-2026 Lipid 1996 panel - Serum or Plasma Lipid Screening [facility] Start: 06-06-2026 LIPID SCREEN LIPID SCREEN [facility] Start: 03-27-2026 End: 03-27-2026 Patient encounter procedure 03/27/2026 2:50 PM EDT Appointment Mammogram [address] [place] [address] 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] Mammogram Comment on above: 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] Start: 03-25-2026 End: 04-24-2026 DBT Breast - bilateral screening ERIC SCREENING W CHAN Radiology Routine Ductal carcinoma in situ (DCIS) of left breast Encounter for screening mammogram for high-risk patient Expected: 03/25/2026 (Approximate), Expires: 04/24/2026 [facility] Work Phone: Comment on above: Expected: 03/25/2026 (Approximate), Expires: 04/24/2026 Start: 03-18-2026 Screening for malign ant neoplasm of breast Mammogram Screening [facility] Start: 01-31-2026 COLOGUARD (FIT-DNA) COLOGUARD (FIT-D NA) [facility] Start: 01-31-2026 COLORECTAL CANCER SCREENING COLORECTAL CANCER SCREENING [facility] Start: 01-31-2026 Screening for malign ant neoplasm of colon [facility] Start: 12-29-2025 Hepatitis B surface antibody level LDL Cholesterol [facility] Start: 11-10-2025 BP Controlled (<130/80) BP Controlle d (<130/80) [facility] Start: 09-26-2025 End: 09-26-2025 ambulatory 09/26/2025 1:30 PM EST Visit (SP) Office Hematology/Oncology [address] [place] [address] Merari Rush, FELLED SEAM OPERATOR CHAINSTITCH.[employer] [address] [place] [place] [address] 6mo ov Hematology/Oncology Comment on above: 6mo ov Start: 09-15-2025 BP Controlled (<130/80) BP Controlle d (<130/80) [facility] Start: 07-27-2025 End: 07-27-2025 Patient encounter procedure 07/27/2025 3:00 PM EST Office Visit Internal Medicine [place] [address] [place] [address] Wen Bhat, FELLED SEAM OPERATOR CHAINSTITCH.[employer] [address] [place] [address] Medicare Wellness Visit [facility] [place] Comment on above: Medicare Wellness Vi sit Start: 07-21-2025 Annual PCP Team Stockfeed Miller lucrecia Disease Visit Annual PCP Team Chronic Disease Visit [facility] Start: 07-21-2025 Covid-19 Vaccine () Covid-19 Vaccine () [facility] Comment on above: Postponed from 05/09 (Declined at this time) Start: 05-16-2025 End: 05-16-2025 Patient encounter procedure 05/16/2025 3:40 PM EDT Office Visit OB/Gynecology [address] [place] [address] Osiel Bustillo MD [address] [place] [address] Post Op OB/Gynecology Comment on above: Post Op Start: 05-09-2025 Influenza vaccination Influenza Vacc ine (#1) [facility] Start: 05-02-2025 End: 05-02-2025 Patient encounter procedure 05/02/2025 3:40 PM EDT Office Visit [facility] [place] [address] [place], [place] [id number] Daniel Singh MD [address] [place] [address] urg care f/u [facility] [place] Comment on above: urg care f/u Start: 03-30-2025 End: 03-30-2025 Patient encounter procedure 03/30/2025 3:20 PM EDT Office Visit OB/Gynecology [address] [place] [address] Osiel Bustillo MD [address] [place] [address] Consult in regards to EMB OB/Gynecology Comment on above: Consult in regards t o EMB Start: 03-25-2025 End: 03-25-2025 ambulatory 03/25/2025 11:00 AM EDT Visit (SP) Office Hematology/Oncology [address] [place], [place] [address] Merari Rush APRN.[employer] M[employer] HAND [address] [place] [address] 6 MTH OV* Hematology/Oncology Comment on above: 6 MTH OV* Start: 03-18-2025 End: 03-18-2025 Patient encounter procedure 03/18/2025 1:30 PM EDT Appointment Mammogram [address] [place], [place] [id number] MAMMO W CHAN Mammogram Comment on above: MAMMO W CHAN Start: 03-17-2025 End: 10-15-2025 DBT Breast - bilateral screening ERIC SCREENING W CHAN Radiology Routine Ductal carcinoma in situ (DCIS) of left breast Encounter for screening mammogram for high-risk patient Expected: 03/17/2025 (Approximate), Expires: 10/15/2025 [facility] Work Phone: Comment on above: Expected: 03/17/2025 (Approximate), Expires: 10/15/2025 Start: 03-16-2025 Screening for malign ant neoplasm of breast Mammogram Screening [facility] Start: 03-09-2025 End: 03-09-2025 Patient encounter procedure 03/09/2025 11:45 AM EDT Office Visit OB/Gynecology [address] [place], [place] [id number] Chelsea Davey APRN.[employer] M[employer] HAND [address] [place] [id number] EMB OB/Gynecology Comment on above: EMB Start: 02-23-2025 End: 12-23-2025 CT Abdomen and Pelvis W contrast IV [facility] Work Phone: Comment on above: Expected: 02/23/2025 , Expires: 12/23/2025 Start: 02-23-2025 End: 02-23-2025 Patient encounter procedure Cat Scan Comment on above: CT ABD/PEL W IVCON Start: 02-22-2025 End: 05-24-2025 Creatinine and Glomerular filtration rate.predicted panel - Serum, Plasma or Blood CREATININE BLD Lab Routine Pre-procedural laboratory examination Expected: 02/22/2025, Expires: 05/24/2025 [facility] Work Phone: Comment on above: Expected: 02/22/2025 , Expires: 05/24/2025 Start: 12-29-2024 End: 12-29-2024 Patient encounter procedure Cardiology Comment on above: 1 yr f/u Start: 12-29-2024 End: 12-29-2024 ambulatory [facility] J1-4 Draw Station Comment on above: 1 yr f/u Start: 12-21-2024 End: 03-22-2025 CBC panel - Blood by Automated count COMPLETE BLOOD COUNT Lab Routine Age-related osteoporosis without current pathological fracture Hair loss Expected: 12/21/2024 (Approximate), Expires: 03/22/2025 [facility] Comment on above: Expected: 12/21/2024 (Approximate), Expires: 03/22/2025 Start: 12-21-2024 End: 03-22-2025 Comprehensive metabolic 2000 panel - Serum or Plasma COMPREHENSIVE METABOLIC PANEL Lab Routine Hyperlipidemia, unspecified hyperlipidemia type Expected: 12/21/2024 (Approximate), Expires: 03/22/2025 [facility] Work Phone: Comment on above: Expected: 12/21/2024 (Approximate), Expires: 03/22/2025 Start: 12-21-2024 End: 03-22-2025 Thyrotropin [Units/volume] in Serum or Plasma THYROID STIMULATING HORMONE Lab Routine Age-related osteoporosis without current pathological fracture Hair loss Expected: 12/21/2024 (Approximate), Expires: 03/22/2025 [facility] Comment on above: Expected: 12/21/2024 (Approximate), Expires: 03/22/2025 Start: 12-07-2024 Screening for osteoporosis Bone Density Screening [facility] Comment on above: Postponed from 04/10 (Postponed To Appropriate Date) Start: 11-23-2024 End: 02-22-2025 CREATININE BLD CREATININE BLD Lab Routine Pelvic pain in female Expected: 11/23/2024, Expires: 02/22/2025 [facility] Comment on above: Expected: 11/23/2024 , Expires: 02/22/2025 Start: 11-18-2024 End: 11-18-2024 Manual pelvic examination 11/18/2024 2:30 PM EDT Procedure OB/Gynecology [address] [place] [address] 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, 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 [facility] [address] [place] [address] PMB (postmenopausal bleeding) [N95.0]; Pelvic pain in female [R10.2] OB/Gynecology Comment on above: PMB (postmenopausal bleeding) [N95.0]; Pelvic pain in female [R10.2] Start: 11-10-2024 End: 11-10-2024 Patient encounter procedure 11/10/2024 3:30 PM EST Office Visit OB/Gynecology [address] [place] [address] Fatou Jackson APRN.[employer] M[employer] HAND [address] [place] [address] vaginal discharge OB/Gynecology Comment on above: vaginal discharge Start: 11-10-2024 End: 11-10-2025 US Pelvis PELVIC US WHI Anc Imaging Routine PMB (postmenopausal bleeding) Pelvic pain in female Expected: 11/10/2024, Expires: 11/10/2025 [facility] Work Phone: Comment on above: Expected: 11/10/2024 , Expires: 11/10/2025 Start: 09-17-2024 End: 09-17-2024 ambulatory 09/17/2024 1:00 PM EST Visit (SP) Office Hematology/Oncology [address] [place] [address] Merari Rush, AZAM.[employer] HAND [address] [place] [address] 6 MO OV Hematology/Oncology Comment on above: 6 MO OV Start: 09-15-2024 End: 09-15-2024 ambulatory 09/15/2024 2:00 PM EST Visit (SP) Office Hematology/Oncology [address] [place] [address] Merari Rush, AZAM.[employer] M[employer] HAND [address] [place] [address] 6 MO OV Hematology/Oncology Comment on above: 6 MO OV Start: 09-08-2024 Advance Directive Discussion Advance Directive Discussion [facility] Start: 08-15-2024 End: 11-14-2024 Lipid 1996 panel - Serum or Plasma LIPID PANEL BASIC Lab Routine Coronary artery disease involving [place] coronary artery of [place] heart without angina pectoris Fibromuscular dysplasia (HCC) H/O acute myocardial infarction Expected: 08/15/2024, Expires: 11/14/2024 [facility] Work Phone: Comment on above: Expected: 08/15/2024 , Expires: 11/14/2024 Start: 08-13-2024 Hepatitis B surface antibody level LDL Cholesterol [facility] Start: 05-09-2024 Covid-19 Vaccine () Covid-19 Vaccine () [facility] Start: 05-09-2024 Influenza vaccination Influenza Vacc ine (#1) [facility] Start: 04-10-2024 Screening for osteoporosis Bone Density Screening [facility] Start: 03-16-2024 End: 03-16-2024 ambulatory 03/16/2024 1:30 PM EDT Visit (SP) Office Hematology/Oncology [address] [place] [address] Merari Rush APRN.[employer] M[employer] HAND [address] [place], [place] [id number] 9 MO OV/MAMM EARLY* Hematology/Oncology Comment on above: 9 MO OV/MAMM EARLY* Start: 03-16-2024 End: 03-16-2024 Patient encounter procedure Mammogram Comment on above: Encounter for screen ing mammogram for high-risk patient [Z12.31]; 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] annual Start: 03-06-2024 Mammography [facility] Start: 03-06-2024 Screening for malign ant neoplasm of breast Mammogram Screening [facility] Start: 01-16-2024 ANNUAL PCP TEAM PRIVACY MANAGER LUCRECIA DISEASE VISIT ANNUAL PCP TEAM CHRONIC DISEASE VISIT [facility] Start: 01-16-2024 SHINGRIX VACCINE (2 of 3) SHINGRIX VACCINE (2 of 3) [facility] Comment on above: Postponed from 11/27 (Declined at this time) Start: 10-15-2023 Urine microalbumin profile [facility] Start: 09-08-2023 Advance Directive Discussion Advance Directive Discussion [facility] Start: 09-08-2023 Behavioral Health Screening Behavioral Health Screening [facility] Start: 07-06-2023 Shingrix Vaccine (3 of 3) Shingrix Vaccine (3 of 3) [facility] Start: 05-09-2023 Covid-19 Vaccine ( season) Covid-19 Vaccine ( season) [facility] Start: 05-09-2023 Influenza vaccination INFLUENZA (#1) [facility] Start: 03-04-2023 Mammography MAMMOGRAM [facility] Start: 09-08-2022 ADVANCE DIRECTIVE DISCUSSION ADVANCE DIRECTIVE DISCUSSION [facility] Start: 09-08-2022 DEPRESSION ASSESSMENT DEPRESSION ASS ESSMENT [facility] Start: 07-31-2022 Adult depression screening assessment DEPRESSION SCREENING [facility] Start: 07-29-2022 COVID-19 VACCINE (3 - Booster for Pfizer series) COVID-19 VACCINE (3 - Booster for Pfizer series) [facility] Start: 06-06-2022 Hepatitis B surface antibody level LDL CHOLESTEROL [facility] Start: 05-09-2022 Influenza vaccination INFLUENZA (#1) [facility] Start: 02-14-2022 End: 04-16-2022 LIPID PANEL BASIC LIPID PANEL BASIC Lab Routine Coronary artery disease involving [place] coronary artery of [place] heart without angina pectoris Expected: 02/14/2022, Expires: 04/16/2022 [facility] Work Phone: Comment on above: Expected: 02/14/2022 , Expires: 04/16/2022 Start: 09-08-2021 ADVANCE DIRECTIVE DISCUSSION ADVANCE DIRECTIVE DISCUSSION [facility] Start: 09-08-2021 DEPRESSION ASSESSMENT DEPRESSION ASS ESSMENT [facility] Start: 07-16-2021 COVID-19 VACCINE (2 - Pfizer 3-dose series) COVID-19 VACCINE (2 - Pfizer 3-dose series) [facility] Start: 07-16-2021 COVID-19 VACCINE (2 - Pfizer series) COVID-19 VACCINE (2 - Pfizer series) [facility] Start: 2019 BONE DENSITY BONE DENSITY [facility] Start: 2019 PNEUMOCOCCAL: 65+ (1 - PCV) PNEUMOCOCCAL: 65+ (1 - PCV) [facility] Start: 2019 PNEUMOVAX AGE 65 AND OVER WITH 5YR LOOKBACK (#1) PNEUMOVAX AGE 65 AND OVER WITH 5YR LOOKBACK (#1) [facility] Start: 09-08-2019 Medicare Annual Wellness Visit Medicare Annual Wellness Visit [facility] Start: 06-14-2018 DIABETES SCREEN DIABETES SCREEN [facility] Start: 06-14-2018 Diabetes Screening Diabetes Screenin g [facility] Start: 06-18-2017 Mammography MAMMOGRAM [facility] Start: 2014 RSV Vaccine (1 - 1-d ose 60+ series) RSV Vaccine (1 - 1-dose 60+ series) [facility] Start: 03-06-2006 Colonoscopy COLONOSCOPY [facility] Start: 03-06-2006 COLORECTAL CANCER SCREENING COLORECTAL CANCER SCREENING [facility] Start: 03-06-2006 Screening for malign ant neoplasm of colon Colonoscopy [facility] Start: 2004 SHINGRIX VACCINE (1 of 2) SHINGRIX VACCINE (1 of 2) [facility] Start: 1999 COLOGUARD (FIT-DNA) COLOGUARD (FIT-D NA) [facility] Start: [address] [facility] Start: 1999 FECAL OCCULT BLOOD FECAL OCCULT BLOO D [facility] Start: 1999 Screening for malign ant neoplasm of colon [facility] Start: 1999 SIGMOIDOSCOPY SIGMOIDOSCOPY [facility] Start: 1973 Urine microalbumin profile DTAP,TDAP,TD (1 - Tdap) [facility] Start: 1972 ANNUAL PCP TEAM PRIVACY MANAGER LUCRECIA DISEASE VISIT ANNUAL PCP TEAM CHRONIC DISEASE VISIT [facility] Start: 1972 Anxiety Screening Anxiety Screening [facility] Start: 1972 BP Controlled (<130/80) BP Controlle d (<130/80) [facility] Start: 1972 Depression Screening Depression Scre ening [facility] Start: 1972 HEPATITIS C SCREENING HEPATITIS C [facility] Start: 1972 Hepatitis C screening Hepatitis C [facility] DBT Breast - bilater al screening ERIC SCREENING W CHAN Radiology Routine Encounter for screening mammogram for high-risk patient Ductal carcinoma in situ (DCIS) of left breast 03/16/2024 1:49 PM EDT [facility] Work Phone: DBT Breast - bilater al screening ERIC SCREENING W CHAN Radiology Routine Ductal carcinoma in situ (DCIS) of left breast Encounter for screening mammogram for high-risk patient 03/18/2025 1:52 PM EDT [facility] Work Phone: End: 04-03-2023 Dxa bone density study 1/> sites axial skel DXA-AXIAL SKELETON Radiology Routine Encounter for screening for osteoporosis Asymptomatic postmenopausal state 1 Occurrences starting 03/04/2022 until 04/03/2023 [facility] Work Phone: Comment on above: 1 Occurrences starti ng 03/04/2022 until 04/03/2023 End: 02-14-2023 ECG COMPLETE ECG COMPLETE ECG Routine Coronary artery disease involving [place] coronary artery of [place] heart without angina pectoris 1 Occurrences starting 02/14/2022 until 02/14/2023 [facility] Work Phone: Comment on above: 1 Occurrences starti ng 02/14/2022 until 02/14/2023 End: 08-15-2024 ECG COMPLETE ECG COMPLETE ECG Routine Coronary artery disease involving [place] coronary artery of [place] heart without angina pectoris Fibromuscular dysplasia (HCC) H/O acute myocardial infarction 1 Occurrences starting 08/15/2023 until 08/15/2024 [facility] Work Phone: Comment on above: 1 Occurrences starti ng 08/15/2023 until 08/15/2024 Endometrial bx w/wo endocervix bx w/o dilat spx ENDOMETRIAL BIOPSY Procedures Routine Endometrial thickening on ultrasound Ordered: 11/23/2024 [facility] Comment on above: Ordered: 11/23/2024 End: 03-30-2023 ERIC SCREENING W CHAN ERIC SCREENING W CHAN Radiology Routine Ductal carcinoma in situ (DCIS) of left breast Encounter for screening mammogram for high-risk patient 1 Occurrences starting 02/28/2022 until 03/30/2023 [facility] Work Phone: Comment on above: 1 Occurrences starti ng 02/28/2022 until 03/30/2023 End: 09-14-2023 ERIC SCREENING W CHAN ERIC SCREENING W CHAN Radiology Routine Ductal carcinoma in situ (DCIS) of left breast Encounter for screening mammogram for high-risk patient 1 Occurrences starting 08/15/2022 until 09/14/2023 [facility] Work Phone: Comment on above: 1 Occurrences starti ng 08/15/2022 until 09/14/2023 End: 07-17-2024 ERIC SCREENING W CHAN ERIC SCREENING W CHAN Radiology Routine Encounter for screening mammogram for high-risk patient Ductal carcinoma in situ (DCIS) of left breast 1 Occurrences starting 06/18/2023 until 07/17/2024 [facility] Work Phone: Comment on above: 1 Occurrences starti ng 06/18/2023 until 07/17/2024 PAP TEST PAP TEST Lab Qamar mustafa PMB (postmenopausal bleeding) 11/10/2024 4:16 PM EST [facility] Immunizations Immunization Date Immunization Notes Care Provider Mayank fowler 07-21-2024 influenza, high dose seasonal, preservative-free Wen Bhat APRN.[employer] Work Phone: [facility] 07-21-2024 influenza virus vaccine, unspecified formulation Chelsea Davey APRN.[employer] Work Phone: [facility] 05-11-2023 influenza virus vaccine, unspecified formulation Merari Rush FELLED SEAM OPERATOR CHAINSTITCH.[employer] Work Phone: [facility] 01-15-2023 pneumococcal (PCV20) vaccine, 20 valent (PREVNAR 20) Fatou Jackson APRN.[employer] Work Phone: [facility] 06-03-2022 influenza (HD-IIV4) vaccine, age 65+ yr, high dose, quadrivalent, PF (FLUZONE HIGH-DOSE) Fatou Jackson APRN.[employer] Work Phone: [facility] 06-25-2021 COVID-19 original vaccine, age 12+ yr, monovalent (PFIZER-BIONTEayun - PURPLE TOP) Fatou Jackson APRN.[employer] Work Phone: [facility] 06-12-2021 influenza (HD-IIV4) vaccine, age 65+ yr, high dose, quadrivalent, PF (FLUZONE HIGH-DOSE) Fatou Jackson FELLED SEAM OPERATOR [facility] Work Phone: [facility] 12-19-2020 COVID-19 original vaccine, age 12+ yr, monovalent (PFIZER-BIONTECH - LUGO TOP) Fatou Jackson FELLED SEAM OPERATOR [facility] Work Phone: [facility] Work Phone: 11-27-2020 COVID-19 original vaccine, age 12+ yr, monovalent (PFIZER-BIONTECH - LUGO TOP) Fatou Nevillehrie FELLED SEAM OPERATOR [facility] Work Phone: [facility] Work Phone: 05-08-2020 influenza (HD-IIV4) vaccine, age 65+ yr, high dose, quadrivalent, PF (FLUZONE HIGH-DOSE) Fatou Jackson FELLED SEAM OPERATOR [facility] Work Phone: [facility] 06-02-2019 influenza, injectabl e, quadrivalent, preservative free Fatou Nevillehrie FELLED SEAM OPERATOR [facility] Work Phone: [facility] 05-22-2018 influenza, injectabl e, quadrivalent, preservative free Fatou Jackson FELLED SEAM OPERATOR [facility] Work Phone: [facility] 06-08-2017 influenza nasal, unspecified formulation Fatou Jackson FELLED SEAM OPERATOR [facility] Work Phone: [facility] 05-15-2017 Influenza, injectabl e, Madin Merari Canine Kidney, preservative free, quadrivalent Fatou Nevillehrie FELLED SEAM OPERATOR [employer] [facility] Work Phone: [facility] 10-03-2015 zoster vaccine, live Fatou Gut hrjorge alberto FELLED SEAM OPERATOR [facility] Work Phone: [facility] 10-15-2013 tetanus toxoid, reduced diphtheria toxoid, and acellular pertussis vaccine, adsorbed Fatou Jackson FELLED SEAM OPERATOR [facility] Work Phone: [facility] 06-16-2013 influenza virus vaccine, unspecified formulation Raquel Jamil MA [facility] Payers Date Payer Category Payer Self-pay 2019 [facility] ANTHEM ME DICARE SUPPLEMENT [id number] 2019 Medicare MEDICARE MEDICAR E A AND B [id number] 2019-Present [phone] [place] [address] Medicare [id number] 2019 Medicare [id number] 2019 Unknown DATEM DATEM ME DICARE SUPPLEMENT [id number] 2019-Present [phone] [address] [place] [id number] Indemnity [id number] 2019 Unknown ANTHEM ANTHEM ME DICARE SUPPLEMENT [id number] 2019-Present [phone] [address] [place] [address] Indemnity [id number] 2019 Medicare [id number] 2019 Medicare [id number] Unknown [id number] Social History Date Type Detail Facility Start: 06-04-2021 End: 12-29-2024 Tobacco smoking status NHIS Ex-smoker [facility] Start: 09-08-1971 End: 09-08-1981 History of tobacco use Current smoker [facility] Start: 09-08-1971 End: 09-08-1981 History of tobacco use Cigarette Smoker [facility] Start: 08-07-2021 End: 08-15-2022 Alcohol intake Current drinker of alcohol (finding) [facility] Start: 08-07-2021 End: 01-15-2023 Alcohol intake [facility] Start: 06-07-2020 History SDOH Alcohol Frequency 5 [facility] Start: 06-07-2020 History SDOH Alcohol Std Drinks 1 [facility] Start: 06-13-2016 History SDOH Alcohol Comment Socially wine [facility] Start: 1955 Sex Assigned At Not on file [facility] Start: 02-04-2022 End: 02-14-2022 Exposure to SARS-CoV-2 (event) Unable to assess [facility] Start: 02-18-2022 End: 06-12-2022 Exposure to SARS-CoV-2 (event) Not sure [facility] Work Phone: Start: 06-04-2021 End: 12-29-2024 Tobacco use and exposure Smokeless tobacco non-user [facility] Start: 03-06-2023 End: 04-28-2025 Alcohol intake Ex-drinker (finding) [facility] Start: 06-07-2020 End: 01-15-2023 Alcohol Use Disorder Identification Test - Consumption [AUDIT-C] [facility] How often to you hav e a drink containing alcohol? 4 or more times a week [facility] How many standard dr inks containing alcohol do you have on a typical day? 1 or 2 [facility] Start: 08-09-2012 Frequency of Binge Drinking Not on file [facility] Work Phone: Has the [employer] threatened to shut off services in your home in past 12Mo No [facility] Are you now , , , , never or living with a partner? [facility] How often to you hav e a drink containing alcohol? Never [facility] Do you feel stress - tense, restless, nervous, or anxious, or unable to sleep at night because your mind is troubled all the time - these days [OSQ] Only a little [facility] (I/We) worried wheth er (my/our) food would run out before (I/we) got money to buy more. Never true [facility] Goals Date Patient Goal Desired Activity /State Personal health goal Functional Status Date Assessment Result Facility 06-08-2014 Are you deaf, or do you have serious difficulty hearing No 06/08/2014 9:34 AM Yari Amaral APRN.[employer] No [facility] Work Phone: 06-08-2014 Are you blind, or do you have serious difficulty seeing, even when wearing glasses No 06/08/2014 9:34 AM Yari Amaral APRN.RADHA No [facility] 06-08-2014 Do you have serious difficulty walking or climbing stairs No 06/08/2014 9:34 AM Yari Amaral APRN.[employer] No [facility] 06-08-2014 Do you have difficul ty dressing or bathing No 06/08/2014 9:34 AM Yari Amaral APRN.RADHA [facility] 06-08-2014 Because of a physica l, mental, or emotional condition, do you have difficulty doing errands alone such as visiting a physician's office or shopping No 06/08/2014 9:34 AM Yari Amaral APRN.[employer] No [facility] Mental Status Date Assessment Result Facility 06-08-2014 Because of a physica l, mental, or emotional condition, do you have serious difficulty concentrating, remembering, or making decisions No 06/08/2014 9:34 AM Yari Amaral APRN.RADHA No [facility] Clinical Notes 04-29-2013 to 04-28-2025 Manoj Green APRN.[employer] - 04/28/2025 1:34 PM Dandy Sainz RT(R) - 04/28/2025 12:20 PM Osiel Greene MD - 03/30/2025 3:43 PM Osiel Greene MD - 03/30/2025 3:43 PM EDT Note Date & Type Note Facility 04-28-2025 History of Present illness Narrative Images from the original note were not included. [facility] Subjective HPI HPI Emilie Kern is a 69 year old female who presents today for CC of left ankle pain/swelling. This started 5 days ago, improving. Has tried otc medication for relief. Symptoms are worsened by rom. Denies injury. Bilat lower leg swelling intermittently for a while. .Patient presents with: Ankle Pain: L ankle swelling and redness x5 days, denies injury PAST MEDICAL HISTORY Diagnosis Date Age-related osteoporosis without current pathological fracture 01/15/2023 CAD (coronary artery disease), [place] coronary artery 04/26/2013 -hx of inferior STEMI's x 2 (1994, 2003). LHC in 1994 revealed normal coronaries and LHC in 2003 showed occlusion of small branch of RCA but otherwise normal coronaries. -Admitted to [facility] on 04/26/13 after p/w CP and anterolateral STEMI. Subsequent LHC revealed distal small branch of RCA w 100% blockage. She had unsuccessful PTCA to small branch of RCA d/t tortuous vessels. 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 Coronary atherosclerosis of unspecified type of vessel, [place] or graft Coronary artery disease, [place] x2, 1984, 1992, 2001 Ductal carcinoma in situ (DCIS) of left breast 02/26/2021 Dyslipidemia Enthesopathy of unspecified site 12/07/2008 Female stress incontinence Fibromuscular hyperplasia of artery 04/28/2013 Confirmed by carotid duplex April 28, 2013 HLD (hyperlipidemia) 04/26/2013 Hypertension INSOMNIA 12/04/2007 Myocardial infarct, old 04/26/2013 NSVT (nonsustained ventricular tachycardia) (HCC) 04/27/2013 History: One rhythm strip from OSH showing wide complex tachycardia, up to 9 beats This in the setting of active ST elevation. Assessment: NSVT in the setting of active ischemia Plan: 1. Replace K and mag aggressively 2. Monitor closely. 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 Last admission 04/26/2013: p/w anterolateral STEMI, s/p unsuccessful PTCA to d Takotsubo cardiomyopathy / Coronary vasospasm 04/28/2013 Underwent a LHC on arrival 04/26/13 which showed severe disease in the distal branch of RCA that was ballooned previously. POBA was attempted but unsuccessful due to small caliber and tortuous nature. Echo 04/28: apical ballooning Assessment: likely Tacotsubo MP secondary to transient coronary vessel stenosis, wo conorany vessel obstruction on C Plan: LHC 05/06/[address] Tolbert echo Unspecified hemorrhoids without mention of complication Hemorrhoids PAST SURGICAL HISTORY Procedure Laterality Date APPENDECTOMY BREAST LUMPECTOMY HX Left 02/08/2021 BX BREAST W/DEVICE 1ST LESION STEREOTACTIC GUID Left 01/22/2021 CHOLECYSTECTOMY 1970 Cholecystectomy LEFT HEART CATH 04/26/13, 05/11/2013 100% mid occlusion of RPV1 PAST SURGICAL HISTORY OF abnormal kidney removed age 6 done at [facility], still has 2 1/2 kidneys PERC TRANSL COR ANGIO 2003 Distal RCA - PTCA/No stent TONSILLECTOMY PRIMARY/SECONDARY <AGE 11 Tonsillectomy ALLERGIES Patient has no known allergies. MEDICATIONS diclofenac (VOLTAREN ARTHRITIS PAIN) 1 % topical gel Apply 2 g to affected area four times daily. lisinopril (ZESTRIL) 20 mg tablet Take 20 mg by mouth once daily. miSOPROStol (CYTOTEC) 200 mcg tablet Use 2 tablets vaginally as directed for [address] 2 the evening before surgery and two the morning of surgery amLODIPine (NORVASC) 5 mg tablet Take 1 tablet by mouth once daily. atorvastatin (LIPITOR) 80 mg tablet Take 1 tablet by mouth once daily. clopidogrel (PLAVIX) 75 mg tablet Take 1 tablet by mouth once daily. isosorbide mononitrate ER (IMDUR) 30 mg 24 hr tablet Take 1 tablet by mouth once daily. metoprolol succinate ER (TOPROL XL) 100 mg Take 1 tablet by mouth once daily. nitroglycerin sublingual (NITROQUICK) 0.4 mg SL tablet Dissolve 1 tablet under the tongue as needed. FOR CHEST PAIN. IF NO RELIEF CALL 911 alendronate (FOSAMAX) 70 mg tablet Take 1 tablet by mouth one time a week. Take with a full glass of water, on an empty stomach; do NOT lie down for 30minutes. BIOTIN ORAL Take 1 tablet by mouth once daily. ASPIRIN 81MG TABLET Take one (1) tablet daily . FAMILY HISTORY Problem Relation Age of Onset Heart Mother Cancer Father Multiple myeloma and amyloidisis Breast Cancer Sister Heart Maternal Grandmother SOCIAL HISTORY[1] Review of Systems Objective BP 112/62 Pulse 67 Temp 36.6 C (97.8 F) Resp 18 Wt 79.2 kg (174 lb 9.7 oz) SpO2 98% BMI 26.55 kg/m Physical Exam Constitutional: General: She is not in acute distress. Appearance: She is not toxic-appearing or diaphoretic. HENT: Head: Normocephalic and atraumatic. Pulmonary: Effort: Pulmonary effort is normal. No accessory muscle usage or respiratory distress. Musculoskeletal: Legs: Neurological: Mental Status: She is alert and oriented to person, place, and time. {ASSESSMENT/PLAN: 1. Acute left ankle pain - ICD9: 719.47, ICD10: M25.572 -no bony abnormality noted on xray -Rest, Ice, Compression, Elevation discussed -follow up with primary care if symptoms persist/worsen in 10-14 days -will refer to pcp, has had bilat leg swelling/intermittent. - XR ANKLE GENERAL 3V AP/LAT/OBL LEFT IMPRESSION: Mild LEFT lateral ankle soft tissue swelling without acute osseous abnormality. Dictated by : LAKESHA BROWN DO - DICLOFENAC 1 % TOPICAL GEL Manoj Green APRN.[facility] [facility] History and Record Review External record(s) reviewed: prior outpatient record. Disposition The patient was discharged. OTC Medications were advised: Procedures [1] Social History Tobacco Use Smoking status: Former Current packs/day: 0.00 Average packs/day: 1 pack/day for 10.0 years (10.0 ttl pk-yrs) Types: Cigarettes Start date: 1971 Quit date: 1981 Years since quittin.6 Smokeless tobacco: Never Vaping Use Vaping status: Never Used Substance Use Topics Alcohol use: Not Currently Comment: Socially wine Drug use: No documented in this encounter [facility] 04-28-2025 History of Present illness Narrative Radiology Service Progress Note PATIENT NAME: Emilie Kern DATE OF SERVICE: April 28, 2025 TIME: 12:24 PM PATIENT IDENTITY VERIFICATION COMPLETED USING TWO (2) IDENTIFIERS: Name and Date of confirmed by patient verbally. FALL SCREENING: Has the patient had 2 falls in the last year or 1 fall with injury or currently using an Ambulatory Assistive Device (Walker, Cane, Wheelchair, Crutches, etc.)? No PATIENT GENDER DATA: Assigned female at . status: : No status: NO. PATIENT RELEVANT IMPLANT DATA REVIEWED: Not Applicable PATIENT PRESENTS WITH AN IMPLANTABLE OR ATTACHED GYNECOLOGIST: No RADIOLOGY DEPARTMENT: General X-ray: Exam(s) Completed: Lower Extremity X-Ray(s): Ankle, Left and Wt. Bearing PERIPHERAL IV DATA: Not applicable SIGNED BY: RT Saurabh(R) April 28, 2025 12:24 PM documented in this encounter [facility] 03-31-2025 Note [facility] Medical Records Department [address] [place] [address] History Physical Exam 03/31/25 1547 MR#: [id number] Acct: [id number] Name: EMILIE KERN Rep #: [id number] : 1955 69 From: Osiel Bustillo MD PCP: Care Physician,No Primary Status:PRE [facility] [place] [facility] History and Physical Date of Admission: 04/29/25 HPI: The patient is a 69 year old female presenting for pre-operative visit. She is scheduled for Hysteroscopy D C, possible polyp resection for PMB, thickened endometrium on 04/29/25. Procedure discussed along with risks, benefits and complications. Other alternatives discussed for management. Consent form signed? Yes. ? PAST MEDICAL HISTORY PAST MEDICAL HISTORYDiagnosisDate???Age-related osteoporosis without current pathological eovuosdv55/10/2023???CAD (coronary artery disease), [place] coronary iphayz5704/26/2013???-hx of inferior STEMI's x 2 (1994, 2003). LHC in 1994 revealed normal coronaries and LHC in 2003 showed occlusion of small branch of RCA but otherwise normal coronaries. -Admitted to [facility] on 04/26/13 after p/w CP and anterolateral STEMI. Subsequent LHC revealed distal small branch of RCA w 100% blockage. She had unsuccessful PTCA to small branch of RCA d/t tortuous vessels. -Given that the rest???Coronary artery uijlglpyed48/11/2013???Coronary atherosclerosis of unspecified type of vessel, [place] or graft?Coronary artery disease, ND x2, 1985, 1992, 2001???Ductal carcinoma in situ (DCIS) of left gaacgs9602/26/2021???Dyslipidemia?Enthesopathy of unspecified site12/07/2008???Female stress incontinence?Fibromuscular hyperplasia of axspyq8404/28/2013???Confirmed by carotid duplex April 28, 2013 ?HLD (hyperlipidemia)04/26/2013???Hyper tension?JGDXNAKR19/28/2008??? Myocardial infarct, old04/26/2013???NSVT (nonsustained ventricular tachycardia) ([facility])04/27/2013???History: One rhythm strip from OSH showing wide complex tachycardia, up to 9 beats This in the setting of active ST elevation. Assessment: NSVT in the setting of active ischemia Plan: 1. Replace K and mag aggressively 2. Monitor closely. ???Pain in limb12/10/2007???Plantar fascial pmciqtelzfjc58/17/2008???[id number]??? 57F w PMHx HTN, HLP, s/p remote hx of nephrectomy for congenital kidney anomaly, Ex-smoker (quit 1981, 1ppd x 10 yr), and hx of multiple STEMI x 3 (1995, 2003, 2012 - last admitted 2 wks ago 04/26/2013) and has had only minimal CAD on caths that were done previously, most recent cath w distral RCA branch 100% occlusion. Last admission 04/26/2013: p/w anterolateral STEMI, s/p unsuccessful PTCA to d???Takotsubo cardiomyopathy / Coronary ccuiigxno30/21/2013???Underwent a C on arrival 04/26/13 which showed severe disease in the distal branch of RCA that was ballooned previously. POBA was attempted but unsuccessful due to small caliber and tortuous nature. Echo 04/28: apical ballooning Assessment: likely Tacotsubo MP secondary to transient coronary vessel stenosis, wo conorany vessel obstruction on [facility] Plan: [facility] 05/06/[address] Tolbert echo???Unspecified hemorrhoids without mention of complication?Hemorrhoids ? PAST SURGICAL HISTORY PAST SURGICAL HISTORYProcedureLateralityDate???A PPENDECTOMY?BREAST LUMPECTOMY KJBdee7602/08/2021?BX BREAST W/DEVICE 1ST LESION STEREOTACTIC WTAEFfmo36/17/2021???CHOLECYSTECTO MY???1970??? Cholecystectomy???LEFT HEART CATH???04/26/13, 05/11/2013???100% mid occlusion of RPV1???PAST SURGICAL HISTORY OF?abnormal kidney removed age 6 done at [facility], still has 2 1/2 kidneys???PERC TRANSL COR ANGIO???2003??? Distal RCA - PTCA/No stent???TONSILLECTOMY PRIMARY/SECONDARY ? CURRENT MEDICATIONS Current Outpatient MedicationsMedicationSigDispenseRe fill???amLODIPine (NORVASC) 5 mg tabletTake 1 tablet by mouth once daily.90 tablet3???atorvastatin (LIPITOR) 80 mg tabletTake 1 tablet by mouth once daily.90 tablet3???clopidogrel (PLAVIX) 75 mg tabletTake 1 tablet by mouth once daily.90 tablet3???isosorbide mononitrate ER (IMDUR) 30 mg 24 hr tabletTake 1 tablet by mouth once daily.90 tablet3???metoprolol succinate ER (TOPROL XL) 100 mgTake 1 tablet by mouth once daily.90 tablet3???nitroglycerin sublingual (NITROQUICK) 0.4 mg SL tabletDissolve 1 tablet under the tongue as needed. FOR CHEST PAIN. IF NO RELIEF CALL 32498 tablet3???alendronate (FOSAMAX) 70 mg tabletTake 1 tablet by mouth one time a week. Take with a full glass of water, on an empty stomach; do NOT lie down for 30minutes.12 tablet3???BIOTIN ORALTake 1 tablet by mouth once daily. ?ASPIRIN 81MG TABLETTake one (1) tablet daily .00???No current facility-administered medications for this visit. ? ALLERGIES: Patient has no known allergies. ??? PERSONAL HISTORY: SOCIAL HISTORY Social History???Tobacco Use???Smoking status:Former (more content not included)... [facility] 03-30-2025 History and physical note Pre-Op History and Physical HPI: The patient is a 69 year old female presenting for pre-operative visit. She is scheduled for Hysteroscopy D&C, possible polyp resection for PMB, thickened endometrium on 04/29/25. Procedure discussed along with risks, benefits and complications. Other alternatives discussed for management. Consent form signed? Yes. PAST MEDICAL HISTORY Diagnosis Date Age-related osteoporosis without current pathological fracture 01/15/2023 CAD (coronary artery disease), [place] coronary artery 04/26/2013 -hx of inferior STEMI's x 2 (1994, 2003). LHC in 1994 revealed normal coronaries and LHC in 2003 showed occlusion of small branch of RCA but otherwise normal coronaries. -Admitted to [facility] on 04/26/13 after p/w CP and anterolateral STEMI. Subsequent LHC revealed distal small branch of RCA w 100% blockage. She had unsuccessful PTCA to small branch of RCA d/t tortuous vessels. 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 Coronary atherosclerosis of unspecified type of vessel, [place] or graft Coronary artery disease, [place] x2, 1985, 1992, 2001 Ductal carcinoma in situ (DCIS) of left breast 02/26/2021 Dyslipidemia Enthesopathy of unspecified site 12/07/2008 Female stress incontinence Fibromuscular hyperplasia of artery 04/28/2013 Confirmed by carotid duplex April 28, 2013 HLD (hyperlipidemia) 04/26/2013 Hypertension INSOMNIA 12/04/2007 Myocardial infarct, old 04/26/2013 NSVT (nonsustained ventricular tachycardia) ([facility]) 04/27/2013 History: One rhythm strip from OSH showing wide complex tachycardia, up to 9 beats This in the setting of active ST elevation. Assessment: NSVT in the setting of active ischemia Plan: 1. Replace K and mag aggressively 2. Monitor closely. 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 Last admission 04/26/2013: p/w anterolateral STEMI, s/p unsuccessful PTCA to d Takotsubo cardiomyopathy / Coronary vasospasm 04/28/2013 Underwent a LHC on arrival 04/26/13 which showed severe disease in the distal branch of RCA that was ballooned previously. POBA was attempted but unsuccessful due to small caliber and tortuous nature. Echo 04/28: apical ballooning Assessment: likely Tacotsubo MP secondary to transient coronary vessel stenosis, wo conorany vessel obstruction on LHC Plan: LHC 05/06/[address] Tolbert echo Unspecified hemorrhoids without mention of complication Hemorrhoids PAST SURGICAL HISTORY Procedure Laterality Date APPENDECTOMY BREAST LUMPECTOMY HX Left 02/08/2021 BX BREAST W/DEVICE 1ST LESION STEREOTACTIC GUID Left 01/22/2021 CHOLECYSTECTOMY 1970 Cholecystectomy LEFT HEART CATH 04/26/13, 05/11/2013 100% mid occlusion of RPV1 PAST SURGICAL HISTORY OF abnormal kidney removed age 6 done at [facility], still has 2 1/2 kidneys PERC TRANSL COR ANGIO 2003 Distal RCA - PTCA/No stent TONSILLECTOMY PRIMARY/SECONDARY Tonsillectomy Current Outpatient Medications Medication Sig Dispense Refill amLODIPine (NORVASC) 5 mg tablet Take 1 tablet by mouth once daily. 90 tablet 3 atorvastatin (LIPITOR) 80 mg tablet Take 1 tablet by mouth once daily. 90 tablet 3 clopidogrel (PLAVIX) 75 mg tablet Take 1 tablet by mouth once daily. 90 tablet 3 isosorbide mononitrate ER (IMDUR) 30 mg 24 hr tablet Take 1 tablet by mouth once daily. 90 tablet 3 metoprolol succinate ER (TOPROL XL) 100 mg Take 1 tablet by mouth once daily. 90 tablet 3 nitroglycerin sublingual (NITROQUICK) 0.4 mg SL tablet Dissolve 1 tablet under the tongue as needed. FOR CHEST PAIN. IF NO RELIEF CALL 911 25 tablet 3 alendronate (FOSAMAX) 70 mg tablet Take 1 tablet by mouth one time a week. Take with a full glass of water, on an empty stomach; do NOT lie down for 30minutes. 12 tablet 3 BIOTIN ORAL Take 1 tablet by mouth once daily. ASPIRIN 81MG TABLET Take one (1) tablet daily . 0 0 No current facility-administered medications for this visit. ALLERGIES: Patient has no known allergies. PERSONAL HISTORY: Social History Tobacco Use Smoking status: Former Current packs/day: 0.00 Average packs/day: 1 pack/day for 10.0 years (10.0 ttl pk-yrs) Types: Cigarettes Start date: 1971 Quit date: 1981 Years since quittin.5 Smokeless tobacco: Never Vaping Use Vaping status: Never Used Substance Use Topics Alcohol use: Not Currently Comment: Socially wine Drug use: No FAMILY HISTORY: FAMILY HISTORY Problem Relation Age of Onset Heart Mother Cancer Father Multiple myeloma and amyloidisis Breast Cancer Sister Heart Maternal Grandmother REVIEW OF SYMPTOMS: GENERAL: denies fevers or chills ENDOCRINOLOGY: has not been on steroids Cardiology : denies palpitations or chest pain Respiratory: denies SOB or cough Hematology: denies history of prolonged bleeding or easy bruising or VTE Allergy: Denies history of personal or family history of allergy to anesthesia PHYSICAL EXAMINATION: VITALS: Blood pressure 126/78. GENERAL: The patient is well nourished, well hydrated in no acute distress. , The patient is oriented to time, place, and person. NECK: Supple. No lynphadenopathy, normal thyroid, no thyromegaly. LUNGS: Clear to auscultation bilaterally. no wheezes, rhonchi or rales HEART: Regular rate and rhythm, Normal heart sounds, and No murmurs or gallops US 11/19/2024 : Impression 1. Axial/retroverted uterus that measures 69 mm x 38 mm x 41 mm. 2. The central endometrial complex measures 15.8 mm in combined thickness, appears heterogenous with cystic areas. Endometrial pathology cannot be excluded. 3. Both ovaries are visualized and appear normal. 4. No adnexal masses were observed. 5. There is no free fluid visualized in the peritoneal cavity. IMPRESSION: PMB, thickened endoemtrium, h/o breast ca and tamoxifen use PLAN: The risks/benefits/alternatives and personal involved for the planned hysteroscopy D&C with possible polyp resection were reviewed with the patient. Her questions were answered to her satisfaction and she desires to proceed. Consent was signed. I reviewed with her postop instructions and expectations. I have reviewed and updated past medical and surgical history, medications and allergies Osiel Bustillo M.D. [facility] 03-30-2025 History and physical note Pre-Op History and Physical HPI: The patient is a 69 year old female presenting for pre-operative visit. She is scheduled for Hysteroscopy D&C, possible polyp resection for PMB, thickened endometrium on 04/29/25. Procedure discussed along with risks, benefits and complications. Other alternatives discussed for management. Consent form signed? Yes. PAST MEDICAL HISTORY Diagnosis Date Age-related osteoporosis without current pathological fracture 01/15/2023 CAD (coronary artery disease), [place] coronary artery 04/26/2013 -hx of inferior STEMI's x 2 (1994, 2003). LHC in 1994 revealed normal coronaries and LHC in 2003 showed occlusion of small branch of RCA but otherwise normal coronaries. -Admitted to [facility] on 04/26/13 after p/w CP and anterolateral STEMI. Subsequent LHC revealed distal small branch of RCA w 100% blockage. She had unsuccessful PTCA to small branch of RCA d/t tortuous vessels. 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 Coronary atherosclerosis of unspecified type of vessel, [place] or graft Coronary artery disease, [place] x2, 1985, 1992, 2001 Ductal carcinoma in situ (DCIS) of left breast 02/26/2021 Dyslipidemia Enthesopathy of unspecified site 12/07/2008 Female stress incontinence Fibromuscular hyperplasia of artery 04/28/2013 Confirmed by carotid duplex April 28, 2013 HLD (hyperlipidemia) 04/26/2013 Hypertension INSOMNIA 12/04/2007 Myocardial infarct, old 04/26/2013 NSVT (nonsustained ventricular tachycardia) (HCC) 04/27/2013 History: One rhythm strip from OSH showing wide complex tachycardia, up to 9 beats This in the setting of active ST elevation. Assessment: NSVT in the setting of active ischemia Plan: 1. Replace K and mag aggressively 2. Monitor closely. 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 Last admission 04/26/2013: p/w anterolateral STEMI, s/p unsuccessful PTCA to d Takotsubo cardiomyopathy / Coronary vasospasm 04/28/2013 Underwent a LHC on arrival 04/26/13 which showed severe disease in the distal branch of RCA that was ballooned previously. POBA was attempted but unsuccessful due to small caliber and tortuous nature. Echo 04/28: apical ballooning Assessment: likely Tacotsubo MP secondary to transient coronary vessel stenosis, wo conorany vessel obstruction on LHC Plan: LHC 05/06/[address] Tolbert echo Unspecified hemorrhoids without mention of complication Hemorrhoids PAST SURGICAL HISTORY Procedure Laterality Date APPENDECTOMY BREAST LUMPECTOMY HX Left 02/08/2021 BX BREAST W/DEVICE 1ST LESION STEREOTACTIC GUID Left 01/22/2021 CHOLECYSTECTOMY 1970 Cholecystectomy LEFT HEART CATH 04/26/13, 05/11/2013 100% mid occlusion of RPV1 PAST SURGICAL HISTORY OF abnormal kidney removed age 6 done at [facility], still has 2 1/2 kidneys PERC TRANSL COR ANGIO 2003 Distal RCA - PTCA/No stent TONSILLECTOMY PRIMARY/SECONDARY <AGE 11 Tonsillectomy Current Outpatient Medications Medication Sig Dispense Refill amLODIPine (NORVASC) 5 mg tablet Take 1 tablet by mouth once daily. 90 tablet 3 atorvastatin (LIPITOR) 80 mg tablet Take 1 tablet by mouth once daily. 90 tablet 3 clopidogrel (PLAVIX) 75 mg tablet Take 1 tablet by mouth once daily. 90 tablet 3 isosorbide mononitrate ER (IMDUR) 30 mg 24 hr tablet Take 1 tablet by mouth once daily. 90 tablet 3 metoprolol succinate ER (TOPROL XL) 100 mg Take 1 tablet by mouth once daily. 90 tablet 3 nitroglycerin sublingual (NITROQUICK) 0.4 mg SL tablet Dissolve 1 tablet under the tongue as needed. FOR CHEST PAIN. IF NO RELIEF CALL 911 25 tablet 3 alendronate (FOSAMAX) 70 mg tablet Take 1 tablet by mouth one time a week. Take with a full glass of water, on an empty stomach; do NOT lie down for 30minutes. 12 tablet 3 BIOTIN ORAL Take 1 tablet by mouth once daily. ASPIRIN 81MG TABLET Take one (1) tablet daily . 0 0 No current facility-administered medications for this visit. ALLERGIES: Patient has no known allergies. PERSONAL HISTORY: Social History Tobacco Use Smoking status: Former Current packs/day: 0.00 Average packs/day: 1 pack/day for 10.0 years (10.0 ttl pk-yrs) Types: Cigarettes Start date: 1971 Quit date: 1981 Years since quittin.5 Smokeless tobacco: Never Vaping Use Vaping status: Never Used Substance Use Topics Alcohol use: Not Currently Comment: Socially wine Drug use: No FAMILY HISTORY: FAMILY HISTORY Problem Relation Age of Onset Heart Mother Cancer Father Multiple myeloma and amyloidisis Breast Cancer Sister Heart Maternal Grandmother REVIEW OF SYMPTOMS: GENERAL: denies fevers or chills ENDOCRINOLOGY: has not been on steroids Cardiology : denies palpitations or chest pain Respiratory: denies SOB or cough Hematology: denies history of prolonged bleeding or easy bruising or VTE Allergy: Denies history of personal or family history of allergy to anesthesia PHYSICAL EXAMINATION: VITALS: Blood pressure 126/78. GENERAL: The patient is well nourished, well hydrated in no acute distress. , The patient is oriented to time, place, and person. NECK: Supple. No lynphadenopathy, normal thyroid, no thyromegaly. LUNGS: Clear to auscultation bilaterally. no wheezes, rhonchi or rales HEART: Regular rate and rhythm, Normal heart sounds, and No murmurs or gallops US 11/19/2024 : Impression 1. Axial/retroverted uterus that measures 69 mm x 38 mm x 41 mm. 2. The central endometrial complex measures 15.8 mm in combined thickness, appears heterogenous with cystic areas. Endometrial pathology cannot be excluded. 3. Both ovaries are visualized and appear normal. 4. No adnexal masses were observed. 5. There is no free fluid visualized in the peritoneal cavity. IMPRESSION: PMB, thickened endoemtrium, h/o breast ca and tamoxifen use PLAN: The risks/benefits/alternatives and personal involved for the planned hysteroscopy D&C with possible polyp resection were reviewed with the patient. Her questions were answered to her satisfaction and she desires to proceed. Consent was signed. I reviewed with her postop instructions and expectations. I have reviewed and updated past medical and surgical history, medications and allergies Osiel Bustillo M.D. documented in this encounter [facility] 03-30-2025 Note HNO ID: [id number] Author: OSIEL BUSTILLO MD Service: ? Author Type: Physician Type: Progress Notes Filed: 03/31/2025 15:49 Note Text: Obstetrics and Gynecology [place] INVENTORY CONTROL ASSISTANT Visit Subjective Recording using [employer] software for draft documentation of the visit was discussed with the patient/authorized manufacturer representative; all questions welcomed and answered. Patient/authorized manufacturer representative agreed to proceed CHIEF COMPLAINT: The patient is a 69-year-old female with a history of breast cancer presenting for evaluation of postmenopausal spotting. HPI: Postmenopausal Spotting - Reports experiencing spotting on a couple of different days, similar to the end of a period, which she found concerning given her postmenopausal status and history of breast cancer. - Underwent an ultrasound and attempted biopsy; however, the biopsy was unsuccessful due to significant pain. - Ultrasound findings included a retroverted uterus with an endometrial thickness of 15.8 mm and cystic areas; ovaries appeared normal. - Has not had any complications with surgeries or anesthesia in the past. - Currently taking aspirin and Plavix. Breast Cancer History - Diagnosed with breast cancer approximately 3 years ago. - Was on tamoxifen for about 2 to 2.5 years but discontinued it about 6 months ago due to visual disturbances in the right eye. - Inquires if discontinuing tamoxifen could have contributed to the spotting. HISTORY: OB History Gravida0 Para0 Term0 Preterm0 AB0 Living0 SAB0 IAB0 Ectopic0 Multiple0 Live Births0 Comment: 2 stepkids 5 grandkids [place] History LMP: Postmenopausal Age at Menarche: Age at First : Age at Menopause: [place] History Comments: Sexual Activity: Not Currently; Male Contraception: No contraception data on record PAST MEDICAL HISTORY Diagnosis Date Age-related osteoporosis without current pathological fracture 01/15/2023 CAD (coronary artery disease), [place] coronary artery 04/26/2013 -hx of inferior STEMI's x 2 (1994, 2003). LHC in 1994 revealed normal coronaries and LHC in 2003 showed occlusion of small branch of RCA but otherwise normal coronaries. -Admitted to [facility] on 04/26/13 after p/w CP and anterolateral STEMI. Subsequent LHC revealed distal small branch of RCA w 100% blockage. She had unsuccessful PTCA to small branch of RCA d/t tortuous vessels. 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 Coronary atherosclerosis of unspecified type of vessel, [place] or graft Coronary artery disease, [place] x2, 1984, 1992, 2001 Ductal carcinoma in situ (DCIS) of left breast 02/26/2021 Dyslipidemia Enthesopathy of unspecified site 12/07/2008 Female stress incontinence Fibromuscular hyperplasia of artery 04/28/2013 Confirmed by carotid duplex April 28, 2013 HLD (hyperlipidemia) 04/26/2013 Hypertension INSOMNIA 12/04/2007 Myocardial infarct, old 04/26/2013 NSVT (nonsustained ventricular tachycardia) (HCC) 04/27/2013 History: One rhythm strip from OSH showing wide complex tachycardia, up to 9 beats This in the setting of active ST elevation. Assessment: NSVT in the setting of active ischemia Plan: 1. Replace K and mag aggressively 2. Monitor closely. 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 Last admission 04/26/2013: p/w anterolateral STEMI, s/p unsuccessful PTCA to d Takotsubo cardiomyopathy / Coronary vasospasm 04/28/2013 Underwent a LHC on arrival 04/26/13 which showed severe disease in the distal branch of RCA that was ballooned previously. POBA was attempted but unsuccessful due to small caliber and tortuous nature. Echo 04/28: apical ballooning Assessment: likely Tac[place]ubo MP secondary to transient coronary vessel stenosis, wo conor[place] vessel obstruction on LHC Plan: LHC 05/06/[address] Tolbert echo Unspecified hemorrhoids without mention of complication Hemorrhoids PAST SURGICAL HISTORY Procedure Laterality Date APPENDECTOMY BREAST LUMPECTOMY HX Left 02/08/2021 BX BREAST W/DEVICE 1ST LESION STEREOTACTIC GUID Left 01/22/2021 CHOLECYSTECTOMY 1970 Cholecystectomy LEFT HEART CATH 04/26/13, 05/11/2013 100% mid occlusion of RPV1 PAST SURGICAL HISTORY OF abnormal kidney removed age 6 done at [facility], still has 2 1/2 kidneys PERC TRANSL COR ANGIO 2003 Distal RCA - PTCA/No stent TONSILLECTOMY PRIMARY/SECONDARY Tonsillectomy FAMILY HISTORY Problem Relation Age of Onset Heart Mother Cancer Father Multiple myeloma and amyloidisis Breast Cancer Sister Heart Maternal Grandmother Social History Tobacco Use Smoking status: Former (more content not included)... [facility] 03-30-2025 History of Present illness Narrative Images from the original note were not included. Obstetrics and Gynecology [place] INVENTORY CONTROL ASSISTANT Visit Subjective Recording using [employer] software for draft documentation of the visit was discussed with the patient/authorized manufacturer representative; all questions welcomed and answered. Patient/authorized manufacturer representative agreed to proceed CHIEF COMPLAINT: The patient is a 69-year-old female with a history of breast cancer presenting for evaluation of postmenopausal spotting. HPI: Postmenopausal Spotting - Reports experiencing spotting on a couple of different days, similar to the end of a period, which she found concerning given her postmenopausal status and history of breast cancer. - Underwent an ultrasound and attempted biopsy; however, the biopsy was unsuccessful due to significant pain. - Ultrasound findings included a retroverted uterus with an endometrial thickness of 15.8 mm and cystic areas; ovaries appeared normal. - Has not had any complications with surgeries or anesthesia in the past. - Currently taking aspirin and Plavix. Breast Cancer History - Diagnosed with breast cancer approximately 3 years ago. - Was on tamoxifen for about 2 to 2.5 years but discontinued it about 6 months ago due to visual disturbances in the right eye. - Inquires if discontinuing tamoxifen could have contributed to the spotting. HISTORY: OB History Gravida0 Para0 Term0 Preterm0 AB0 Living0 SAB0 IAB0 Ectopic0 Multiple0 Live Births0 Comment: 2 stepkids 5 grandkids [place] History LMP: Postmenopausal Age at Menarche: Age at First : Age at Menopause: [place] History Comments: Sexual Activity: Not Currently; Male Contraception: No contraception data on record PAST MEDICAL HISTORY Diagnosis Date Age-related osteoporosis without current pathological fracture 01/15/2023 CAD (coronary artery disease), [place] coronary artery 04/26/2013 -hx of inferior STEMI's x 2 (1994, 2003). LHC in 1994 revealed normal coronaries and LHC in 2003 showed occlusion of small branch of RCA but otherwise normal coronaries. -Admitted to [facility] on 04/26/13 after p/w CP and anterolateral STEMI. Subsequent LHC revealed distal small branch of RCA w 100% blockage. She had unsuccessful PTCA to small branch of RCA d/t tortuous vessels. 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 Coronary atherosclerosis of unspecified type of vessel, [place] or graft Coronary artery disease, [place] x2, 1984, 1992, 2001 Ductal carcinoma in situ (DCIS) of left breast 02/26/2021 Dyslipidemia Enthesopathy of unspecified site 12/07/2008 Female stress incontinence Fibromuscular hyperplasia of artery 04/28/2013 Confirmed by carotid duplex April 28, 2013 HLD (hyperlipidemia) 04/26/2013 Hypertension INSOMNIA 12/04/2007 Myocardial infarct, old 04/26/2013 NSVT (nonsustained ventricular tachycardia) (HCC) 04/27/2013 History: One rhythm strip from OSH showing wide complex tachycardia, up to 9 beats This in the setting of active ST elevation. Assessment: NSVT in the setting of active ischemia Plan: 1. Replace K and mag aggressively 2. Monitor closely. 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 Last admission 04/26/2013: p/w anterolateral STEMI, s/p unsuccessful PTCA to d Takotsubo cardiomyopathy / Coronary vasospasm 04/28/2013 Underwent a LHC on arrival 04/26/13 which showed severe disease in the distal branch of RCA that was ballooned previously. POBA was attempted but unsuccessful due to small caliber and tortuous nature. Echo 04/28: apical ballooning Assessment: likely Tac[place]o MP secondary to transient coronary vessel stenosis, wo [place] vessel obstruction on LHC Plan: LHC 05/06/[address] Tolbert echo Unspecified hemorrhoids without mention of complication Hemorrhoids PAST SURGICAL HISTORY Procedure Laterality Date APPENDECTOMY BREAST LUMPECTOMY HX Left 02/08/2021 BX BREAST W/DEVICE 1ST LESION STEREOTACTIC GUID Left 01/22/2021 CHOLECYSTECTOMY 1970 Cholecystectomy LEFT HEART CATH 04/26/13, 05/11/2013 100% mid occlusion of RPV1 PAST SURGICAL HISTORY OF abnormal kidney removed age 6 done at [facility], still has 2 1/2 kidneys PERC TRANSL COR ANGIO 2003 Distal RCA - PTCA/No stent TONSILLECTOMY PRIMARY/SECONDARY <AGE 11 Tonsillectomy FAMILY HISTORY Problem Relation Age of Onset Heart Mother Cancer Father Multiple myeloma and amyloidisis Breast Cancer Sister Heart Maternal Grandmother Social History Tobacco Use Smoking status: Former Current packs/day: 0.00 Average packs/day: 1 pack/day for 10.0 years (10.0 ttl pk-yrs) Types: Cigarettes Start date: 1971 Quit date: 1981 Years since quittin.5 Smokeless tobacco: Never Vaping Use Vaping status: Never Used Substance Use Topics Alcohol use: Not Currently Comment: Socially wine Drug use: No Current Outpatient Medications Medication Sig amLODIPine (NORVASC) 5 mg tablet Take 1 tablet by mouth once daily. atorvastatin (LIPITOR) 80 mg tablet Take 1 tablet by mouth once daily. clopidogrel (PLAVIX) 75 mg tablet Take 1 tablet by mouth once daily. isosorbide mononitrate ER (IMDUR) 30 mg 24 hr tablet Take 1 tablet by mouth once daily. metoprolol succinate ER (TOPROL XL) 100 mg Take 1 tablet by mouth once daily. nitroglycerin sublingual (NITROQUICK) 0.4 mg SL tablet Dissolve 1 tablet under the tongue as needed. FOR CHEST PAIN. IF NO RELIEF CALL 911 alendronate (FOSAMAX) 70 mg tablet Take 1 tablet by mouth one time a week. Take with a full glass of water, on an empty stomach; do NOT lie down for 30minutes. BIOTIN ORAL Take 1 tablet by mouth once daily. ASPIRIN 81MG TABLET Take one (1) tablet daily . lisinopril (ZESTRIL) 20 mg tablet Take 20 mg by mouth once daily. miSOPROStol (CYTOTEC) 200 mcg tablet Use 2 tablets vaginally as directed for [address] 2 the evening before surgery and two the morning of surgery No current facility-administered medications for this visit. ALLERGIES No Known Allergies REVIEW OF SYSTEMS: Eyes: (+) right eye visual disturbance Genitourinary: (+) postmenopausal vaginal spotting Objective SENSITIVE EXAM: Sensitive exam not performed. PHYSICAL EXAM: BP 126/78 Wt 0 lb (0.0kg) GENERAL: Pleasant; in no apparent distress BREAST: deferred PULMONARY: normal inspiratory effort ABDOMEN: soft, non-tender, no masses : - PELVIC: deferred NEURO: alert and oriented x3 EXTREMITIES: normal Assessment & Plan ASSESSMENT AND PLAN: 1. Postmenopausal bleeding (N95.0) 2. Thickened endometrium (R93.89) - Ultrasound reveals a retroverted uterus with an endometrial complex measuring 15.8 mm and cystic areas; ovaries appear normal. - Differential diagnoses include endometrial hyperplasia, polyps, or uterine cancer. - Scheduled D&C for 04/29; procedure will be both diagnostic and therapeutic. - Discussed risks and benefits of D&C, including potential complications such as inability to dilate cervix or uterine perforation. - Patient to use misoprostol vaginal tablets the night before and morning of the procedure to soften the cervix. - Pathology results expected within two weeks post-procedure. - No need to hold aspirin or Plavix prior to surgery. - Patient understands and agrees with the treatment plan. 3. Personal history of breast cancer (Z85.3) - History of breast cancer diagnosed approximately three years ago. - Previously on Tamoxifen for 2-2.5 years, discontinued six months ago due to visual disturbances. - Discussed that Tamoxifen could have contributed to endometrial changes, but postmenopausal bleeding remains abnormal. decision for surgery today. pretreat w/ misoprostol Osiel Bustillo MD documented in this encounter [facility] 03-25-2025 Note HNO ID: [id number] Author: MERARI RUSH APRN.[employer] Service: ? Author Type: Nurse Practitioner Type: Progress Notes Filed: 03/25/2025 11:44 Note Text: Chief Complaint Patient presents with: Established Patient HPI: Emilie Kern is a 69 year old female who presents here today for follow up DCIS. Per Dr. Pineda's previous note: H/o coronary artery disease/fibromuscular dysplasia ([place] x3; no stents or CABG), Takotsubo cardiomyopathy, nonsustained ventricular tachycardia, hyperlipidemia, and history of nephrectomy who was noted to have microcalcifications in the slight lateral and superior left breast at middle depth on a mammogram performed 12/15/2020. Patient underwent stereotactic ultrasound-guided breast biopsy on 01/22/2021. The pathology demonstrated ductal carcinoma in situ with nuclear grade 1-2/3, architectural pattern was cribriform, necrosis was present, central (expansive comedo necrosis) calcifications present. Intraductal hyperplasia with focal atypia were noted in the area of ductal carcinoma in situ. Patient underwent left breast lumpectomy on 02/08/2021. Pathology demonstrated no evidence of residual ductal carcinoma in situ. Changes consistent with previous biopsy site. Focal intraductal hyperplasia without atypia skin, dermal fibrosis consistent with scar. Margins were negative. No residual carcinoma noted in the lumpectomy specimen but the biopsy cavity was 7 mm from closest inferior margin. Specimen was both ER and IL positive and HER-2 negative with IHC 0. Previous therapy: 1) Adjuvant radiation completed 04/09/2021. 2) Tamoxifen She had been on tamoxifen from April 2021 up until about a month ago. She developed blurred vision in the right eye. Underwent exam and was found to have a retinal abnormality. 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 The visual defect is experienced as a georges wavy line through her central vision. She is not able to read with her right eye but can read normally with her left eye. The visual defect has been static since the time of diagnosis. Tamoxifen was discontinued. No new concerns today. Appetite:Good. Wt. down 3# since 2024. Energy level:Ok, not horrible. Denies fevers or recent illness. Resp:denies cough or sob Cardiac:denies chest pain/palpitations GI:denies abd pain, n/v, moving bowels regularly :denies dysuria/hematuria Extrem:denies new pain Endo:denies hot flashes Neuro:denies symptoms of neuropathy Skin:denies rashes/lesions Heme:denies bleeding, previously vaginal discharge-4 months ago-has been seen by INVENTORY CONTROL ASSISTANT-having Endometrial bx with Dr. Bustillo. The ROS is otherwise negative. Past medical history, appointments, medications, allergies reviewed. No changes. EXAM: BP 123/71 Pulse (!) 56 Temp (!) 35.7 ?C (96.2 ?F) (Temporal Artery) Resp 12 Wt 79.8 kg (175 lb 14.8 oz) SpO2 98% BMI 26.75 kg/m? APPEARANCE Well appearing, alert, in no acute distress, well-hydrated, well nourished. HEART RRR with normal S1 and S2, no murmurs LUNG clear to auscultation BREAST FEMALE no mass/nodule b/l LYMPH NODES No cervical lymphadenopathy, No supraclavicular lymphadenopathy, and No axillary lymphadenopathy. ABDOMEN bowel sounds normoactive, soft, non-tender EXTREMITIES No edema NEURO Awake, alert and oriented x 3, Normal gait, and No involuntary motions. SKIN Skin color, texture, turgor normal, no suspicious rashes or lesions RADIOLOGY: Mammogram 03/18/25: IMPRESSION: There is no mammographic evidence of malignancy. Routine screening mammogram is recommended. Annual mammogram will be due in 1 year. BI-RADS Category 2: Benign ASSESSMENT/PLAN: 1. Ductal carcinoma in situ (DCIS) of left breast - ICD9: 233.0, ICD10: D05.[address] Pineda's previous note: Assessment: -Tolerated radiation very well. -Had been symptomatically tolerating tamoxifen very well but developed retinopathy potentially related to tamoxifen use. -We discussed the potential risks and benefits of rotating to AI therapy. She already has a diagnosis of osteoporosis and is on Fosamax. She has a history of fibromuscular dysplasia and MRI had an early age. We discussed the conflicting data regarding increased cardiovascular risk with aromatase inhibitor use and I did not recommend changing therapy to that at this time. Since she had 2 and half years of tamoxifen I recommended stopping endocrine therapy at this time. Plan: -Follow-up as scheduled for mammogram and office visit in March. - No concerning findings on exam in regards to DCIS. - Tamoxifen discontinued after 2.5 years d/t retinopathy. - Reviewed mammogram with pt. - Continue follow up with PCP/INVENTORY CONTROL ASSISTANT for routine care. - Follow up with Dr. Bustillo as scheduled. - Mammogram due in March 2026. - Follow up in 6 months. - Pt. aware to call office with any questions/concerns. The patient indicates understa (more content not included)... [facility] 03-25-2025 History of Present illness Narrative Chief Complaint Patient presents with: Established Patient HPI: Emilie Kern is a 69 year old female who presents here today for follow up DCIS. Per Dr. Pineda's previous note: H/o coronary artery disease/fibromuscular dysplasia (ND x3; no stents or CABG), Takotsubo cardiomyopathy, nonsustained ventricular tachycardia, hyperlipidemia, and history of nephrectomy who was noted to have microcalcifications in the slight lateral and superior left breast at middle depth on a mammogram performed 12/15/2020. Patient underwent stereotactic ultrasound-guided breast biopsy on 01/22/2021. The pathology demonstrated ductal carcinoma in situ with nuclear grade 1-2/3, architectural pattern was cribriform, necrosis was present, central (expansive comedo necrosis) calcifications present. Intraductal hyperplasia with focal atypia were noted in the area of ductal carcinoma in situ. Patient underwent left breast lumpectomy on 02/08/2021. Pathology demonstrated no evidence of residual ductal carcinoma in situ. Changes consistent with previous biopsy site. Focal intraductal hyperplasia without atypia skin, dermal fibrosis consistent with scar. Margins were negative. No residual carcinoma noted in the lumpectomy specimen but the biopsy cavity was 7 mm from closest inferior margin. Specimen was both ER and IL positive and HER-2 negative with IHC 0. Previous therapy: 1) Adjuvant radiation completed 04/09/2021. 2) Tamoxifen She had been on tamoxifen from April 2021 up until about a month ago. She developed blurred vision in the right eye. Underwent exam and was found to have a retinal abnormality. 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 The visual defect is experienced as a georges wavy line through her central vision. She is not able to read with her right eye but can read normally with her left eye. The visual defect has been static since the time of diagnosis. Tamoxifen was discontinued. No new concerns today. Appetite:Good. Wt. down 3# since 2024. Energy level:Ok, not horrible. Denies fevers or recent illness. Resp:denies cough or sob Cardiac:denies chest pain/palpitations GI:denies abd pain, n/v, moving bowels regularly :denies dysuria/hematuria Extrem:denies new pain Endo:denies hot flashes Neuro:denies symptoms of neuropathy Skin:denies rashes/lesions Heme:denies bleeding, previously vaginal discharge-4 months ago-has been seen by INVENTORY CONTROL ASSISTANT-having Endometrial bx with Dr. Bustillo. The ROS is otherwise negative. Past medical history, appointments, medications, allergies reviewed. No changes. EXAM: BP 123/71 Pulse (!) 56 Temp (!) 35.7 C (96.2 F) (Temporal Artery) Resp 12 Wt 79.8 kg (175 lb 14.8 oz) SpO2 98% BMI 26.75 kg/m APPEARANCE Well appearing, alert, in no acute distress, well-hydrated, well nourished. HEART RRR with normal S1 and S2, no murmurs LUNG clear to auscultation BREAST FEMALE no mass/nodule b/l LYMPH NODES No cervical lymphadenopathy, No supraclavicular lymphadenopathy, and No axillary lymphadenopathy. ABDOMEN bowel sounds normoactive, soft, non-tender EXTREMITIES No edema NEURO Awake, alert and oriented x 3, Normal gait, and No involuntary motions. SKIN Skin color, texture, turgor normal, no suspicious rashes or lesions RADIOLOGY: Mammogram 03/18/25: IMPRESSION: There is no mammographic evidence of malignancy. Routine screening mammogram is recommended. Annual mammogram will be due in 1 year. BI-RADS Category 2: Benign ASSESSMENT/PLAN: 1. Ductal carcinoma in situ (DCIS) of left breast - ICD9: 233.0, ICD10: D05.[address] Pineda's previous note: Assessment: -Tolerated radiation very well. -Had been symptomatically tolerating tamoxifen very well but developed retinopathy potentially related to tamoxifen use. -We discussed the potential risks and benefits of rotating to AI therapy. She already has a diagnosis of osteoporosis and is on Fosamax. She has a history of fibromuscular dysplasia and MRI had an early age. We discussed the conflicting data regarding increased cardiovascular risk with aromatase inhibitor use and I did not recommend changing therapy to that at this time. Since she had 2 and half years of tamoxifen I recommended stopping endocrine therapy at this time. Plan: -Follow-up as scheduled for mammogram and office visit in March. - No concerning findings on exam in regards to DCIS. - Tamoxifen discontinued after 2.5 years d/t retinopathy. - Reviewed mammogram with pt. - Continue follow up with PCP/INVENTORY CONTROL ASSISTANT for routine care. - Follow up with Dr. Bustillo as scheduled. - Mammogram due in March 2026. - Follow up in 6 months. - Pt. aware to call office with any questions/concerns. The patient indicates understanding of these issues and agrees with the plan. All documentation from previous visit of 09/15/24-Dr. Pineda/myself was copied and pasted, documentation has been reviewed and edited as necessary for today's visit. Merari Rush APRN.CNP documented in this encounter [facility] 03-18-2025 History of Present illness Narrative Radiology Service Progress Note PATIENT NAME: Emilie Kern DATE OF SERVICE: March 18, 2025 TIME: 2:24 PM PATIENT IDENTITY VERIFICATION COMPLETED USING TWO (2) IDENTIFIERS: Name and Date of confirmed by patient verbally. FALL SCREENING: Has the patient had 2 falls in the last year or 1 fall with injury or currently using an Ambulatory Assistive Device (Walker, Cane, Wheelchair, Crutches, etc.)? No PATIENT GENDER DATA: Assigned female at . status: : No status: NO. PATIENT RELEVANT IMPLANT DATA REVIEWED: Not Applicable PATIENT PRESENTS WITH AN IMPLANTABLE OR ATTACHED GYNECOLOGIST: No RADIOLOGY DEPARTMENT: Mammography PERIPHERAL IV DATA: Not applicable SIGNED BY: Sofiya Aviles March 18, 2025 2:24 PM documented in this encounter [facility] 03-18-2025 Note HNO ID: [id number] Author: FRITZ SHAIKH Mammo Tech Service: ? Author Type: [place] Laborer Type: Progress Notes Filed: 03/18/2025 14:24 Note Text: Radiology Service Progress Note PATIENT NAME: Emilie Kern DATE OF SERVICE: March 18, 2025 TIME: 2:24 PM PATIENT IDENTITY VERIFICATION COMPLETED USING TWO (2) IDENTIFIERS: Name and Date of confirmed by patient verbally. FALL SCREENING: Has the patient had 2 falls in the last year or 1 fall with injury or currently using an Ambulatory Assistive Device (Walker, Cane, Wheelchair, Crutches, etc.)? No PATIENT GENDER DATA: Assigned female at . status: : No status: NO. PATIENT RELEVANT IMPLANT DATA REVIEWED: Not Applicable PATIENT PRESENTS WITH AN IMPLANTABLE OR ATTACHED GYNECOLOGIST: No RADIOLOGY DEPARTMENT: Mammography PERIPHERAL IV DATA: Not applicable SIGNED BY: Sofiya Aviles March 18, 2025 2:24 PM [facility] 03-09-2025 Instructions Marquita Jain MA - 03/09/2025 11:35 AM EDT Endometrial Biopsy Your provider has recommended an endometrial biopsy. For more information, My [facility] Endometrial Biopsy How do I prepare for an endometrial biopsy? You shouldn t need to do much to prepare for an endometrial biopsy. Let your healthcare provider know what medications or supplements you take and if you have any allergies. They can let you know if you should stop taking certain medications before the biopsy. Some healthcare providers recommend taking a nonsteroidal anti-inflammatory drug (NSAID) like ibuprofen before the biopsy to help with pain. Your provider may recommend a medication to help prepare your cervix for the biopsy, often taken by mouth one and two days before the procedure. Ask your healthcare provider any questions you have before the procedure so you know exactly what to expect. Generally, an endometrial biopsy is very low-risk and safe. documented in this encounter [facility] 03-09-2025 Note HNO ID: [id number] Author: CHELSEA DAVEY APRN.[employer] HAND Service: ? Author Type: Nurse Practitioner Type: Progress Notes Filed: 03/09/2025 12:18 Note Text: 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 Emilie is a 69 year old who presents today for an endometrial biopsy for post menopausal bleeding. test: n/a UNIVERSAL PROTOCOL / SAFETY CHECKLIST Procedure to be Performed: Endometrial Biopsy Sign In: A Moment of CARE was completed. Appropriate PPE (Personal Protective Equipment) worn by all providers involved with the procedure. Special equipment not required. Patient/Surrogate Stated/Verified: Patient name, Date of , Relevant allergies, and The intended procedure Time Out: Relevant labs, photos, and/or imaging studies have been reviewed. Intended patient and procedure match the source document(s) (e.g. consent, HANDP, associated studies [imaging, pathology]) match the intended patient and procedure. Consent obtained and matches the intended procedure. Yes. Correct side/site is not applicable. Medications required for this procedure are not applicable. Fire risk assessed and is not applicable. Implants: are not applicable. Sign Out: Specimens not collected. All instruments, equipment, possible retained foreign bodies are accounted for. Yes. The post-procedure plan of care has been communicated to the patient or surrogate. PROCEDURE: EXTERNAL GENITALIA: Normal in appearance without lesions VAGINA: Normal in appearance without lesions BIOPSY: Speculum placed into the vagina with excellent visualization of the cervix. Exam extremely painful for patient. Cervical os noted to be stenotic. Procedure terminated due to patient discomfort and stenotic cervix. Procedure Summary: Procedure terminated. I recommend follow up with surgeon to discuss hysteroscopy D+C for PMB and thickened uterine lining. Emilie agreeable and plans to follow up with Dr. Bustillo to determine if she is a good surgical candidate. Chelsea Davey APRN.[facility] 03-09-2025 History of Present illness Narrative 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 Emilie is a 69 year old who presents today for an endometrial biopsy for post menopausal bleeding. test: n/a UNIVERSAL PROTOCOL / SAFETY CHECKLIST Procedure to be Performed: Endometrial Biopsy Sign In: A Moment of CARE was completed. Appropriate PPE (Personal Protective Equipment) worn by all providers involved with the procedure. Special equipment not required. Patient/Surrogate Stated/Verified: Patient name, Date of , Relevant allergies, and The intended procedure Time Out: Relevant labs, photos, and/or imaging studies have been reviewed. Intended patient and procedure match the source document(s) (e.g. consent, H&P, associated studies [imaging, pathology]) match the intended patient and procedure. Consent obtained and matches the intended procedure. Yes. Correct side/site is not applicable. Medications required for this procedure are not applicable. Fire risk assessed and is not applicable. Implants: are not applicable. Sign Out: Specimens not collected. All instruments, equipment, possible retained foreign bodies are accounted for. Yes. The post-procedure plan of care has been communicated to the patient or surrogate. PROCEDURE: EXTERNAL GENITALIA: Normal in appearance without lesions VAGINA: Normal in appearance without lesions BIOPSY: Speculum placed into the vagina with excellent visualization of the cervix. Exam extremely painful for patient. Cervical os noted to be stenotic. Procedure terminated due to patient discomfort and stenotic cervix. Procedure Summary: Procedure terminated. I recommend follow up with surgeon to discuss hysteroscopy D+C for PMB and thickened uterine lining. Emilie agreeable and plans to follow up with Dr. Bustillo to determine if she is a good surgical candidate. Chelsea Davey APRN.CNP documented in this encounter [facility] 03-02-2025 Telephone encounter Note Patient notified per myself of results of CT of pelvis and actionable finding result of presacral varix. Explained that this was discussed with interventional radiologist who is willing to see her for a consultation and further evaluation and discussion of possible endovascular treatment options as this could be the cause of her pelvic pain. Pelvic ultrasound,which was recommended as a follow-up to the CAT scan, was already completed November 2024 and she has an upcoming endometrial biopsy scheduled for March 09. She is had no further bleeding or pelvic cramping. She was appreciative of the phone call and information and will consider options based on pathology of EMB. Fatou Jackson APRN.CNP [facility] 03-02-2025 Miscellaneous Notes Patient notified per myself of results of CT of pelvis and actionable finding result of presacral varix. Explained that this was discussed with interventional radiologist who is willing to see her for a consultation and further evaluation and discussion of possible endovascular treatment options as this could be the cause of her pelvic pain. Pelvic ultrasound,which was recommended as a follow-up to the CAT scan, was already completed November 2024 and she has an upcoming endometrial biopsy scheduled for March 09. She is had no further bleeding or pelvic cramping. She was appreciative of the phone call and information and will consider options based on pathology of EMB. Fatou Jackson APRN.CNP documented in this encounter [facility] 02-23-2025 History of Present illness Narrative Radiology Service Progress Note DATE OF SERVICE: February 23, 2025 TIME: 3:16 PM PATIENT IDENTITY VERIFICATION COMPLETED USING TWO (2) STANDARD IDENTIFIERS: Name and Date of confirmed by patient verbally. FALL SCREENING: Has the patient had 2 falls in the last year or 1 fall with injury or currently using an Ambulatory Assistive Device (Walker, Cane, Wheelchair, Crutches, etc.)? No PATIENT GENDER DATA: Assigned female at . status: : No status: NO. PATIENT RELEVANT IMPLANT DATA REVIEWED: Yes PATIENT PRESENTS WITH AN IMPLANTABLE OR ATTACHED GYNECOLOGIST: No ALLERGIES: Reviewed and unchanged CONTRAST ALLERGY: NO. EXAM: CT -CONTRAST INDUCED NEPHROPATHY RISK FACTORS: Patient age > 60 years CREATININE: Creatinine Date Value Ref Range Status 02/23/2025 0.93 0.58 - 0.96 mg/dL Final 12/10/2024 0.94 0.58 - 0.96 mg/dL Final 06/14/2015 0.72 0.70 - 1.40 mg/dL Final Estimated Glomerular Filtration Rate Date Value Ref Range Status 02/23/2025 66 >=60 mL/min/1.73m Final Comment: Estimated Glomerular Filtration Rate (eGFR) is calculated using the 2020 CKD-EPI creatinine equation. This equation utilizes serum creatinine, sex, and age as parameters. The creatinine assay has traceable calibration to isotope dilution-mass spectrometry. Refer to KDIGO guidelines for clinical interpretation. In patients with unstable renal function, e.g. those with acute kidney injury, the eGFR may not accurately reflect actual GFR. eGFR- Date Value Ref Range Status 06/14/2015 >60 Final P.O.C.T. RESULTS: POC done: Yes, See Lab Tab February 23, 2025 TREATMENT: N/A PERIPHERAL IV DATA: Ambulatory: A peripheral IV was started in the Right antecubital site with a Angio cath: 22 gauge. RADIOLOGY DEPARTMENT: CT; Exam(s) Completed: Abdomen/Pelvis SIGNATURE: RT Lisa(Jose) PATIENT NAME: Emilie Kern DATE: February 23, 2025 TIME: 3:16 PM documented in this encounter [facility] 02-23-2025 Note HNO ID: [id number] Author: NATALEE ARORA RT(R) Service: ? Author Type: [place] Laborer Type: Progress Notes Filed: 02/23/2025 15:17 Note Text: Radiology Service Progress Note DATE OF SERVICE: February 23, 2025 TIME: 3:16 PM PATIENT IDENTITY VERIFICATION COMPLETED USING TWO (2) STANDARD IDENTIFIERS: Name and Date of confirmed by patient verbally. FALL SCREENING: Has the patient had 2 falls in the last year or 1 fall with injury or currently using an Ambulatory Assistive Device (Walker, Cane, Wheelchair, Crutches, etc.)? No PATIENT GENDER DATA: Assigned female at . status: : No status: NO. PATIENT RELEVANT IMPLANT DATA REVIEWED: Yes PATIENT PRESENTS WITH AN IMPLANTABLE OR ATTACHED GYNECOLOGIST: No ALLERGIES: Reviewed and unchanged CONTRAST ALLERGY: NO. EXAM: CT -CONTRAST INDUCED NEPHROPATHY RISK FACTORS: Patient age > 60 years CREATININE: Creatinine Date Value Ref Range Status 02/23/2025 0.93 0.58 - 0.96 mg/dL Final 12/10/2024 0.94 0.58 - 0.96 mg/dL Final 06/14/2015 0.72 0.70 - 1.40 mg/dL Final Estimated Glomerular Filtration Rate Date Value Ref Range Status 02/23/2025 66 >=60 mL/min/1.73m? Final Comment: Estimated Glomerular Filtration Rate (eGFR) is calculated using the 2020 CKD-EPI creatinine equation. This equation utilizes serum creatinine, sex, and age as parameters. The creatinine assay has traceable calibration to isotope dilution-mass spectrometry. Refer to KDIGO guidelines for clinical interpretation. In patients with unstable renal function, e.g. those with acute kidney injury, the eGFR may not accurately reflect actual GFR. eGFR- Date Value Ref Range Status 06/14/2015 >60 Final P.O.C.T. RESULTS: POC done: Yes, See Lab Tab February 23, 2025 TREATMENT: N/A PERIPHERAL IV DATA: Ambulatory: A peripheral IV was started in the Right antecubital site with a Angio cath: 22 gauge. RADIOLOGY DEPARTMENT: CT; Exam(s) Completed: Abdomen/Pelvis SIGNATURE: RT Lisa(R) PATIENT NAME: Emilie Kern DATE: February 23, 2025 TIME: 3:16 PM [facility] 02-22-2025 Telephone encounter Note Spoke to Kirsten Green and she said current order is fine to keep as is. Aleshia Rico RN [facility] 02-22-2025 Miscellaneous Notes Spoke to Kirsten Green and she said current order is fine to keep as is. Aleshia Rico RN I am not able to sign it because it is saying it not an available stat lab. Lorna Fagan APRN.CNP I pended a stat order now. Does it just not let you file it? Aleshia Rico RN Unable to order Stat, I order it routine. Lorna Fagan APRN.CNP Please place order for stat creatinine order for pt , pt appt on 02/23/[address] documented in this encounter [facility] 02-22-2025 Telephone encounter Note I am not able to sign it because it is saying it not an available stat lab. Lorna Fagan APRN.RADHA [facility] 02-22-2025 Telephone encounter Note I pended a stat order now. Does it just not let you file it? Aleshia Rico RN [facility] 02-22-2025 Telephone encounter Note Unable to order Stat, I order it routine. Lorna Fagan APRN.[employer] M[employer] HAND [facility] 02-21-2025 Telephone encounter Note Please place order for stat creatinine order for pt , pt appt on 02/23/[address] [facility] 02-04-2025 Telephone encounter Note I agree. [facility] 02-04-2025 Miscellaneous Notes I agree. Pt called in and reports she has been having pain across her shoulder blades that will go down both her arms into her finger tips. She states it will last like 7-8 minutes and then go away. Pt states her arms feel like rubber and she isn't able to move them. She has had x3 episodes over the past 2 weeks. Pt states she has been having low back pain and wondered if this has been coming from that. Pt had history of x3 previous heart attacks. I told her with her past cardiac history I would have her got to the ER and get checked out. Pt verbalized understanding. Yari Slaughter RN documented in this encounter [facility] 02-04-2025 Telephone encounter Note Pt called in and reports she has been having pain across her shoulder blades that will go down both her arms into her finger tips. She states it will last like 7-8 minutes and then go away. Pt states her arms feel like rubber and she isn't able to move them. She has had x3 episodes over the past 2 weeks. Pt states she has been having low back pain and wondered if this has been coming from that. Pt had history of x3 previous heart attacks. I told her with her past cardiac history I would have her got to the ER and get checked out. Pt verbalized understanding. Yari Slaughter RN [facility] 01-20-2025 Telephone encounter Note Reviewed with Dr. Kirby. BP looks good. Continue same regimen. Moriah Middleton RN [facility] 01-20-2025 Miscellaneous Notes Reviewed with Dr. Kirby. BP looks good. Continue same regimen. Moriah Middleton, JEISON documented in this encounter [facility] 12-29-2024 Note HNO ID: [id number] Author: ENIO KIRBY MD Service: ? Author Type: Physician Type: Progress Notes Filed: 12/29/2024 15:01 Note Text: Heart, Vascular and Thoracic [place] [facility] Department of Cardiovascular Medicine SECTION OF CLINICAL CARDIOLOGY OUTPATIENT VISIT DATE December 29, 2024 OUTPATIENT VISIT TYPE ESTABLISHED PRIMARY CARE PHYSICIAN: Daniel Singh [address] [place] [address] REFERRING PHYSICIAN: Enio Kirby [id number] 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 Kern is a 69 year old female who presents today for a cardiovascular medicine follow-up visit of her above problems. She notes no chest pain or shortness of breath. Tolerating medications well. Notes some swelling in her legs and asked if she could potentially stop amlodipine. Has not had an echocardiogram since 2012. Blood pressure elevated. Still having increased weight and not exercising regularly.. She denies chest pain, shortness of breath, orthopnea, cough, edema, palpitations, PND, lightheadedness or syncope. PAST CARDIAC HISTORY: None, as above PAST MEDICAL HISTORY Diagnosis Date Age-related osteoporosis without current pathological fracture 01/15/2023 CAD (coronary artery disease), [place] coronary artery 04/26/2013 -hx of inferior STEMI's x 2 (1994, 2003). LHC in 1994 revealed normal coronaries and LHC in 2003 showed occlusion of small branch of RCA but otherwise normal coronaries. -Admitted to [facility] on 04/26/13 after p/w CP and anterolateral STEMI. Subsequent LHC revealed distal small branch of RCA w 100% blockage. She had unsuccessful PTCA to small branch of RCA d/t tortuous vessels. 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 Coronary atherosclerosis of unspecified type of vessel, [place] or graft Coronary artery disease, [place] x2, 1985, 1992, 2001 Ductal carcinoma in situ (DCIS) of left breast 02/26/2021 Dyslipidemia Enthesopathy of unspecified site 12/07/2008 Female stress incontinence Fibromuscular hyperplasia of artery 04/28/2013 Confirmed by carotid duplex April 28, 2013 HLD (hyperlipidemia) 04/26/2013 Hypertension INSOMNIA 12/04/2007 Myocardial infarct, old 04/26/2013 NSVT (nonsustained ventricular tachycardia) (HCC) 04/27/2013 History: One rhythm strip from OSH showing wide complex tachycardia, up to 9 beats This in the setting of active ST elevation. Assessment: NSVT in the setting of active ischemia Plan: 1. Replace K and mag aggressively 2. Monitor closely. 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 Last admission 04/26/2013: p/w anterolateral STEMI, s/p unsuccessful PTCA to d Takotsubo cardiomyopathy / Coronary vasospasm 04/28/2013 Underwent a LHC on arrival 04/26/13 which showed severe disease in the distal branch of RCA that was ballooned previously. POBA was attempted but unsuccessful due to small caliber and tortuous nature. Echo 04/28: apical ballooning Assessment: likely Tac[place]ubo MP secondary to transient coronary vessel stenosis, wo conorany vessel obstruction on LHC Plan: LHC 05/06/[address] Tolbert echo Unspecified hemorrhoids without mention of complication Hemorrhoids PAST SURGICAL HISTORY Procedure Laterality Date APPENDECTOMY BREAST LUMPECTOMY HX Left 02/08/2021 BX BREAST W/DEVICE 1ST LESION STEREOTACTIC GUID Left 01/22/2021 CHOLECYSTECTOMY 1970 Cholecystectomy LEFT HEART CATH 04/26/13, 05/11/2013 100% mid occlusion of RPV1 PAST SURGICAL HISTORY OF abnormal kidney removed age 6 done at [facility], still has 2 1/2 kidneys PERC TRANSL COR ANGIO 2003 Distal RCA - PTCA/No stent TONSILLECTOMY PRIMARY/SECONDARY Tonsillectomy SOCIAL HISTORY Social History Tobacco Use Smoking status: Former Current packs/day: 0.00 Average packs/day: 1 pack/day for 10.0 years (10.0 ttl pk-yrs) Types: Cigarettes Start date: 1971 Quit date: 1981 Years since quittin.3 Smokeless tobacco: Never Vaping Use Vaping status: Never Used Substance Use Topics Alcohol use: Not Currently Comment: Socially wine Drug use: No FAMILY HISTORY Problem Relation Age of Onset Heart Mother Cancer Father Multiple myeloma and amyloidisis Heart Maternal Grandmother Patient-Entered Questionnaire Scores 12/28/2024 Patient Entered Questionnaires Average hours of sleep per d (more content not included)... [facility] 11-23-2024 Telephone encounter Note Patient called per myself. Discussed diagnostic testing findings -Pap test normal; pelvic ultrasound shows thickened endometrial lining and both ovaries are normal. Discussed that recommendation was to have an endometrial biopsy and consideration for CAT scan of abdomen and pelvis. Both were discussed and questions answered. EMB with vaginal Vasoprost all and CT of abdomen and pelvis ordered. Fatou Jackson APRN.CNP [facility] 11-23-2024 Miscellaneous Notes Patient called per myself. Discussed diagnostic testing findings -Pap test normal; pelvic ultrasound shows thickened endometrial lining and both ovaries are normal. Discussed that recommendation was to have an endometrial biopsy and consideration for CAT scan of abdomen and pelvis. Both were discussed and questions answered. EMB with vaginal Vasoprost all and CT of abdomen and pelvis ordered. Fatou Jackson APRN.CNP documented in this encounter [facility] 11-21-2024 Note HNO ID: [id number] Author: ROWDY DIAZ MD Service: ? 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 Please see report under the imaging tab. 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 Please see report under the imaging tab. Rowdy Diaz MD documented in this encounter [facility] 11-10-2024 Note HNO ID: [id number] Author: FATOU JACKSON APRN.PLATE MILL MILL HAND Service: ? 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 Emilie Kern is a 69 year old female who presents for problem visit red spotting onset 08/10/2024 HPI: In August 2024, had 2 single episodes where she wiped and saw a small smear of red-brown on tissue. These occurred on different days of different weeks. No vaginal itching or burning. Has also noticed random aching over both ovaries. Aching does not last long and when she thinks about it again, it is gone. Alternating rare diarrhea/constipation if does not eat until late in the day. Has had finnicky' stomach since having gallbladder removed early . No early satiety, no abdominal bloating or weight loss. No history of abnormal Pap results 2020 DCIS left breast - left lumpectomy, radiation. Tamoxifen 2.5 years - last in 03/2024. OB History Gravida0 Para0 Term0 Preterm0 AB0 Living0 SAB0 IAB0 Ectopic0 Multiple0 Live Births0 Comment: 2 stepkids 5 grandkids [employer] [place] History LMP: Postmenopausal Age at Menarche: Age at First : Age at Menopause: [employer] [place] History Comments: Sexual Activity: Not Currently; Male Contraception: No contraception data on record PAST MEDICAL HISTORY Diagnosis Date Age-related osteoporosis without current pathological fracture 01/15/2023 CAD (coronary artery disease), [place] coronary artery 04/26/2013 -hx of inferior STEMI's x 2 (1994, 2003). LHC in 1994 revealed normal coronaries and LHC in 2003 showed occlusion of small branch of RCA but otherwise normal coronaries. -[facility] 04[facility]26[facility]13 after p/w CP and anterolateral STEMI. Subsequent LHC revealed distal small branch of RCA w 100% blockage. She had unsuccessful PTCA to small branch of RCA d/t tortuous vessels. 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 Coronary atherosclerosis of unspecified type of vessel, [place] or graft Coronary artery disease, [place] x2, 1985, 1992, 2001 Ductal carcinoma in situ (DCIS) of left breast 02/26/2021 Dyslipidemia Enthesopathy of unspecified site 12/07/2008 Female stress incontinence Fibromuscular hyperplasia of artery (HCC) 04/28/2013 Confirmed by carotid duplex April 28, 2013 HLD (hyperlipidemia) 04/26/2013 Hypertension INSOMNIA 12/04/2007 Myocardial infarct, old 04/26/2013 NSVT (nonsustained ventricular tachycardia) (HCC) 04/27/2013 History: One rhythm strip from OSH showing wide complex tachycardia, up to 9 beats This in the setting of active ST elevation. Assessment: NSVT in the setting of active ischemia Plan: 1. Replace K and mag aggressively 2. Monitor closely. 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 Last admission 04/26/2013: p/w anterolateral STEMI, s/p unsuccessful PTCA to d Takotsubo cardiomyopathy / Coronary vasospasm 04/28/2013 Underwent a LHC on arrival 04/26/13 which showed severe disease in the distal branch of RCA that was ballooned previously. POBA was attempted but unsuccessful due to small caliber and tortuous nature. Echo 04/28: apical ballooning Assessment: likely [place] MP secondary to transient coronary vessel stenosis, wo [place]or[place] vessel obstruction on LHC Plan: LHC 05/06/[address] Tolbert echo Unspecified hemorrhoids without mention of complication Hemorrhoids PAST SURGICAL HISTORY Procedure Laterality Date APPENDECTOMY BREAST LUMPECTOMY HX Left 02/08/2021 BX BREAST W/DEVICE 1ST LESION STEREOTACTIC GUID Left 01/22/2021 CHOLECYSTECTOMY 1970 Cholecystectomy LEFT HEART CATH 04/26/13, 05/11/2013 100% mid occlusion of RPV1 PAST SURGICAL HISTORY OF abnormal kidney removed age 6 done at [facility], still has 2 1/2 kidneys PERC TRANSL COR ANGIO 2003 Distal RCA - PTCA/No stent TONSILLECTOMY PRIMARY/SECONDARY Tonsillectomy FAMILY HISTORY Problem Relation Age of Onset Heart Mother Cancer Father Multiple myeloma and amyloidisis Heart Maternal Grandmother Social History Tobacco Use Smoking status: Former Current packs/day: 0.00 Average packs/day: 1 pack/day for 10.0 years (10.0 ttl pk-yrs) Types: Cigarettes Start date: 1971 Quit date: 1981 Years since quittin.2 Smokeless tobacco: Never Vaping Use Vaping status: Never Used Substance Use Topics Alcohol use: Not Currently Comment: Socially wine Drug use: No Current Outpatient Medications Medication Sig nitroglycerin sublingual (NITROQUICK) 0.4 mg SL tablet Dissolve 1 tablet under the tongue as needed. FOR CHEST PAIN. IF NO RELIEF CALL 911 metop (more content not included)... 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 Emilie Kern is a 69 year old female who presents for problem visit red spotting onset 08/10/2024 HPI: In August 2024, had 2 single episodes where she wiped and saw a small smear of red-brown on tissue. These occurred on different days of different weeks. No vaginal itching or burning. Has also noticed random aching over both ovaries. Aching does not last long and when she thinks about it again, it is gone. Alternating rare diarrhea/constipation if does not eat until late in the day. Has had finnicky' stomach since having gallbladder removed early . No early satiety, no abdominal bloating or weight loss. No history of abnormal Pap results 2020 DCIS left breast - left lumpectomy, radiation. Tamoxifen 2.5 years - last in 03/2024. OB History Gravida0 Para0 Term0 Preterm0 AB0 Living0 SAB0 IAB0 Ectopic0 Multiple0 Live Births0 Comment: 2 stepkids 5 grandkids [employer] [place] History LMP: Postmenopausal Age at Menarche: Age at First : Age at Menopause: [place] History Comments: Sexual Activity: Not Currently; Male Contraception: No contraception data on record PAST MEDICAL HISTORY Diagnosis Date Age-related osteoporosis without current pathological fracture 01/15/2023 CAD (coronary artery disease), [place] coronary artery 04/26/2013 -hx of inferior STEMI's x 2 (1994, 2003). LHC in 1994 revealed normal coronaries and LHC in 2003 showed occlusion of small branch of RCA but otherwise normal coronaries. -Admitted to [facility] on 04/26/13 after p/w CP and anterolateral STEMI. Subsequent LHC revealed distal small branch of RCA w 100% blockage. She had unsuccessful PTCA to small branch of RCA d/t tortuous vessels. 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 Coronary atherosclerosis of unspecified type of vessel, [place] or graft Coronary artery disease, [place] x2, 1984, 1992, 2001 Ductal carcinoma in situ (DCIS) of left breast 02/26/2021 Dyslipidemia Enthesopathy of unspecified site 12/07/2008 Female stress incontinence Fibromuscular hyperplasia of artery (HCC) 04/28/2013 Confirmed by carotid duplex April 28, 2013 HLD (hyperlipidemia) 04/26/2013 Hypertension INSOMNIA 12/04/2007 Myocardial infarct, old 04/26/2013 NSVT (nonsustained ventricular tachycardia) (HCC) 04/27/2013 History: One rhythm strip from OSH showing wide complex tachycardia, up to 9 beats This in the setting of active ST elevation. Assessment: NSVT in the setting of active ischemia Plan: 1. Replace K and mag aggressively 2. Monitor closely. 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 Last admission 04/26/2013: p/w anterolateral STEMI, s/p unsuccessful PTCA to d Takotsubo cardiomyopathy / Coronary vasospasm 04/28/2013 Underwent a LHC on arrival 04/26/13 which showed severe disease in the distal branch of RCA that was ballooned previously. POBA was attempted but unsuccessful due to small caliber and tortuous nature. Echo 04/28: apical ballooning Assessment: likely Tac[place]ubo MP secondary to transient coronary vessel stenosis, wo conorany vessel obstruction on [facility] Plan: [facility] 05/06/[address] Tolbert echo Unspecified hemorrhoids without mention of complication Hemorrhoids PAST SURGICAL HISTORY Procedure Laterality Date APPENDECTOMY BREAST LUMPECTOMY HX Left 02/08/2021 BX BREAST W/DEVICE 1ST LESION STEREOTACTIC GUID Left 01/22/2021 CHOLECYSTECTOMY 1970 Cholecystectomy LEFT HEART CATH 04/26/13, 05/11/2013 100% mid occlusion of RPV1 PAST SURGICAL HISTORY OF abnormal kidney removed age 6 done at [facility], still has 2 1/2 kidneys PERC TRANSL COR ANGIO 2004 Distal RCA - PTCA/No stent TONSILLECTOMY PRIMARY/SECONDARY <AGE 11 Tonsillectomy FAMILY HISTORY Problem Relation Age of Onset Heart Mother Cancer Father Multiple myeloma and amyloidisis Heart Maternal Grandmother Social History Tobacco Use Smoking status: Former Current packs/day: 0.00 Average packs/day: 1 pack/day for 10.0 years (10.0 ttl pk-yrs) Types: Cigarettes Start date: 1971 Quit date: 1981 Years since quittin.2 Smokeless tobacco: Never Vaping Use Vaping status: Never Used Substance Use Topics Alcohol use: Not Currently Comment: Socially wine Drug use: No Current Outpatient Medications Medication Sig nitroglycerin sublingual (NITROQUICK) 0.4 mg SL tablet Dissolve 1 tablet under the tongue as needed. FOR CHEST PAIN. IF NO RELIEF CALL 911 metoprolol succinate ER (TOPROL XL) 100 mg Take 1 tablet by mouth once daily. lisinopril 2.5 mg tablet Take 1 tablet by mouth once daily. isosorbide mononitrate ER (IMDUR) 30 mg 24 hr tablet Take 1 tablet by mouth once daily. clopidogrel (PLAVIX) 75 mg tablet Take 1 tablet by mouth once daily. atorvastatin (LIPITOR) 80 mg tablet Take 1 tablet by mouth once daily. amLODIPine (NORVASC) 5 mg tablet Take 1 tablet by mouth once daily. alendronate (FOSAMAX) 70 mg tablet Take 1 tablet by mouth one time a week. Take with a full glass of water, on an empty stomach; do NOT lie down for 30minutes. BIOTIN ORAL Take 1 tablet by mouth once daily. ASPIRIN 81MG TABLET Take one (1) tablet daily . No current facility-administered medications for this visit. Allergies As of Date: 11/10/2024 (No Known Allergies) Fully Assessed 09/15/2024 REVIEW OF SYSTEMS Abdomen: see HPI. No bloating, early satiety, indigestion, or increased flatulence. No nausea, vomiting. Bladder: No dysuria, gross hematuria, urinary frequency, urinary urgency. + stress incontinence. Allergies and current medication updated:Yes SENSITIVE EXAM: The sensitive examination was discussed with the Patient or Patient's Authorized Trucking Supervisor. As applicable, any other physician, advance practice provider, medical student, or other health professional student that will be observing or involved in the sensitive examination for educational or training purposes was discussed with the Patient or Authorized Trucking Supervisor. The Patient or Authorized Trucking Supervisor has agreed to proceed with the sensitive examination. (Sensitive examination includes inspection and/or palpation of the breasts, pelvis, prostate and anorectal regions). EXAM: BP 126/78 Wt 176 lb 9.6 oz (80.1kg) GENERAL: pleasant, female in no apparent distress CHEST: Normal inspiratory effort ABDOMEN: soft, non-tender, and no masses PELVIC: external genitalia normal, normal Bartholin's glands, urethra, Nabesna's glands, no vulvar lesions, no cervical lesions, physiologic discharge present, normal appearing perineal body and perianal region. + vaginal atrophy BIMANUAL: uterus normal size, shape and consistency, no adnexal masses, and mild bilateral very low pelvic tenderness NEURO: alert and oriented x3,exam grossly non-focal ASSESSMENT/PLAN: 1. PMB (postmenopausal bleeding) - ICD9: 627.1, ICD10: N95.0 (primary diagnosis) - August 2024, had 2 single episodes of small smear of red-brown on tissue when wiping. - PAP TEST - PELVIC US WHI - discussed possible EMB 2. Pelvic pain in female - ICD9: 625.9, ICD10: R10.2 - describes random aching over ovaries - PELVIC US WHI - Discussed CA125, declined at this time 3. Postmenopausal atrophic vaginitis - ICD9: 627.3, ICD10: N95.2 - discussed that this could be cause of scant bleeding. Discussed treatment with vaginal hyaluronic acid suppositories of diagnostic testing is negative. Will notify of results. Follow- up as needed. Fatou Jackson APRN.PLATE MILL MILL HAND Medical Decision Making: Problems: Moderate: New problem with uncertain prognosis Data: Unique test(s) ordered: 2 Risk: Moderate: Moderate risk from testing/treatment Medical Decision Making Level: 4 - Moderate documented in this encounter [facility] 09-15-2024 Note HNO ID: [id number] Author: MERARI RUSH APRN.CNP Service: ? Author Type: Nurse Practitioner Type: Progress Notes Filed: 09/15/2024 14:25 Note Text: Chief Complaint Patient presents with: Established Patient HPI: Emilie Kern is a 68 year old female who presents here today for follow up DCIS. Per Dr. Pineda's previous note: H/o coronary artery disease/fibromuscular dysplasia (ND x3; no stents or CABG), Takotsubo cardiomyopathy, nonsustained ventricular tachycardia, hyperlipidemia, and history of nephrectomy who was noted to have microcalcifications in the slight lateral and superior left breast at middle depth on a mammogram performed 12/15/2020. Patient underwent stereotactic ultrasound-guided breast biopsy on 01/22/2021. The pathology demonstrated ductal carcinoma in situ with nuclear grade 1-2/3, architectural pattern was cribriform, necrosis was present, central (expansive comedo necrosis) calcifications present. Intraductal hyperplasia with focal atypia were noted in the area of ductal carcinoma in situ. Patient underwent left breast lumpectomy on 02/08/2021. Pathology demonstrated no evidence of residual ductal carcinoma in situ. Changes consistent with previous biopsy site. Focal intraductal hyperplasia without atypia skin, dermal fibrosis consistent with scar. Margins were negative. No residual carcinoma noted in the lumpectomy specimen but the biopsy cavity was 7 mm from closest inferior margin. Specimen was both ER and IL positive and HER-2 negative with IHC 0. Previous therapy: 1) Adjuvant radiation completed 04/09/2021. 2) Tamoxifen She had been on tamoxifen from April 2021 up until about a month ago. She developed blurred vision in the right eye. Underwent exam and was found to have a retinal abnormality. 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 The visual defect is experienced as a georges wavy line through her central vision. She is not able to read with her right eye but can read normally with her left eye. The visual defect has been static since the time of diagnosis. Tamoxifen was discontinued. No new concerns today. Appetite:Good. Wt. down 5# Energy level:Ok. Denies fevers. Recent GI illness. Resp:denies cough or sob Cardiac:denies chest pain/palpitations GI:denies abd pain, n/v, moving bowels regularly :denies dysuria/hematuria Extrem:denies new pain Endo:denies hot flashes Neuro:denies symptoms of neuropathy Skin:denies rashes/lesions Heme:denies bleeding, pt. noted a pink discharge recently The ROS is otherwise negative. Past medical history, appointments, medications, allergies reviewed. No changes. EXAM: BP 108/73 Pulse 60 Temp 36.6 ?C (97.8 ?F) (Temporal) Wt 81.1 kg (178 lb 12.7 oz) SpO2 96% BMI 28.06 kg/m? APPEARANCE Well appearing, alert, in no acute distress, well-hydrated, well nourished. HEART RRR with normal S1 and S2, no murmurs LUNG clear to auscultation BREAST FEMALE no mass/nodule b/l, L scar to upper/outer LYMPH NODES No cervical lymphadenopathy, No supraclavicular lymphadenopathy, and No axillary lymphadenopathy. ABDOMEN bowel sounds normoactive, soft, non-tender EXTREMITIES No edema NEURO Awake, alert and oriented x 3, Normal gait, and No involuntary motions. SKIN Skin color, texture, turgor normal, no suspicious rashes or lesions ASSESSMENT/PLAN: 1. Ductal carcinoma in situ (DCIS) of left breast - ICD9: 233.0, ICD10: D05.12 (primary diagnosis) Per Dr. Pineda's previous note: Assessment: -Tolerated radiation very well. -Had been symptomatically tolerating tamoxifen very well but developed retinopathy potentially related to tamoxifen use. -We discussed the potential risks and benefits of rotating to AI therapy. She already has a diagnosis of osteoporosis and is on Fosamax. She has a history of fibromuscular dysplasia and MRI had an early age. We discussed the conflicting data regarding increased cardiovascular risk with aromatase inhibitor use and I did not recommend changing therapy to that at this time. Since she had 2 and half years of tamoxifen I recommended stopping endocrine therapy at this time. Plan: -Follow-up as scheduled for mammogram and office visit in March. - No concerning findings on exam in regards to DCIS. - New vaginal discharge. - Tamoxifen discontinued after 2.5 years d/t retinopathy. - Continue follow up with PCP/INVENTORY CONTROL ASSISTANT for routine care. - Needs INVENTORY CONTROL ASSISTANT exam-Kedar Jackson CNP-vaginal discharge. - Mammogram due in March. - Follow up after mammogram. - Pt. aware to call office with any questions/concerns. The sensitive examination was discussed with the Patient or Patient's Authorized Trucking Supervisor. As applicable, any other physician, advance practice provider, medical student, or other health professional student that will be observing or involved in the sensitive examination for educational or training purposes w (more content not included)... [facility] 09-15-2024 History of Present illness Narrative Chief Complaint Patient presents with: Established Patient HPI: Emilie Kern is a 68 year old female who presents here today for follow up DCIS. Per Dr. Pineda's previous note: H/o coronary artery disease/fibromuscular dysplasia ([place] x3; no stents or CABG), Takotsubo cardiomyopathy, nonsustained ventricular tachycardia, hyperlipidemia, and history of nephrectomy who was noted to have microcalcifications in the slight lateral and superior left breast at middle depth on a mammogram performed 12/15/2020. Patient underwent stereotactic ultrasound-guided breast biopsy on 01/22/2021. The pathology demonstrated ductal carcinoma in situ with nuclear grade 1-2/3, architectural pattern was cribriform, necrosis was present, central (expansive comedo necrosis) calcifications present. Intraductal hyperplasia with focal atypia were noted in the area of ductal carcinoma in situ. Patient underwent left breast lumpectomy on 02/08/2021. Pathology demonstrated no evidence of residual ductal carcinoma in situ. Changes consistent with previous biopsy site. Focal intraductal hyperplasia without atypia skin, dermal fibrosis consistent with scar. Margins were negative. No residual carcinoma noted in the lumpectomy specimen but the biopsy cavity was 7 mm from closest inferior margin. Specimen was both ER and IL positive and HER-2 negative with IHC 0. Previous therapy: 1) Adjuvant radiation completed 04/09/2021. 2) Tamoxifen She had been on tamoxifen from April 2021 up until about a month ago. She developed blurred vision in the right eye. Underwent exam and was found to have a retinal abnormality. 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 The visual defect is experienced as a georges wavy line through her central vision. She is not able to read with her right eye but can read normally with her left eye. The visual defect has been static since the time of diagnosis. Tamoxifen was discontinued. No new concerns today. Appetite:Good. Wt. down 5# Energy level:Ok. Denies fevers. Recent GI illness. Resp:denies cough or sob Cardiac:denies chest pain/palpitations GI:denies abd pain, n/v, moving bowels regularly :denies dysuria/hematuria Extrem:denies new pain Endo:denies hot flashes Neuro:denies symptoms of neuropathy Skin:denies rashes/lesions Heme:denies bleeding, pt. noted a pink discharge recently The ROS is otherwise negative. Past medical history, appointments, medications, allergies reviewed. No changes. EXAM: BP 108/73 Pulse 60 Temp 36.6 C (97.8 F) (Temporal) Wt 81.1 kg (178 lb 12.7 oz) SpO2 96% BMI 28.06 kg/m APPEARANCE Well appearing, alert, in no acute distress, well-hydrated, well nourished. HEART RRR with normal S1 and S2, no murmurs LUNG clear to auscultation BREAST FEMALE no mass/nodule b/l, L scar to upper/outer LYMPH NODES No cervical lymphadenopathy, No supraclavicular lymphadenopathy, and No axillary lymphadenopathy. ABDOMEN bowel sounds normoactive, soft, non-tender EXTREMITIES No edema NEURO Awake, alert and oriented x 3, Normal gait, and No involuntary motions. SKIN Skin color, texture, turgor normal, no suspicious rashes or lesions ASSESSMENT/PLAN: 1. Ductal carcinoma in situ (DCIS) of left breast - ICD9: 233.0, ICD10: D05.12 (primary diagnosis) Per Dr. Pineda's previous note: Assessment: -Tolerated radiation very well. -Had been symptomatically tolerating tamoxifen very well but developed retinopathy potentially related to tamoxifen use. -We discussed the potential risks and benefits of rotating to AI therapy. She already has a diagnosis of osteoporosis and is on Fosamax. She has a history of fibromuscular dysplasia and MRI had an early age. We discussed the conflicting data regarding increased cardiovascular risk with aromatase inhibitor use and I did not recommend changing therapy to that at this time. Since she had 2 and half years of tamoxifen I recommended stopping endocrine therapy at this time. Plan: -Follow-up as scheduled for mammogram and office visit in March. - No concerning findings on exam in regards to DCIS. - New vaginal discharge. - Tamoxifen discontinued after 2.5 years d/t retinopathy. - Continue follow up with PCP/INVENTORY CONTROL ASSISTANT for routine care. - Needs INVENTORY CONTROL ASSISTANT exam-Kedar Jackson CNP-vaginal discharge. - Mammogram due in March. - Follow up after mammogram. - Pt. aware to call office with any questions/concerns. The sensitive examination was discussed with the Patient or Patient's Authorized Trucking Supervisor. As applicable, any other physician, advance practice provider, medical student, or other health professional student that will be observing or involved in the sensitive examination for educational or training purposes was discussed with the Patient or Authorized Trucking Supervisor. The Patient or Authorized Trucking Supervisor has agreed to proceed with the sensitive examination. (Sensitive examination includes inspection and/or palpation of the breasts, pelvis, prostate and anorectal regions) The patient indicates understanding of these issues and agrees with the plan. All documentation from previous visit of 03/16/24-Dr. Pineda/myself was copied and pasted, documentation has been reviewed and edited as necessary for today's visit. Merari Rush APRN.RADHA documented in this encounter [facility] 08-10-2024 Telephone encounter Note Patient called to request a refill on the medication(s) below: Requested Prescriptions Pending Prescriptions Disp Refills nitroglycerin sublingual (NITROQUICK) 0.4 mg SL tablet 25 tablet 3 Sig: Dissolve 1 tablet under the tongue as needed. FOR CHEST PAIN. IF NO RELIEF CALL 911 metoprolol succinate ER (TOPROL XL) 100 mg 90 tablet 3 Sig: Take 1 tablet by mouth once daily. lisinopril 2.5 mg tablet 90 tablet 3 Sig: Take 1 tablet by mouth once daily. isosorbide mononitrate ER (IMDUR) 30 mg 24 hr tablet 90 tablet 3 Sig: Take 1 tablet by mouth once daily. clopidogrel (PLAVIX) 75 mg tablet 90 tablet 3 Sig: Take 1 tablet by mouth once daily. atorvastatin (LIPITOR) 80 mg tablet 90 tablet 3 Sig: Take 1 tablet by mouth once daily. amLODIPine (NORVASC) 5 mg tablet 90 tablet 3 Sig: Take 1 tablet by mouth once daily. PHARMACY NAME [facility] Physician's Name: Enio Kirby M.D. Last seen in office: 08.13.23 12.29.24 upcoming If last appointment greater than one year or no follow up scheduled, sent to schedulers Yes Pamela Gambino 08/10/2024 [facility] 08-10-2024 Miscellaneous Notes Patient called to request a refill on the medication(s) below: Requested Prescriptions Pending Prescriptions Disp Refills nitroglycerin sublingual (NITROQUICK) 0.4 mg SL tablet 25 tablet 3 Sig: Dissolve 1 tablet under the tongue as needed. FOR CHEST PAIN. IF NO RELIEF CALL 911 metoprolol succinate ER (TOPROL XL) 100 mg 90 tablet 3 Sig: Take 1 tablet by mouth once daily. lisinopril 2.5 mg tablet 90 tablet 3 Sig: Take 1 tablet by mouth once daily. isosorbide mononitrate ER (IMDUR) 30 mg 24 hr tablet 90 tablet 3 Sig: Take 1 tablet by mouth once daily. clopidogrel (PLAVIX) 75 mg tablet 90 tablet 3 Sig: Take 1 tablet by mouth once daily. atorvastatin (LIPITOR) 80 mg tablet 90 tablet 3 Sig: Take 1 tablet by mouth once daily. amLODIPine (NORVASC) 5 mg tablet 90 tablet 3 Sig: Take 1 tablet by mouth once daily. PHARMACY NAME [facility] Physician's Name: Enio Kirby M.D. Last seen in office: 08.13.23 12.29.24 upcoming If last appointment greater than one year or no follow up scheduled, sent to schedulers Yes Pamela Gambino 08/10/2024 documented in this encounter [facility] 07-21-2024 Note HNO ID: [id number] Author: WEN BHAT APRN.RADHA Service: ? Author Type: Nurse Practitioner Type: Progress Notes Filed: 07/21/2024 18:43 Note Text: CC: Patient presents with: Medication Follow-up HPI Emilie L Erlin is a 68 year old female who presents today for above. She sees cardiology for HLD and CAD. She is taking all medications as prescribed. She reports intermittent swelling in the lower legs but does admit to sitting a lot. She is wondering if it is a side effect of the Norvasc. Does not check BP at home. She reports she is losing a lot of hair and there is overall thinning. Fatigue is chronic but no worse than usual. Taking Fosamax as prescribed for about 1.5 years, denies side effects. Due for BMD next year. Denies any other concerns today. Review of Systems See HPI PAST MEDICAL HISTORY Diagnosis Date Age-related osteoporosis without current pathological fracture 01/15/2023 CAD (coronary artery disease), [place] coronary artery 04/26/2013 -hx of inferior STEMI's x 2 (1994, 2003). LHC in 1994 revealed normal coronaries and LHC in 2003 showed occlusion of small branch of RCA but otherwise normal coronaries. -Admitted to [facility] on 04/26/13 after p/w CP and anterolateral STEMI. Subsequent LHC revealed distal small branch of RCA w 100% blockage. She had unsuccessful PTCA to small branch of RCA d/t tortuous vessels. 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 Coronary atherosclerosis of unspecified type of vessel, [place] or graft Coronary artery disease, [place] x2, 1985, 1992, 2001 Ductal carcinoma in situ (DCIS) of left breast 02/26/2021 Dyslipidemia Enthesopathy of unspecified site 12/07/2008 Female stress incontinence Fibromuscular hyperplasia of artery (HCC) 04/28/2013 Confirmed by carotid duplex April 28, 2013 HLD (hyperlipidemia) 04/26/2013 Hypertension INSOMNIA 12/04/2007 Myocardial infarct, old 04/26/2013 NSVT (nonsustained ventricular tachycardia) (HCC) 04/27/2013 History: One rhythm strip from OSH showing wide complex tachycardia, up to 9 beats This in the setting of active ST elevation. Assessment: NSVT in the setting of active ischemia Plan: 1. Replace K and mag aggressively 2. Monitor closely. 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 Last admission 04/26/2013: p/w anterolateral STEMI, s/p unsuccessful PTCA to d Tak[place]ubo cardiomyopathy / Coronary vasospasm 04/28/2013 Underwent a LHC on arrival 04/26/13 which showed severe disease in the distal branch of RCA that was ballooned previously. POBA was attempted but unsuccessful due to small caliber and tortuous nature. Echo 04/28: apical ballooning Assessment: likely [place] MP secondary to transient coronary vessel stenosis, [place] vessel obstruction on C Plan: LHC 05/06/[address] Tolbert echo Unspecified hemorrhoids without mention of complication Hemorrhoids PAST SURGICAL HISTORY Procedure Laterality Date APPENDECTOMY BREAST LUMPECTOMY HX Left 02/08/2021 BX BREAST W/DEVICE 1ST LESION STEREOTACTIC GUID Left 01/22/2021 CHOLECYSTECTOMY 1970 Cholecystectomy LEFT HEART CATH 04/26/13, 05/11/2013 100% mid occlusion of RPV1 PAST SURGICAL HISTORY OF abnormal kidney removed age 6 done at [facility], still has 2 1/2 kidneys PERC TRANSL COR ANGIO 2003 Distal RCA - PTCA/No stent TONSILLECTOMY PRIMARY/SECONDARY Tonsillectomy ALLERGIES Patient has no known allergies. MEDICATIONS alendronate (FOSAMAX) 70 mg tablet Take 1 tablet by mouth one time a week. Take with a full glass of water, on an empty stomach; do NOT lie down for 30minutes. amLODIPine (NORVASC) 5 mg tablet Take 1 tablet by mouth once daily. clopidogrel (PLAVIX) 75 mg tablet Take 1 tablet by mouth once daily. metoprolol succinate ER (TOPROL XL) 100 mg Take 1 tablet by mouth once daily. isosorbide mononitrate ER (IMDUR) 30 mg 24 hr tablet Take 1 tablet by mouth once daily. lisinopril 2.5 mg tablet Take 1 tablet by mouth once daily. atorvastatin (LIPITOR) 80 mg tablet Take 1 tablet by mouth once daily. nitroglycerin sublingual (NITROQUICK) 0.4 mg SL tablet Dissolve 1 tablet under the tongue as needed. FOR CHEST PAIN. IF NO RELIEF CALL 911 BIOTIN ORAL Take 1 tablet by mouth once daily. ASPIRIN 81MG TABLET Take one (1) tablet daily . FAMILY HISTORY Problem Relation Age of Onset Heart Mother Cancer Father Multiple myeloma and amyloidisis Heart Maternal Grandmother Social History Tobacco Use Smoking status: Former Current packs/day: 0.00 Average packs/day: 1 pack/day for 10.0 years (10.0 ttl pk-yrs) Types: [employer] (more content not included)... [facility] 07-21-2024 History of Present illness Narrative CC: Patient presents with: Medication Follow-up HPI Emilie Kern is a 68 year old female who presents today for above. She sees cardiology for HLD and CAD. She is taking all medications as prescribed. She reports intermittent swelling in the lower legs but does admit to sitting a lot. She is wondering if it is a side effect of the Norvasc. Does not check BP at home. She reports she is losing a lot of hair and there is overall thinning. Fatigue is chronic but no worse than usual. Taking Fosamax as prescribed for about 1.5 years, denies side effects. Due for BMD next year. Denies any other concerns today. Review of Systems See HPI PAST MEDICAL HISTORY Diagnosis Date Age-related osteoporosis without current pathological fracture 01/15/2023 CAD (coronary artery disease), [place] coronary artery 04/26/2013 -hx of inferior STEMI's x 2 (1994, 2003). LHC in 1994 revealed normal coronaries and LHC in 2003 showed occlusion of small branch of RCA but otherwise normal coronaries. -Admitted to [facility] on 04/26/13 after p/w CP and anterolateral STEMI. Subsequent LHC revealed distal small branch of RCA w 100% blockage. She had unsuccessful PTCA to small branch of RCA d/t tortuous vessels. 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 Coronary atherosclerosis of unspecified type of vessel, [place] or graft Coronary artery disease, [place] x2, 1985, 1992, 2001 Ductal carcinoma in situ (DCIS) of left breast 02/26/2021 Dyslipidemia Enthesopathy of unspecified site 12/07/2008 Female stress incontinence Fibromuscular hyperplasia of artery (HCC) 04/28/2013 Confirmed by carotid duplex April 28, 2013 HLD (hyperlipidemia) 04/26/2013 Hypertension INSOMNIA 12/04/2007 Myocardial infarct, old 04/26/2013 NSVT (nonsustained ventricular tachycardia) (HCC) 04/27/2013 History: One rhythm strip from OSH showing wide complex tachycardia, up to 9 beats This in the setting of active ST elevation. Assessment: NSVT in the setting of active ischemia Plan: 1. Replace K and mag aggressively 2. Monitor closely. 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 Last admission 04/26/2013: p/w anterolateral STEMI, s/p unsuccessful PTCA to d [place] cardiomyopathy / Coronary vasospasm 04/28/2013 Underwent a LHC on arrival 04/26/13 which showed severe disease in the distal branch of RCA that was ballooned previously. POBA was attempted but unsuccessful due to small caliber and tortuous nature. Echo 04/28: apical ballooning Assessment: likely [place] MP secondary to transient coronary vessel stenosis, [place] vessel obstruction on LHC Plan: LHC 05/06/[address] Tolbert echo Unspecified hemorrhoids without mention of complication Hemorrhoids PAST SURGICAL HISTORY Procedure Laterality Date APPENDECTOMY BREAST LUMPECTOMY HX Left 02/08/2021 BX BREAST W/DEVICE 1ST LESION STEREOTACTIC GUID Left 01/22/2021 CHOLECYSTECTOMY 1970 Cholecystectomy LEFT HEART CATH 04/26/13, 05/11/2013 100% mid occlusion of RPV1 PAST SURGICAL HISTORY OF abnormal kidney removed age 6 done at [facility], still has 2 1/2 kidneys PERC TRANSL COR ANGIO 2003 Distal RCA - PTCA/No stent TONSILLECTOMY PRIMARY/SECONDARY <AGE 11 Tonsillectomy ALLERGIES Patient has no known allergies. MEDICATIONS alendronate (FOSAMAX) 70 mg tablet Take 1 tablet by mouth one time a week. Take with a full glass of water, on an empty stomach; do NOT lie down for 30minutes. amLODIPine (NORVASC) 5 mg tablet Take 1 tablet by mouth once daily. clopidogrel (PLAVIX) 75 mg tablet Take 1 tablet by mouth once daily. metoprolol succinate ER (TOPROL XL) 100 mg Take 1 tablet by mouth once daily. isosorbide mononitrate ER (IMDUR) 30 mg 24 hr tablet Take 1 tablet by mouth once daily. lisinopril 2.5 mg tablet Take 1 tablet by mouth once daily. atorvastatin (LIPITOR) 80 mg tablet Take 1 tablet by mouth once daily. nitroglycerin sublingual (NITROQUICK) 0.4 mg SL tablet Dissolve 1 tablet under the tongue as needed. FOR CHEST PAIN. IF NO RELIEF CALL 911 BIOTIN ORAL Take 1 tablet by mouth once daily. ASPIRIN 81MG TABLET Take one (1) tablet daily . FAMILY HISTORY Problem Relation Age of Onset Heart Mother Cancer Father Multiple myeloma and amyloidisis Heart Maternal Grandmother Social History Tobacco Use Smoking status: Former Current packs/day: 0.00 Average packs/day: 1 pack/day for 10.0 years (10.0 ttl pk-yrs) Types: Cigarettes Start date: 1971 Quit date: 1981 Years since quittin.8 Smokeless tobacco: Never Vaping Use Vaping status: Never Used Substance Use Topics Alcohol use: Not Currently Comment: Socially wine Drug use: No BP 138/78 Pulse 61 Temp 36.8 C (98.2 F) Resp 16 Wt 82.7 kg (182 lb 5.1 oz) SpO2 98% BMI 28.62 kg/m Physical Exam Vitals reviewed. Constitutional: Appearance: Normal appearance. Cardiovascular: Rate and Rhythm: Normal rate and regular rhythm. Pulses: Normal pulses. Heart sounds: Normal heart sounds. No murmur heard. Pulmonary: Effort: Pulmonary effort is normal. Breath sounds: Normal breath sounds. No wheezing or rales. Musculoskeletal: Right lower leg: No edema. Left lower leg: No edema. Skin: General: Skin is warm and dry. Neurological: Mental Status: She is alert. Psychiatric: Mood and Affect: Mood normal. Health maintenance reviewed with patient: Depression Screening Never done Anxiety Screening Never done Hepatitis C Screening Never done Diabetes Screening due on 06/14/2018 Shingrix Vaccine(3 of 3) due on 07/06/2023 Advance Directive Discussion due on 09/08/2023 DTaP,Tdap,Td Vaccine(2 - Td or Tdap) due on 10/15/2023 LDL Cholesterol due on 08/13/2024 Bone Density Screening due on 12/07/2024 Covid-19 Vaccine( season) due on 07/21/2025 Mammogram Screening due on 03/16/2025 Annual PCP Team Chronic Disease Visit due on 07/21/2025 Colorectal Cancer Screening due on 01/31/2026 Lipid Screening due on 08/13/2028 RSV Vaccine(1 - 1-dose 75+ series) due on 2029 Influenza Vaccine Completed Pneumococcal Vaccine: 65+ Completed DATA REVIEWED: Most recent labs ASSESSMENT/PLAN: 1. Hair loss - ICD9: 704.00, ICD10: L65.9 (primary diagnosis) Suspect telogen effluvium. Treatment discussed with patient Check labs: - COMPLETE BLOOD COUNT - THYROID STIMULATING HORMONE 2. Primary hypertension - ICD9: 401.9, ICD10: I10 - Controlled - Continue current medications - Recommend home blood pressure monitoring, to bring results to next visit - Encouraged sodium restriction, DASH or Mediterranean diet 3. Hyperlipidemia, unspecified hyperlipidemia type - ICD9: 272.4, ICD10: E78.5 - Controlled - Continue current medications - COMPREHENSIVE METABOLIC PANEL 4. Age-related osteoporosis without current pathological fracture - ICD9: 733.01, ICD10: M81.0 - continue tx with alendronate (Fosamax) - Reviewed the need for Calcium and Vitamin D supplements and weight bearing exercise as tolerated - ALENDRONATE 70 MG TABLET - COMPLETE BLOOD COUNT - THYROID STIMULATING HORMONE 5. Encounter for immunization - ICD9: V03.89, ICD10: Z23 - INFLUENZA VACCINE, PRSV FREE, AGE 65+ YR, HIGH DOSE, TRIVALENT (FLUZONE HIGH-DOSE) Wen Bhat APRN.PLATE MILL MILL HAND Prescription instructions reviewed with patient as applicable. Potential red flag symptoms discussed with the patient. Reviewed appropriate action plan to take if red flag symptoms occur. Patient agreeable to treatment plan. Wen Bhat APRN.PLATE MILL MILL HAND documented in this encounter [facility] 04-09-2024 Telephone encounter Note Needs appointment Wen Bhat APRN.PLATE MILL MILL HAND [facility] 04-09-2024 Miscellaneous Notes Needs appointment Wen Bhat APRN.PLATE MILL MILL HAND Patient has been identified by name and date of : Yes Patient phones for refill(s): Requested Prescriptions Pending Prescriptions Disp Refills alendronate (FOSAMAX) 70 mg tablet 12 tablet 3 Sig: Take 1 tablet by mouth one time a week. Take with a full glass of water, on an empty stomach; do NOT lie down for 30minutes. Date of last office visit in primary care: 01/15/2023 Date of next office visit in primary care: Visit date not found Please advise. Thank you. Leonor Jimenez LPN. documented in this encounter [facility] 04-08-2024 Telephone encounter Note Patient has been identified by name and date of : Yes Patient phones for refill(s): Requested Prescriptions Pending Prescriptions Disp Refills alendronate (FOSAMAX) 70 mg tablet 12 tablet 3 Sig: Take 1 tablet by mouth one time a week. Take with a full glass of water, on an empty stomach; do NOT lie down for 30minutes. Date of last office visit in primary care: 01/15/2023 Date of next office visit in primary care: Visit date not found Please advise. Thank you. Leonor Jimenez LPN. [facility] 03-17-2024 Note Formatting of this n ote might be different from the original. March 17, 2024 PID: [id number] Emilie Kern [address] [place] [id number] Dear Ms. Kern, We are pleased to inform you that the results of your recent breast imaging exam on 03/16/2024 are normal. Your mammogram demonstrates that you have dense breast tissue, which could hide abnormalities. Dense breast tissue, in and of itself, is a relatively common condition. Therefore, this information is not provided to cause undue concern; rather, it is to raise your awareness and promote discussion with your health care provider regarding the presence of dense breast tissue in addition to other risk factors. Early detection of cancer is very important. We also understand recommendations regarding breast cancer screening are controversial. Please discuss with your primary care provider which strategy is best for you and whether a mammogram is right for you. Your imaging studies and report will be kept on file at [facility] as part of your permanent medical record and are available for your continuing care. Thank you for allowing us to help in meeting your health care needs. Sincerely, Dr. Cunningham Interpreting Radiologist [facility] (Normal over 40) [facility] 03-17-2024 Miscellaneous Notes March 17, 2024 PID: [id number] Emilie LemusThomas Kern [address] [place] [address] Dear Ms. Kern, We are pleased to inform you that the results of your recent breast imaging exam on 03/16/2024 are normal. Your mammogram demonstrates that you have dense breast tissue, which could hide abnormalities. Dense breast tissue, in and of itself, is a relatively common condition. Therefore, this information is not provided to cause undue concern; rather, it is to raise your awareness and promote discussion with your health care provider regarding the presence of dense breast tissue in addition to other risk factors. Early detection of cancer is very important. We also understand recommendations regarding breast cancer screening are controversial. Please discuss with your primary care provider which strategy is best for you and whether a mammogram is right for you. Your imaging studies and report will be kept on file at [facility] as part of your permanent medical record and are available for your continuing care. Thank you for allowing us to help in meeting your health care needs. Sincerely, Dr. Cunningham Interpreting Radiologist [facility] (Normal over 40) documented in this encounter [facility] 03-16-2024 Instructions Fatou Jackson APRN.PLATE MILL MILL HAND - 03/16/2024 2:17 PM EDT How To Perform Pelvic Floor (Kegel) Exercises These exercises help to strengthen the pelvic floor muscles and can help improve bladder control for women. 1. You should have been instructed in the office how to contract these muscles. At home, you can insert two fingers in the vagina and feel the contraction of these muscles as you squeeze. We call these muscles the pelvic floor because they help support the pelvic organs, especially during coughing and sneezing. Squeezing the pelvic floor while standing feels like you are lifting the area around the vagina, and will interrupt the stream of urine while voiding. Once you are certain which muscles to use, do not exercise while urinating. Make sure you are not bearing down, squeezing your buttocks, or straining abdominally: these are not the muscles to be exercised. You may wish to place hands on your buttock muscles to keep these muscles relaxed while performing the exercises. 2. Squeeze these muscles as hard as you can for a slow count of five, eventually working up to a slow count of ten. Rest for 15 seconds, and then start another contraction. At first. these muscles may feel sore, just as other muscles may feel sore after exercise. 3. You should perform 50 squeezes every day: make sure every squeeze count by micaela as hard as you can! Many women try to do these exercises in sets of five or ten at a time. Remind yourself to do these exercises by starting them every time you are waiting at a red light, watching a television commercial, or on hold on the telephone. If you are having trouble concentrating, you may want to set aside a special time to perform sets of pelvic floor exercises. 4. In addition to the long, hard contractions you are doing try doing some quick flicks of these muscles throughout the day. 5. You should be seen in the office after starting these exercises to make sure you are performing the contraction correctly: you may have never known how to contract these muscles before starting pelvic floor exercises, and many patients mistakenly exercise the wrong muscles. If you still feel frustrated about which muscles to use ask us for help. There are physical therapy specialists who work with pelvic floor muscles. 6. Work hard! As with any exercise program, improvement often is related to how faithfully you adhere to your exercise program. Pelvic floor exercises do not have the side effects and expense associated with other treatments for urinary incontinence, and have been known to help with severe stress incontinence. It may take several months to see the full effect of your exercise program: if you are easily discouraged, see your doctor or doctor at regular visits to assess what progress you are making. Techniques to avoid urinary accidents: Empty your bladder regularly and prior to physical activity. Avoid activity that causes leakage, if possible. Avoid or moderate the intake of alcohol and caffeine products. Try to restrict fluids prior to planned activities. Wear appropriate protection. Prevent chronic coughing which can cause a loss of urinary control. Ways to prevent chronic coughing include treating asthma, restricting smoking, and removing allergy-causing agents from your environment. documented in this encounter [facility] 03-16-2024 History of Present illness Narrative Chief Complaint Patient presents with: Established Patient HPI: Emilie Kern is a 68 year old female who presents here today for follow up DCIS. Per Dr. Pineda's previous note: H/o coronary artery disease/fibromuscular dysplasia (ND x3; no stents or CABG), Takotsubo cardiomyopathy, nonsustained ventricular tachycardia, hyperlipidemia, and history of nephrectomy who was noted to have microcalcifications in the slight lateral and superior left breast at middle depth on a mammogram performed 12/15/2020. Patient underwent stereotactic ultrasound-guided breast biopsy on 01/22/2021. The pathology demonstrated ductal carcinoma in situ with nuclear grade 1-2/3, architectural pattern was cribriform, necrosis was present, central (expansive comedo necrosis) calcifications present. Intraductal hyperplasia with focal atypia were noted in the area of ductal carcinoma in situ. Patient underwent left breast lumpectomy on 02/08/2021. Pathology demonstrated no evidence of residual ductal carcinoma in situ. Changes consistent with previous biopsy site. Focal intraductal hyperplasia without atypia skin, dermal fibrosis consistent with scar. Margins were negative. No residual carcinoma noted in the lumpectomy specimen but the biopsy cavity was 7 mm from closest inferior margin. Specimen was both ER and IL positive and HER-2 negative with IHC 0. Previous therapy: 1) Adjuvant radiation completed 04/09/2021. 2) Tamoxifen She had been on tamoxifen from April 2021 up until about a month ago. She developed blurred vision in the right eye. Underwent exam and was found to have a retinal abnormality. 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 The visual defect is experienced as a georges wavy line through her central vision. She is not able to read with her right eye but can read normally with her left eye. The visual defect has been static since the time of diagnosis. Tamoxifen was discontinued. No new concerns today. Appetite:Good. Energy level:Pretty good. Denies fevers or recent illness. Resp:denies cough or sob Cardiac:denies chest pain/palpitations GI:denies abd pain, n/v, moving bowels regularly :denies dysuria/hematuria Extrem:denies new pain Endo:denies hot flashes Neuro:denies symptoms of neuropathy Skin:denies rashes Heme:denies bleeding The ROS is otherwise negative. Past medical history, appointments, medications, allergies reviewed. No changes. EXAM: BP 117/78 Pulse 71 Temp 36.6 C (97.8 F) Wt 83 kg (183 lb) SpO2 96% BMI 27.83 kg/m APPEARANCE Well appearing, alert, in no acute distress, well-hydrated, well nourished. HEART RRR with normal S1 and S2, no murmurs LUNG clear to auscultation BREAST FEMALE no mass/nodule b/l, L scar to upper/outer LYMPH NODES No cervical lymphadenopathy, No supraclavicular lymphadenopathy, and No axillary lymphadenopathy. ABDOMEN bowel sounds normoactive, soft, non-tender EXTREMITIES No edema NEURO Awake, alert and oriented x 3, Normal gait, and No involuntary motions. SKIN Skin color, texture, turgor normal, no suspicious rashes or lesions RADIOLOGY: Mammogram 03/16/24: Pending ASSESSMENT/PLAN: 1. Ductal carcinoma in situ (DCIS) of left breast - ICD9: 233.0, ICD10: D05.[address] Pineda's previous note: Assessment: -Tolerated radiation very well. -Had been symptomatically tolerating tamoxifen very well but developed retinopathy potentially related to tamoxifen use. -We discussed the potential risks and benefits of rotating to AI therapy. She already has a diagnosis of osteoporosis and is on Fosamax. She has a history of fibromuscular dysplasia and MRI had an early age. We discussed the conflicting data regarding increased cardiovascular risk with aromatase inhibitor use and I did not recommend changing therapy to that at this time. Since she had 2 and half years of tamoxifen I recommended stopping endocrine therapy at this time. Plan: -Follow-up as scheduled for mammogram and office visit in March. - No concerning findings on exam. - Mammogram pending today. - Tamoxifen discontinued after 2.5 years d/t retinopathy. - Follow up as scheduled today with INVENTORY CONTROL ASSISTANT. - Continue follow up with PCP for routine care. - Follow up in 6 months-pending today's mammogram. - Pt. aware to call office with any questions/concerns. The patient indicates understanding of these issues and agrees with the plan. All documentation from previous visit of 12/22/23-Dr. Pineda was copied and pasted, documentation has been reviewed and edited as necessary for today's visit. Merari Rush APRN.RADHA documented in this encounter [facility] 03-16-2024 History of Present illness Narrative 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 Emilie is a 68 year old who presents for an annual gynecologic exam without complaints. Postmenopausal: Yes since age 49 HRT use: No. Last Pap: 2018 normal [place] HPV: 2019 negative History of abnormal pap: No Last mammogram: today, pending History of abnormal mammogram: Yes 2020 DCIS left breast - left lumpectomy, radiation. Tamoxifen DC'd 3 months ago due to retinopathy Sexually active: No Hot flashes: No Night sweats: No Vaginal dryness: No Documentation from previous visit of 03/06/2023 was copied and pasted, documentation has been reviewed and edited as necessary for today's visit. OB History T0 L0 SAB0 IAB0 Ectopic0 Multiple0 Live Births0 Comment: 2 stepkids 5 grandkids [place] History LMP: Postmenopausal Age at Menarche: Age at First : Age at Menopause: [place] History Comments: Sexual Activity: Not Currently; Male Contraception: No contraception data on record PAST MEDICAL HISTORY Diagnosis Date Coronary atherosclerosis of unspecified type of vessel, [place] or graft Coronary artery disease, ND x2, 1984, 1992, 2001 DCIS (ductal carcinoma in situ) 2020 left breast Dyslipidemia Enthesopathy of unspecified site 12/07/2008 Female stress incontinence Femoral bruit 06/18/2013 Hypertension INSOMNIA 12/04/2007 Myocardial infarct, old 04/26/2013 NSVT (nonsustained ventricular tachycardia) (HCC) 04/27/2013 History: One rhythm strip from OSH showing wide complex tachycardia, up to 9 beats This in the setting of active ST elevation. Assessment: NSVT in the setting of active ischemia Plan: 1. Replace K and mag aggressively 2. Monitor closely. 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 Last admission 04/26/2013: p/w anterolateral STEMI, s/p unsuccessful PTCA to d Takotsubo cardiomyopathy / Coronary vasospasm 04/28/2013 Underwent a LHC on arrival 04/26/13 which showed severe disease in the distal branch of RCA that was ballooned previously. POBA was attempted but unsuccessful due to small caliber and tortuous nature. Echo 04/28: apical ballooning Assessment: likely Tacotsubo MP secondary to transient coronary vessel stenosis, wo conorany vessel obstruction on LHC Plan: LHC 05/06/[address] Tolbert echo Unspecified hemorrhoids without mention of complication Hemorrhoids PAST SURGICAL HISTORY Procedure Laterality Date APPENDECTOMY BREAST LUMPECTOMY HX Left 02/08/2021 BX BREAST W/DEVICE 1ST LESION STEREOTACTIC GUID Left 01/22/2021 CHOLECYSTECTOMY 1970 Cholecystectomy LEFT HEART CATH 04/26/13, 05/11/2013 100% mid occlusion of RPV1 PAST SURGICAL HISTORY OF abnormal kidney removed age 6 done at [facility], still has 2 1/2 kidneys PERC TRANSL COR ANGIO 2004 Distal RCA - PTCA/No stent TONSILLECTOMY PRIMARY/SECONDARY <AGE 11 Tonsillectomy FAMILY HISTORY Problem Relation Age of Onset Heart Mother Cancer Father Multiple myeloma and amyloidisis Heart Maternal Grandmother SOCIAL HISTORY Social History Tobacco Use Smoking status: Former Packs/day: 1.00 Years: 10.00 Additional pack years: 0.00 Total pack years: 10.00 Types: Cigarettes Quit date: 1981 Years since quittin.5 Smokeless tobacco: Never Vaping Use Vaping Use: Never used Substance Use Topics Alcohol use: Not Currently Comment: Socially wine Drug use: No REVIEW OF SYSTEMS Abdomen: No abdominal pain, nausea, vomiting, diarrhea, or constipation. No bloating, early satiety, indigestion, or increased flatulence. Bladder: No dysuria, gross hematuria, urinary frequency, urinary urgency. Has stress incontinence - does not wear protection all of the time. Not doing Kegel exercises. Breast: No breast lumps, nipple d/c, overlying skin changes, redness or skin retraction Allergies and current medication updated:Yes EXAM: BP 117/78[taken at previous appt[ Ht 5' 6.929 (1.70m) Wt 183 lb (83.0kg) BMI 28.72 kg/(m^2). GENERAL: pleasant, female in no apparent distress HEENT: Normocephalic, atraumatic, mucus membranes moist, and no lesions NECK: Supple, full range of motion, no adenopathy, and thyroid normal DERMATOLOGY: Normal, without lesions, non-icteric, and non-hirsute BREAST: soft, non-tender, symmetric, no dominant mass, normal nipple-areolar complex, no lymphadenopathy, and no nipple discharge CHEST: Normal inspiratory effort ABDOMEN: soft, non-tender, and no masses PELVIC: external genitalia normal, normal Bartholin's glands, urethra, Nabesna's glands, no vulvar lesions, no cervical lesions, physiologic discharge present, normal appearing perineal body and perianal region BIMANUAL: uterus normal size, shape and consistency, no adnexal masses, and non-tender RECTOVAGINAL: deferred. NEURO: alert and oriented x3,exam grossly non-focal EXTREMITIES: normal ASSESSMENT/PLAN: 1) Health maintenance: Pap/HPV screening no longer needed Mammogram up to date Nutrition, exercise and routine health maintenance exams reviewed. Calcium/Vitamin D supplementation information provided. Colon cancer screening: Cologuard BMD: up to date osteoporosis on alendronate. Stress incontinence -- Discussed Kegel exercises and given written instruction. 2) Follow up one year or sooner as needed Fatou Jackson APRN.RADHA documented in this encounter [facility] 03-16-2024 History of Present illness Narrative Radiology Service Progress Note PATIENT NAME: Emilie Kern DATE OF SERVICE: March 16, 2024 TIME: 1:49 PM PATIENT IDENTITY VERIFICATION COMPLETED USING TWO (2) IDENTIFIERS: Name and Date of confirmed by patient verbally. FALL SCREENING: Has the patient had 2 falls in the last year or 1 fall with injury or currently using an Ambulatory Assistive Device (Walker, Cane, Wheelchair, Crutches, etc.)? No PATIENT GENDER DATA: Female. status: : No status: NO. PATIENT RELEVANT IMPLANT DATA REVIEWED: Not Applicable PATIENT PRESENTS WITH AN IMPLANTABLE OR ATTACHED GYNECOLOGIST: No RADIOLOGY DEPARTMENT: Mammography PERIPHERAL IV DATA: Not applicable SIGNED BY: Sofiya Bryant March 16, 2024 1:49 PM documented in this encounter [facility] 03-08-2024 Telephone encounter Note She had been on tamoxifen from April 2021 up until about a month ago. She developed blurred vision in the right eye. Underwent exam and was found to have a retinal abnormality. 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 The visual defect is experienced as a georges wavy line through her central vision. She is not able to read with her right eye but can read normally with her left eye. The visual defect has been static since the time of diagnosis. Tamoxifen was discontinued. [facility] 03-08-2024 Miscellaneous Notes She had been on tamoxifen from April 2021 up until about a month ago. She developed blurred vision in the right eye. Underwent exam and was found to have a retinal abnormality. 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 The visual defect is experienced as a georges wavy line through her central vision. She is not able to read with her right eye but can read normally with her left eye. The visual defect has been static since the time of diagnosis. Tamoxifen was discontinued. documented in this encounter [facility] 12-22-2023 History of Present illness Narrative Oncologic problem(s): 1) DCIS. HPI: The patient is a 68-year-old female with a past medical history significant for coronary artery disease/fibromuscular dysplasia (ND x3; no stents or CABG), Takotsubo cardiomyopathy, nonsustained ventricular tachycardia, hyperlipidemia, and history of nephrectomy who was noted to have microcalcifications in the slight lateral and superior left breast at middle depth on a mammogram performed 12/15/2020. Patient underwent stereotactic ultrasound-guided breast biopsy on 01/22/2021. The pathology demonstrated ductal carcinoma in situ with nuclear grade 1-2/3, architectural pattern was cribriform, necrosis was present, central (expansive comedo necrosis) calcifications present. Intraductal hyperplasia with focal atypia were noted in the area of ductal carcinoma in situ. Patient underwent left breast lumpectomy on 02/08/2021. Pathology demonstrated no evidence of residual ductal carcinoma in situ. Changes consistent with previous biopsy site. Focal intraductal hyperplasia without atypia skin, dermal fibrosis consistent with scar. Margins were negative. No residual carcinoma noted in the lumpectomy specimen but the biopsy cavity was 7 mm from closest inferior margin. Specimen was both ER and IL positive and HER-2 negative with IHC 0. Previous therapy: 1) Adjuvant radiation completed 04/09/2021. 2) Tamoxifen Presents for ongoing oncologic management. Interim history: She had been on tamoxifen from April 2021 up until about a month ago. She developed blurred vision in the right eye. Underwent exam and was found to have a retinal abnormality. 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 The visual defect is experienced as a georges wavy line through her central vision. She is not able to read with her right eye but can read normally with her left eye. The visual defect has been static since the time of diagnosis. Tamoxifen was discontinued. PMH, medications and allergies personally reviewed by me today. Any changes documented in appropriate section. ROS: Constitutional: Denies episodes of fever and night sweats. Not significantly fatigued. Normal appetite. Neuro: Denies CONDON, vertigo, dizziness and imbalance. Denies symptoms of neuropathy. HEENT: No recent change in voice, vision or hearing. Resp: Denies cough, wheeze and hemoptysis. Denies shortness of breath at rest. Denies AGUIAR. CVS: Denies exertional chest pain, PND, orthopnea and LE edema. GI: Denies dysgeusia. Denies symptoms of stomatitis. Denies dysphagia and odynophagia. Denies reflux, n/v, change in bowel habits and abdominal pain. : Denies dysuria or gross hematuria. No symptoms of bladder outlet obstruction. Endo: Denies hot flashes. Denies polyuria and polydipsia. Denies heat and cold intolerance. Musculoskeletal: Denies bone, back, joint and muscular pain. Derm: Denies rash. Denies jaundice and diffuse pruritis. Heme: Denies unusual bleeding and unexplained bruising. Psych: Normal mood. Social history: Non-smoker. Rare glass of wine. Retired from [employer]. Family history: 1) Sister who had early stage breast cancer. PHYSICAL EXAM: Vitals: Blood pressure 139/85, pulse 68, temperature 36.8 C (98.2 F), temperature source Temporal, weight 83.9 kg (185 lb), SpO2 98%. Well-appearing and in no acute distress. EYES: Sclerae are anicteric bilaterally. NECK: Supple. LYMPHATIC: There is no palpable cervical, supraclavicular or axillary adenopathy. RESPIRATORY: Normal respiratory excursion. CARDIOVASCULAR: Rhythm is regular. BREAST: Not performed today. 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 -Had been symptomatically tolerating tamoxifen very well but developed retinopathy potentially related to tamoxifen use. -We discussed the potential risks and benefits of rotating to AI therapy. She already has a diagnosis of osteoporosis and is on Fosamax. She has a history of fibromuscular dysplasia and MRI had an early age. We discussed the conflicting data regarding increased cardiovascular risk with aromatase inhibitor use and I did not recommend changing therapy to that at this time. Since she had 2 and half years of tamoxifen I recommended stopping endocrine therapy at this time. Plan: -Follow-up as scheduled for mammogram and office visit in March. Portions of this documentation were copied and pasted from previous office visit notes in order to provide a cohesive continuity of the history. The note has been reviewed and edited and updated as necessary. I spent a total of 20 minutes on the date of the service which included preparing to see the patient, [id number] patient care, completing clinical documentation, obtaining and/or reviewing separately obtained history, performing a medically appropriate examination, counseling and educating the patient/family/caregiver, ordering medications, tests, or procedures, communicating with other HCPs (not separately reported), and communicating results to the patient/family/caregiver. Luis Pineda DO documented in this encounter [facility] 08-15-2023 History of Present illness Narrative Images from the original note were not included. [facility] [place] [facility] Department of Cardiovascular Medicine SECTION OF CLINICAL CARDIOLOGY OUTPATIENT VISIT DATE August 15, 2023 OUTPATIENT VISIT TYPE ESTABLISHED PRIMARY CARE PHYSICIAN: Daniel Singh [address] [place] [address] REFERRING PHYSICIAN: No referring provider defined for this encounter. 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 Kern is a 67 year old female who presents today for a cardiovascular medicine follow-up visit of her above problems. She notes no chest pain or shortness of breath. She has dropped some weight which is good. She is not exercising regularly. Blood pressure is elevated but she is not checking at home regularly.. She denies chest pain, shortness of breath, orthopnea, cough, edema, palpitations, PND, lightheadedness or syncope. PAST CARDIAC HISTORY: None, as above PAST MEDICAL HISTORY Diagnosis Date Coronary atherosclerosis of unspecified type of vessel, [place] or graft Coronary artery disease, ND x2, 1985, 1992, 2001 DCIS (ductal carcinoma in situ) 2020 left breast Dyslipidemia Enthesopathy of unspecified site 12/07/2008 Female stress incontinence Femoral bruit 06/18/2013 Hypertension INSOMNIA 12/04/2007 Myocardial infarct, old 04/26/2013 NSVT (nonsustained ventricular tachycardia) ([facility]) 04/27/2013 History: One rhythm strip from OSH showing wide complex tachycardia, up to 9 beats This in the setting of active ST elevation. Assessment: NSVT in the setting of active ischemia Plan: 1. Replace K and mag aggressively 2. Monitor closely. 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 Last admission 04/26/2013: p/w anterolateral STEMI, s/p unsuccessful PTCA to d Takotsubo cardiomyopathy / Coronary vasospasm 04/28/2013 Underwent a C on arrival 04/26/13 which showed severe disease in the distal branch of RCA that was ballooned previously. POBA was attempted but unsuccessful due to small caliber and tortuous nature. Echo 04/28: apical ballooning Assessment: likely Tacotsubo MP secondary to transient coronary vessel stenosis, wo conorany vessel obstruction on [facility] Plan: LHC 05/06/[address] Tolbert echo Unspecified hemorrhoids without mention of complication Hemorrhoids PAST SURGICAL HISTORY Procedure Laterality Date APPENDECTOMY BREAST LUMPECTOMY HX Left 02/08/2021 BX BREAST W/DEVICE 1ST LESION STEREOTACTIC GUID Left 01/22/2021 CHOLECYSTECTOMY 1970 Cholecystectomy LEFT HEART CATH 04/26/13, 05/11/2013 100% mid occlusion of RPV1 PAST SURGICAL HISTORY OF abnormal kidney removed age 6 done at [facility], still has 2 1/2 kidneys PERC TRANSL COR ANGIO 2004 Distal RCA - PTCA/No stent TONSILLECTOMY PRIMARY/SECONDARY <AGE 11 Tonsillectomy SOCIAL HISTORY Social History Tobacco Use Smoking status: Former Packs/day: 1.00 Years: 10.00 Additional pack years: 0.00 Total pack years: 10.00 Types: Cigarettes Quit date: 1981 Years since quittin.9 Smokeless tobacco: Never Vaping Use Vaping Use: Never used Substance Use Topics Alcohol use: Not Currently Comment: Socially wine Drug use: No FAMILY HISTORY Problem Relation Age of Onset Heart Mother Cancer Father Multiple myeloma and amyloidisis Heart Maternal Grandmother Patient-Entered Questionnaire Scores PROMIS Global Health - (T-Scores - the mean of general population = 50. Five points is a clinically meaningful difference.) 07/31/2021 Physical T-Score 54.1 Mental T-Score 56 Sleep Duration Level: N/A ALLERGIES: ALLERGIES No Known Allergies MEDICATIONS: isosorbide mononitrate ER (IMDUR) 30 mg 24 hr tablet Take 1 tablet by mouth once daily. tamoxifen (NOLVADEX) 20 mg tablet Take 1 tablet (20 mg) by mouth once daily. alendronate (FOSAMAX) 70 mg tablet Take 1 tablet by mouth one time a week. Take with a full glass of water, on an empty stomach; do NOT lie down for 30minutes. amLODIPine (NORVASC) 5 mg tablet Take 1 tablet by mouth once daily. atorvastatin (LIPITOR) 80 mg tablet Take 1 tablet by mouth once daily. clopidogrel (PLAVIX) 75 mg tablet Take 1 tablet by mouth once daily. lisinopril 2.5 mg tablet Take 1 tablet by mouth once daily. metoprolol succinate ER (TOPROL XL) 100 mg Take 1 tablet by mouth once daily. nitroglycerin sublingual (NITROQUICK) 0.4 mg SL tablet Dissolve 1 tablet under the tongue as needed. FOR CHEST PAIN. IF NO RELIEF CALL 911 BIOTIN ORAL Take 1 tablet by mouth once daily. ASPIRIN 81MG TABLET Take one (1) tablet daily . oxybutynin XL (DITROPAN XL) 5 mg 24 hr tablet Take 1 tablet by mouth once daily. (Patient not taking: Reported on 08/13/2023) REVIEW OF SYSTEMS: No review of systems performed PHYSICAL EXAMINATION: BP 150/74 (BP Site: Left Arm, BP Position: Sitting, BP Cuff Size: Regular Adult) Pulse (!) 50 Resp 16 Ht 172.7 cm (5' 8) Wt 78.9 kg (174 lb) SpO2 99% BMI 26.46 kg/m No physical examination performed CARDIOVASCULAR MEDICINE TESTING: Electrocardiogram: Normal sinus rhythm Laboratory Testing: Cholesterol 141, HDL 45, LDL 62 I have personally reviewed the Electrocardiogram, Laboratory Testing, and IMPRESSION: Ms. Kern is a 67 year old female presents today about proper overall, doing well. Blood pressure needs to be followed closely. Also discussed need to get into regular exercise program. PLAN AND RECOMMENDATIONS: 1. History of ST elevation myocardial infarction, coronary artery disease, stress cardiomyopathy, spontaneous coronary dissection: Continue current medications. 2. Hyperlipidemia: Continue atorvastatin 80 mg. 3. Diet exercise: Discussed need to lose weight and exercise. 4. Fibromuscular dysplasia: Supportive therapy. 5. Hypertension: Check blood pressure home with goal systolic of less than 130 mmHg 5. Disposition: Return to see me in one year with electrocardiogram and FLP. CONTACT INFORMATION: Enio Kirby M.D., F.A.C.C. Staff Resource Efficiency Manager [facility] Desk [place] [address] Office - [phone] extension [phone] Office Appointments: [phone] extension [phone] documented in this encounter [facility] 08-13-2023 Miscellaneous Notes Request from pharmacy for refills as follows: Physician - Enio Kirby MD Last ordered date 06-12-2022 Requested Prescriptions Pending Prescriptions Disp Refills atorvastatin (LIPITOR) 80 mg tablet [Pharmacy Med Name: ATORVASTATIN TAB 80MG] 90 tablet 3 Sig: take 1 tablet once daily metoprolol succinate ER (TOPROL XL) 100 mg [Pharmacy Med Name: METOPROL SUC TAB 100MG ER] 90 tablet 3 Sig: take 1 tablet once daily lisinopril 2.5 mg tablet [Pharmacy Med Name: LISINOPRIL TAB 2.5MG] 90 tablet 3 Sig: take 1 tablet once daily clopidogrel (PLAVIX) 75 mg tablet [Pharmacy Med Name: CLOPIDOGREL TAB 75MG] 90 tablet 3 Sig: take 1 tablet once daily amLODIPine (NORVASC) 5 mg tablet [Pharmacy Med Name: AMLODIPINE TAB 5MG] 90 tablet 3 Sig: take 1 tablet once daily Last appt - 06-12-2022 Next appointment 08/13/2023 Zunilda Quiñonez documented in this encounter [facility] 06-18-2023 History of Present illness Narrative Chief Complaint Patient presents with: Established Patient HPI: Emilie Kern is a 67 year old female who presents here today for follow up DCIS. Per Dr. Pineda's previous note: H/o coronary artery disease/fibromuscular dysplasia ([place] x3; no stents or CABG), Takotsubo cardiomyopathy, nonsustained ventricular tachycardia, hyperlipidemia, and history of nephrectomy who was noted to have microcalcifications in the slight lateral and superior left breast at middle depth on a mammogram performed 12/15/2020. Patient underwent stereotactic ultrasound-guided breast biopsy on 01/22/2021. The pathology demonstrated ductal carcinoma in situ with nuclear grade 1-2/3, architectural pattern was cribriform, necrosis was present, central (expansive comedo necrosis) calcifications present. Intraductal hyperplasia with focal atypia were noted in the area of ductal carcinoma in situ. Patient underwent left breast lumpectomy on 02/08/2021. Pathology demonstrated no evidence of residual ductal carcinoma in situ. Changes consistent with previous biopsy site. Focal intraductal hyperplasia without atypia skin, dermal fibrosis consistent with scar. Margins were negative. No residual carcinoma noted in the lumpectomy specimen but the biopsy cavity was 7 mm from closest inferior margin. Specimen was both ER and IL positive and HER-2 negative with IHC 0. Previous therapy: 1) Adjuvant radiation completed 04/09/2021. Current therapy:Tamoxifen Pt. has not started tamoxifen yet d/t retinal tear and needed to have surgery. Rx given 04/23/21. Pt. began tamoxifen 2020. No new concerns today. Appetite:Good. Energy level:The same. Good. Denies fevers or recent illness. Resp:denies cough or sob Cardiac:denies chest pain/palpitations GI:denies abd pain, n/v, moving bowels regularly :denies dysuria/hematuria Extrem:denies pain Endo:denies hot flashes Neuro:denies symptoms of neuropathy Skin:denies rashes Heme:denies bleeding, up to date on INVENTORY CONTROL ASSISTANT exam The ROS is otherwise negative. Past medical history, appointments, medications, allergies reviewed. No changes. EXAM: BP 124/73 Pulse 60 Temp 36.9 C (98.5 F) (Temporal) Wt 81.6 kg (180 lb) SpO2 97% BMI 28.19 kg/m APPEARANCE Well appearing, alert, in no acute distress, well-hydrated, well nourished. HEART RRR with normal S1 and S2, no murmurs LUNG clear to auscultation BREAST FEMALE no mass/nodule b/l LYMPH NODES No cervical lymphadenopathy, No supraclavicular lymphadenopathy, and No axillary lymphadenopathy. ABDOMEN bowel sounds normoactive, soft, non-tender EXTREMITIES No edema NEURO Awake, alert and oriented x 3, Normal gait, and No involuntary motions. SKIN Skin color, texture, turgor normal, no suspicious rashes or lesions ASSESSMENT/PLAN: 1. Ductal carcinoma in situ (DCIS) of left breast - ICD9: 233.0, ICD10: D05.12 (primary diagnosis) Per Dr. Pineda's previous note 04/23/21: Assessment: -Tolerated radiation very well. -Again discussed risks and benefits associated with tamoxifen and aromatase inhibitor therapy. I recommended tamoxifen based on potential cardiovascular protective potential. She understands there is an increased risk of venous thromboembolism. I do not recommend rotation of her to therapy based on possible small increase in cardiovascular risk in the setting of her history of fibromuscular dysplasia. Plan: -Rx tamoxifen. -OV in about 4 to 6 weeks for survivorship care plan. - No concerning findings on exam. - Tolerating tamoxifen well. - Continue tamoxifen. - Mammogram due in February. - Please schedule INVENTORY CONTROL ASSISTANT yearly same day as mamm end February-Kedar Jackson. - Follow up same day as above. - Pt. aware to call office with any questions/concerns. The patient indicates understanding of these issues and agrees with the plan. All documentation from previous visit of 02/28/22-Dr. Pineda/myself was copied and pasted, documentation has been reviewed and edited as necessary for today's visit. Merari Rush APRN.CNP documented in this encounter [facility] 03-07-2023 Miscellaneous Notes March 07, 2023 PID: [id number] Emilie Kern [address] [place] [id number] Dear Thomas Kern, We are pleased to inform you that the results of your recent breast imaging exam on 03/06/2023 are normal. Your mammogram demonstrates that you have dense breast tissue, which could hide abnormalities. Dense breast tissue, in and of itself, is a relatively common condition. Therefore, this information is not provided to cause undue concern; rather, it is to raise your awareness and promote discussion with your health care provider regarding the presence of dense breast tissue in addition to other risk factors. Early detection of cancer is very important. We also understand recommendations regarding breast cancer screening are controversial. Please discuss with your primary care provider which strategy is best for you and whether a mammogram is right for you. Your imaging studies and report will be kept on file at [facility] as part of your permanent medical record and are available for your continuing care. Thank you for allowing us to help in meeting your health care needs. Sincerely, Dr. Escobar Interpreting Radiologist [facility] (Normal over 40) documented in this encounter [facility] 03-06-2023 Instructions Fatou Jackson APRN.CNP - 03/06/2023 3:34 PM EDT How To Perform Pelvic Floor (Kegel) Exercises These exercises help to strengthen the pelvic floor muscles and can help improve bladder control for women. 1. You should have been instructed in the office how to contract these muscles. At home, you can insert two fingers in the vagina and feel the contraction of these muscles as you squeeze. We call these muscles the pelvic floor because they help support the pelvic organs, especially during coughing and sneezing. Squeezing the pelvic floor while standing feels like you are lifting the area around the vagina, and will interrupt the stream of urine while voiding. Once you are certain which muscles to use, do not exercise while urinating. Make sure you are not bearing down, squeezing your buttocks, or straining abdominally: these are not the muscles to be exercised. You may wish to place hands on your buttock muscles to keep these muscles relaxed while performing the exercises. 2. Squeeze these muscles as hard as you can for a slow count of five, eventually working up to a slow count of ten. Rest for 15 seconds, and then start another contraction. At first. these muscles may feel sore, just as other muscles may feel sore after exercise. 3. You should perform 50 squeezes every day: make sure every squeeze count by micaela as hard as you can! Many women try to do these exercises in sets of five or ten at a time. Remind yourself to do these exercises by starting them every time you are waiting at a red light, watching a television commercial, or on hold on the telephone. If you are having trouble concentrating, you may want to set aside a special time to perform sets of pelvic floor exercises. 4. In addition to the long, hard contractions you are doing try doing some quick flicks of these muscles throughout the day. 5. You should be seen in the office after starting these exercises to make sure you are performing the contraction correctly: you may have never known how to contract these muscles before starting pelvic floor exercises, and many patients mistakenly exercise the wrong muscles. If you still feel frustrated about which muscles to use ask us for help. There are physical therapy specialists who work with pelvic floor muscles. 6. Work hard! As with any exercise program, improvement often is related to how faithfully you adhere to your exercise program. Pelvic floor exercises do not have the side effects and expense associated with other treatments for urinary incontinence, and have been known to help with severe stress incontinence. It may take several months to see the full effect of your exercise program: if you are easily discouraged, see your doctor or doctor at regular visits to assess what progress you are making. Techniques to avoid urinary accidents: Empty your bladder regularly and prior to physical activity. Avoid activity that causes leakage, if possible. Avoid or moderate the intake of alcohol and caffeine products. Try to restrict fluids prior to planned activities. Wear appropriate protection. Prevent chronic coughing which can cause a loss of urinary control. Ways to prevent chronic coughing include treating asthma, restricting smoking, and removing allergy-causing agents from your environment. documented in this encounter [facility] 03-06-2023 History of Present illness Narrative 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 Emilie is a 67 year old who presents for an annual gynecologic exam without complaints. History of DCIS left breast and currently taking tamoxifen with plans to continue for total of 5 years. Postmenopausal: Yes since age 49 HRT use: No. Last Pap: 2018 normal [place] HPV: 2019 negative History of abnormal pap: No Last mammogram: today, pending History of abnormal mammogram: Yes 2020 DCIS left breast - left lumpectomy, radiation and currently taking tamoxifen Sexually active: No Hot flashes: No Night sweats: No Vaginal dryness: No Documentation from previous visit of 03/04/2022 was copied and pasted, documentation has been reviewed and edited as necessary for today's visit. OB History T0 L0 SAB0 IAB0 Ectopic0 Multiple0 Live Births0 Comment: 2 stepkids 5 grandkids [place] History LMP: Postmenopausal Age at Menarche: Age at First : Age at Menopause: [place] History Comments: Sexual Activity: Not Currently; Male Contraception: No contraception data on record PAST MEDICAL HISTORY Diagnosis Date Coronary atherosclerosis of unspecified type of vessel, [place] or graft Coronary artery disease, [place] x2, 1985, 1992, 2001 DCIS (ductal carcinoma in situ) 2020 left breast Dyslipidemia Enthesopathy of unspecified site 12/07/2008 Femoral bruit 06/18/2013 Hypertension INSOMNIA 12/04/2007 Myocardial infarct, old 04/26/2013 NSVT (nonsustained ventricular tachycardia) (HCC) 04/27/2013 History: One rhythm strip from OSH showing wide complex tachycardia, up to 9 beats This in the setting of active ST elevation. Assessment: NSVT in the setting of active ischemia Plan: 1. Replace K and mag aggressively 2. Monitor closely. 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 Last admission 04/26/2013: p/w anterolateral STEMI, s/p unsuccessful PTCA to d Takotsubo cardiomyopathy / Coronary vasospasm 04/28/2013 Underwent a LHC on arrival 04/26/13 which showed severe disease in the distal branch of RCA that was ballooned previously. POBA was attempted but unsuccessful due to small caliber and tortuous nature. Echo 04/28: apical ballooning Assessment: likely Tacotsubo MP secondary to transient coronary vessel stenosis, wo conorany vessel obstruction on LHC Plan: LHC 05/06/[address] Tolbert echo Unspecified hemorrhoids without mention of complication Hemorrhoids PAST SURGICAL HISTORY Procedure Laterality Date APPENDECTOMY BREAST LUMPECTOMY HX Left 02/08/2021 BX BREAST W/DEVICE 1ST LESION STEREOTACTIC GUID Left 01/22/2021 CHOLECYSTECTOMY 1970 Cholecystectomy LEFT HEART CATH 04/26/13, 05/11/2013 100% mid occlusion of RPV1 PAST SURGICAL HISTORY OF abnormal kidney removed age 6 done at [facility], still has 2 1/2 kidneys PERC TRANSL COR ANGIO 2004 Distal RCA - PTCA/No stent TONSILLECTOMY PRIMARY/SECONDARY <AGE 11 Tonsillectomy FAMILY HISTORY Problem Relation Age of Onset Heart Mother Cancer Father Multiple myeloma and amyloidisis Heart Maternal Grandmother SOCIAL HISTORY Social History Tobacco Use Smoking status: Former Packs/day: 1.00 Years: 10.00 Pack years: 10.00 Types: Cigarettes Quit date: 1981 Years since quittin.5 Smokeless tobacco: Never Vaping Use Vaping Use: Never used Substance Use Topics Alcohol use: Not Currently Comment: Socially wine Drug use: No REVIEW OF SYSTEMS Abdomen: No abdominal pain, nausea, vomiting, diarrhea, or constipation. No bloating, early satiety, indigestion, or increased flatulence. Bladder: No dysuria, gross hematuria, urinary frequency, urinary urgency, or incontinence + Stress incontinence - Wears panty liner 31/03. Never started oxybutynin prescribed by PCP. Breast: No breast lumps, nipple d/c, overlying skin changes, redness or skin retraction Allergies and current medication updated:Yes EXAM: BP 120/62 Ht 5' 7 (1.70m) Wt 178 lb (80.7kg) BMI 27.87 kg/(m^2). GENERAL: pleasant, female in no apparent distress HEENT: Normocephalic, atraumatic, mucus membranes moist, and no lesions NECK: Supple, full range of motion, no adenopathy, and thyroid normal DERMATOLOGY: Normal, without lesions, non-icteric, and non-hirsute BREAST: soft, non-tender, symmetric, no dominant mass, normal nipple-areolar complex, no lymphadenopathy, and no nipple discharge CHEST: Normal inspiratory effort ABDOMEN: soft, non-tender, and no masses PELVIC: external genitalia normal, normal Bartholin's glands, urethra, Nabesna's glands, no vulvar lesions, no cervical lesions, physiologic discharge present, normal appearing perineal body and perianal region BIMANUAL: uterus normal size, shape and consistency, no adnexal masses, and non-tender RECTOVAGINAL: deferred. NEURO: alert and oriented x3,exam grossly non-focal EXTREMITIES: normal ASSESSMENT/PLAN: 1) Health maintenance: Pap/HPV screening no longer needed Mammogram ordered Mammogram up to date Nutrition, exercise and routine health maintenance exams reviewed. Calcium/Vitamin D supplementation information provided. Colon cancer screening: Cologuard 2022 negative BMD: up to date 2021 osteoporosis managed by PCP. Has not started alendronate. Discussed risks of osteoporosis and treatment with pt and she plans to start alendronate. 2. History of ductal carcinoma in situ (DCIS) of breast - ICD9: V13.89, ICD10: Z86.000 - currently taking tamoxifen 3. Use of tamoxifen (Nolvadex) - ICD9: V07.51, ICD10: Z79.810 4. Stress incontinence - ICD9: [id number], ICD10: N39.3 - Discussed Kegel exercises and given written instruction. Discussed pelvic floor therapy if desired. Will do Kegel exercises and let me know if she would like consult. 5) Follow up one year due to tamoxifen therapy or sooner as needed Fatou Jackson APRN.RADHA documented in this encounter [facility] 03-06-2023 History of Present illness Narrative Radiology Service Progress Note PATIENT NAME: Emilie Kern DATE OF SERVICE: March 06, 2023 TIME: 2:21 PM PATIENT IDENTITY VERIFICATION COMPLETED USING TWO (2) IDENTIFIERS: Name and Date of confirmed by patient verbally. FALL SCREENING: Has the patient had 2 falls in the last year or 1 fall with injury or currently using an Ambulatory Assistive Device (Walker, Cane, Wheelchair, Crutches, etc.)? No PATIENT GENDER DATA: Female. status: : No status: NO. PATIENT RELEVANT IMPLANT DATA REVIEWED: Not Applicable RADIOLOGY DEPARTMENT: Mammography PERIPHERAL IV DATA: Not applicable SIGNED BY: RT Kun(R) March 06, 2023 2:21 PM documented in this encounter [facility] 09-17-2022 Miscellaneous Notes Request from pharmacy for refills as follows: Requested Prescriptions Pending Prescriptions Disp Refills nitroglycerin sublingual (NITROQUICK) 0.4 mg SL tablet [Pharmacy Med Name: NITROGLYCERN SUB 0.4MG] 25 tablet 3 Sig: PLACE 1 TABLET UNDER THE TONGUE AND ALLOW TO DISSOLVE NEEDED FOR CHEST PAIN . IF NO RELIEF CALL 911. Last encounter with this provider 06/12/2022 Last office visit in this department was 06/12/2022 Next appointment in this department Visit date not found [facility] documented in this encounter [facility] 08-15-2022 History of Present illness Narrative Chief Complaint Patient presents with: Established Patient HPI: Emilie Kern is a 66 year old female who presents here today for follow up DCIS. Per Dr. Pineda's previous note: H/o coronary artery disease/fibromuscular dysplasia ([place] x3; no stents or CABG), Takotsubo cardiomyopathy, nonsustained ventricular tachycardia, hyperlipidemia, and history of nephrectomy who was noted to have microcalcifications in the slight lateral and superior left breast at middle depth on a mammogram performed 12/15/2020. Patient underwent stereotactic ultrasound-guided breast biopsy on 01/22/2021. The pathology demonstrated ductal carcinoma in situ with nuclear grade 1-2/3, architectural pattern was cribriform, necrosis was present, central (expansive comedo necrosis) calcifications present. Intraductal hyperplasia with focal atypia were noted in the area of ductal carcinoma in situ. Patient underwent left breast lumpectomy on 02/08/2021. Pathology demonstrated no evidence of residual ductal carcinoma in situ. Changes consistent with previous biopsy site. Focal intraductal hyperplasia without atypia skin, dermal fibrosis consistent with scar. Margins were negative. No residual carcinoma noted in the lumpectomy specimen but the biopsy cavity was 7 mm from closest inferior margin. Specimen was both ER and IL positive and HER-2 negative with IHC 0. Previous therapy: 1) Adjuvant radiation completed 04/09/2021. Current therapy:Tamoxifen Pt. has not started tamoxifen yet d/t retinal tear and needed to have surgery. Rx given 04/23/21. Pt. began tamoxifen 2020. No new concerns today. Appetite:Good. Energy level:The same. Good. Denies fevers or recent illness. Resp:denies cough or sob Cardiac:denies chest pain/palpitations GI:denies abd pain, n/v, moving bowels regularly :denies dysuria/hematuria Extrem:denies pain Endo:denies hot flashes Neuro:denies symptoms of neuropathy Skin:denies rashes Heme:denies bleeding, up to date on INVENTORY CONTROL ASSISTANT exam The ROS is otherwise negative. Past medical history, appointments, medications, allergies reviewed. No changes. EXAM: BP 134/65 Pulse (!) 58 Temp 36.5 C (97.7 F) Wt 86.2 kg (190 lb) BMI 29.76 kg/m APPEARANCE Well appearing, alert, in no acute distress, well-hydrated, well nourished. HEART RRR with normal S1 and S2, no murmurs LUNG clear to auscultation BREAST FEMALE no mass/nodule b/l LYMPH NODES No cervical lymphadenopathy, No supraclavicular lymphadenopathy, and No axillary lymphadenopathy. ABDOMEN bowel sounds normoactive, soft, non-tender EXTREMITIES No edema NEURO Awake, alert and oriented x 3 SKIN Skin color, texture, turgor normal, no suspicious rashes or lesions ASSESSMENT/PLAN: 1. Ductal carcinoma in situ (DCIS) of left breast - ICD9: 233.0, ICD10: D05.12 (primary diagnosis) Per Dr. Pineda's previous note 04/23/21: Assessment: -Tolerated radiation very well. -Again discussed risks and benefits associated with tamoxifen and aromatase inhibitor therapy. I recommended tamoxifen based on potential cardiovascular protective potential. She understands there is an increased risk of venous thromboembolism. I do not recommend rotation of her to therapy based on possible small increase in cardiovascular risk in the setting of her history of fibromuscular dysplasia. Plan: -Rx tamoxifen. -OV in about 4 to 6 weeks for survivorship care plan. - No concerning findings on exam. - Tolerating tamoxifen well. Rx sent. - Continue tamoxifen. - Needs an est care appt. with PCP. - Mammogram due in February. - Please schedule INVENTORY CONTROL ASSISTANT yearly same day as mamm-Kedar Jackson. - Follow up after above. - Pt. aware to call office with any questions/concerns. The patient indicates understanding of these issues and agrees with the plan. All documentation from previous visit of 02/28/22-Dr. Pineda/myself was copied and pasted, documentation has been reviewed and edited as necessary for today's visit. Merari Rush APRN.[employer] M[employer] HAND documented in this encounter [facility] 08-15-2022 Nurse Note Est. Pt. 6 month follow, last mamm 03/04 Sharla Kirby LPN documented in this encounter [facility] 06-12-2022 Instructions Enio Kirby MD - 06/12/2022 1:44 PM EDT Get into a regular exercise program on a daily basis. Start walking daily today. documented [facility] [facility] History of Present illness Narrative Images from the original note were not included. [facility] [place] [facility] Department of Cardiovascular Medicine SECTION OF CLINICAL CARDIOLOGY OUTPATIENT VISIT DATE June 12, 2022 OUTPATIENT VISIT TYPE ESTABLISHED PRIMARY CARE PHYSICIAN: To use this Smartlink, specify the provider ID whose address you want to display, e.g., .PROVADDR[1 (where 1 is the provider ID). REFERRING PHYSICIAN: Enio Gomez 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 Kern is a 66 year old female who presents today for a cardiovascular medicine follow-up visit of her above problems. She notes no chest pain or shortness of breath. He is tolerating medications well. Blood pressure under good control. She continues to have issues with regards to not initiating her exercise program. She denies chest pain, shortness of breath, orthopnea, cough, edema, palpitations, PND, lightheadedness or syncope. PAST CARDIAC HISTORY: None, as above PAST MEDICAL HISTORY Diagnosis Date Coronary atherosclerosis of unspecified type of vessel, [place] or graft Coronary artery disease, ND x2, 1984, 1992, 2001 DCIS (ductal carcinoma in situ) 2020 left breast Dyslipidemia Hypertension Myocardial infarct, old 04/26/2013 Unspecified hemorrhoids without mention of complication Hemorrhoids PAST SURGICAL HISTORY Procedure Laterality Date APPENDECTOMY BREAST LUMPECTOMY HX Left 02/08/2021 BX BREAST W/DEVICE 1ST LESION STEREOTACTIC GUID Left 01/22/2021 CHOLECYSTECTOMY 1970 Cholecystectomy LEFT HEART CATH 04/26/13, 05/11/2013 100% mid occlusion of RPV1 PAST SURGICAL HISTORY OF abnormal kidney removed age 6 done at [facility], still has 2 1/2 kidneys PERC TRANSL COR ANGIO 2004 Distal RCA - PTCA/No stent TONSILLECTOMY PRIMARY/SECONDARY <AGE 11 Tonsillectomy SOCIAL HISTORY Social History Tobacco Use Smoking status: Former Packs/day: 1.00 Years: 10.00 Pack years: 10.00 Types: Cigarettes Quit date: 1981 Years since quittin.7 Smokeless tobacco: Never Vaping Use Vaping Use: Never used Substance Use Topics Alcohol use: Yes Alcohol/week: 7.0 standard drinks Types: 7 Glasses of Wine (5oz) per week Comment: Socially wine Drug use: No FAMILY HISTORY Problem Relation Age of Onset Heart Mother Cancer Father Multiple myeloma and amyloidisis Heart Maternal Grandmother ALLERGIES: ALLERGIES No Known Allergies MEDICATIONS: tamoxifen (NOLVADEX) 20 mg tablet Take 1 tablet (20 mg) by mouth once daily. BIOTIN ORAL Take 1 tablet by mouth once daily. ASPIRIN 81MG TABLET Take one (1) tablet daily . amLODIPine (NORVASC) 5 mg tablet Take 1 tablet by mouth once daily. atorvastatin (LIPITOR) 80 mg tablet Take 1 tablet by mouth once daily. clopidogrel (PLAVIX) 75 mg tablet Take 1 tablet by mouth once daily. isosorbide mononitrate ER (IMDUR) 30 mg 24 hr tablet Take 1 tablet by mouth once daily. lisinopril 2.5 mg tablet Take 1 tablet by mouth once daily. metoprolol succinate ER (TOPROL XL) 100 mg Take 1 tablet by mouth once daily. nitroglycerin sublingual (NITROQUICK) 0.4 mg SL tablet Dissolve 1 tablet under the tongue as needed. FOR CHEST PAIN. IF NO RELIEF CALL 911 REVIEW OF SYSTEMS: No review of systems performed PHYSICAL EXAMINATION: BP 121/50 (BP Site: Right Arm, BP Position: Sitting, BP Cuff Size: Regular Adult) Pulse (!) 52 Ht 170.2 cm (5' 7) Wt 83.2 kg (183 lb 8 oz) SpO2 98% BMI 28.74 kg/m General: Well appearing, in no acute distress. Skin: No clubbing, no cyanosis. Eyes: Extra ocular movements intact Oropharynx: Teeth in good repair. Neck: No jugular venous distention, no carotid bruits, carotids have a normal upstroke, no palpable thyromegaly. Lungs: Clear to auscultation bilaterally, no wheezing or rhonchi. Heart: Regular rhythm, PMI not displaced, S1, S2 normal, no S3, no S4, no heaves, no rub and no murmur. Abdomen: Soft, nontender, bowel sounds normal, no palpable organomegaly, no bruits. Extremities: No peripheral edema . Grade 2/4 distal pulses bilaterally. Neuro: Oriented to person, place and time, alert, cooperative, gait coordinated. CARDIOVASCULAR MEDICINE TESTING: Electrocardiogram: Sinus bradycardia Laboratory Testing: Cholesterol 174, LDL May Echocardiogram: Preserved ejection fraction April 2013 I have personally reviewed the Electrocardiogram and Laboratory Testing. IMPRESSION: Ms. Kern is a 66 year old female presents with above problems. Clinically stable. No progression of disease. Blood pressure under good control. Discussed need to initiate exercise program for overall health and functional capacity as she becomes older. PLAN AND RECOMMENDATIONS: 1. History of ST elevation myocardial infarction, coronary artery disease, stress cardiomyopathy, spontaneous coronary dissection: Continue current medications. 2. Hyperlipidemia: Continue atorvastatin 80 mg. 3. Diet exercise: Discussed need to lose weight and exercise. 4. Fibromuscular dysplasia: Supportive therapy. 5. Hypertension: Check blood pressure home with goal systolic of less than 130 mmHg - currently doing well. 5. Disposition: Return to see me in one year with electrocardiogram and FLP. CONTACT INFORMATION: Enio Kirby M.D., Mónica. Staff Resource Efficiency Manager [facility] Desk [id number] [id number] Office - [phone] extension [phone] Office Appointments: [phone] extension [phone] documented in this encounter [facility] 04-10-2022 History of Present illness Narrative Radiology Service Progress Note PATIENT NAME: Emilie Kern DATE OF SERVICE: April 10, 2022 TIME: 2:06 PM PATIENT IDENTITY VERIFICATION COMPLETED USING TWO (2) IDENTIFIERS: Name and Date of confirmed by patient verbally. FALL SCREENING: Has the patient had 2 falls in the last year or 1 fall with injury or currently using an Ambulatory Assistive Device (Walker, Cane, Wheelchair, Crutches, etc.)? No PATIENT GENDER DATA: Female. status: : No status: NO. PATIENT RELEVANT IMPLANT DATA REVIEWED: Not Applicable RADIOLOGY DEPARTMENT: Bone Density PERIPHERAL IV DATA: Not applicable SIGNED BY: RT Saurabh(R) April 10, 2022 2:06 PM documented in this encounter [facility] 03-04-2022 Instructions Fatou Jackson APRN.PLATE MILL MILL HAND - 03/04/2022 1:58 PM EDT How To Perform Pelvic Floor (Kegel) Exercises These exercises help to strengthen the pelvic floor muscles and can help improve bladder control for women. 1. You should have been instructed in the office how to contract these muscles. At home, you can insert two fingers in the vagina and feel the contraction of these muscles as you squeeze. We call these muscles the pelvic floor because they help support the pelvic organs, especially during coughing and sneezing. Squeezing the pelvic floor while standing feels like you are lifting the area around the vagina, and will interrupt the stream of urine while voiding. Once you are certain which muscles to use, do not exercise while urinating. Make sure you are not bearing down, squeezing your buttocks, or straining abdominally: these are not the muscles to be exercised. You may wish to place hands on your buttock muscles to keep these muscles relaxed while performing the exercises. 2. Squeeze these muscles as hard as you can for a slow count of five, eventually working up to a slow count of ten. Rest for 15 seconds, and then start another contraction. At first. these muscles may feel sore, just as other muscles may feel sore after exercise. 3. You should perform 50 squeezes every day: make sure every squeeze count by micaela as hard as you can! Many women try to do these exercises in sets of five or ten at a time. Remind yourself to do these exercises by starting them every time you are waiting at a red light, watching a television commercial, or on hold on the telephone. If you are having trouble concentrating, you may want to set aside a special time to perform sets of pelvic floor exercises. 4. In addition to the long, hard contractions you are doing try doing some quick flicks of these muscles throughout the day. 5. You should be seen in the office after starting these exercises to make sure you are performing the contraction correctly: you may have never known how to contract these muscles before starting pelvic floor exercises, and many patients mistakenly exercise the wrong muscles. If you still feel frustrated about which muscles to use ask us for help. There are physical therapy specialists who work with pelvic floor muscles. 6. Work hard! As with any exercise program, improvement often is related to how faithfully you adhere to your exercise program. Pelvic floor exercises do not have the side effects and expense associated with other treatments for urinary incontinence, and have been known to help with severe stress incontinence. It may take several months to see the full effect of your exercise program: if you are easily discouraged, see your doctor or doctor at regular visits to assess what progress you are making. Techniques to avoid urinary accidents: Empty your bladder regularly and prior to physical activity. Avoid activity that causes leakage, if possible. Avoid or moderate the intake of alcohol and caffeine products. Try to restrict fluids prior to planned activities. Wear appropriate protection. Prevent chronic coughing which can cause a loss of urinary control. Ways to prevent chronic coughing include treating asthma, restricting smoking, and removing allergy-causing agents from your environment. Calcium and Vitamin D Supplementation (from the National Institutes of Health Office of Dietary Supplements 2011) Calcium 1200 mg daily - 600 mg twice a day if taking supplement and Vit D 800-1000 IU daily Calcium is required by the body for blood vessel, muscle, hormone and nerve functioning. Most of the body's calcium is stored in the bones and teeth where it supports structure and function. Bone is continuously broken down and reformed. When bone breakdown exceeds formation, especially in postmenopausal women, bone loss can increase the risk of osteoporosis and fractures. In addition to low calcium intake, women who smoke, have a family history of osteoporosis, are thin, or , or who take certain medications such as cancer chemotherapy, seizure mediations and steroids are at increased risk of osteoporosis. The calcium requirements in women change with age. The National Institutes of Health (NIH) recommends: 1000mg elemental calcium for premenopausal women age 19-50 1200mg elemental calcium for postmenopausal women and all women over 50 Milk, yogurt, and cheese are rich natural sources of calcium and are the major food contributors in the [place]. For example, 8oz of milk (whole, lowfat or skim) contains about 300mg calcium, 8oz of yogurt contains 415mg. Nondairy sources include salmon and sardines and vegetables, such as English cabbage, kale, and broccoli. Foods fortified with calcium include many fruit juices, tofu and cereals. For more food calcium content information, visit http://ods.od.nih.gov/factsheets/c alcium. Calcium supplements come in several different forms. Remember that the recommendations are for millgrams (mg) of elemental calcium which may be less than the total weight of the supplement. The amount of elemental calcium is required to be printed on the label. Calcium carbonate is the least expensive form. It must be taken on a full stomach to be properly absorbed. Some patients may experience gas or constipation. Calcium phosphate and calcium citrate may be taken either with or without food and tend to have less side effects but are generally more expensive. Because of its ability to neutralize stomach acid, calcium carbonate is found in some [id number] antacid products, such as Tums and Rolaids . Depending on its strength, each chewable pill or softchew provides 200 to 400 mg of elemental calcium. The percentage of calcium absorbed depends on the total amount of elemental calcium consumed at one time. Absorption is highest in doses <500mg. So a woman who takes 1,000mg/day of calcium from supplements should split the dose and take 500mg at two separate times during the day. Too much calcium can cause kidney stones, constipation, difficulty absorbing other nutrients and calcium buildup in blood vessels. Women under 50 should not exceed 2500mg/day (2000mg/day for women over 50) of calcium from food and supplements. Excessive alcohol and caffeine intake can inhibit absorption of calcium. Calcium can reduce the absorption of some medications if taken at the same time of day (bisphosphonates, thyroid medication, Phenytoin and other seizure medications, some antibiotics and iron supplements). Vitamin D promotes calcium absorption in the gut and maintains adequate blood levels of calcium and phosphate for normal bone growth and bone remodeling. Vitamin D also helps regulate cell growth as well as nerve, muscle and immune system function. Vitamin D is produced in the skin as a result of ultraviolet sunlight rays and must be altered in the liver and kidney to become its active form. Recommended intake according to the National Institutes of Health is 600 International Units (IU) for girls and women ages 1-70 and 800 IU for women over 70. Very few foods in nature contain vitamin D. The flesh of fatty fish (such as salmon, tuna, and mackerel) and fish liver oils are among the best sources. Small amounts of vitamin D are found in beef liver, cheese, mushrooms and egg yolks. Most people meet at least some of their vitamin D needs through exposure to sunlight. Season, time of day, length of day, cloud cover, smog, skin melanin content, and sunscreen are among the factors that affect UV radiation exposure and vitamin D synthesis. Despite the importance of the sun for vitamin D synthesis, it is prudent to limit exposure of skin to sunlight and avoid tanning beds. UV radiation is a carcinogen responsible for most of the estimated 1.5 million skin cancers that occur annually in the [place]. Lifetime cumulative UV damage to skin is also responsible for some age-associated dryness and other cosmetic changes. In supplements and fortified foods, vitamin D is available in two forms, D2 (ergocalciferol) and D3 (cholecalciferol). The two are equivalent at normal supplement doses. For women who require high supplement doses because of vitamin D deficiency, D3 may work better to raise blood levels. Some medications can prevent proper absorption of Vitamin D. These include laxatives, corticosteroids like prednisone, the seizure drugs phenobarbital and phenytoin, the weight-loss drug orlistat ( Xenical and AlliTM) and the cholesterol-lowering drug cholestyramine (Questran , LoCholest , and Prevalite ). Talk to your doctor about adjusting your recommended daily vitamin D dosage if you take these medications. You should not exceed 4000 mg of vitamin D supplementation daily unless specifically prescribed by your doctor. documented in this encounter [facility] 03-04-2022 Miscellaneous Notes March 04, 2022 PID: [id number] Emilie Kern [address] [place] [id number] Dear Ms. Kern, We are pleased to inform you that the results of your recent breast imaging exam on 03/04/2022 are normal. Your mammogram demonstrates that you have dense breast tissue, which could hide abnormalities. Dense breast tissue, in and of itself, is a relatively common condition. Therefore, this information is not provided to cause undue concern; rather, it is to raise your awareness and promote discussion with your health care provider regarding the presence of dense breast tissue in addition to other risk factors. Early detection of cancer is very important. We also understand recommendations regarding breast cancer screening are controversial. Please discuss with your primary care provider which strategy is best for you and whether a mammogram is right for you. Your imaging studies and report will be kept on file at [facility] as part of your permanent medical record and are available for your continuing care. Thank you for allowing us to help in meeting your health care needs. Sincerely, Dr. Post Interpreting Radiologist [facility] (Normal over 40) documented in this encounter [facility] 03-04-2022 History of Present illness Narrative Emilie is a 66 year old who presents for an annual gynecologic exam without complaints. Postmenopausal: Yes since age 49 HRT use: No. Last Pap: 2018 normal [place] HPV: 2019 negative History of abnormal pap: No Last mammogram: today, pending History of abnormal mammogram: Yes 2020 DCIS left breast - left lumpectomy, radiation and currently taking tamoxifen Sexually active: No Hot flashes: No Night sweats: No Vaginal dryness: No OB History T0 L0 SAB0 IAB0 Ectopic0 Multiple0 Live Births0 Comment: 2 stepkids 5 grandkids [place] History LMP: Postmenopausal Age at Menarche: Age at First : Age at Menopause: [place] History Comments: Sexual Activity: Not Currently; No partner data on record Contraception: No contraception data on record PAST MEDICAL HISTORY Diagnosis Date Coronary atherosclerosis of unspecified type of vessel, [place] or graft Coronary artery disease, [place] x2, 1985, 1992 DCIS (ductal carcinoma in situ) 2020 left breast Dyslipidemia Hypertension Myocardial infarct, old 04/26/2013 Unspecified hemorrhoids without mention of complication Hemorrhoids PAST SURGICAL HISTORY Procedure Laterality Date APPENDECTOMY BREAST LUMPECTOMY HX Left 02/08/2021 BX BREAST W/DEVICE 1ST LESION STEREOTACTIC GUID Left 01/22/2021 CHOLECYSTECTOMY 1970 Cholecystectomy LEFT HEART CATH 04/26/13, 05/11/2013 100% mid occlusion of RPV1 PAST SURGICAL HISTORY OF abnormal kidney removed age 6 done at [facility], still has 2 1/2 kidneys PERC TRANSL COR ANGIO 2004 Distal RCA - PTCA/No stent TONSILLECTOMY PRIMARY/SECONDARY <AGE 11 Tonsillectomy FAMILY HISTORY Problem Relation Age of Onset Heart Mother Cancer Father Multiple myeloma and amyloidisis Heart Maternal Grandmother SOCIAL HISTORY Social History Tobacco Use Smoking status: Former Smoker Packs/day: 1.00 Years: 10.00 Pack years: 10.00 Types: Cigarettes Quit date: 1981 Years since quittin.5 Smokeless tobacco: Never Used Vaping Use Vaping Use: Never used Substance Use Topics Alcohol use: Yes Alcohol/week: 7.0 standard drinks Types: 7 Glasses of Wine (5oz) per week Comment: Socially wine Drug use: No REVIEW OF SYSTEMS Abdomen: No abdominal pain, nausea, vomiting, diarrhea, or constipation. No bloating, early satiety, indigestion, or increased flatulence. Bladder: No dysuria, gross hematuria, urinary frequency, urinary urgency. + Stress incontinence - worse over the past several months. Wears panty liner if going someplace. Breast: No breast lumps, nipple d/c, overlying skin changes, redness or skin retraction Allergies and current medication updated:Yes EXAM: BP 114/72 Ht 5' 7 (1.70m) Wt 176 lb 12.8 oz (80.2kg) BMI 27.68 kg/(m^2). GENERAL: pleasant, female in no apparent distress HEENT: Normocephalic, atraumatic, mucus membranes moist and no lesions NECK: Supple, full range of motion, no adenopathy and thyroid normal DERMATOLOGY: Normal, non-icteric and non-hirsute. Contact dermatitis after exposure to poison malaika BREAST: soft, non-tender, symmetric, no dominant mass, normal nipple-areolar complex, no lymphadenopathy and no nipple discharge CHEST: Normal inspiratory effort ABDOMEN: soft, non-tender and no masses PELVIC: external genitalia normal, normal Bartholin's glands, urethra, Nabesna's glands, no vulvar lesions, no cervical lesions, physiologic discharge present, normal appearing perineal body and perianal region BIMANUAL: uterus normal size, shape and consistency, no adnexal masses and non-tender RECTOVAGINAL: deferred. NEURO: alert and oriented x3,exam grossly non-focal EXTREMITIES: normal ASSESSMENT/PLAN: 1) Health maintenance: Pap/HPV up to date. Mammogram ordered Mammogram up to date Nutrition, exercise and routine health maintenance exams reviewed. Calcium/Vitamin D supplementation information provided. Colon cancer screening: declined BMD: ordered 2. Stress incontinence - ICD9: [id number], ICD10: N39.3 - Discussed Kegel exercises and given written instruction. 3. Poison [place] dermatitis - ICD9: 692.6, ICD10: L23.7 Left neck - METHYLPREDNISOLONE 4 MG TABLETS IN A DOSE PACK 4) Follow up one year or sooner as needed Fatou Jackson APRN.CNP documented in this encounter [facility] 03-04-2022 History of Present illness Narrative Radiology Service Progress Note PATIENT NAME: Emilie Kern DATE OF SERVICE: March 04, 2022 TIME: 1:00 PM PATIENT IDENTITY VERIFICATION COMPLETED USING TWO (2) IDENTIFIERS: Name and Date of confirmed by patient verbally. FALL SCREENING: Has the patient had 2 falls in the last year or 1 fall with injury or currently using an Ambulatory Assistive Device (Walker, Cane, Wheelchair, Crutches, etc.)? No PATIENT GENDER DATA: Female. status: : No status: NO. PATIENT RELEVANT IMPLANT DATA REVIEWED: Not Applicable RADIOLOGY DEPARTMENT: Mammography PERIPHERAL IV DATA: Not applicable SIGNED BY: RT Drew(R) March 04, 2022 1:00 PM documented in this encounter [facility] 02-28-2022 History of Present illness Narrative Chief Complaint Patient presents with: Follow Up HPI: Emilie Kern is a 66 year old female who presents here today for follow up DCIS. Per Dr. Pineda's previous note: H/o coronary artery disease/fibromuscular dysplasia (ND x3; no stents or CABG), Takotsubo cardiomyopathy, nonsustained ventricular tachycardia, hyperlipidemia, and history of nephrectomy who was noted to have microcalcifications in the slight lateral and superior left breast at middle depth on a mammogram performed 12/15/2020. Patient underwent stereotactic ultrasound-guided breast biopsy on 01/22/2021. The pathology demonstrated ductal carcinoma in situ with nuclear grade 1-2/3, architectural pattern was cribriform, necrosis was present, central (expansive comedo necrosis) calcifications present. Intraductal hyperplasia with focal atypia were noted in the area of ductal carcinoma in situ. Patient underwent left breast lumpectomy on 02/08/2021. Pathology demonstrated no evidence of residual ductal carcinoma in situ. Changes consistent with previous biopsy site. Focal intraductal hyperplasia without atypia skin, dermal fibrosis consistent with scar. Margins were negative. No residual carcinoma noted in the lumpectomy specimen but the biopsy cavity was 7 mm from closest inferior margin. Specimen was both ER and IL positive and HER-2 negative with IHC 0. Previous therapy: 1) Adjuvant radiation completed 04/09/2021. Current therapy:Tamoxifen Pt. has not started tamoxifen yet d/t retinal tear and needed to have surgery. Rx given 04/23/21. Pt. began tamoxifen 2020. Pt. sold her house in [place] and did not winter there this year. Normally she has her mammogram done at [place] in [place]. Overdue for mammogram. No new concerns today. Appetite:No issues there. Energy level:Fine. Denies fevers or recent illness. Resp:denies cough or sob Cardiac:denies chest pain/palpitations GI:denies abd pain, n/v, moving bowels regularly :denies dysuria/hematuria Extrem:denies pain Endo:denies hot flashes Neuro:denies symptoms of neuropathy Skin:denies rashes/lesions Heme:denies bleeding, overdue for INVENTORY CONTROL ASSISTANT exam The ROS is otherwise negative. Past medical history, appointments, medications, allergies reviewed. No changes. EXAM: BP 128/63 Pulse 60 Temp 36.7 C (98 F) (Temporal) Wt 80.3 kg (177 lb) SpO2 98% BMI 26.91 kg/m APPEARANCE Well appearing, alert, in no acute distress, well-hydrated, well nourished. HEART RRR with normal S1 and S2, no murmurs LUNG clear to auscultation BREAST FEMALE no mass/nodule b/l LYMPH NODES No cervical lymphadenopathy, No supraclavicular lymphadenopathy and No axillary lymphadenopathy. ABDOMEN bowel sounds normoactive, soft, non-tender, non-distended, without organomegaly or palpable masses EXTREMITIES No edema NEURO Awake, alert and oriented x 3, Normal gait and No involuntary motions. SKIN Skin color, texture, turgor normal, no suspicious rashes or lesions ASSESSMENT/PLAN: 1. Ductal carcinoma in situ (DCIS) of left breast - ICD9: 233.0, ICD10: D05.[address] Pineda's previous note 04/23/21: Assessment: -Tolerated radiation very well. -Again discussed risks and benefits associated with tamoxifen and aromatase inhibitor therapy. I recommended tamoxifen based on potential cardiovascular protective potential. She understands there is an increased risk of venous thromboembolism. I do not recommend rotation of her to therapy based on possible small increase in cardiovascular risk in the setting of her history of fibromuscular dysplasia. Plan: -Rx tamoxifen. -OV in about 4 to 6 weeks for survivorship care plan. - No concerning findings on exam. - Tolerating tamoxifen fairly well. - Continue tamoxifen. - B/l mammogram due. - Needs to est. care with INVENTORY CONTROL ASSISTANT-overdue for pelvic exam-on tamoxifen. - Needs female PCP (per pt. request) to establish care. - Follow up in 6 months-pending mammogram. - Pt. aware to call office with any questions/concerns. The patient indicates understanding of these issues and agrees with the plan. All documentation from previous visit of 07/31/21-Dr. Pineda/myself was copied and pasted, documentation has been reviewed and edited as necessary for today's visit. Merari Rush APRN.RADHA documented in this encounter [facility] 12-24-2021 History of Present illness Narrative POPULATION HEALTH NAVIGATION OUTREACH Action/I verify pcp Spoke with Emilie. [place] lives in [place] 6 [place]. Pt declined Health Maintenance items due: ANNUAL PCP TEAM CHRONIC DISEASE VISIT Never done COLORECTAL CANCER SCREENING due on 03/06/2006 MAMMOGRAM due on 06/18/2017 ADVANCE DIRECTIVE DISCUSSION Never done Pt identified by name and : YES, via phone Outreach Outcome/Action Spoke to patient or caregiver: Patient declined Reason for Outreach Care Gap or Scheduling/Wellness visits Payer: Payor: MEDICARE / Plan: MEDICARE A AND B / Product Type: Medicare / Care Gap Reviewed:: Annual Wellness visit Breast Cancer screening Colorectal Cancer Screening Reminder: Reminder note to check Health Maintenance for items below Health Maintenance items due: ANNUAL PCP TEAM CHRONIC DISEASE VISIT Never done HEPATITIS C SCREENING Never done DTAP,TDAP,TD(1 - Tdap) Never done SHINGRIX VACCINE(1 of 2) Never done COLORECTAL CANCER SCREENING due on 03/06/2006 MAMMOGRAM due on 06/18/2017 DIABETES SCREEN due on 06/14/2018 BONE DENSITY Never done PNEUMOVAX AGE 65 AND OVER WITH 5YR LOOKBACK(1) Never done COVID-19 VACCINE(2 - Pfizer 3-dose series) due on 07/16/2021 ADVANCE DIRECTIVE DISCUSSION Never done Message Sent to Practice: No Navigation Signature: Raquel Jamil MA December 24, 2021 2:11 PM documented in this encounter [facility] 04-29-2013 History of Past i llness Narrative Problem Noted Date Resolved Date Possible Fibromuscular dysplasia 04/29/2013 04/29/2013 Overview: Assessment: Carotid Duplex Ultrasound on 04/28/2013 demonstrated Turbulent flow and elevated velocities at mid or distal vessel consistent with fibromuscular dysplasia. in both right and left internal carotid arteries. 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 History of stroke rules out use of prasugrel / ticagrelor 2. Clopidogrel Leukocytosis 04/27/2013 04/29/2013 Overview: History: No clinical signs of infection No fever Resolved Assessment: Leucocytosis likely cardiac cause rather than infection Plan: 1. UA / Urine culture 2. Blood culture x 2 3. Culture if any symptoms or fever > 38.3C ST elevation myocardial infa rction (STEMI) of lateral wall, initial episode of care 04/26/2013 05/05/2013 Overview: History: ECG at OSH showed 2-3mm ST elevation in leads 1 and aVL. ECG later also showed evolving changes with ST elevations in V3-6 together with lateral leads. Underwent a LHC on arrival 04/26/13 which showed severe disease in the distal branch of RCA that was ballooned previously. POBA was attempted but unsuccessful due to small caliber and tortuous nature. On arrival, patient complaining of chest pain again. Started on nitroglycerin. ECG shows ongoing but smaller ST elevation in the same leads With brief bedside echo, this showed depressed EF, apical hypokinesis, 1-2+ MR. Assessment: NSTEMI Plan: 1. Clopidogrel (not for other ADP [id number] given prior stroke) 2. Aspirin 81mg daily 3. Toprol 25 mg XL 4. Captopril 6.5 mg BID 5. Atorvastatin 80mg 6. Nitroglycerin PRN for CP. 7. Will consider Ca channel kristen for spasm as it is a potential cause - have to be cautious with depressed EF Hypertension 04/26/2013 04/29/2013 Overview: History: Previous mention of HTN. However, more recently, it seems with atenolol her SBP ranged in the 100-120. Patient denies history of HTN that she recalls. Assessment: Controlled HTN Plan: - captopril 6.5 mg BID - Toprol XL 25 mg daily Ex-smoker 04/26/2013 04/29/2013 Overview: History: 10 pack year smoking history, quit 1982 No prior history of COPD, not on any inhalers Assessment: ex-smoker quit 30 years ago, no current signs of COPD Plan: 1. Monitor for signs of COPD Possible underlying coronary artery spasm 201204/29/2013 Overview: History: In 1994 she presented with chest pain + elevated CE. According to prior notes, LHC showed no significant obstructive coronary disease. This episode was thought be coronary spasm. She was treated with diltiazem for a time but then subsequently stopped for unclear reason. Following this she had inferior STEMI in 2003, this time LHC showed significant disease in the small distal branch off RCA, which was ballooned but no stents were placed. Since then there have been discussions by the outpatient cardiology team regarding possibly starting on diltiazem again but this never eventuated. Assessment: Possible underlying coronary spasm. Plan: 1. Ideally would like to give Ca channel kristen but in the setting of reduced EF and patient will need BB too - will discuss with team in the morning. 2. Urine tox screen (patient denies drug abuse) documented as of this encounter (statuses as of 12/24/2021) [facility]08-22-2013 History of Past illness Narrative* Problem Noted Date Resolved Date Possible Fibromuscular dysplasia 04/29/2013 04/29/2013 Overview: Assessment: Carotid Duplex Ultrasound on 04/28/2013 demonstrated Turbulent flow and elevated velocities at mid or distal vessel consistent with fibromuscular dysplasia. in both right and left internal carotid arteries. 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 History of stroke rules out use of prasugrel / ticagrelor 2. Clopidogrel Leukocytosis 04/27/2013 04/29/2013 Overview: History: No clinical signs of infection No fever Resolved Assessment: Leucocytosis likely cardiac cause rather than infection Plan: 1. UA / Urine culture 2. Blood culture x 2 3. Culture if any symptoms or fever > 38.3C ST elevation myocardial infa rction (STEMI) of lateral wall, initial episode of care 04/26/2013 05/05/2013 Overview: History: ECG at OSH showed 2-3mm ST elevation in leads 1 and aVL. ECG later also showed evolving changes with ST elevations in V3-6 together with lateral leads. Underwent a LHC on arrival 04/26/13 which showed severe disease in the distal branch of RCA that was ballooned previously. POBA was attempted but unsuccessful due to small caliber and tortuous nature. On arrival, patient complaining of chest pain again. Started on nitroglycerin. ECG shows ongoing but smaller ST elevation in the same leads With brief bedside echo, this showed depressed EF, apical hypokinesis, 1-2+ MR. Assessment: NSTEMI Plan: 1. Clopidogrel (not for other ADP [id number] given prior stroke) 2. Aspirin 81mg daily 3. Toprol 25 mg XL 4. Captopril 6.5 mg BID 5. Atorvastatin 80mg 6. Nitroglycerin PRN for CP. 7. Will consider Ca channel kristen for spasm as it is a potential cause - have to be cautious with depressed EF Hypertension 04/26/2013 04/29/2013 Overview: History: Previous mention of HTN. However, more recently, it seems with atenolol her SBP ranged in the 100-120. Patient denies history of HTN that she recalls. Assessment: Controlled HTN Plan: - captopril 6.5 mg BID - Toprol XL 25 mg daily Ex-smoker 04/26/2013 04/29/2013 Overview: History: 10 pack year smoking history, quit 1982 No prior history of COPD, not on any inhalers Assessment: ex-smoker quit 30 years ago, no current signs of COPD Plan: 1. Monitor for signs of COPD Possible underlying coronary artery spasm 201204/29/2013 Overview: History: In 1994 she presented with chest pain + elevated CE. According to prior notes, LHC showed no significant obstructive coronary disease. This episode was thought be coronary spasm. She was treated with diltiazem for a time but then subsequently stopped for unclear reason. Following this she had inferior STEMI in 2003, this time LHC showed significant disease in the small distal branch off RCA, which was ballooned but no stents were placed. Since then there have been discussions by the outpatient cardiology team regarding possibly starting on diltiazem again but this never eventuated. Assessment: Possible underlying coronary spasm. Plan: 1. Ideally would like to give Ca channel kristen but in the setting of reduced EF and patient will need BB too - will discuss with team in the morning. 2. Urine tox screen (patient denies drug abuse) documented as of this encounter (statuses as of 02/14/2022) [facility]08-[facility]-2013 History of Past illness Narrative* Problem Noted Date Resolved Date Possible Fibromuscular dysplasia 04/29/2013 04/29/2013 Overview: Assessment: Carotid Duplex Ultrasound on 04/28/2013 demonstrated Turbulent flow and elevated velocities at mid or distal vessel consistent with fibromuscular dysplasia. in both right and left internal carotid arteries. 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 History of stroke rules out use of prasugrel / ticagrelor 2. Clopidogrel Leukocytosis 04/27/2013 04/29/2013 Overview: History: No clinical signs of infection No fever Resolved Assessment: Leucocytosis likely cardiac cause rather than infection Plan: 1. UA / Urine culture 2. Blood culture x 2 3. Culture if any symptoms or fever > 38.3C ST elevation myocardial infa rction (STEMI) of lateral wall, initial episode of care 04/26/2013 05/05/2013 Overview: History: ECG at OSH showed 2-3mm ST elevation in leads 1 and aVL. ECG later also showed evolving changes with ST elevations in V3-6 together with lateral leads. Underwent a LHC on arrival 04/26/13 which showed severe disease in the distal branch of RCA that was ballooned previously. POBA was attempted but unsuccessful due to small caliber and tortuous nature. On arrival, patient complaining of chest pain again. Started on nitroglycerin. ECG shows ongoing but smaller ST elevation in the same leads With brief bedside echo, this showed depressed EF, apical hypokinesis, 1-2+ MR. Assessment: NSTEMI Plan: 1. Clopidogrel (not for other ADP [id number] given prior stroke) 2. Aspirin 81mg daily 3. Toprol 25 mg XL 4. Captopril 6.5 mg BID 5. Atorvastatin 80mg 6. Nitroglycerin PRN for CP. 7. Will consider Ca channel kristen for spasm as it is a potential cause - have to be cautious with depressed EF Hypertension 04/26/2013 04/29/2013 Overview: History: Previous mention of HTN. However, more recently, it seems with atenolol her SBP ranged in the 100-120. Patient denies history of HTN that she recalls. Assessment: Controlled HTN Plan: - captopril 6.5 mg BID - Toprol XL 25 mg daily Ex-smoker 04/26/2013 04/29/2013 Overview: History: 10 pack year smoking history, quit 1982 No prior history of COPD, not on any inhalers Assessment: ex-smoker quit 30 years ago, no current signs of COPD Plan: 1. Monitor for signs of COPD Possible underlying coronary artery spasm 201204/29/2013 Overview: History: In 1994 she presented with chest pain + elevated CE. According to prior notes, LHC showed no significant obstructive coronary disease. This episode was thought be coronary spasm. She was treated with diltiazem for a time but then subsequently stopped for unclear reason. Following this she had inferior STEMI in 2003, this time LHC showed significant disease in the small distal branch off RCA, which was ballooned but no stents were placed. Since then there have been discussions by the outpatient cardiology team regarding possibly starting on diltiazem again but this never eventuated. Assessment: Possible underlying coronary spasm. Plan: 1. Ideally would like to give Ca channel kristen but in the setting of reduced EF and patient will need BB too - will discuss with team in the morning. 2. Urine tox screen (patient denies drug abuse) documented as of this encounter (statuses as of 03/01/2022) [facility]08-22-2013 History of Past illness Narrative* Problem Noted Date Resolved Date Possible Fibromuscular dysplasia 04/29/2013 04/29/2013 Overview: Assessment: Carotid Duplex Ultrasound on 04/28/2013 demonstrated Turbulent flow and elevated velocities at mid or distal vessel consistent with fibromuscular dysplasia. in both right and left internal carotid arteries. 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 History of stroke rules out use of prasugrel / ticagrelor 2. Clopidogrel Leukocytosis 04/27/2013 04/29/2013 Overview: History: No clinical signs of infection No fever Resolved Assessment: Leucocytosis likely cardiac cause rather than infection Plan: 1. UA / Urine culture 2. Blood culture x 2 3. Culture if any symptoms or fever > 38.3C ST elevation myocardial infa rction (STEMI) of lateral wall, initial episode of care 04/26/2013 05/05/2013 Overview: History: ECG at OSH showed 2-3mm ST elevation in leads 1 and aVL. ECG later also showed evolving changes with ST elevations in V3-6 together with lateral leads. Underwent a LHC on arrival 04/26/13 which showed severe disease in the distal branch of RCA that was ballooned previously. POBA was attempted but unsuccessful due to small caliber and tortuous nature. On arrival, patient complaining of chest pain again. Started on nitroglycerin. ECG shows ongoing but smaller ST elevation in the same leads With brief bedside echo, this showed depressed EF, apical hypokinesis, 1-2+ MR. Assessment: NSTEMI Plan: 1. Clopidogrel (not for other ADP [id number] given prior stroke) 2. Aspirin 81mg daily 3. Toprol 25 mg XL 4. Captopril 6.5 mg BID 5. Atorvastatin 80mg 6. Nitroglycerin PRN for CP. 7. Will consider Ca channel kristen for spasm as it is a potential cause - have to be cautious with depressed EF Hypertension 04/26/2013 04/29/2013 Overview: History: Previous mention of HTN. However, more recently, it seems with atenolol her SBP ranged in the 100-120. Patient denies history of HTN that she recalls. Assessment: Controlled HTN Plan: - captopril 6.5 mg BID - Toprol XL 25 mg daily Ex-smoker 04/26/2013 04/29/2013 Overview: History: 10 pack year smoking history, quit 1981 No prior history of COPD, not on any inhalers Assessment: ex-smoker quit 30 years ago, no current signs of COPD Plan: 1. Monitor for signs of COPD Possible underlying coronary artery spasm 201204/29/2013 Overview: History: In 1994 she presented with chest pain + elevated CE. According to prior notes, [facility] showed no significant obstructive coronary disease. This episode was thought be coronary spasm. She was treated with diltiazem for a time but then subsequently stopped for unclear reason. Following this she had inferior STEMI in 2003, this time LHC showed significant disease in the small distal branch off RCA, which was ballooned but no stents were placed. Since then there have been discussions by the outpatient cardiology team regarding possibly starting on diltiazem again but this never eventuated. Assessment: Possible underlying coronary spasm. Plan: 1. Ideally would like to give Ca channel kristen but in the setting of reduced EF and patient will need BB too - will discuss with team in the morning. 2. Urine tox screen (patient denies drug abuse) documented as of this encounter (statuses as of 03/04/2022) [facility]08-[facility]-2013 History of Past illness Narrative* Problem Noted Date Resolved Date Possible Fibromuscular dysplasia 04/29/2013 04/29/2013 Overview: Assessment: Carotid Duplex Ultrasound on 04/28/2013 demonstrated Turbulent flow and elevated velocities at mid or distal vessel consistent with fibromuscular dysplasia. in both right and left internal carotid arteries. 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 History of stroke rules out use of prasugrel / ticagrelor 2. Clopidogrel Leukocytosis 04/27/2013 04/29/2013 Overview: History: No clinical signs of infection No fever Resolved Assessment: Leucocytosis likely cardiac cause rather than infection Plan: 1. UA / Urine culture 2. Blood culture x 2 3. Culture if any symptoms or fever > 38.3C ST elevation myocardial infa rction (STEMI) of lateral wall, initial episode of care 04/26/2013 05/05/2013 Overview: History: ECG at OSH showed 2-3mm ST elevation in leads 1 and aVL. ECG later also showed evolving changes with ST elevations in V3-6 together with lateral leads. Underwent a LHC on arrival 04/26/13 which showed severe disease in the distal branch of RCA that was ballooned previously. POBA was attempted but unsuccessful due to small caliber and tortuous nature. On arrival, patient complaining of chest pain again. Started on nitroglycerin. ECG shows ongoing but smaller ST elevation in the same leads With brief bedside echo, this showed depressed EF, apical hypokinesis, 1-2+ MR. Assessment: NSTEMI Plan: 1. Clopidogrel (not for other ADP [id number] given prior stroke) 2. Aspirin 81mg daily 3. Toprol 25 mg XL 4. Captopril 6.5 mg BID 5. Atorvastatin 80mg 6. Nitroglycerin PRN for CP. 7. Will consider Ca channel kristen for spasm as it is a potential cause - have to be cautious with depressed EF Hypertension 04/26/2013 04/29/2013 Overview: History: Previous mention of HTN. However, more recently, it seems with atenolol her SBP ranged in the 100-120. Patient denies history of HTN that she recalls. Assessment: Controlled HTN Plan: - captopril 6.5 mg BID - Toprol XL 25 mg daily Ex-smoker 04/26/2013 04/29/2013 Overview: History: 10 pack year smoking history, quit 1981 No prior history of COPD, not on any inhalers Assessment: ex-smoker quit 30 years ago, no current signs of COPD Plan: 1. Monitor for signs of COPD Possible underlying coronary artery spasm 201204/29/2013 Overview: History: In 1994 she presented with chest pain + elevated CE. According to prior notes, LHC showed no significant obstructive coronary disease. This episode was thought be coronary spasm. She was treated with diltiazem for a time but then subsequently stopped for unclear reason. Following this she had inferior STEMI in 2003, this time LHC showed significant disease in the small distal branch off RCA, which was ballooned but no stents were placed. Since then there have been discussions by the outpatient cardiology team regarding possibly starting on diltiazem again but this never eventuated. Assessment: Possible underlying coronary spasm. Plan: 1. Ideally would like to give Ca channel kristen but in the setting of reduced EF and patient will need BB too - will discuss with team in the morning. 2. Urine tox screen (patient denies drug abuse) documented as of this encounter (statuses as of 03/05/2022) [facility]08-[facility] History of Past illness Narrative* Problem Noted Date Resolved Date Possible Fibromuscular dysplasia 04/29/2013 04/29/2013 Overview: Assessment: Carotid Duplex Ultrasound on 04/28/2013 demonstrated Turbulent flow and elevated velocities at mid or distal vessel consistent with fibromuscular dysplasia. in both right and left internal carotid arteries. 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 History of stroke rules out use of prasugrel / ticagrelor 2. Clopidogrel Leukocytosis 04/27/2013 04/29/2013 Overview: History: No clinical signs of infection No fever Resolved Assessment: Leucocytosis likely cardiac cause rather than infection Plan: 1. UA / Urine culture 2. Blood culture x 2 3. Culture if any symptoms or fever > 38.3C ST elevation myocardial infa rction (STEMI) of lateral wall, initial episode of care 04/26/2013 05/05/2013 Overview: History: ECG at OSH showed 2-3mm ST elevation in leads 1 and aVL. ECG later also showed evolving changes with ST elevations in V3-6 together with lateral leads. Underwent a LHC on arrival 04/26/13 which showed severe disease in the distal branch of RCA that was ballooned previously. POBA was attempted but unsuccessful due to small caliber and tortuous nature. On arrival, patient complaining of chest pain again. Started on nitroglycerin. ECG shows ongoing but smaller ST elevation in the same leads With brief bedside echo, this showed depressed EF, apical hypokinesis, 1-2+ MR. Assessment: NSTEMI Plan: 1. Clopidogrel (not for other ADP [id number] given prior stroke) 2. Aspirin 81mg daily 3. Toprol 25 mg XL 4. Captopril 6.5 mg BID 5. Atorvastatin 80mg 6. Nitroglycerin PRN for CP. 7. Will consider Ca channel kristen for spasm as it is a potential cause - have to be cautious with depressed EF Hypertension 04/26/2013 04/29/2013 Overview: History: Previous mention of HTN. However, more recently, it seems with atenolol her SBP ranged in the 100-120. Patient denies history of HTN that she recalls. Assessment: Controlled HTN Plan: - captopril 6.5 mg BID - Toprol XL 25 mg daily Ex-smoker 04/26/2013 04/29/2013 Overview: History: 10 pack year smoking history, quit 1982 No prior history of COPD, not on any inhalers Assessment: ex-smoker quit 30 years ago, no current signs of COPD Plan: 1. Monitor for signs of COPD Possible underlying coronary artery spasm 201204/29/2013 Overview: History: In 1994 she presented with chest pain + elevated CE. According to prior notes, [facility] showed no significant obstructive coronary disease. This episode was thought be coronary spasm. She was treated with diltiazem for a time but then subsequently stopped for unclear reason. Following this she had inferior STEMI in 2003, this time C showed significant disease in the small distal branch off RCA, which was ballooned but no stents were placed. Since then there have been discussions by the outpatient cardiology team regarding possibly starting on diltiazem again but this never eventuated. Assessment: Possible underlying coronary spasm. Plan: 1. Ideally would like to give Ca channel kristen but in the setting of reduced EF and patient will need BB too - will discuss with team in the morning. 2. Urine tox screen (patient denies drug abuse) documented as of this encounter (statuses as of 03/06/2022) [facility]08-[facility] History of Past illness Narrative* Problem Noted Date Resolved Date Possible Fibromuscular dysplasia 04/29/2013 04/29/2013 Overview: Assessment: Carotid Duplex Ultrasound on 04/28/2013 demonstrated Turbulent flow and elevated velocities at mid or distal vessel consistent with fibromuscular dysplasia. in both right and left internal carotid arteries. 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 History of stroke rules out use of prasugrel / ticagrelor 2. Clopidogrel Leukocytosis 04/27/2013 04/29/2013 Overview: History: No clinical signs of infection No fever Resolved Assessment: Leucocytosis likely cardiac cause rather than infection Plan: 1. UA / Urine culture 2. Blood culture x 2 3. Culture if any symptoms or fever > 38.3C ST elevation myocardial infa rction (STEMI) of lateral wall, initial episode of care 04/26/2013 05/05/2013 Overview: History: ECG at OSH showed 2-3mm ST elevation in leads 1 and aVL. ECG later also showed evolving changes with ST elevations in V3-6 together with lateral leads. Underwent a LHC on arrival 04/26/13 which showed severe disease in the distal branch of RCA that was ballooned previously. POBA was attempted but unsuccessful due to small caliber and tortuous nature. On arrival, patient complaining of chest pain again. Started on nitroglycerin. ECG shows ongoing but smaller ST elevation in the same leads With brief bedside echo, this showed depressed EF, apical hypokinesis, 1-2+ MR. Assessment: NSTEMI Plan: 1. Clopidogrel (not for other ADP [id number] given prior stroke) 2. Aspirin 81mg daily 3. Toprol 25 mg XL 4. Captopril 6.5 mg BID 5. Atorvastatin 80mg 6. Nitroglycerin PRN for CP. 7. Will consider Ca channel kristen for spasm as it is a potential cause - have to be cautious with depressed EF Hypertension 04/26/2013 04/29/2013 Overview: History: Previous mention of HTN. However, more recently, it seems with atenolol her SBP ranged in the 100-120. Patient denies history of HTN that she recalls. Assessment: Controlled HTN Plan: - captopril 6.5 mg BID - Toprol XL 25 mg daily Ex-smoker 04/26/2013 04/29/2013 Overview: History: 10 pack year smoking history, quit 1982 No prior history of COPD, not on any inhalers Assessment: ex-smoker quit 30 years ago, no current signs of COPD Plan: 1. Monitor for signs of COPD Possible underlying coronary artery spasm 201204/29/2013 Overview: History: In 1994 she presented with chest pain + elevated CE. According to prior notes, LHC showed no significant obstructive coronary disease. This episode was thought be coronary spasm. She was treated with diltiazem for a time but then subsequently stopped for unclear reason. Following this she had inferior STEMI in 2003, this time LHC showed significant disease in the small distal branch off RCA, which was ballooned but no stents were placed. Since then there have been discussions by the outpatient cardiology team regarding possibly starting on diltiazem again but this never eventuated. Assessment: Possible underlying coronary spasm. Plan: 1. Ideally would like to give Ca channel kristen but in the setting of reduced EF and patient will need BB too - will discuss with team in the morning. 2. Urine tox screen (patient denies drug abuse) documented as of this encounter (statuses as of 04/11/2022) [facility]08-22-2013 History of Past illness Narrative* Problem Noted Date Resolved Date Possible Fibromuscular dysplasia 04/29/2013 04/29/2013 Overview: Assessment: Carotid Duplex Ultrasound on 04/28/2013 demonstrated Turbulent flow and elevated velocities at mid or distal vessel consistent with fibromuscular dysplasia. in both right and left internal carotid arteries. 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 History of stroke rules out use of prasugrel / ticagrelor 2. Clopidogrel Leukocytosis 04/27/2013 04/29/2013 Overview: History: No clinical signs of infection No fever Resolved Assessment: Leucocytosis likely cardiac cause rather than infection Plan: 1. UA / Urine culture 2. Blood culture x 2 3. Culture if any symptoms or fever > 38.3C ST elevation myocardial infa rction (STEMI) of lateral wall, initial episode of care 04/26/2013 05/05/2013 Overview: History: ECG at OSH showed 2-3mm ST elevation in leads 1 and aVL. ECG later also showed evolving changes with ST elevations in V3-6 together with lateral leads. Underwent a LHC on arrival 04/26/13 which showed severe disease in the distal branch of RCA that was ballooned previously. POBA was attempted but unsuccessful due to small caliber and tortuous nature. On arrival, patient complaining of chest pain again. Started on nitroglycerin. ECG shows ongoing but smaller ST elevation in the same leads With brief bedside echo, this showed depressed EF, apical hypokinesis, 1-2+ MR. Assessment: NSTEMI Plan: 1. Clopidogrel (not for other ADP [id number] given prior stroke) 2. Aspirin 81mg daily 3. Toprol 25 mg XL 4. Captopril 6.5 mg BID 5. Atorvastatin 80mg 6. Nitroglycerin PRN for CP. 7. Will consider Ca channel kristen for spasm as it is a potential cause - have to be cautious with depressed EF Hypertension 04/26/2013 04/29/2013 Overview: History: Previous mention of HTN. However, more recently, it seems with atenolol her SBP ranged in the 100-120. Patient denies history of HTN that she recalls. Assessment: Controlled HTN Plan: - captopril 6.5 mg BID - Toprol XL 25 mg daily Ex-smoker 04/26/2013 04/29/2013 Overview: History: 10 pack year smoking history, quit 1981 No prior history of COPD, not on any inhalers Assessment: ex-smoker quit 30 years ago, no current signs of COPD Plan: 1. Monitor for signs of COPD Possible underlying coronary artery spasm 201204/29/2013 Overview: History: In 1994 she presented with chest pain + elevated CE. According to prior notes, LHC showed no significant obstructive coronary disease. This episode was thought be coronary spasm. She was treated with diltiazem for a time but then subsequently stopped for unclear reason. Following this she had inferior STEMI in 2003, this time LHC showed significant disease in the small distal branch off RCA, which was ballooned but no stents were placed. Since then there have been discussions by the outpatient cardiology team regarding possibly starting on diltiazem again but this never eventuated. Assessment: Possible underlying coronary spasm. Plan: 1. Ideally would like to give Ca channel kristen but in the setting of reduced EF and patient will need BB too - will discuss with team in the morning. 2. Urine tox screen (patient denies drug abuse) documented as of this encounter (statuses as of 06/12/2022) [facility]08-22-2013 History of Past illness Narrative* Problem Noted Date Resolved Date Possible Fibromuscular dysplasia 04/29/2013 04/29/2013 Overview: Assessment: Carotid Duplex Ultrasound on 04/28/2013 demonstrated Turbulent flow and elevated velocities at mid or distal vessel consistent with fibromuscular dysplasia. in both right and left internal carotid arteries. 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 History of stroke rules out use of prasugrel / ticagrelor 2. Clopidogrel Leukocytosis 04/27/2013 04/29/2013 Overview: History: No clinical signs of infection No fever Resolved Assessment: Leucocytosis likely cardiac cause rather than infection Plan: 1. UA / Urine culture 2. Blood culture x 2 3. Culture if any symptoms or fever > 38.3C ST elevation myocardial infa rction (STEMI) of lateral wall, initial episode of care 04/26/2013 05/05/2013 Overview: History: ECG at OSH showed 2-3mm ST elevation in leads 1 and aVL. ECG later also showed evolving changes with ST elevations in V3-6 together with lateral leads. Underwent a LHC on arrival 04/26/13 which showed severe disease in the distal branch of RCA that was ballooned previously. POBA was attempted but unsuccessful due to small caliber and tortuous nature. On arrival, patient complaining of chest pain again. Started on nitroglycerin. ECG shows ongoing but smaller ST elevation in the same leads With brief bedside echo, this showed depressed EF, apical hypokinesis, 1-2+ MR. Assessment: NSTEMI Plan: 1. Clopidogrel (not for other ADP [id number] given prior stroke) 2. Aspirin 81mg daily 3. Toprol 25 mg XL 4. Captopril 6.5 mg BID 5. Atorvastatin 80mg 6. Nitroglycerin PRN for CP. 7. Will consider Ca channel kristen for spasm as it is a potential cause - have to be cautious with depressed EF Hypertension 04/26/2013 04/29/2013 Overview: History: Previous mention of HTN. However, more recently, it seems with atenolol her SBP ranged in the 100-120. Patient denies history of HTN that she recalls. Assessment: Controlled HTN Plan: - captopril 6.5 mg BID - Toprol XL 25 mg daily Ex-smoker 04/26/2013 04/29/2013 Overview: History: 10 pack year smoking history, quit 1982 No prior history of COPD, not on any inhalers Assessment: ex-smoker quit 30 years ago, no current signs of COPD Plan: 1. Monitor for signs of COPD Possible underlying coronary artery spasm 201204/29/2013 Overview: History: In 1994 she presented with chest pain + elevated CE. According to prior notes, LHC showed no significant obstructive coronary disease. This episode was thought be coronary spasm. She was treated with diltiazem for a time but then subsequently stopped for unclear reason. Following this she had inferior STEMI in 2003, this time LHC showed significant disease in the small distal branch off RCA, which was ballooned but no stents were placed. Since then there have been discussions by the outpatient cardiology team regarding possibly starting on diltiazem again but this never eventuated. Assessment: Possible underlying coronary spasm. Plan: 1. Ideally would like to give Ca channel kristen but in the setting of reduced EF and patient will need BB too - will discuss with team in the morning. 2. Urine tox screen (patient denies drug abuse) documented as of this encounter (statuses as of 08/16/2022) [facility]08-22-2013 History of Past illness Narrative* Problem Noted Date Resolved Date Possible Fibromuscular dysplasia 04/29/2013 04/29/2013 Overview: Assessment: Carotid Duplex Ultrasound on 04/28/2013 demonstrated Turbulent flow and elevated velocities at mid or distal vessel consistent with fibromuscular dysplasia. in both right and left internal carotid arteries. 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 History of stroke rules out use of prasugrel / ticagrelor 2. Clopidogrel Leukocytosis 04/27/2013 04/29/2013 Overview: History: No clinical signs of infection No fever Resolved Assessment: Leucocytosis likely cardiac cause rather than infection Plan: 1. UA / Urine culture 2. Blood culture x 2 3. Culture if any symptoms or fever > 38.3C ST elevation myocardial infa rction (STEMI) of lateral wall, initial episode of care 04/26/2013 05/05/2013 Overview: History: ECG at OSH showed 2-3mm ST elevation in leads 1 and aVL. ECG later also showed evolving changes with ST elevations in V3-6 together with lateral leads. Underwent a LHC on arrival 04/26/13 which showed severe disease in the distal branch of RCA that was ballooned previously. POBA was attempted but unsuccessful due to small caliber and tortuous nature. On arrival, patient complaining of chest pain again. Started on nitroglycerin. ECG shows ongoing but smaller ST elevation in the same leads With brief bedside echo, this showed depressed EF, apical hypokinesis, 1-2+ MR. Assessment: NSTEMI Plan: 1. Clopidogrel (not for other ADP [id number] given prior stroke) 2. Aspirin 81mg daily 3. Toprol 25 mg XL 4. Captopril 6.5 mg BID 5. Atorvastatin 80mg 6. Nitroglycerin PRN for CP. 7. Will consider Ca channel kristen for spasm as it is a potential cause - have to be cautious with depressed EF Hypertension 04/26/2013 04/29/2013 Overview: History: Previous mention of HTN. However, more recently, it seems with atenolol her SBP ranged in the 100-120. Patient denies history of HTN that she recalls. Assessment: Controlled HTN Plan: - captopril 6.5 mg BID - Toprol XL 25 mg daily Ex-smoker 04/26/2013 04/29/2013 Overview: History: 10 pack year smoking history, quit 1982 No prior history of COPD, not on any inhalers Assessment: ex-smoker quit 30 years ago, no current signs of COPD Plan: 1. Monitor for signs of COPD Possible underlying coronary artery spasm 201204/29/2013 Overview: History: In 1994 she presented with chest pain + elevated CE. According to prior notes, LHC showed no significant obstructive coronary disease. This episode was thought be coronary spasm. She was treated with diltiazem for a time but then subsequently stopped for unclear reason. Following this she had inferior STEMI in 2003, this time LHC showed significant disease in the small distal branch off RCA, which was ballooned but no stents were placed. Since then there have been discussions by the outpatient cardiology team regarding possibly starting on diltiazem again but this never eventuated. Assessment: Possible underlying coronary spasm. Plan: 1. Ideally would like to give Ca channel kristen but in the setting of reduced EF and patient will need BB too - will discuss with team in the morning. 2. Urine tox screen (patient denies drug abuse) documented as of this encounter (statuses as of 09/17/2022) [facility]08-22-2013 History of Past illness Narrative* Problem Noted Date Resolved Date Possible Fibromuscular dysplasia 04/29/2013 04/29/2013 Overview: Assessment: Carotid Duplex Ultrasound on 04/28/2013 demonstrated Turbulent flow and elevated velocities at mid or distal vessel consistent with fibromuscular dysplasia. in both right and left internal carotid arteries. 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 History of stroke rules out use of prasugrel / ticagrelor 2. Clopidogrel Leukocytosis 04/27/2013 04/29/2013 Overview: History: No clinical signs of infection No fever Resolved Assessment: Leucocytosis likely cardiac cause rather than infection Plan: 1. UA / Urine culture 2. Blood culture x 2 3. Culture if any symptoms or fever > 38.3C ST elevation myocardial infa rction (STEMI) of lateral wall, initial episode of care 04/26/2013 05/05/2013 Overview: History: ECG at OSH showed 2-3mm ST elevation in leads 1 and aVL. ECG later also showed evolving changes with ST elevations in V3-6 together with lateral leads. Underwent a LHC on arrival 04/26/13 which showed severe disease in the distal branch of RCA that was ballooned previously. POBA was attempted but unsuccessful due to small caliber and tortuous nature. On arrival, patient complaining of chest pain again. Started on nitroglycerin. ECG shows ongoing but smaller ST elevation in the same leads With brief bedside echo, this showed depressed EF, apical hypokinesis, 1-2+ MR. Assessment: NSTEMI Plan: 1. Clopidogrel (not for other ADP [id number] given prior stroke) 2. Aspirin 81mg daily 3. Toprol 25 mg XL 4. Captopril 6.5 mg BID 5. Atorvastatin 80mg 6. Nitroglycerin PRN for CP. 7. Will consider Ca channel kristen for spasm as it is a potential cause - have to be cautious with depressed EF Hypertension 04/26/2013 04/29/2013 Overview: History: Previous mention of HTN. However, more recently, it seems with atenolol her SBP ranged in the 100-120. Patient denies history of HTN that she recalls. Assessment: Controlled HTN Plan: - captopril 6.5 mg BID - Toprol XL 25 mg daily Ex-smoker 04/26/2013 04/29/2013 Overview: History: 10 pack year smoking history, quit 1981 No prior history of COPD, not on any inhalers Assessment: ex-smoker quit 30 years ago, no current signs of COPD Plan: 1. Monitor for signs of COPD Possible underlying coronary artery spasm 201204/29/2013 Overview: History: In 1994 she presented with chest pain + elevated CE. According to prior notes, LHC showed no significant obstructive coronary disease. This episode was thought be coronary spasm. She was treated with diltiazem for a time but then subsequently stopped for unclear reason. Following this she had inferior STEMI in 2003, this time LHC showed significant disease in the small distal branch off RCA, which was ballooned but no stents were placed. Since then there have been discussions by the outpatient cardiology team regarding possibly starting on diltiazem again but this never eventuated. Assessment: Possible underlying coronary spasm. Plan: 1. Ideally would like to give Ca channel kristen but in the setting of reduced EF and patient will need BB too - will discuss with team in the morning. 2. Urine tox screen (patient denies drug abuse) Plantar fascial fibromatosis 12/24/200706/2023 Pain in limb 12/10/2007 01/15/2023 INSOMNIA 12/04/2007 01/15/2023 Unspecified hemorrhoids without mention of compl ication 01/15/2023 Overview: Hemorrhoids documented as of this encounter (statuses as of 03/07/2023) [facility]08-22-2013 History of Past illness Narrative* Problem Noted Date Resolved Date Possible Fibromuscular dysplasia 04/29/2013 04/29/2013 Overview: Assessment: Carotid Duplex Ultrasound on 04/28/2013 demonstrated Turbulent flow and elevated velocities at mid or distal vessel consistent with fibromuscular dysplasia. in both right and left internal carotid arteries. 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 History of stroke rules out use of prasugrel / ticagrelor 2. Clopidogrel Leukocytosis 04/27/2013 04/29/2013 Overview: History: No clinical signs of infection No fever Resolved Assessment: Leucocytosis likely cardiac cause rather than infection Plan: 1. UA / Urine culture 2. Blood culture x 2 3. Culture if any symptoms or fever > 38.3C ST elevation myocardial infa rction (STEMI) of lateral wall, initial episode of care 04/26/2013 05/05/2013 Overview: History: ECG at OSH showed 2-3mm ST elevation in leads 1 and aVL. ECG later also showed evolving changes with ST elevations in V3-6 together with lateral leads. Underwent a LHC on arrival 04/26/13 which showed severe disease in the distal branch of RCA that was ballooned previously. POBA was attempted but unsuccessful due to small caliber and tortuous nature. On arrival, patient complaining of chest pain again. Started on nitroglycerin. ECG shows ongoing but smaller ST elevation in the same leads With brief bedside echo, this showed depressed EF, apical hypokinesis, 1-2+ MR. Assessment: NSTEMI Plan: 1. Clopidogrel (not for other ADP [id number] given prior stroke) 2. Aspirin 81mg daily 3. Toprol 25 mg XL 4. Captopril 6.5 mg BID 5. Atorvastatin 80mg 6. Nitroglycerin PRN for CP. 7. Will consider Ca channel kristen for spasm as it is a potential cause - have to be cautious with depressed EF Hypertension 04/26/2013 04/29/2013 Overview: History: Previous mention of HTN. However, more recently, it seems with atenolol her SBP ranged in the 100-120. Patient denies history of HTN that she recalls. Assessment: Controlled HTN Plan: - captopril 6.5 mg BID - Toprol XL 25 mg daily Ex-smoker 04/26/2013 04/29/2013 Overview: History: 10 pack year smoking history, quit 1981 No prior history of COPD, not on any inhalers Assessment: ex-smoker quit 30 years ago, no current signs of COPD Plan: 1. Monitor for signs of COPD Possible underlying coronary artery spasm 201204/29/2013 Overview: History: In 1994 she presented with chest pain + elevated CE. According to prior notes, LHC showed no significant obstructive coronary disease. This episode was thought be coronary spasm. She was treated with diltiazem for a time but then subsequently stopped for unclear reason. Following this she had inferior STEMI in 2003, this time LHC showed significant disease in the small distal branch off RCA, which was ballooned but no stents were placed. Since then there have been discussions by the outpatient cardiology team regarding possibly starting on diltiazem again but this never eventuated. Assessment: Possible underlying coronary spasm. Plan: 1. Ideally would like to give Ca channel kristen but in the setting of reduced EF and patient will need BB too - will discuss with team in the morning. 2. Urine tox screen (patient denies drug abuse) Plantar fascial fibromatosis 12/24/200706/2023 Pain in limb 12/10/2007 01/15/2023 INSOMNIA 12/04/2007 01/15/2023 Unspecified hemorrhoids without mention of compl ication 01/15/2023 Overview: Hemorrhoids documented as of this encounter (statuses as of 03/11/2023) [facility]08-22-2013 History of Past illness Narrative* Problem Noted Date Diagnosed Date Resolved Date Possible Fibromuscular dysplasia 04/29/2013 04/29/2013 Overview: Assessment: Carotid Duplex Ultrasound on 04/28/2013 demonstrated Turbulent flow and elevated velocities at mid or distal vessel consistent with fibromuscular dysplasia. in both right and left internal carotid arteries. 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 History of stroke rules out use of prasugrel / ticagrelor 2. Clopidogrel Leukocytosis 04/27/2013 04/29/2013 Overview: History: No clinical signs of infection No fever Resolved Assessment: Leucocytosis likely cardiac cause rather than infection Plan: 1. UA / Urine culture 2. Blood culture x 2 3. Culture if any symptoms or fever > 38.3C ST elevation myocardial infa rction (STEMI) of lateral wall, initial episode of care 04/26/2013 Overview: History: ECG at OSH showed 2-3mm ST elevation in leads 1 and aVL. ECG later also showed evolving changes with ST elevations in V3-6 together with lateral leads. Underwent a LHC on arrival 04/26/13 which showed severe disease in the distal branch of RCA that was ballooned previously. POBA was attempted but unsuccessful due to small caliber and tortuous nature. On arrival, patient complaining of chest pain again. Started on nitroglycerin. ECG shows ongoing but smaller ST elevation in the same leads With brief bedside echo, this showed depressed EF, apical hypokinesis, 1-2+ MR. Assessment: NSTEMI Plan: 1. Clopidogrel (not for other ADP [id number] given prior stroke) 2. Aspirin 81mg daily 3. Toprol 25 mg XL 4. Captopril 6.5 mg BID 5. Atorvastatin 80mg 6. Nitroglycerin PRN for CP. 7. Will consider Ca channel kristen for spasm as it is a potential cause - have to be cautious with depressed EF Hypertension 04/26/2013 04/29/2013 Overview: History: Previous mention of HTN. However, more recently, it seems with atenolol her SBP ranged in the 100-120. Patient denies history of HTN that she recalls. Assessment: Controlled HTN Plan: - captopril 6.5 mg BID - Toprol XL 25 mg daily Ex-smoker 04/26/2013 04/29/2013 Overview: History: 10 pack year smoking history, quit 1982 No prior history of COPD, not on any inhalers Assessment: ex-smoker quit 30 years ago, no current signs of COPD Plan: 1. Monitor for signs of COPD Possible underlying coronary artery spasm 04/26/2013 04/29/2013 Overview: History: In 1994 she presented with chest pain + elevated CE. According to prior notes, LHC showed no significant obstructive coronary disease. This episode was thought be coronary spasm. She was treated with diltiazem for a time but then subsequently stopped for unclear reason. Following this she had inferior STEMI in 2003, this time LHC showed significant disease in the small distal branch off RCA, which was ballooned but no stents were placed. Since then there have been discussions by the outpatient cardiology team regarding possibly starting on diltiazem again but this never eventuated. Assessment: Possible underlying coronary spasm. Plan: 1. Ideally would like to give Ca channel kristen but in the setting of reduced EF and patient will need BB too - will discuss with team in the morning. 2. Urine tox screen (patient denies drug abuse) Plantar fascial fibromatosis 12/24/2007 01/15/2023 Pain in limb 12/10/2007 01/15/2023 INSOMNIA 12/04/2007 01/15/2023 Unspecified hemorrhoids with out mention of complication 01/15/2023 Overview: Hemorrhoids documented as of this encounter (statuses as of 06/18/2023) [facility]08-22-2013 History of Past illness Narrative* Problem Noted Date Diagnosed Date Resolved Date Possible Fibromuscular dysplasia 04/29/2013 04/29/2013 Overview: Assessment: Carotid Duplex Ultrasound on 04/28/2013 demonstrated Turbulent flow and elevated velocities at mid or distal vessel consistent with fibromuscular dysplasia. in both right and left internal carotid arteries. 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 History of stroke rules out use of prasugrel / ticagrelor 2. Clopidogrel Leukocytosis 04/27/2013 04/29/2013 Overview: History: No clinical signs of infection No fever Resolved Assessment: Leucocytosis likely cardiac cause rather than infection Plan: 1. UA / Urine culture 2. Blood culture x 2 3. Culture if any symptoms or fever > 38.3C ST elevation myocardial infa rction (STEMI) of lateral wall, initial episode of care 04/26/2013 Overview: History: ECG at OSH showed 2-3mm ST elevation in leads 1 and aVL. ECG later also showed evolving changes with ST elevations in V3-6 together with lateral leads. Underwent a LHC on arrival 04/26/13 which showed severe disease in the distal branch of RCA that was ballooned previously. POBA was attempted but unsuccessful due to small caliber and tortuous nature. On arrival, patient complaining of chest pain again. Started on nitroglycerin. ECG shows ongoing but smaller ST elevation in the same leads With brief bedside echo, this showed depressed EF, apical hypokinesis, 1-2+ MR. Assessment: NSTEMI Plan: 1. Clopidogrel (not for other ADP [id number] given prior stroke) 2. Aspirin 81mg daily 3. Toprol 25 mg XL 4. Captopril 6.5 mg BID 5. Atorvastatin 80mg 6. Nitroglycerin PRN for CP. 7. Will consider Ca channel kristen for spasm as it is a potential cause - have to be cautious with depressed EF Hypertension 04/26/2013 04/29/2013 Overview: History: Previous mention of HTN. However, more recently, it seems with atenolol her SBP ranged in the 100-120. Patient denies history of HTN that she recalls. Assessment: Controlled HTN Plan: - captopril 6.5 mg BID - Toprol XL 25 mg daily Ex-smoker 04/26/2013 04/29/2013 Overview: History: 10 pack year smoking history, quit 1982 No prior history of COPD, not on any inhalers Assessment: ex-smoker quit 30 years ago, no current signs of COPD Plan: 1. Monitor for signs of COPD Possible underlying coronary artery spasm 04/26/2013 04/29/2013 Overview: History: In 1994 she presented with chest pain + elevated CE. According to prior notes, LHC showed no significant obstructive coronary disease. This episode was thought be coronary spasm. She was treated with diltiazem for a time but then subsequently stopped for unclear reason. Following this she had inferior STEMI in 2003, this time LHC showed significant disease in the small distal branch off RCA, which was ballooned but no stents were placed. Since then there have been discussions by the outpatient cardiology team regarding possibly starting on diltiazem again but this never eventuated. Assessment: Possible underlying coronary spasm. Plan: 1. Ideally would like to give Ca channel kristen but in the setting of reduced EF and patient will need BB too - will discuss with team in the morning. 2. Urine tox screen (patient denies drug abuse) Plantar fascial fibromatosis 12/24/2007 01/15/2023 Pain in limb 12/10/2007 01/15/2023 INSOMNIA 12/04/2007 01/15/2023 Unspecified hemorrhoids with out mention of complication 01/15/2023 Overview: Hemorrhoids documented as of this encounter (statuses as of 07/12/2023) [facility]08-22-2013 History of Past illness Narrative* Problem Noted Date Diagnosed Date Resolved Date Possible Fibromuscular dysplasia 04/29/2013 04/29/2013 Overview: Assessment: Carotid Duplex Ultrasound on 04/28/2013 demonstrated Turbulent flow and elevated velocities at mid or distal vessel consistent with fibromuscular dysplasia. in both right and left internal carotid arteries. 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 History of stroke rules out use of prasugrel / ticagrelor 2. Clopidogrel Leukocytosis 04/27/2013 04/29/2013 Overview: History: No clinical signs of infection No fever Resolved Assessment: Leucocytosis likely cardiac cause rather than infection Plan: 1. UA / Urine culture 2. Blood culture x 2 3. Culture if any symptoms or fever > 38.3C ST elevation myocardial infa rction (STEMI) of lateral wall, initial episode of care 04/26/2013 Overview: History: ECG at OSH showed 2-3mm ST elevation in leads 1 and aVL. ECG later also showed evolving changes with ST elevations in V3-6 together with lateral leads. Underwent a LHC on arrival 04/26/13 which showed severe disease in the distal branch of RCA that was ballooned previously. POBA was attempted but unsuccessful due to small caliber and tortuous nature. On arrival, patient complaining of chest pain again. Started on nitroglycerin. ECG shows ongoing but smaller ST elevation in the same leads With brief bedside echo, this showed depressed EF, apical hypokinesis, 1-2+ MR. Assessment: NSTEMI Plan: 1. Clopidogrel (not for other ADP [id number] given prior stroke) 2. Aspirin 81mg daily 3. Toprol 25 mg XL 4. Captopril 6.5 mg BID 5. Atorvastatin 80mg 6. Nitroglycerin PRN for CP. 7. Will consider Ca channel kristen for spasm as it is a potential cause - have to be cautious with depressed EF Hypertension 04/26/2013 04/29/2013 Overview: History: Previous mention of HTN. However, more recently, it seems with atenolol her SBP ranged in the 100-120. Patient denies history of HTN that she recalls. Assessment: Controlled HTN Plan: - captopril 6.5 mg BID - Toprol XL 25 mg daily Ex-smoker 04/26/2013 04/29/2013 Overview: History: 10 pack year smoking history, quit 1982 No prior history of COPD, not on any inhalers Assessment: ex-smoker quit 30 years ago, no current signs of COPD Plan: 1. Monitor for signs of COPD Possible underlying coronary artery spasm 04/26/2013 04/29/2013 Overview: History: In 1994 she presented with chest pain + elevated CE. According to prior notes, [facility] showed no significant obstructive coronary disease. This episode was thought be coronary spasm. She was treated with diltiazem for a time but then subsequently stopped for unclear reason. Following this she had inferior STEMI in 2003, this time LHC showed significant disease in the small distal branch off RCA, which was ballooned but no stents were placed. Since then there have been discussions by the outpatient cardiology team regarding possibly starting on diltiazem again but this never eventuated. Assessment: Possible underlying coronary spasm. Plan: 1. Ideally would like to give Ca channel kristen but in the setting of reduced EF and patient will need BB too - will discuss with team in the morning. 2. Urine tox screen (patient denies drug abuse) Plantar fascial fibromatosis 12/24/2007 01/15/2023 Pain in limb 12/10/2007 01/15/2023 INSOMNIA 12/04/2007 01/15/2023 Unspecified hemorrhoids with out mention of complication 01/15/2023 Overview: Hemorrhoids documented as of this encounter (statuses as of 08/15/2023) [facility]08-22-2013 History of Past illness Narrative* Problem Noted Date Diagnosed Date Resolved Date Possible Fibromuscular dysplasia 04/29/2013 04/29/2013 Overview: Assessment: Carotid Duplex Ultrasound on 04/28/2013 demonstrated Turbulent flow and elevated velocities at mid or distal vessel consistent with fibromuscular dysplasia. in both right and left internal carotid arteries. 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 History of stroke rules out use of prasugrel / ticagrelor 2. Clopidogrel Leukocytosis 04/27/2013 04/29/2013 Overview: History: No clinical signs of infection No fever Resolved Assessment: Leucocytosis likely cardiac cause rather than infection Plan: 1. UA / Urine culture 2. Blood culture x 2 3. Culture if any symptoms or fever > 38.3C ST elevation myocardial infa rction (STEMI) of lateral wall, initial episode of care 04/26/2013 Overview: History: ECG at OSH showed 2-3mm ST elevation in leads 1 and aVL. ECG later also showed evolving changes with ST elevations in V3-6 together with lateral leads. Underwent a LHC on arrival 04/26/13 which showed severe disease in the distal branch of RCA that was ballooned previously. POBA was attempted but unsuccessful due to small caliber and tortuous nature. On arrival, patient complaining of chest pain again. Started on nitroglycerin. ECG shows ongoing but smaller ST elevation in the same leads With brief bedside echo, this showed depressed EF, apical hypokinesis, 1-2+ MR. Assessment: NSTEMI Plan: 1. Clopidogrel (not for other ADP [id number] given prior stroke) 2. Aspirin 81mg daily 3. Toprol 25 mg XL 4. Captopril 6.5 mg BID 5. Atorvastatin 80mg 6. Nitroglycerin PRN for CP. 7. Will consider Ca channel kristen for spasm as it is a potential cause - have to be cautious with depressed EF Hypertension 04/26/2013 04/29/2013 Overview: History: Previous mention of HTN. However, more recently, it seems with atenolol her SBP ranged in the 100-120. Patient denies history of HTN that she recalls. Assessment: Controlled HTN Plan: - captopril 6.5 mg BID - Toprol XL 25 mg daily Ex-smoker 04/26/2013 04/29/2013 Overview: History: 10 pack year smoking history, quit 1982 No prior history of COPD, not on any inhalers Assessment: ex-smoker quit 30 years ago, no current signs of COPD Plan: 1. Monitor for signs of COPD Possible underlying coronary artery spasm 04/26/2013 04/29/2013 Overview: History: In 1994 she presented with chest pain + elevated CE. According to prior notes, LHC showed no significant obstructive coronary disease. This episode was thought be coronary spasm. She was treated with diltiazem for a time but then subsequently stopped for unclear reason. Following this she had inferior STEMI in 2003, this time LHC showed significant disease in the small distal branch off RCA, which was ballooned but no stents were placed. Since then there have been discussions by the outpatient cardiology team regarding possibly starting on diltiazem again but this never eventuated. Assessment: Possible underlying coronary spasm. Plan: 1. Ideally would like to give Ca channel kristen but in the setting of reduced EF and patient will need BB too - will discuss with team in the morning. 2. Urine tox screen (patient denies drug abuse) Plantar fascial fibromatosis 12/24/2007 01/15/2023 Pain in limb 12/10/2007 01/15/2023 INSOMNIA 12/04/2007 01/15/2023 Unspecified hemorrhoids with out mention of complication 01/15/2023 Overview: Hemorrhoids documented as of this encounter (statuses as of 08/15/2023) [facility]08-22-2013 History of Past illness Narrative* Problem Noted Date Diagnosed Date Resolved Date Possible Fibromuscular dysplasia 04/29/2013 04/29/2013 Overview: Assessment: Carotid Duplex Ultrasound on 04/28/2013 demonstrated Turbulent flow and elevated velocities at mid or distal vessel consistent with fibromuscular dysplasia. in both right and left internal carotid arteries. 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 History of stroke rules out use of prasugrel / ticagrelor 2. Clopidogrel Leukocytosis 04/27/2013 04/29/2013 Overview: History: No clinical signs of infection No fever Resolved Assessment: Leucocytosis likely cardiac cause rather than infection Plan: 1. UA / Urine culture 2. Blood culture x 2 3. Culture if any symptoms or fever > 38.3C ST elevation myocardial infa rction (STEMI) of lateral wall, initial episode of care 04/26/2013 Overview: History: ECG at OSH showed 2-3mm ST elevation in leads 1 and aVL. ECG later also showed evolving changes with ST elevations in V3-6 together with lateral leads. Underwent a C on arrival 04/26/13 which showed severe disease in the distal branch of RCA that was ballooned previously. POBA was attempted but unsuccessful due to small caliber and tortuous nature. On arrival, patient complaining of chest pain again. Started on nitroglycerin. ECG shows ongoing but smaller ST elevation in the same leads With brief bedside echo, this showed depressed EF, apical hypokinesis, 1-2+ MR. Assessment: NSTEMI Plan: 1. Clopidogrel (not for other ADP [id number] given prior stroke) 2. Aspirin 81mg daily 3. Toprol 25 mg XL 4. Captopril 6.5 mg BID 5. Atorvastatin 80mg 6. Nitroglycerin PRN for CP. 7. Will consider Ca channel kristen for spasm as it is a potential cause - have to be cautious with depressed EF Hypertension 04/26/2013 04/29/2013 Overview: History: Previous mention of HTN. However, more recently, it seems with atenolol her SBP ranged in the 100-120. Patient denies history of HTN that she recalls. Assessment: Controlled HTN Plan: - captopril 6.5 mg BID - Toprol XL 25 mg daily Ex-smoker 04/26/2013 04/29/2013 Overview: History: 10 pack year smoking history, quit 1982 No prior history of COPD, not on any inhalers Assessment: ex-smoker quit 30 years ago, no current signs of COPD Plan: 1. Monitor for signs of COPD Possible underlying coronary artery spasm 04/26/2013 04/29/2013 Overview: History: In 1994 she presented with chest pain + elevated CE. According to prior notes, C showed no significant obstructive coronary disease. This episode was thought be coronary spasm. She was treated with diltiazem for a time but then subsequently stopped for unclear reason. Following this she had inferior STEMI in 2003, this time LHC showed significant disease in the small distal branch off RCA, which was ballooned but no stents were placed. Since then there have been discussions by the outpatient cardiology team regarding possibly starting on diltiazem again but this never eventuated. Assessment: Possible underlying coronary spasm. Plan: 1. Ideally would like to give Ca channel kristen but in the setting of reduced EF and patient will need BB too - will discuss with team in the morning. 2. Urine tox screen (patient denies drug abuse) Plantar fascial fibromatosis 12/24/2007 01/15/2023 Pain in limb 12/10/2007 01/15/2023 INSOMNIA 12/04/2007 01/15/2023 Unspecified hemorrhoids with out mention of complication 01/15/2023 Overview: Hemorrhoids documented as of this encounter (statuses as of 12/23/2023) [facility] Diagnosis Coronary artery disease involving [place] coronary artery of [place] heart without angina pectoris- [facility] Diagnosis Ductal carcinoma in situ (DCIS) of left breast- Primary Encounter for screening mammogram for high-risk patient [facility] Diagnosis Encounter for gynecologic examination for high-risk patient covered by Medicare- [facility] Routine gynecological examination Stress incontinence Female stress incontinence Poison [place] dermatitis Contact dermatitis and other eczema due to plants (except food) Encounter for screening for osteoporosis Special screening for osteoporosis Asymptomatic postmenopausal state [facility] Diagnosis Ductal carcinoma in situ (DCIS) of left breast Encounter for screening mammogram for high-risk patient [facility] Encounter for screening for osteoporosis Special screening for osteoporosis Asymptomatic postmenopausal state [facility] Diagnosis Old ND (myocardial infarction)- Primary Old myocardial infarction Coronary artery disease involving [place] coronary artery of [place] heart without angina pectoris Fibromuscular dysplasia (HCC) Other specified disorders of arteries and arterioles Spontaneous dissection of coronary artery [facility] Diagnosis Ductal carcinoma in situ (DCIS) of left breast- Primary Encounter for screening mammogram for high-risk patient [facility] Diagnosis Coronary artery disease involving [place] coronary artery of [place] heart without angina pectoris Fibromuscular dysplasia (HCC) Other specified disorders of arteries and arterioles [facility] Diagnosis Encounter for gynecologic examination for high-risk patient covered by Medicare- Primary Routine gynecological examination History of ductal carcinoma in situ (DCIS) of breast Use of tamoxifen (Nolvadex) Use of selective estrogen receptor modulators (SERMs) Stress incontinence Female stress incontinence [facility] Diagnosis Ductal carcinoma in situ (DCIS) of left breast- Primary Encounter for screening mammogram for high-risk patient [facility] Diagnosis Ductal carcinoma in situ (DCIS) of left breast Encounter for screening mammogram for high-risk patient [facility] Diagnosis H/O acute myocardial infarction- Primary Old myocardial infarction Coronary artery disease involving [place] coronary artery of [place] heart without angina pectoris Fibromuscular dysplasia (HCC) Other specified disorders of arteries and arterioles [facility] Diagnosis Coronary artery disease involving [place] coronary artery of [place] heart without angina pectoris Fibromuscular dysplasia (HCC) Other specified disorders of arteries and arterioles [facility]* Diagnosis Ductal carcinoma in situ (DCIS) of left breast- Primary [facility] Diagnosis Ductal carcinoma in situ (DCIS) of left breast- Primary [facility] Diagnosis Encounter for gynecologic examination for high-risk patient covered by Medicare- Primary Routine gynecological examination Stress incontinence Female stress incontinence History of ductal carcinoma in situ (DCIS) of breast [facility] Diagnosis Encounter for screening mammogram for high-risk patient Ductal carcinoma in situ (DCIS) of left breast [facility]* Diagnosis Hair loss- Primary Alopecia, unspecified Primary hypertension Unspecified essential hypertension Hyperlipidemia, unspecified hyperlipidemia type Age-related osteoporosis without current pathological fracture Senile osteoporosis Encounter for immunization Need for other specified prophylactic vaccination against single bacterial disease [facility] Diagnosis Coronary artery disease involving [place] coronary artery of [place] heart without angina pectoris Fibromuscular dysplasia (HCC) Other specified disorders of arteries and arterioles [facility] Diagnosis Ductal carcinoma in situ (DCIS) of left breast- Primary Encounter for screening mammogram for high-risk patient [facility]* Diagnosis PMB (postmenopausal bleeding)- Primary Postmenopausal bleeding Pelvic pain in female Unspecified symptom associated with female genital organs Postmenopausal atrophic vaginitis [facility] Diagnosis PMB (postmenopausal bleeding) Postmenopausal bleeding Pelvic pain in female Unspecified symptom associated with female genital organs [facility] Diagnosis Endometrial thickening on ultrasound- Primary PMB (postmenopausal bleeding) Postmenopausal bleeding Pelvic pain in female Unspecified symptom associated with female genital organs documented in this encounter [facility] note* Diagnosis Pre-procedural laboratory examination- Primary documented in this encounter [facility] note* Diagnosis PMB (postmenopausal bleeding) Postmenopausal bleeding Pelvic pain in female Unspecified symptom associated with female genital organs documented in this encounter [facility] note* Diagnosis Postmenopausal bleeding- Primary Endometrial thickening on ultrasound documented in this encounter [facility] note* Diagnosis Ductal carcinoma in situ (DCIS) of left breast Encounter for screening mammogram for high-risk patient documented in this encounter [facility] note* Diagnosis Ductal carcinoma in situ (DCIS) of left breast- Primary Encounter for screening mammogram for high-risk patient documented in this encounter [facility] note* Diagnosis Thickened endometrium- Primary Nonspecific (abnormal) findings on radiological and other examination of genitourinary organs Postmenopausal bleeding Personal history of breast cancer Personal history of malignant neoplasm of breast documented in this encounter [facility] note* Diagnosis Acute left ankle pain- Primary documented in this encounter [facility] for referral (narrative)* Outpatient Procedure (Routine) - Authorized Specialty Diagnoses / Procedures Referred By Jenny mccarthy Referred To Contact [facility] [place] Diagnoses Coronary artery disease involving [place] coronary artery of [place] heart without angina pectoris Procedures ECG COMPLETE ECG ROUTINE ECG W/LEAST 12 LDS W/I&R Enio Kirby MD [address] [place] [address] [address] Referral ID Status Reason Start Date Expiration Date Visits Requested Visits Authorized [id number] Authorized Auto-Generat ed Referral 02/14/2022 02/14/2023 1 1 [facility] for referral (narrative)* Diagnostic Procedure Only (Routine) - Authorized Specialty Diagnoses / Procedures Referred By Jenny mccarthy Referred To Contact [facility] Diagnoses Ductal carcinoma in situ (DCIS) of left breast Encounter for screening mammogram for high-risk patient Procedures ERIC SCREENING W CHAN SCREENING DIGITAL BREAST TOMOSYNTHESIS BI SCREENING MAMMOGRAPHY BI 2-VIEW BREAST INC Merari Bolanos, AZAM.[employer] [address] [place] [address] [facility] [address] [place] [address] Referral ID Status Reason Start Date Expiration Date Visits Requested Visits Authorized [id number] Authorized Auto-Generat ed Referral 02/28/2022 03/30/2023 1 1 [facility] for referral (narrative)* Diagnostic Procedure Only (Routine) - Closed Specialty Diagnoses / Procedures Referred By Contac t Referred To Contact [facility] Diagnoses Ductal carcinoma in situ (DCIS) of left breast Encounter for screening mammogram for high-risk patient Procedures ERIC SCREENING W CHAN SCREENING DIGITAL BREAST TOMOSYNTHESIS BI SCREENING MAMMOGRAPHY BI 2-VIEW BREAST INC Merari Bolanos APRN.[employer] [address] [place] [place] [address] [facility] [address] [place] [address] Referral ID Status Reason Start Date Expiration Date V isits Requested Visits Authorized [id number] Closed Auto-Generate d Referral 02/28/2022 03/30/2023 1 1 [facility] for referral (narrative)* Diagnostic Procedure Only (Routine) - Authorized Specialty Diagnoses / Procedures Referred By Contac t Referred To Contact [facility] Diagnoses Ductal carcinoma in situ (DCIS) of left breast Encounter for screening mammogram for high-risk patient Procedures ERIC SCREENING W CHAN SCREENING DIGITAL BREAST TOMOSYNTHESIS BI SCREENING MAMMOGRAPHY BI 2-VIEW BREAST INC Merari Bolanos APRN.[employer] M[employer] [address] [place] [address] [facility] [address] [place] [address] Referral ID Status Reason Start Date Expiration Date Visits Requested Visits Authorized [id number] Authorized Auto-Generat ed Referral 08/15/2022 09/14/2023 1 1 [facility] for referral (narrative)* Diagnostic Procedure Only (Routine) - Authorized Specialty Diagnoses / Procedures Referred By Jenny mccarthy Referred To Contact [facility] Diagnoses Encounter for screening mammogram for high-risk patient Ductal carcinoma in situ (DCIS) of left breast Procedures ERIC SCREENING W CHAN SCREENING DIGITAL BREAST TOMOSYNTHESIS BI SCREENING MAMMOGRAPHY BI 2-VIEW BREAST INC [facility] Merari Rush APRN.[employer] M[employer] [address] [place] [address] [facility] [address] [place] [address] Referral ID Status Reason Start Date Expiration Date Visits Requested Visits Authorized [id number] Authorized Auto-Generat ed Referral 07/17/2024 1 1 [facility] for referral (narrative)* Diagnostic Procedure Only (Routine) - Closed Specialty Diagnoses / Procedures Referred By Jenny mccarthy Referred To Contact [facility] Diagnoses Ductal carcinoma in situ (DCIS) of left breast Encounter for screening mammogram for high-risk patient Procedures ERIC SCREENING W CHAN SCREENING DIGITAL BREAST TOMOSYNTHESIS BI SCREENING MAMMOGRAPHY BI 2-VIEW BREAST INC [facility] Merari Rush APRN.[employer] [address] [place] [address] [facility] [address] [place] [address] Referral ID Status Reason Start Date Expiration Date V isits Requested Visits Authorized [id number] Closed Auto-Generate d Referral 08/15/2022 09/14/2023 1 1 [facility] for referral (narrative)* Outpatient Procedure (Routine) - Pending Review Specialty Diagnoses / Procedures Referred By Jenny mccarthy Referred To [facility] Diagnoses Coronary artery disease involving [place] coronary artery of [place] heart without angina pectoris Fibromuscular dysplasia (HCC) H/O acute myocardial infarction Procedures ECG COMPLETE ECG ROUTINE ECG W/LEAST 12 LDS W/I&[place] [address] [place] [address] [facility] [place] [address] [place] [address] Referral ID Status Reason Start Date Expiration Date Visits Requested Visits Authorized [id number] Pending Review Auto-Generat ed Referral 08/15/2023 08/14/2024 1 1 * Transition of Care (Routine) - Ref Not Required Specialty Diagnoses / Procedures Referred By Contac t Referred To Contact Diagnoses Coronary artery disease involving [place] coronary artery of [place] heart without angina pectoris Fibromuscular dysplasia (HCC) H/O acute myocardial infarction Procedures CARDIOVASCULAR MEDICINE [place] [address] [place] [address] Referral ID Status Reason Start Date Expiration Date Visits Requested Visits Authorized [id number] Ref Not Required PCP Requested Referral 08/15/2023 08/14/2024 1 1 [facility] for referral (narrative)* Diagnostic Procedure Only (Routine) - Authorized Specialty Diagnoses / Procedures Referred By Jenny t Referred To Contact [facility] Diagnoses Ductal carcinoma in situ (DCIS) of left breast Encounter for screening mammogram for high-risk patient Procedures ERIC SCREENING W CHAN SCREENING DIGITAL BREAST TOMOSYNTHESIS BI SCREENING MAMMOGRAPHY BI 2-VIEW BREAST INC Merari Bolanos APRN.CNP [address] [place] [address] [facility] [address] [place] [address] Referral ID Status Reason Start Date Expiration Date Visits Requested Visits Authorized [id number] Authorized Auto-Generat ed Referral 03/17/2025 10/15/2025 1 1 [facility] for visit Narrative* Diagnostic Procedure Only (Routine) - Closed Specialty Diagnoses / Procedures Referred By Contac t Referred To Contact [facility] Diagnoses Ductal carcinoma in situ (DCIS) of left breast Encounter for screening mammogram for high-risk patient Procedures ERIC SCREENING W CHAN SCREENING DIGITAL BREAST TOMOSYNTHESIS BI SCREENING MAMMOGRAPHY BI 2-VIEW BREAST INC [facility], FELLED SEAM OPERATOR CHAINSTITCH.[employer] [address] [place] [address] [facility] [address] [place] [address] Referral ID Status Reason Start Date Expiration Date V isits Requested Visits Authorized [id number] Closed Auto-Generate d Referral 02/28/2022 03/30/2023 1 1 [facility] for visit Narrative* Diagnostic Procedure Only (Routine) - Closed Specialty Diagnoses / Procedures Referred By Jenny t Referred To Contact [facility] Diagnoses Ductal carcinoma in situ (DCIS) of left breast Encounter for screening mammogram for high-risk patient Procedures ERIC SCREENING W CHAN SCREENING DIGITAL BREAST TOMOSYNTHESIS BI SCREENING MAMMOGRAPHY BI 2-VIEW BREAST INC [facility], FELLED SEAM OPERATOR CHAINSTITCH.[employer] [address] [place] [address] [facility] [address] [place] [address] Referral ID Status Reason Start Date Expiration Date V isits Requested Visits Authorized [id number] Closed Auto-Generate d Referral 08/15/2022 09/14/2023 1 1 [facility] for visit Narrative* Diagnostic Procedure Only (Routine) - Closed Specialty Diagnoses / Procedures Referred By Jenny t Referred To Contact [facility] Diagnoses Encounter for screening mammogram for high-risk patient Ductal carcinoma in situ (DCIS) of left breast Procedures ERIC SCREENING W CHAN SCREENING DIGITAL BREAST TOMOSYNTHESIS BI SCREENING MAMMOGRAPHY BI 2-VIEW BREAST INC [facility], FELLED SEAM OPERATOR CHAINSTITCH.PL[employer] MILL HAND [address] [place] [address] [facility] [address] [place] [address] Referral ID Status Reason Start Date Expiration Date V isits Requested Visits Authorized [id number] Closed Auto-Generate d Referral 06/18/2023 07/17/2024 1 1 [facility] for visit Narrative* Diagnostic Procedure Only (Routine) - Closed Specialty Diagnoses / Procedures Referred By Jenny t Referred To Contact [facility] Diagnoses PMB (postmenopausal bleeding) Pelvic pain in female Procedures PELVIC US WHI US PELVIC NONOBSTETRIC REAL-TIME IMAGE COMPLETE Fatou Jackson, FELLED SEAM OPERATOR CHAINSTITCH.[facility] [facility] [address] [place] [address] Phone: tel: fax: [facility] [address] [place] [address] Referral ID Status Reason Start Date Expiration Date V isits Requested Visits Authorized [id number] Closed Auto-Generate d Referral 11/10/2024 11/10/2025 1 1 [facility] for visit Narrative* MRI/CT (Routine) - Closed Specialty Diagnoses / Procedures Referred By Jenny mccarthy Referred To Contact [facility] Diagnoses PMB (postmenopausal bleeding) Pelvic pain in female Procedures CT ABD/PEL W IVCON CT ABD & PELVIS W/CONTRAST Fatou Jackson, FELLED SEAM OPERATOR CHAINSTITCH.[facility] [facility] [facility] [address] [place] [address] Phone: tel: fax: [place] [address] Referral ID Status Reason Start Date Expiration Date V isits Requested Visits Authorized [id number] Closed Auto-Generate d Referral 02/23/2025 12/23/2025 1 1 [facility] for visit Narrative* Diagnostic Procedure Only (Routine) - Closed Specialty Diagnoses / Procedures Referred By Jenny mccarthy Referred To Contact [facility] Diagnoses Ductal carcinoma in situ (DCIS) of left breast Encounter for screening mammogram for high-risk patient Procedures ERIC SCREENING W CHAN SCREENING DIGITAL BREAST TOMOSYNTHESIS BI SCREENING MAMMOGRAPHY BI 2-VIEW BREAST INC Merari Bolanos, FELLED SEAM OPERATOR CHAINSTITCH.[facility] [address] [place] [address] Phone: tel: fax: [facility] [address] [place] [address] Referral ID Status Reason Start Date Expiration Date V isits Requested Visits Authorized [id number] Closed Auto-Generate d Referral 03/17/2025 10/15/2025 1 1 [facility] for visit Narrative* Diagnostic Procedure Only (Urgent) - Closed Specialty Diagnoses / Procedures Referred By Jenny mccarthy Referred To Contact [facility] Diagnoses Acute left ankle pain Procedures XR ANKLE GENERAL 3V AP/LAT/OBL LEFT RADEX ANKLE COMPLETE MINIMUM 3 VIEWS Manoj Green APRN.PLATE MILL MILL HAND [address] [facility] [place] [address] Phone: tel: fax: [place] [address] Referral ID Status Reason Start Date Expiration Date V isits Requested Visits Authorized [id number] Closed Auto-Generate d Referral 04/28/2025 05/28/2026 1 1 [facility] Summary Purpose Family History No Family History Records FoundNo Family History Records Found Advance Directives No Advanced Directives Records FoundNo Advanced Directives Records Found Additional Source Comments Source Comments (unrecognize d section and content) In the event this informatio n is protected by the Federal Confidentiality of Alcohol and Drug Abuse Patient Records regulations: The Federal rules restrict any use of the information to criminally investigate or prosecute any alcohol or drug abuse patient.[facility] Center[facility] the event this information is protected by the Federal Confidentiality of Alcohol and Drug Abuse Patient Records regulations: The Federal rules restrict any use of the information to criminally investigate or prosecute any alcohol or drug abuse patient.[facility] CenterIn the event this information is protected by the Federal Confidentiality of Alcohol and Drug Abuse Patient Records regulations: The Federal rules restrict any use of the information to criminally investigate or prosecute any alcohol or drug abuse patient.[facility] CenterIn the event this information is protected by the Federal Confidentiality of Alcohol and Drug Abuse Patient Records regulations: The Federal rules restrict any use of the information to criminally investigate or prosecute any alcohol or drug abuse patient.[facility] CenterIn the event this information is protected by the Federal Confidentiality of Alcohol and Drug Abuse Patient Records regulations: The Federal rules restrict any use of the information to criminally investigate or prosecute any alcohol or drug abuse patient.[facility] CenterIn the event this information is protected by the Federal Confidentiality of Alcohol and Drug Abuse Patient Records regulations: The Federal rules restrict any use of the information to criminally investigate or prosecute any alcohol or drug abuse patient.[facility] CenterIn the event this information is protected by the Federal Confidentiality of Alcohol and Drug Abuse Patient Records regulations: The Federal rules restrict any use of the information to criminally investigate or prosecute any alcohol or drug abuse patient.[facility] CenterIn the event this information is protected by the Federal Confidentiality of Alcohol and Drug Abuse Patient Records regulations: The Federal rules restrict any use of the information to criminally investigate or prosecute any alcohol or drug abuse patient.[facility] CenterIn the event this information is protected by the Federal Confidentiality of Alcohol and Drug Abuse Patient Records regulations: The Federal rules restrict any use of the information to criminally investigate or prosecute any alcohol or drug abuse patient.[facility] CenterIn the event this information is protected by the Federal Confidentiality of Alcohol and Drug Abuse Patient Records regulations: The Federal rules restrict any use of the information to criminally investigate or prosecute any alcohol or drug abuse patient.[facility] CenterIn the event this information is protected by the Federal Confidentiality of Alcohol and Drug Abuse Patient Records regulations: The Federal rules restrict any use of the information to criminally investigate or prosecute any alcohol or drug abuse patient.[facility] CenterIn the event this information is protected by the Federal Confidentiality of Alcohol and Drug Abuse Patient Records regulations: The Federal rules restrict any use of the information to criminally investigate or prosecute any alcohol or drug abuse patient.[facility] CenterIn the event this information is protected by the Federal Confidentiality of Alcohol and Drug Abuse Patient Records regulations: The Federal rules restrict any use of the information to criminally investigate or prosecute any alcohol or drug abuse patient.[facility] CenterIn the event this information is protected by the Federal Confidentiality of Alcohol and Drug Abuse Patient Records regulations: The Federal rules restrict any use of the information to criminally investigate or prosecute any alcohol or drug abuse patient.[facility] CenterIn the event this information is protected by the Federal Confidentiality of Alcohol and Drug Abuse Patient Records regulations: The Federal rules restrict any use of the information to criminally investigate or prosecute any alcohol or drug abuse patient.[facility] CenterIn the event this information is protected by the Federal Confidentiality of Alcohol and Drug Abuse Patient Records regulations: The Federal rules restrict any use of the information to criminally investigate or prosecute any alcohol or drug abuse patient.[facility] CenterIn the event this information is protected by the Federal Confidentiality of Alcohol and Drug Abuse Patient Records regulations: The Federal rules restrict any use of the information to criminally investigate or prosecute any alcohol or drug abuse patient.[facility] CenterIn the event this information is protected by the Federal Confidentiality of Alcohol and Drug Abuse Patient Records regulations: The Federal rules restrict any use of the information to criminally investigate or prosecute any alcohol or drug abuse patient.[facility] CenterIn the event this information is protected by the Federal Confidentiality of Alcohol and Drug Abuse Patient Records regulations: The Federal rules restrict any use of the information to criminally investigate or prosecute any alcohol or drug abuse patient.[facility] CenterIn the event this information is protected by the Federal Confidentiality of Alcohol and Drug Abuse Patient Records regulations: The Federal rules restrict any use of the information to criminally investigate or prosecute any alcohol or drug abuse patient.[facility] CenterIn the event this information is protected by the Federal Confidentiality of Alcohol and Drug Abuse Patient Records regulations: The Federal rules restrict any use of the information to criminally investigate or prosecute any alcohol or drug abuse patient.[facility] CenterIn the event this information is protected by the Federal Confidentiality of Alcohol and Drug Abuse Patient Records regulations: The Federal rules restrict any use of the information to criminally investigate or prosecute any alcohol or drug abuse patient.[facility] CenterIn the event this information is protected by the Federal Confidentiality of Alcohol and Drug Abuse Patient Records regulations: The Federal rules restrict any use of the information to criminally investigate or prosecute any alcohol or drug abuse patient.[facility] CenterIn the event this information is protected by the Federal Confidentiality of Alcohol and Drug Abuse Patient Records regulations: The Federal rules restrict any use of the information to criminally investigate or prosecute any alcohol or drug abuse patient.[facility] CenterIn the event this information is protected by the Federal Confidentiality of Alcohol and Drug Abuse Patient Records regulations: The Federal rules restrict any use of the information to criminally investigate or prosecute any alcohol or drug abuse patient.[facility] CenterIn the event this information is protected by the Federal Confidentiality of Alcohol and Drug Abuse Patient Records regulations: The Federal rules restrict any use of the information to criminally investigate or prosecute any alcohol or drug abuse patient.[facility] CenterIn the event this information is protected by the Federal Confidentiality of Alcohol and Drug Abuse Patient Records regulations: The Federal rules restrict any use of the information to criminally investigate or prosecute any alcohol or drug abuse patient.[facility] CenterIn the event this information is protected by the Federal Confidentiality of Alcohol and Drug Abuse Patient Records regulations: The Federal rules restrict any use of the information to criminally investigate or prosecute any alcohol or drug abuse patient.[facility] CenterIn the event this information is protected by the Federal Confidentiality of Alcohol and Drug Abuse Patient Records regulations: The Federal rules restrict any use of the information to criminally investigate or prosecute any alcohol or drug abuse patient.[facility] CenterIn the event this information is protected by the Federal Confidentiality of Alcohol and Drug Abuse Patient Records regulations: The Federal rules restrict any use of the information to criminally investigate or prosecute any alcohol or drug abuse patient.[facility] CenterIn the event this information is protected by the Federal Confidentiality of Alcohol and Drug Abuse Patient Records regulations: The Federal rules restrict any use of the information to criminally investigate or prosecute any alcohol or drug abuse patient.[facility] CenterIn the event this information is protected by the Federal Confidentiality of Alcohol and Drug Abuse Patient Records regulations: The Federal rules restrict any use of the information to criminally investigate or prosecute any alcohol or drug abuse patient.[facility] CenterIn the event this information is protected by the Federal Confidentiality of Alcohol and Drug Abuse Patient Records regulations: The Federal rules restrict any use of the information to criminally investigate or prosecute any alcohol or drug abuse patient.[facility] CenterIn the event this information is protected by the Federal Confidentiality of Alcohol and Drug Abuse Patient Records regulations: The Federal rules restrict any use of the information to criminally investigate or prosecute any alcohol or drug abuse patient.[facility] CenterIn the event this information is protected by the Federal Confidentiality of Alcohol and Drug Abuse Patient Records regulations: The Federal rules restrict any use of the information to criminally investigate or prosecute any alcohol or drug abuse patient.[facility] CenterIn the event this information is protected by the Federal Confidentiality of Alcohol and Drug Abuse Patient Records regulations: The Federal rules restrict any use of the information to criminally investigate or prosecute any alcohol or drug abuse patient.[facility] CenterIn the event this information is protected by the Federal Confidentiality of Alcohol and Drug Abuse Patient Records regulations: The Federal rules restrict any use of the information to criminally investigate or prosecute any alcohol or drug abuse patient.[facility] CenterIn the event this information is protected by the Federal Confidentiality of Alcohol and Drug Abuse Patient Records regulations: The Federal rules restrict any use of the information to criminally investigate or prosecute any alcohol or drug abuse patient.[facility] CenterIn the event this information is protected by the Federal Confidentiality of Alcohol and Drug Abuse Patient Records regulations: The Federal rules restrict any use of the information to criminally investigate or prosecute any alcohol or drug abuse patient.[facility] CenterIn the event this information is protected by the Federal Confidentiality of Alcohol and Drug Abuse Patient Records regulations: The Federal rules restrict any use of the information to criminally investigate or prosecute any alcohol or drug abuse patient.[facility] CenterIn the event this information is protected by the Federal Confidentiality of Alcohol and Drug Abuse Patient Records regulations: The Federal rules restrict any use of the information to criminally investigate or prosecute any alcohol or drug abuse patient.[facility] CenterIn the event this information is protected by the Federal Confidentiality of Alcohol and Drug Abuse Patient Records regulations: The Federal rules restrict any use of the information to criminally investigate or prosecute any alcohol or drug abuse patient.[facility] CenterIn the event this information is protected by the Federal Confidentiality of Alcohol and Drug Abuse Patient Records regulations: The Federal rules restrict any use of the information to criminally investigate or prosecute any alcohol or drug abuse patient.[facility] CenterIn the event this information is protected by the Federal Confidentiality of Alcohol and Drug Abuse Patient Records regulations: The Federal rules restrict any use of the information to criminally investigate or prosecute any alcohol or drug abuse patient.[facility] Reason for Visit (unrecogniz ed section and content) Reason Onset Date Comments Population Health Navigation Outreach 12/24/2021 QAI -NO PCP Reason Comments Follow Up Reason Comments Well Woman Reason Comments Follow Up Reason Comments Established Patient Reason Comments Refill Request Reason Comments Yearly Exam Reason Comments Follow Up Reason Comments Established Patient Reason Onset Date Comments Refill Request 04/08/2024 Reason Comments Medication Follow-up Reason Onset Date Comments Refill Request 08/10/2024 Reason Comments Problem Visit Reason Comments Results Orders Reason Comments Patient Update Reason Comments Orders Reason Comments Radiology CT Specialty Diagnoses / Procedures Referred By Contac t Referred To Contact [facility] Diagnoses PMB (postmenopausal bleeding) Pelvic pain in female Procedures CT ABD/PEL W IVCON CT ABD & PELVIS W/CONTRAST Fatou Jackson FELLED SEAM OPERATOR CHAINSTITCH.[facility] [facility] [facility] [address] [place] [address] Phone: tel: fax: [place] [address] Referral ID Status Reason Start Date Expiration Date V isits Requested Visits Authorized [id number] Closed Auto-Generate d Referral 02/23/2025 12/23/2025 1 1 Reason Comments Results Reason Comments Endometrial Biopsy Specialty Diagnoses / Procedures Referred By Conttevin t Referred To Contact [facility] Diagnoses Endometrial thickening on ultrasound Procedures ENDOMETRIAL BIOPSY ENDOMETRIAL BX W/WO ENDOCERVIX BX W/O DILAT SPX Fatou Jackson, FELLED SEAM OPERATOR CHAINSTITCH.[facility] [facility] [facility] [address] [place] [address] Phone: tel: fax: 74 [address] [address] Referral ID Status Reason Start Date Expiration Date V isits Requested Visits Authorized [id number] Closed Auto-Generate d Referral 11/23/2024 11/23/2025 1 1 Reason Comments Ankle Pain L ankle swelling and redness x5 days, denies injury Care Teams (unrecognized sec tion and content) Yarn Worker Relationship Specialty Start Date End Date Enio Kirby MD Primary Staff Physician Cardiology 11/24/18 Lauren Horner MD, [address] [place], [place] [address] Physician Radiation Oncology 02/27/21 Yarn Worker Relationship Specialty Start Date End Date Enio Kirby MD Primary Staff Physician Cardiology 11/24/18 Lauren Horner MD, [address] [place] [address] Physician Radiation Oncology 02/27/21 Yarn Worker Relationship Specialty Start Date End Date Enio Kirby MD Primary Staff Physician Cardiology 11/24/18 Lauren Horner MD, [address] [place] [address] Physician Radiation Oncology 02/27/21 Yarn Worker Relationship Specialty Start Date End Date Enio Kirby MD Primary Staff Physician Cardiology 11/24/18 Lauren Horner MD, [address] [place] [address] Physician Radiation Oncology 02/27/21 Yarn Worker Relationship Specialty Start Date End Date Enio Kirby MD Primary Staff Physician Cardiology 11/24/18 Lauren Horner MD, [address] [place] [address] Physician Radiation Oncology 02/27/21 Yarn Worker Relationship Specialty Start Date End Date Enio Kirby MD Primary Staff Physician Cardiology 11/24/18 Lauren Horner MD, [address] [place] [address] Physician Radiation Oncology 02/27/21 Yarn Worker Relationship Specialty Start Date End Date Enio Kirby MD Primary Staff Physician Cardiology 11/24/18 Lauren Horner MD, [address] [place] [address] Physician Radiation Oncology 02/27/21 Yarn Worker Relationship Specialty Start Date End Date Enio Kirby MD Primary Staff Physician Cardiology 11/24/18 Lauren Horner MD, [address] [place] [address] Physician Radiation Oncology 02/27/21 Yarn Worker Relationship Specialty Start Date End Date Daniel Singh MD [address] [place] [address] PCP - General Internal Medicine 01/15/23 Enio Kirby MD Primary Staff Physician Cardiology 11/24/18 Lauren Horner MD, [address] [place] [address] Physician Radiation Oncology 02/27/21 Yarn Worker Relationship Specialty Start Date End Date Daniel Singh MD [address] [place] [address] PCP - General Internal Medicine 01/15/23 Enio Kirby MD Primary Staff Physician Cardiology 11/24/18 Lauren Horner MD, [address] [place] [address] Physician Radiation Oncology 02/27/21 Yarn Worker Relationship Specialty Start Date End Date Daniel Singh MD [address] [place] [address] PCP - General Internal Medicine 01/15/23 Enio Kirby MD Primary Staff Physician Cardiology 11/24/18 Lauren Horner MD, [address] [place] [address] Physician Radiation Oncology 02/27/21 Yarn Worker Relationship Specialty Start Date End Date Daniel Singh MD [address] [place] [address] PCP - General Internal Medicine 01/15/23 Enio Kirby MD Primary Staff Physician Cardiology 11/24/18 Lauren Horner MD, [address] [place] [address] Physician Radiation Oncology 02/27/21 Yarn Worker Relationship Specialty Start Date End Date Daniel Singh MD [address] [place] [address] PCP - General Internal Medicine 01/15/23 Enio Kirby MD Primary Staff Physician Cardiology 11/24/18 Lauren Horner MD, [address] [place] [address] Physician Radiation Oncology 02/27/21 Yarn Worker Relationship Specialty Start Date End Date Daniel Singh MD [address] [place] [address] PCP - General Internal Medicine 01/15/23 Enio Kibry MD Primary Staff Physician Cardiology 11/24/18 Lauren Horner MD, [address] [place] [address] Physician Radiation Oncology 02/27/21 Yarn Worker Relationship Specialty Start Date End Date Daniel Singh MD [address] [place] [address] PCP - General Internal Medicine 01/15/23 Enio Kirby MD Primary Staff Physician Cardiology 11/24/18 Lauren Horner MD [address] [place] [address] Physician Radiation Oncology 02/27/21 Prosper Epstein MD [id number] [place] [address] Ophthalmology 11/27/23 Yarn Worker Relationship Specialty Start Date End Date Daniel Singh MD [address] [place] [address] PCP - General Internal Medicine 01/15/23 Enio Kirby MD Primary Staff Physician Cardiology 11/24/18 Lauren Horner MD [address] [place] [address] Physician Radiation Oncology 02/27/21 Prosper Epstein MD [address] [place] [place] [address] Ophthalmology 11/27/23 Yarn Worker Relationship Specialty Start Date End Date Wen Bhat, FELLED SEAM OPERATOR CHAINSTITCH.PLATE MILL MILL HAND [address] [place] [address] PCP - General Internal Medicine 03/16/24 Enio Kirby MD Primary Staff Physician Cardiology 11/24/18 Lauren Horner MD [address] [place] [address] Physician Radiation Oncology 02/27/21 Prosper Epstein MD [address] [place] [address] Ophthalmology 11/27/23 Yarn Worker Relationship Specialty Start Date End Date Wen Bhat, FELLED SEAM OPERATOR CHAINSTITCH.PLATE MILL MILL HAND [address] [place] [address] PCP - General Internal Medicine 03/16/24 Enio Kirby MD Primary Staff Physician Cardiology 11/24/18 Lauren Horner MD [address] [place] [address] Physician Radiation Oncology 02/27/21 Prosper pEstein MD [address] [facility] [place] [address] Ophthalmology 11/27/23 Yarn Worker Relationship Specialty Start Date End Date Wen Bhat, FELLED SEAM OPERATOR CHAINSTITCH.PLATE MILL MILL HAND [address] [place] [address] PCP - General Internal Medicine 03/16/24 Enio Kirby MD Primary Staff Physician Cardiology 11/24/18 Lauren Horner MD [address] [place] [address] Physician Radiation Oncology 02/27/21 Prosper Epstein MD [address] [facility] [place] [address] Ophthalmology 11/27/23 Yarn Worker Relationship Specialty Start Date End Date Wen Bhat, FELLED SEAM OPERATOR CHAINSTITCH.PLATE MILL MILL HAND [address] [facility] [place] [address] PCP - General Internal Medicine 03/16/24 Enio Kirby MD Primary Staff Physician Cardiology 11/24/18 Lauren Horner MD [address] [place] [place] [address] Physician Radiation Oncology 02/27/21 Prosper Epstein MD [address] [facility] [place] [address] Ophthalmology 11/27/23 Yarn Worker Relationship Specialty Start Date End Date Wen Bhat, FELLED SEAM OPERATOR CHAINSTITCH.PLATE MILL MILL HAND [address] [facility] [place] [address] PCP - General Internal Medicine 03/16/24 04/08/24 Daniel iSngh MD [address] [facility] [place] [address] PCP - General Internal Medicine 04/09/24 Enio Kirby MD Primary Staff Physician Cardiology 11/24/18 Lauren Horner MD [address] [place] [address] Physician Radiation Oncology 02/27/21 Prosper Epstein MD [address] [place] [address] Ophthalmology 11/27/23 Yarn Worker Relationship Specialty Start Date End Date Daniel Singh MD [address] [place], [place] [address] PCP - General Internal Medicine 04/09/24 Enio Kirby MD Primary Staff Physician Cardiology 11/24/18 Lauren Horner MD [address] [place] [address] Physician Radiation Oncology 02/27/21 Prosper Epstein MD [address] [place], [place] [address] Ophthalmology 11/27/23 Yarn Worker Relationship Specialty Start Date End Date Daniel Singh MD [address] [place] [address] PCP - General Internal Medicine 04/09/24 Enio Kirby MD Primary Staff Physician Cardiology 11/24/18 Lauren Horner MD [address] [place] [address] Physician Radiation Oncology 02/27/21 Prosper Epstein MD [address] [facility] [place] [address] Ophthalmology 11/27/23 Yarn Worker Relationship Specialty Start Date End Date Daniel Singh MD [address] [place], [place] [address] PCP - General Internal Medicine 04/09/24 Enio Kirby MD Primary Staff Physician Cardiology 11/24/18 Lauren Horner MD [address] [place] [address] Physician Radiation Oncology 02/27/21 Prosper Epstein MD [address] [place] [address] Ophthalmology 11/27/23 Yarn Worker Relationship Specialty Start Date End Date Daniel Singh MD [address] [place] [address] PCP - General Internal Medicine 04/09/24 Enio Kirby MD Primary Staff Physician Cardiology 11/24/18 Lauren Horner MD [address] [place] [address] Physician Radiation Oncology 02/27/21 Prosper Epstein MD [address] [facility] [place] [address] Ophthalmology 11/27/23 Wen Bhat, FELLED SEAM OPERATOR CHAINSTITCH.PLATE MILL MILL HAND [address] [facility] [place] [address] Final Cigar And Box Examiner Internal Medicine 08/16/24 Yarn Worker Relationship Specialty Start Date End Date Daniel Singh MD [address] [place] [address] PCP - General Internal Medicine 04/09/24 Enio Kirby MD Primary Staff Physician Cardiology 11/24/18 Lauren Horner MD [address] [place] [address] Physician Radiation Oncology 02/27/21 Prosper Epstein MD [address] [place] [address] Ophthalmology 11/27/23 Wen Bhat, FELLED SEAM OPERATOR CHAINSTITCH.PLATE MILL MILL HAND [address] [place] [address] Final Cigar And Box Examiner Internal Medicine 08/16/24 Yarn Worker Relationship Specialty Start Date End Date Daniel Singh MD [address] [place] [address] PCP - General Internal Medicine 04/09/24 Enio Kirby MD Primary Staff Physician Cardiology 11/24/18 Lauren Horner MD [address] [place] [address] Physician Radiation Oncology 02/27/21 Prosper Epstein MD [address] [facility] [place] [address] Ophthalmology 11/27/23 Wen Bhat, FELLED SEAM OPERATOR CHAINSTITCH.PLATE MILL MILL HAND [address] [facility] [place] [address] Final Cigar And Box Examiner Internal Medicine 08/16/24 Yarn Worker Relationship Specialty Start Date End Date Daniel Singh MD [address] [facility] [place] [address] PCP - General Internal Medicine 04/09/24 Enio Kirby MD Primary Staff Physician Cardiology 11/24/18 Lauren Horner MD [address] [place] [address] Physician Radiation Oncology 02/27/21 Prosper Epstein MD [address] [facility] [place] [address] Ophthalmology 11/27/23 Wen Bhat, FELLED SEAM OPERATOR CHAINSTITCH.PLATE MILL MILL HAND [address] [facility] [place] [address] Final Cigar And Box Examiner Internal Medicine 08/16/24 Yarn Worker Relationship Specialty Start Date End Date Daniel Singh MD [address] [facility] [place] [address] PCP - General Internal Medicine 04/09/24 Enio Kirby MD Primary Staff Physician Cardiology 11/24/18 Lauren Horner MD [address] [place] [address] Physician Radiation Oncology 02/27/21 Prosper Epstein MD [address] [facility] [place] [address] Ophthalmology 11/27/23 Wen Bhat, FELLED SEAM OPERATOR CHAINSTITCH.PLATE MILL MILL HAND [address] [place] [address] Final Cigar And Box Examiner Internal Medicine 08/16/24 Yarn Worker Relationship Specialty Start Date End Date Daniel Singh MD [address] [place] [address] PCP - General Internal Medicine 04/09/24 Enio Kirby MD Primary Staff Physician Cardiology 11/24/18 Lauren Horner MD [address] [place] [address] Physician Radiation Oncology 02/27/21 Prosper Epstein MD [address] [address] Ophthalmology 11/27/23 Wen Bhat, FELLED SEAM OPERATOR CHAINSTITCH.PLATE MILL MILL HAND [address] [facility] [place] [address] Final Cigar And Box Examiner Internal Medicine 08/16/24 Yarn Worker Relationship Specialty Start Date End Date Daniel Singh MD [address] [place] [address] PCP - General Internal Medicine 04/09/24 Enio Kirby MD Primary Staff Physician Cardiology 11/24/18 Lauren Horner MD [address] [place] [address] Physician Radiation Oncology 02/27/21 Prosper Epstein MD [address] [place] [address] Ophthalmology 11/27/23 Wen Bhat, FELLED SEAM OPERATOR CHAINSTITCH.PLATE MILL MILL HAND [address] [facility] [place] [address] Final Cigar And Box Examiner Internal Medicine 08/16/24 Yarn Worker Relationship Specialty Start Date End Date Daniel Singh MD [address] [place] [address] PCP - General Internal Medicine 04/09/24 Enio Kirby MD Primary Staff Physician Cardiology 11/24/18 Lauren Horner MD [address] [place] [address] Physician Radiation Oncology 02/27/21 Prosper Epstein MD [address] [facility] [place] [address] Ophthalmology 11/27/23 Wen Bhat, FELLED SEAM OPERATOR CHAINSTITCH.PLATE MILL MILL HAND [address] [place] [address] Final Cigar And Box Examiner Internal Medicine 08/16/24 Yarn Worker Relationship Specialty Start Date End Date Daniel Singh MD [address] [facility] [place] [address] PCP - General Internal Medicine 04/09/24 Enio Kirby MD Primary Staff Physician Cardiology 11/24/18 Lauren Horner MD [address] [place] [place] [address] Physician Radiation Oncology 02/27/21 Prosper Epstein MD [address] [place] [address] Ophthalmology 11/27/23 Wen Bhat, FELLED SEAM OPERATOR CHAINSTITCH.PLATE MILL MILL HAND [address] [place] [address] Final Cigar And Box Examiner Internal Medicine 08/16/24 Yarn Worker Relationship Specialty Start Date End Date Daniel Singh MD [address] [place] [address] PCP - General Internal Medicine 04/09/24 Enio Kirby MD Primary Staff Physician Cardiology 11/24/18 Lauren Horner MD [address] [place] [address] Physician Radiation Oncology 02/27/21 Prosper Epstein MD [address] [facility] [place] [address] Ophthalmology 11/27/23 Wen Bhat, FELLED SEAM OPERATOR CHAINSTITCH.PLATE MILL MILL HAND [address] [place] [address] Final Cigar And Box Examiner Internal Medicine 08/16/24 Yarn Worker Relationship Specialty Start Date End Date Daniel Singh MD [address] [place] [address] PCP - General Internal Medicine 04/09/24 Enio Kirby MD Primary Staff Physician Cardiology 11/24/18 Lauren Horner MD [address] [place] [address] Physician Radiation Oncology 02/27/21 Prosper Epstein MD [address] [facility] [place] [address] Ophthalmology 11/27/23 Wen Bhat, FELLED SEAM OPERATOR CHAINSTITCH.PLATE MILL MILL HAND [address] [place] [address] Final Cigar And Box Examiner Internal Medicine 08/16/24 Yarn Worker Relationship Specialty Start Date End Date Daniel Singh MD [address] [place] [address] PCP - General Internal Medicine 04/09/24 Enio Kirby MD Primary Staff Physician Cardiology 11/24/18 Lauren Horner MD [address] [place] [facility] [place] [address] Physician Radiation Oncology 02/27/21 Prosper Epstein MD [address] [address] Ophthalmology 11/27/23 Wen Bhat, FELLED SEAM OPERATOR CHAINSTITCH.PLATE MILL MILL HAND [address] [place] [address] Final Cigar And Box Examiner Internal Medicine 08/16/24 Yarn Worker Relationship Specialty Start Date End Date Daniel Singh MD [address] [place] [address] PCP - General Internal Medicine 04/09/24 Enio Kirby MD Primary Staff Physician Cardiology 11/24/18 Lauren Horner MD [address] [facility] [place] [address] Physician Radiation Oncology 02/27/21 Prosper Epstein MD [address] [address] Ophthalmology 11/27/23 Wen Bhat, FELLED SEAM OPERATOR CHAINSTITCH.PLATE MILL MILL HAND [address] [place] [address] Final Cigar And Box Examiner Internal Medicine 08/16/24 Yarn Worker Relationship Specialty Start Date End Date Daniel Singh MD [address] [place] [address] PCP - General Internal Medicine 04/09/24 Enio Kirby MD Primary Staff Physician Cardiology 11/24/18 Lauren Horner MD [address] [place] [address] Physician Radiation Oncology 02/27/21 Prosper Epstein MD [address] [place] [address] Ophthalmology 11/27/23 Wen Bhat, FELLED SEAM OPERATOR CHAINSTITCH.PLATE MILL MILL HAND [address] [facility] [place] [address] [facility] Internal Medicine 08/16/24 Yarn Worker Relationship Specialty Start Date End Date Daniel Singh MD [address] [facility] [place] [address] PCP - General Internal Medicine 04/09/24 Enio Kirby MD Primary Staff Physician Cardiology 11/24/18 Lauren Horner MD [address] [place] [address] Physician Radiation Oncology 02/27/21 Prosper Epstein MD [address] [place] [address] Ophthalmology 11/27/23 Wen Bhat, FELLED SEAM OPERATOR CHAINSTITCH.PLATE MILL MILL HAND [address] [place], [place] [address] [facility] Internal Medicine 08/16/24 Yarn Worker Relationship Specialty Start Date End Date Daniel Singh MD [address] [place], [place] [address] PCP - General Internal Medicine 04/09/24 Enio Kirby MD Primary Staff Physician Cardiology 11/24/18 Lauren Horner MD [address] [place], [place] [address] Physician Radiation Oncology 02/27/21 Prosper Epstein MD [address] [place], [place] [address] Ophthalmology 11/27/23 Wen Bhat, FELLED SEAM OPERATOR CHAINSTITCH.PLATE MILL MILL HAND [address] [place], [place] [address] [facility] Internal Medicine 08/16/24 INFORMATION SOURCE (unrecogn ized section and content) DATE CREATED AUTHOR 04/01/2025 [facility] DATE CREATED AUTHOR AUTHOR'S ORGANIZ ATION 04/21/2025 [facility] FOR RECORDS PERTAINING TO PATIENTS WHO ARE OR HAVE BEEN ENROLLED IN A CHEMICAL DEPENDENCY/SUBSTANCEABUSE PROGRAM, SOME INFORMATION MAY BE OMITTED. This clinical summary was aggregated from multiple sources. Caution should be exercised in using it in the provision of clinical care. This summary normalizes information from multiple sources, and as a consequence, information in this document may materially change the coding, format and clinical context of patient data. In addition, data may be omitted in some cases. CLINICAL DECISIONS SHOULD BE BASED ON THE PRIMARY CLINICAL RECORDS. [facility] [employer] [facility]. provides no warranty or guarantee of the accuracy or completeness of information in this document.
[2025-04-29] MEDS: Lactated Ringers 1,000 ML 15 ML IV (07:28)
--- NOTE | 2025-04-29 07:55 | PRE.ANES_ITS ---
ASA Classification* ASA Classification ASA Classification: 3 Assessment & Plan Anesthesia* Anesthesia Assessment Anesthesia Assessment: Discussed sedation and/or anesthesia options, risks, benefits, and alternatives with patient/parents/legal guardian/POA. Questions invited. The patient/parents/legal guardian/POA seems to understand and agrees to proceed with anesthesia plan. Reviewed the physical assessment, medical history, allergy history and patient home medications list prior to surgery/procedure/anesthetic and documented any changes. Performed airway and anesthesia risk assessments. Anesthesia Type Anesthesia Type: MAC History Source History Obtained from:: Patient and Chart Anesthesia Focused Assessment* Temperature: 98.6 F Pulse Rate: 58 Blood Pressure: 118/48 Respiratory Rate: 18 Pulse Ox: 98 Oxygen Delivery Method: Room Air Airway Assessment Mouth opens: >3 cm Mallampati Score: I Teeth Condition: Caps/Crowns (Patient has multiple veneers on the front incisor and crowns on molars. They are all tight.) Neck Range of motion (ROM): Full ROM Labs Anesthesia Preop lab: CBC WBC 6.3 K/mm3 (4.4-11.0) 04/12/25 10:18 04/12/25 RBC 4.22 M/mm3 (4.2-5.4) 04/12/25 10:18 04/12/25 Hgb 13.1 g/dL (12.0-15.0) 04/12/25 10:18 04/12/25 Hct 40.9 % (37-47) 04/12/25 10:18 04/12/25 Plt Count 196 K/mm3 (150-450) 04/12/25 10:18 04/12/25 CHEMISTRY Potassium 4.4 mmol/L (3.3-5.1) 04/12/25 10:18 04/12/25 Sodium 141 mmol/L (133-145) 04/12/25 10:18 04/12/25 Magnesium 1.7 mg/dL (1.8-2.4) L 05/07/13 05:25 05/07/13 BUN 19 mg/dL (4-19) 04/12/25 10:18 04/12/25 Creatinine 0.93 mg/dL (0.70-1.20) 04/12/25 10:18 04/12/25 Glucose 98 mg/dL (70-99) 04/12/25 10:18 04/12/25 COAG Pre-Assessment Diagnosis/Proposed Procedure Planned Operative Procedure(s): EXAM UNDER ANESTHESIA, HYSTEROSCOPY DILATION CURETTAGE AND POLYP RESECTION Anesthesia History Anesthesia History - certified shorthand reporter: Anesthesia History - certified shorthand reporter Hx Hospitalization No 04/11/25 15:15 Any Problems With Anesthesia No 04/11/25 15:15 Cholinesterase deficiency No 04/11/25 15:15 You/Your Family Experience No 04/11/25 15:15 fever (hyperthermia) with Relationship Recent Exposure to Contagious No 04/29/25 07:25 Disease Does patient have nerve No 04/11/25 15:15 stimulator Patient instructed to have device shut off --Does patient have Pacemaker No 04/29/25 07:25 or ICD? When Was Last Pacemaker Check QUESTION #4 FULL TEXT: You/Your Family Experience fever (hyperthermia) with Anesthesia Last Oral Intake Last Oral intake: Last Oral Intake NPO since 19:00 04/29/25 07:25 Meds taken in AM with sips of No 04/29/25 07:25 water? Meds patient instructed to take am of surgery PONV PONV - certified shorthand reporter: PONV - certified shorthand reporter Female Yes 04/11/25 15:15 HX of Motion Sickness Yes 04/11/25 15:15 HX of N/V After Surgery No 04/11/25 15:15 Non-Smoker Yes 04/11/25 15:15 Duration of Surgery greater No 04/11/25 15:15 than 60 minutes Number of Risk Factors 3 04/11/25 15:15 PONV Score Moderate Risk 04/11/25 15:15 Height & Weight Height & Weight: Anesthesia: Height & Weight Height 5 ft 8 in 04/29/25 07:25 Weight: 78 kg 04/29/25 07:25 Body Mass Index (BMI) 26.1 04/29/25 07:25 Respiratory Assessment Respiratory Assessment - certified shorthand reporter: Respiratory Tract Infection Hx - certified shorthand reporter Hx Respiratory Tract Infection No 04/11/25 15:15 STOP Sleep Apnea STOP Sleep Apnea - certified shorthand reporter: STOP Sleep Apnea - certified shorthand reporter Hx Hypertension Yes: CONTROLLED WITH MEDS 04/11/25 15:15 Hx Sleep Apnea No 04/11/25 15:15 CPAP BIPAP Do you snore loudly (louder No 04/11/25 15:15 than talking or can be heard Do you often feel tired/ No 04/11/25 15:15 fatigued/ sleepy during daytime? Has anyone observed you stop No 04/11/25 15:15 breathing during sleep? STOP Results Negative 04/11/25 15:15 QUESTION #5 FULL TEXT : Do you snore loudly (louder than talking or can be heard through closed doors)? 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 Specify any problems Hx of Preganancy in last 3 No 04/11/25 15:15 Months Nurse Filling Out Transfusion [id number] 04/11/25 15:15 & Questions: Date: 04/11/25 04/11/25 15:15 Time: 15:19 04/11/25 15:15 Patient unable to answer at this time (ie. confused, unrespo /Reproduction History /Reproductive History - certified shorthand reporter: /Reproductive Hx- certified shorthand reporter Hx Now Gestational Age (in weeks): EDC: Hx Hx Para Hx Section SAB No 02/06/21 11:43 Active Medications Active Medications: Current Medications Generic Name Dose Route Start Last Admin Trade Name Freq PRN Reason Stop Dose Admin Acetaminophen 1,000 mg 04/29/25 08:30 04/29/25 07:23 Acetaminophen 500 Mg Tablet PO 04/29/25 08:31 1,000 mg PREOP ONE Administration Lactated Ringer's 1,000 mls @ 15 mls/hr 04/29/25 07:15 04/29/25 07:28 IV 15 mls/hr .Q48H HERNAN Administration PFSH Medical History Wears glasses Restless legs Migraine headache Gastric reflux Former smoker Shortness of breath on exertion Leg cramps History of edema Cardiology follow-up encounter Hx of echocardiogram History of stress test History of heart attack Home Medications ?Medication ?Instructions ?Recorded ?Last Taken ?Type amlodipine 5 mg tablet 5 mg PO DAILY 02/06/2102/08 History aspirin 81 mg tablet,delayed 81 mg PO DAILY 02/06/21 0 04/28/25 History release atorvastatin 80 mg tablet 80 mg PO DAILY 02/06/21 Unkn own History biotin 1 mg capsule 1 mg PO DAILY 02/06/21 Unkno wn History clopidogrel 75 mg tablet (Plavix) 75 mg PO DAILY 02/0604/28/25 History famotidine 20 mg tablet (Pepcid) 20 mg PO PRN PRN gerd 02/06/21 02/08/21 History isosorbide mononitrate 30 mg 30 mg PO DAILY 02/06/21 0 02/08/21 History tablet,extended release 24 hr metoprolol tartrate 100 mg tablet 100 mg PO DAILY 09/2802/08/21 History lisinopril 10 mg tablet 10 mg PO DAILY 04/11/25 Unkn own History nitroglycerin 0.4 mg sublingual 0.4 mg sublingual Q5M PRN chest 04/11/25 Unknown History tablet pain Allergy/AdvReac Type Severity Reaction Status Date / Time No Known Allergies Allergy Verified 04/29/25 07:21 Surgical History History of cardiac catheterization Hx of colonoscopy Hx of exploratory laparotomy Hx laparoscopic cholecystectomy Hx of tonsillectomy History of nephrectomy Social History Smoking Status: Former smoker Review of Systems (Anesthesia) ROS Narrative System reviewed and no additional complaints, except as documented.
--- NOTE | 2025-04-29 08:13 | DCINST_ITS ---
Discharge Instructions DC O2, CPAP, BIPAP needs Home O2 Discharge instructions: No Dressing / Incision Discharge Activity: May Drive (on 04/30/25) May shower in (days): 1 May resume sexual activity in: 1 week Lifting Restrictions: none Additional Activity Instructions:: Nothing in your vagina for 1 week Dressing / Incision Call your doctor if your incision/area has: Sudden Increased Bleeding and Foul Smelling Discharge Call your doctor if you observe: Fever of 101 or Higher and Using more than 1 pad per hour (for 2 hrs in a row) Follow Up Care Please Follow Up With: Carrie Lockhart MD When: 2-4 weeks or as needed. Call [phone] to make an appointment or with any concerns. Test Results: Test results from this visit will be discussed in further detail at your follow- up appointment, if applicable. Discharge Plan Admission Primary Reason for Your Visit: Hysteroscopy D&C with fibroid resection Attending Provider: Carrie Lockhart Primary Care Provider: Wen Freed NP Instructions Print Language: Cook Islander Discharge Orders/Prescriptions Prescriptions: No Action atorvastatin 80 mg tablet 80 mg PO DAILY metoprolol tartrate 100 mg Tablet 100 mg PO DAILY isosorbide mononitrate 30 mg Tablet Extended Release 24 Hr 30 mg PO DAILY clopidogrel [Plavix] 75 mg Tablet 75 mg PO DAILY amlodipine 5 mg tablet 5 mg PO DAILY aspirin 81 mg Tablet,Delayed Release (Dr/Ec) 81 mg PO DAILY biotin 1 mg Capsule 1 mg PO DAILY famotidine [Pepcid] 20 mg Tablet 20 mg PO PRN PRN (Reason: gerd) lisinopril 10 mg tablet 10 mg PO DAILY nitroglycerin 0.4 mg tablet, sublingual 0.4 mg sublingual Q5M PRN (Reason: chest pain) Referrals / Follow Up: Wen Freed ACOUSTICAL MATERIAL WORKER, ACOUSTICAL MATERIAL WORKER-C [Primary Care Provider] - Disposition Disposition (needs filled in before D/C Order can be placed): Home, Self Care
[2025-04-29] MEDS: PROPOFOL 25.38 MG IV (08:29)
--- NOTE | 2025-04-29 08:30 | EMB_PTH ---
PATIENT: MARGUERITE KELLY LOC: [facility] U#:[id number] AGE/SX: 69/F ROOM: RE04/29/[address]: Dr. Carrie Lockhart MD : [id number] BED: DIS: 04/29/2025 SPEC #: [id number] RECD: 04/29/25 09:22 STATUS: ZAIN NOBLE #: [id number] EREN: 04/29/25 08:[address]: Carrie Lockhart DEPT: SURGICAL PATHOLOGY RECD BY: Mauricio Max ENTERED: 04/29/25 09:56 SP TYPE: ENDOM BX/C CHUCK DR: Wen Freed, [place] Tissues: A - Endometrium, NOS Procedures: Surgery Specimen Level IV HEADER OPERATION: Hysteroscopy, D&C, myomectomy PRE-OP DIAGNOSIS: Post menopausal bleeding, endometrial thickening on ultrasound, history of tamoxifen therapy, DCIS TISSUE SUBMITTED: A- Endometrial curettings and fibroid MICROSCOPIC DIAGNOSIS A. Endometrium, curettage/myomectomy: - Fragments of endometrial polyp - see Comment. - No myometrium observed in these sections. COMMENT Selected slides/images were reviewed in intradepartmental consultation by Dr Dario Rolon ([facility] pathology division, [facility]). MICROSCOPIC DESCRIPTION Slides are reviewed. GROSS DESCRIPTION A. Received in formalin labeled with the patient's name and date of . Designated as endometrial curettings and fibroid is a 4.2 x 3.6 x 0.6 cm aggregate of oconnell-pink to red, irregular tissue fragments. Entirely submitted in 5 cassettes. [place] 04/29/2025 CPT:69540
[2025-04-29] MEDS: Lidocaine 1% (5 ml sdv) 5 ML Vial IV (08:31)
[2025-04-29] MEDS: Lidocaine 1% /Epi 1:100 (20ml) 20 ML Vial (08:48)
--- NOTE | 2025-04-29 09:03 | OP.PCM_ITS ---
Problems Associated Problem List Diagnoses (1) Endometrial thickening on ultrasound: (2) PMB (postmenopausal bleeding): Operative Report (Standard) Operative Information Date of Procedure: 04/29/25 Pre-Operative Diagnosis: PMB, thickened endometrium on pelvic ultrasound Post-Operative Diagnosis: same + uterine fibroid and endometrial polyp Surgery/Procedure Performed: hysteroscopy D&C with fibroid resection tool crib supervisor: Yes General Superintendent: Iftikhar Joel MS3 Tasks completed by assistant plant controller: Retracting Additional department assistant?: No Type of Anesthesia: Local MAC RN Documented Start/Stop Times: Operation Date: 04/29/25 08:30 Case Time Into Pre-Op 04/29/25 07:00 Out of Pre-Op 04/29/25 08:21 Anesthesia Start 04/29/25 08:24 Into Room 04/29/25 08:24 Procedure Start 04/29/25 08:40 Procedure Start Time: 08:40 Procedure Stop Time: 09:01 Select all DRAINS/GRAFTS/IMPLANTS that apply: None Estimated Blood Loss: 10 Fluids Replaced: 700 cc LR Specimen collected: Yes Description of specimen(s) removed: endometrial curettings and intracavitary uterine fibroid Description of surgery: The patient was taken to the OR where she was prepped and draped in dorsal lithotomy position. The weighted speculum was placed in the vagina and the anterior lip of the cervix was grasped with a single-tooth tenaculum. A paracervical block was administered with 1% lidocaine with 1-100,000 epinephrine solution. The cervix was dilated serially with Hegar dilators. The Symphion hysteroscope was placed into the uterine cavity and the above findings were noted. Bilateral tubal ostia were identified. The Symphion resection device was readied and inserted. The polypoid appearing lesion and then the fundal submucosal fibroid were removed. A visual D&C was done of the endometrial cavity. No other focal abnormalities were noted. The instruments were removed from the vagina. The specimen was handed off and sent to pathology. All sponge and needle counts were correct. Vaginal sweep was performed by me. The patient was awakened and taken to the recovery room in stable condition. Calculated hysteroscopic fluid deficit was 700 cc of normal saline Surgical Findings: thin endometrium, large polyp and submucosal fibroid in endometrial cavity. Normal tubal ostia, normal cervix and vagina Complications Complications: No
--- NOTE | 2025-04-29 09:12 | PCM.POST.ANE ---
Anesthesia: Postop Eval I Current Vital Signs Temperature: 97.1 F Pulse Rate: 67 Blood Pressure: 96/50 Respiratory Rate: 16 Pulse Ox: 98 Assessment Airway patent: Yes Spontaneous unlabored respirations: Yes nausea: No Vomiting: No Anesthesia Complication: No Fluid Hydration Crystalloid volume administer (ml): 800 Total IV fluid infused: 800 Progress Note Anesthesia document: Postop Eval 1 completed: Yes
--- NOTE | 2025-04-29 16:11 | POSTOPAN2_ITS ---
Anesthesia Postop Eval I Sum Postop Eval Completion status Anesthesia document: Postop Eval 1 completed: Yes Anesthesia Postop Eval I Summary Anesthesia Postop Eval I Summary: Anesthesia Postop Eval I: Assessment Summary Airway patent Yes 04/29/25 09:13 TRANSPLANT COORDINATOR.CSIR Spontaneous unlabored Yes 04/29/25 09:13 TRANSPLANT COORDINATOR.CSIR respirations Mental status nausea No 04/29/25 09:13 TRANSPLANT COORDINATOR.CSIR Vomiting No 04/29/25 09:13 TRANSPLANT COORDINATOR.CSIR Anesthesia Postop Eval I: Fluid Summary Crystalloid volume administer 800 04/29/25 09:13 TRANSPLANT COORDINATOR.CSIR (ml) Colloids volume administered ( ml) Blood Product volume administered (ml) Total IV fluid infused 800 04/29/25 09:13 TRANSPLANT COORDINATOR.CSIR Anesthesia Postop Eval I: Summary Notes Anesthesia Complication No 04/29/25 09:13 TRANSPLANT COORDINATOR.CSIR Anesthesia Complication Comment: Post-operative progress note Anesthesia: Postop Eval II Evaluation Mental status: Awake and Calm Pain Level: 2 nausea: No Vomiting: No Complications Anesthesia Complication: No
--- NOTE | 2025-04-29 16:11 | PCM.POSTANE2 ---
Anesthesia Postop Eval I Sum Postop Eval Completion status Anesthesia document: Postop Eval 1 completed: Yes Anesthesia Postop Eval I Summary Anesthesia Postop Eval I Summary: Anesthesia Postop Eval I: Assessment Summary Airway patent Yes 04/29/25 09:13 TECHNOLOGY RESOURCE TEACHER.CSIR Spontaneous unlabored Yes 04/29/25 09:13 TECHNOLOGY RESOURCE TEACHER.CSIR respirations Mental status nausea No 04/29/25 09:13 TECHNOLOGY RESOURCE TEACHER.CSIR Vomiting No 04/29/25 09:13 TECHNOLOGY RESOURCE TEACHER.CSIR Anesthesia Postop Eval I: Fluid Summary Crystalloid volume administer 800 04/29/25 09:13 TECHNOLOGY RESOURCE TEACHER.CSIR (ml) Colloids volume administered ( ml) Blood Product volume administered (ml) Total IV fluid infused 800 04/29/25 09:13 TECHNOLOGY RESOURCE TEACHER.CSIR Anesthesia Postop Eval I: Summary Notes Anesthesia Complication No 04/29/25 09:13 TECHNOLOGY RESOURCE TEACHER.CSIR Anesthesia Complication Comment: Post-operative progress note Anesthesia: Postop Eval II Evaluation Mental status: Awake and Calm Pain Level: 2 nausea: No Vomiting: No Complications Anesthesia Complication: No
== END 2025-04-29 10:01 | disposition home or self-care (01) ==
LOC: SDC 06:58 → AC 06:58
PROVIDERS: PCP Nurse Practitioner; Referring Provider Obstetrics & Gynecology; Visit Provider Obstetrics & Gynecology
PROC: 0UB98ZZ Excision of Uterus, Via Natural or Artificial Opening Endoscopic (ICD-10-PCS; CPT 58558; principal; 2025-04-29 08:15)
DX: N84.0 Polyp of corpus uteri (principal); N95.0 Postmenopausal bleeding; D25.0 Submucous leiomyoma of uterus; I10 Essential (primary) hypertension; K21.9 Gastro-esophageal reflux disease without esophagitis; I25.2 Old myocardial infarction; Z90.49 Acquired absence of other specified parts of digestive tract; Z79.82 Long term (current) use of aspirin; Z79.02 Long term (current) use of antithrombotics/antiplatelets; Z79.899 Other long term (current) drug therapy; Z87.891 Personal history of nicotine dependence
CPT/HCPCS: 58558; 36415; 80048; 85027; 88305; J2405